=== PATIENT | male | born 1955 | race Caucasian/White ===

== ENCOUNTER 2021-07-17 12:10 | Inpatient (IN) | payer OTHER, SELFPAY ==
[2021-07-17] VITALS (18 sets, daily range): BP systolic 129–163; BP diastolic 73–93; PULSE 69–96; RESP 14–31; TEMP 36.7–38.6; O2SAT 88–98; BMI 31.1
--- NOTE | ~2021-07-17 | XR_ITS ---
XR chest 1V portable DATE: 07/24/2021 08:58 INDICATION: Oxygen desaturation. Covid pneumonia. TECHNIQUE: Portable AP chest on 07/24/2021 at 0847 hours COMPARISON: 07/22/2021 portable AP chest at 0947 hours FINDINGS: There are extensive patchy bilateral pulmonary infiltrates involving particularly the mid a nd to a greater extent lower lung zones, with air bronchograms noted in particular in the left retroc ardiac area, left lower lobe. No pleural effusion or pneumothorax is evident. Heart size is not optimally evaluated but likely enlarged. Diffuse osteopenia. Degenerative change of the thoracic spine. IMPRESSION: Patchy bilateral pulmonary infiltrates, consistent with pneumonia, increased in severity since 07/22/2021 Reviewed, dictated and finalized at location A.
--- NOTE | ~2021-07-17 | XR_ITS ---
EXAMINATION: XR chest 1V portable INDICATION: COVID pneumonia TECHNIQUE: Portable AP chest at 0506 hours COMPARISON: 08/02/2021 FINDINGS: A right upper extremity PICC ends with its tip at the superior cavoatrial junction. Patchy bilateral opacities persist in all lung zones without significant change. A small right pleural effus ion has decreased in size. There is no pneumothorax. The cardiomediastinal silhouette is stable. IMPRESSION: 1. Stable diffuse lung disease, consistent with pneumonia and/or pulmonary edema and/or acute respira tory distress syndrome (ARDS). Reviewed, dictated and finalized at location A. IMPRESSION: 1. Stable diffuse lung disease, consistent with pneumonia and/or pulmonary lolly a and/or acute respiratory distress syndrome (ARDS).
--- NOTE | ~2021-07-17 | CT_ITS ---
EXAMINATION: CTA chest PE protocol DATE: 08/12/2021 13:33 INDICATION: Shortness of breath. TECHNIQUE: Computed tomography angiography (CTA) of the chest was performed with 100 mL Omnipaque-350 intravenous contrast timed to evaluate the pulmonary arteries. Coronal maximum intensity projection 3D-reconstructions were created by the technologist. Automated exposure control and iterative reconst ruction technique were employed. The dose-length product was 591.60 mGy-cm. COMPARISON: Chest CT 08/10/2021 FINDINGS: There are groundglass opacities, airspace opacities, and septal thickening in all lobes wit h a peripheral and lower lobe predominance. There are small pleural effusions. Cardiomegaly is noted. There are coronary artery calcifications. There is a small pericardial effusion. A right upper extre mity peripherally inserted central venous catheter (PICC) is seen with tip in the superior vena cava. There is no pulmonary embolus. There is mild mediastinal lymphadenopathy. There are bridging endplat e osteophytes at multiple levels in the spine, consistent with diffuse idiopathic skeletal hyperostos is (DISH). IMPRESSION: 1. No pulmonary embolus. 2. Stable diffuse lung disease, consistent with pneumonia versus acute respiratory distress syndrome (ARDS). 3. Small pleural effusions. 4. Cardiomegaly. 5. Stable small pericardial effusion. 6. Mild mediastinal lymphadenopathy, likely reactive. Reviewed, dictated and finalized at location A. IMPRESSION: 1. No pulmonary embolus. 2. Stable diffuse lung disease, consistent with pneumonia versus acute respirat ory distress syndrome (ARDS). 3. Small pleural effusions. 4. Cardiomegaly. 5. Stable small pericardial effusion. 6. Mild mediastinal lymphadenopathy, likely reactive.
--- NOTE | ~2021-07-17 | XR_ITS ---
XR chest 1V portable 07/17/2021 12:43 Indication: Shortness of breath with cough. Covid positive. Procedure: AP portable chest Comparison: No prior studies for comparison. Findings: Patchy bilateral airspace disease, compatible with pneumonia. No pleural effusion. No pneum othorax. No acute osseous abnormality. Impression: 1: Patchy bilateral pneumonia. Reviewed, dictated and finalized at location A. Impression: 1: Patchy bilateral pneumonia.
--- NOTE | ~2021-07-17 | XR_ITS ---
EXAMINATION: XR chest 1V portable EXAM DATE: 07/28/2021 05:34 INDICATION: COVID pneumonia. TECHNIQUE: Portable AP frontal chest x-ray was obtained. Comparison is made to prior examination from 07/27/2021. FINDINGS: Right upper extremity peripherally inserted central venous catheter (PICC) tip at the superior cavoa trial junction. No significant change in patchy airspace opacities throughout both lungs. No pleural effusion or pneumothorax. The cardiomediastinal silhouette is prominent but magnified on this AP tech nique. There are mild bony degenerative changes. IMPRESSION: 1. Right PICC line tip at the superior cavoatrial junction. 2. Unchanged diffuse airspace disease consistent with COVID pneumonia. Reviewed, dictated and finalized at location A.
--- NOTE | ~2021-07-17 | XR_ITS ---
EXAMINATION: XR chest 1V portable DATE: 07/26/2021 08:44 INDICATION: COVID pneumonia TECHNIQUE: frontal view of the chest was obtained. COMPARISON: Chest radiograph dated 07/24/2021 FINDINGS: No significant interval change accounting for mildly decreased lung volumes in the lower lung predomi nant diffuse bilateral patchy airspace opacities consistent with COVID pneumonia. No pleural effusion or pneumothorax. The cardiomediastinal silhouette is normal. IMPRESSION: 1. Mildly decreased lung volumes with otherwise unchanged patchy bilateral opacities consistent with COVID pneumonia Reviewed, dictated and finalized at location A. IMPRESSION: 1. Mildly decreased lung volumes with otherwise unchanged patchy bilateral opac ities consistent with COVID pneumonia
--- NOTE | ~2021-07-17 | XR_ITS ---
EXAMINATION: XR chest 1V portable DATE: 07/22/2021 10:22 INDICATION: Pneumonia TECHNIQUE: frontal view of the chest was obtained. COMPARISON: Chest radiograph dated 07/17/2021 FINDINGS: No significant interval change in patchy airspace opacities in the bilateral mid and lower lung zones . Opacity at the right upper lung zone appears to correspond to hypertrophic change at the anterior r ight first rib. No pleural effusion or pneumothorax. The cardiomediastinal silhouette is normal. IMPRESSION: 1. No significant change in patchy airspace opacities in the bilateral mid and lower lung zones consi stent with pneumonia. Reviewed, dictated and finalized at location A. IMPRESSION: 1. No significant change in patchy airspace opacities in the bilateral mid and lower lung zones consistent with pneumonia.
--- NOTE | ~2021-07-17 | XR_ITS ---
EXAMINATION: XR chest 1V portable DATE: 08/02/2021 05:55 INDICATION: COVID-19 pneumonia. TECHNIQUE: A single frontal view of the chest was obtained. COMPARISON: Chest single view 07/30/2021 FINDINGS: There are airspace and interstitial opacities throughout the lungs bilaterally. There is a small right pleural effusion. No pneumothorax. The heart size is normal. A right upper extremity clarisa pherally inserted central venous catheter (PICC) is seen with tip at superior cavoatrial junction. IMPRESSION: 1. Stable diffuse lung disease, consistent with pneumonia. 2. Stable small right pleural effusion. Reviewed, dictated and finalized at location A.
--- NOTE | ~2021-07-17 | XR_ITS ---
EXAMINATION: XR chest PICC line DATE: 07/27/2021 12:27 INDICATION: PICC line placement TECHNIQUE: frontal view of the chest was obtained. COMPARISON: Chest radiograph dated 07/26/2021 FINDINGS: Right upper extremity peripherally inserted central venous catheter (PICC) tip at the superior cavoa trial junction. No significant change in patchy airspace opacities throughout both lungs. No pleural effusion or pneumothorax. The cardiomediastinal silhouette is normal. IMPRESSION: 1. Right PICC line tip at the superior cavoatrial junction. 2. Unchanged patchy bilateral lung disease consistent with COVID pneumonia. Reviewed, dictated and finalized at location A.
--- NOTE | ~2021-07-17 | XR_ITS ---
EXAMINATION: XR chest 1V portable EXAM DATE: 08/14/2021 05:48 INDICATION: COVID PNA. TECHNIQUE: Portable AP frontal chest x-ray was obtained. Comparison is made to prior examination from 08/12/2021. FINDINGS: Diffuse bilateral airspace disease consistent with COVID pneumonia. Cardiomegaly and pulmon ramu vascular congestion. Right-sided PICC line in position. No pneumothorax or sizable pleural effusi on. There are bony degenerative changes. IMPRESSION: 1. Diffuse COVID pneumonia unchanged. Reviewed, dictated and finalized at location A.
--- NOTE | ~2021-07-17 | XR_ITS ---
EXAMINATION: XR chest 2V EXAM DATE: 08/17/2021 09:30 INDICATION: COVID pneumonia, weakness. Shortness of breath. TECHNIQUE: Frontal and lateral projections of the chest obtained and reviewed. Comparison is made to prior examination from 08/14/2021. FINDINGS: Diffuse bilateral airspace disease consistent with subacute COVID pneumonia. Overall amount of airspace disease may have improved slightly. Cardiomegaly and pulmonary vascular congestion. Righ t-sided PICC line in position. No pneumothorax or sizable pleural effusion. There are bony degenerati ve changes. IMPRESSION: 1. Diffuse subacute COVID pneumonia stable or with slight improvement. Reviewed, dictated and finalized at location A.
--- NOTE | ~2021-07-17 | XR_ITS ---
EXAMINATION: XR chest 1V portable INDICATION: Hypoxia TECHNIQUE: Portable AP chest at 1235 hours COMPARISON: 08/08/2021 FINDINGS: Cardiomegaly is noted. Diffuse airspace opacities persist throughout all lung zones with sl ight interval increase. A right upper extremity PICC ends with its tip at the superior cavoatrial philip ction. There is no pleural effusion or pneumothorax. IMPRESSION: 1. Diffuse lung disease with interval worsening, consistent with pneumonia and/or pulmonary edema and /or acute respiratory distress syndrome (ARDS). Reviewed, dictated and finalized at location A. IMPRESSION: 1. Diffuse lung disease with interval worsening, consistent with pneumonia and/ or pulmonary edema and/or acute respiratory distress syndrome (ARDS).
--- NOTE | ~2021-07-17 | CT_ITS ---
EXAMINATION: CT chest high resolution wo vt EXAM DATE: 08/10/2021 14:43 INDICATION: Post- covid, ? Organizing pneumonia vs fibrosis. TECHNIQUE: Spiral CT of the chest without contrast. HRCT. Axial, coronal and sagittal images of the chest were reviewed. Coronal maximum intensity pixel images of chest reviewed. The dose-length prod uct (DLP) for this examination was 326.77 mGy-cm. The exposure was tailored according to patient siz e (auto mA exposure control), and iterative reconstruction (ASIR) was used as additional dose reducti on technique. Correlation is made to chest x-ray 08/08/2021. FINDINGS: There is diffuse bilateral peripheral predominant airspace disease which is nearly conflue nt, appearance is consistent with subacute COVID pneumonia. This would be obscuring interlobular sept al thickening, evaluation for underlying interstitial lung disease. There is a right-sided PICC line. Cardiomegaly and small pericardial effusion. Tracheobronchial tree is patent. There is no medias tinal, hilar or axillary lymphadenopathy. There is no pneumothorax. Heart normal in size. There is moderate coronary arterial calcification, arterial sclerosis. Upper abdomen is unremarkable. P geovanni has diffuse idiopathic skeletal hyperostosis (DISH). IMPRESSION: 1. Diffuse bilateral peripheral nearly confluent airspace disease consistent with subacute COVID pne umonia. 2. Cardiomegaly, small pericardial effusion. Reviewed, dictated and finalized at location B. IMPRESSION: 1. Diffuse bilateral peripheral nearly confluent airspace disease consistent w ith subacute COVID pneumonia. 2. Cardiomegaly, small pericardial effusion.
--- NOTE | ~2021-07-17 | XR_ITS ---
XR chest 1V portable 07/30/2021 05:43 Indication: CovidPneumonia Procedure: AP portable chest Comparison: Comparison to multiple prior studies sequentially, with oldest reviewed study dated 07/15. Findings: Persistent patchy diffuse bilateral airspace disease, compatible with pneumonia. No signifi cant effusion. No pneumothorax. No acute osseous abnormality. PICC line tip in the SVC. Impression: 1: Stable diffuse bilateral airspace disease, compatible with pneumonia. Reviewed, dictated and finalized at location A. Impression: 1: Stable diffuse bilateral airspace disease, compatible with pneumonia.
--- NOTE | 2021-07-17 12:25 | ECG_ITS ---
Measurements Intervals [place] Rate: 86 P: 20 IN: 182 QRS: -33 QRSD: 97 T: 59 QT: 335 QTc: 403 Interpretive Statements SINUS RHYTHM LEFT AXIS DEVIATION BORDERLINE R WAVE PROGRESSION, ANTERIOR LEADS MINIMAL Q WAVES- HIGH LATERAL LEADS BASELINE ARTIFACT- II, III, AVR, AVF, V2-V6 BORDERLINE ECG Electronically Signed On 07-17-2021 16:36:00 CDT by Sachin Kramer D.O.
--- NOTE | 2021-07-17 12:39 | ED.SOB ---
HPI - SOB/Dyspnea General Chief Complaint: Shortness of Breath/Dyspnea Stated Complaint: covid positive/low 02 sats Time Seen by Provider: 07/17/21 12:23 Source: patient Limitations: no limitations History of Present Illness HPI Narrative: 66-year-old male with no past medical history although he has not seen a doctor in years complaining of increasing shortness of breath fever dyspnea on exertion and decreased appetite over the past 5 days since he has been diagnosed with Covid via PCR. Shortness of breath with worse with exertion and talking, patient is 84 to 86% on room air at rest. Shortness of breath slightly improved with rest. With mildly increased respirations. Speaking full sentences with some difficulty. No chest pain, no leg swelling, no unilateral calf swelling no hemoptysis. Patient arrived with fever of 101. Patient has no tobacco history, patient is finished a course of azithromycin without relief. No syncope, no paresthesias, does complain of some pleuritic chest pain with cough. MD elicited complaint: shortness of breath and cough Onset (ago): day(s) (5) Timing: constant and progressively worsening Severity: severe Exacerbating factors: exertion, coughing and stress Relieving factors: rest Known history of: other (COVID) Related Data Home Medications Medication Instructions Recorded Confirmed amoxicillin 875 mg PO Q12H 07/17/21 07/17/21 Allergies Allergy/AdvReac Type Severity Reaction Status Date / Time No Known Allergies Allergy Verified 07/17/21 12:30 Review of Systems Review of Systems: CONSTITUTIONAL: positive for fever, chills; EYES: Denies visual changes, redness, or discharge. ENT: Denies rhinorrhea, congestion, sore throat, or otalgia. CARDIOVASCULAR: Denies chest pain, palpitations, or edema. RESPIRATORY: dry cough with dyspnea. GASTROINTESTINAL: Denies abdominal pain, positive for nausea, vomiting, or diarrhea. GENITOURINARY: Denies dysuria or hematuria. SKIN: Denies rash or itching. MUSCULOSKELETAL: Denies back pain, joint pain, or myalgia. NEUROLOGIC: Denies headache, numbness, or weakness. PSYCHIATRIC: Denies anxiety or depression. [facility] Past Medical History Medical History No significant past medical history Surgical History Surgical History No significant past surgical history Family History Family History Father Diabetes mellitus Social History Social History Social History: Surrogate decision maker: Rae Vicente, spouse. Code status: Full code. 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 Head: normocephalic, atraumatic ENT: moist mucous membranes, oropharynx patent, no rhinorrhea Neck: supple, trachea midline, no JVD Chest: equal chest rise bilaterally, no chest wall trauma Lungs: clear to auscultation bilaterally, respirations labored CV: regular rate, no SHAISTA B, calf size equal bilaterally Abd: soft, non-distended, non-tender, no rebound, no gaurding, negative Alvarez's : no CVA tenderness B, bladder non-distended neurologic tachycardia EXT: no deformity noted, moving all extremities equally Neuro: alert, oriented x 3; CN 2-12 grossly intact, no gross focal deficits Skin: no pallor, no rashes, no jaundice 80 yeah yeah it is is a little bit setting of an old 1 for evaluation okay Psych: affect appropriate, though content normal Course Vital Signs Vital signs: Vital Signs Blood Pressure 163/82 H 07/17/21 12:21 Temperature 36.2 C L
[2021-07-17 12:45] LABS: Basophils Percent Auto 0.1 % (0.2-1.2); Hematocrit 42.8 % (42.0-52.0); Hemoglobin 13.6 g/dL (14.0-18.0); Immature Granulocyte Absolute 0.08 K/mm3 (0.00-0.031); Immature Granulocyte Percent A 0.6 % (0-0.5); Lymphocytes Absolute Auto 7.17 K/mm3 (0.9-3.2); Lymphocytes Percent Auto 52.2 % (18.3-44.2); Mean Corpuscular HGB Conc 31.8 g/dl (32-36); Mean Corpuscular Hemoglobin 22.5 pg (26-34); Mean Corpuscular Volume 70.7 fl (80-100); Mean Platelet Volume 9.6 fl (7.4-10.4); Monocytes Absolute Auto 0.4 K/mm3 (0.1-0.6); Monocytes Percent Auto 2.7 % (2.6-8.5); Neutrophils Absolute Auto 6.1 K/mm3 (1.3-6.7); Neutrophils Percent Auto 44.4 % (45.5-73.1); Platelet Count Result 221 k/mm3 (150-375); Red Blood Count 6.05 M/mm3 (4.6-6.20); Red Cell Distribution Width 15.9 % (11.5-14.5); White Blood Count 13.7 K/mm3 (4.5-10.0)
[2021-07-17 12:56] LABS: Anion Gap 8 mmol/L (8-16); Blood Urea Nitrogen 19 mg/dL (9-20); Calcium 8.8 mg/dL (8.4-10.2); Carbon Dioxide 33 mmol/L (22-30); Chloride 95 mmol/L (98-107); Estimated CRCL calculation 94 ml/min; Estimated Glomerular Filt Rate > 60; Glucose 126 mg/dL (65-110); Sodium 136 mmol/L (137-145)
[2021-07-17] MEDS: SODIUM CHLORIDE 0.9% IV 1,000 ML 999 ML IV CONT (13:07)
[2021-07-17] MEDS: ACETAMINOPHEN 500 MG TABLET 1000 MG PO (13:07)
[2021-07-17] MEDS: DEXAMETHASONE SOD PHOS INJ 4 MG/ML VIAL 6 MG IV PUSH (13:07)
--- NOTE | 2021-07-17 15:21 | ADMGEN ---
This patient, Khang Vicente, was admitted to [facility] Surg Room 313-01 at 1500. Patient/family oriented to hospital policies and general routines including ID bracelet, bed and alarms, visiting hours, pain management, procedures, bathroom and other care routines, personal items, smoking policy, room service/diet, and visiting hours. orientated to use of call light. pt voices no discomfort at this time. Information on how to activate the Rapid Response Team has been discussed. Patient/Family are encouraged to report perceived risks to care and to ask questions if they do not understand what they are told or what they should do.
--- NOTE | 2021-07-17 17:00 | PM.IMHP ---
H&P: HPI History of Present Illness Date/Time: 07/17/21 17:00 <Dang Manzanares PA-C - Last Filed: 07/17/21 21:55> Chief Complaint: Shortness of breath. <Dang Manzanares PA-C - Last Filed: 07/17/21 21:55> Narrative: This is a 66-year-old male without significant medical history presented to the emergency department earlier today via private vehicle from home for evaluation of shortness of breath. About 8 days ago he noticed a change in his smell and he developed a cough shortly thereafter. He was seen at urgent care on 07/11/2021 at which time he tested positive for COVID-19 and he was prescribed a Medrol Dosepak as well as amoxicillin for ear possible ear infection. Since that time he has had intermittent fevers up to 102? F, and decreased appetite with mild nausea, as well as increasing dyspnea on exertion. He did have a short bout of diarrhea early last week but that has since resolved. On arrival to the emergency department his SpO2 was 88% on room air and he reportedly desaturated to 84% with ambulation. Chest x-ray shows patchy bilateral infiltrates consistent with COVID pneumonia, and he is being admitted in this setting. He denies vomiting, chest pain, significant pleuritic pain, and current diarrhea. He has no known sick contacts and does not know where he was exposed to COVID. He has not yet received the vaccination but most family members have and they have not been ill. He did not receive monoclonal antibodies or any other early treatment. <Dang Manzanares PA-C - Last Filed: 07/17/21 21:55> Review of Systems Review of Systems: Twelve systems were reviewed with pertinent positives and negatives as per HPI. Except as documented, all other systems were reviewed and are negative. <Dang Manzanares PA-C - Last Filed: 07/17/21 21:55> [facility] Past Medical History Medical History: Medical History (Updated 07/17/21 @ 21:49 by Dang Manzanares PA-C) No significant past medical history <Dang Manzanares PA-C - Last Filed: 07/17/21 21:55> Surgical History Surgical History: Surgical History (Updated 10/03/21 @ 21:49 by Dang Manzanares PA-C) No significant past surgical history <Dang Manzanares PA-C - Last Filed: 07/17/21 21:55> Family History Family History: Family History Father Diabetes mellitus <Dang Manzanares PA-C - Last Filed: 07/17/21 21:55> Social History Social History: Social History Social History: Surrogate decision maker: Rae Vicente, spouse. Code status: Full code. 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 <Dang Manzanares PA-C - Last Filed: 07/17/21 21:55> Meds Home Medications and Allergies Home medications: Home Medications Medication Instructions Recorded Confirmed Type amoxicillin 875 mg PO Q12H 07/17/21 07/17/21 History <Dang Manzanares PA-C - Last Filed: 07/17/21 21:55> Allergies/Adverse reactions: Allergies Allergy/AdvReac Type Severity Reaction Status Date / Time No Known Allergies Allergy Verified 07/17/21 12:30 <Dang Manzanares PA-C - Last Filed: 07/17/21 21:55> Vital Signs Vital Signs - 24 hr 07/17/21 12:21 07/17/21 12:22 07/17/21 12:26 Temperature 101.5 F H Pulse Rate 87 Respiratory Rate 28 H Blood Pressure 163/82 H 163/82 H Pulse Oximetry 88 L 88 L 07/17/21 12:30 07/17/21 12:32 07/17/21 12:45 Temperature Pulse Rate 91 90 90 Respiratory Rate 19 31 H 27 H Blood Pressure 158/93 H Pulse Oximetry 93 94 98 07/17/21 13:00 07/17/21 13:02 07/17/21 13:09 Temperature Pulse Rate 96 95 92 Respiratory Rate 21 H 22 H Blood
[2021-07-17 17:36] LABS: INR 0.9; Prothrombin Time 12.4 Seconds (11.1-14.7)
[2021-07-17 17:37] LABS: Alanine Aminotransferase 25 U/L (4-50); Albumin Level 4.3 g/dL (3.5-5.1); Alkaline Phosphatase 46 U/L (38-126); Aspartate Amino Transferase 61 U/L (17-59); Bilirubin,Total 0.5 mg/dL (0.2-1.3); CRP 4.2 mg/dL (<1.0); Estimated CRCL calculation 96 ml/min; Estimated Glomerular Filt Rate > 60; Lactate Dehydrogenase 928 U/L (313-618)
[2021-07-17 18:12] LABS: Procalcitonin 0.1 ng/mL
[2021-07-17] MEDS: REMDESIVIR 200 MG/NS 250 ML 200 MG/250 ML BAG 250 MG IVPB (18:38)
[2021-07-17] MEDS: guaiFENesin 600 MG/DEXTROMETHORPHAN 30 MG SR TAB 12 HR 1 TAB PO (22:45)
[2021-07-17] MEDS: AMOXICILLIN 500 MG CAPSULE 1000 MG PO (22:46)
[2021-07-18] VITALS (11 sets, daily range): BP systolic 117–131; BP diastolic 63–75; PULSE 54–84; RESP 16–20; TEMP 36.7–37.1; O2SAT 90–98
[2021-07-18] MEDS: AMOXICILLIN 500 MG CAPSULE PO ×3 (06:27→20:41)
[2021-07-18 06:42] LABS: Hemoglobin 12.6 g/dL (14.0-18.0); Mean Corpuscular HGB Conc 31.5 g/dl (32-36); Mean Corpuscular Hemoglobin 21.8 pg (26-34); Mean Corpuscular Volume 69.3 fl (80-100); Mean Platelet Volume 9.4 fl (7.4-10.4); Platelet Count Result 220 k/mm3 (150-375); Red Blood Count 5.77 M/mm3 (4.6-6.20); Red Cell Distribution Width 15.2 % (11.5-14.5); White Blood Count 11.3 K/mm3 (4.5-10.0)
[2021-07-18 06:57] LABS: Prothrombin Time 13.2 Seconds (11.1-14.7)
[2021-07-18 07:17] LABS: Alanine Aminotransferase 23 U/L (4-50); Albumin Level 3.8 g/dL (3.5-5.1); Alkaline Phosphatase 44 U/L (38-126); Anion Gap 9 mmol/L (8-16); Aspartate Amino Transferase 55 U/L (17-59); Bilirubin,Total 0.5 mg/dL (0.2-1.3); Blood Urea Nitrogen 22 mg/dL (9-20); Calcium 8.6 mg/dL (8.4-10.2); Carbon Dioxide 30 mmol/L (22-30); Chloride 97 mmol/L (98-107); Estimated CRCL calculation 96 ml/min; Estimated Glomerular Filt Rate > 60; Glucose 120 mg/dL (65-110); Lactate Dehydrogenase 849 U/L (313-618); Magnesium 1.9 mg/dL (1.6-2.3); Potassium 4.5 mmol/L (3.4-5.0); Sodium 136 mmol/L (137-145)
[2021-07-18] MEDS: DEXAMETHASONE 2 MG TABLET 6 MG PO (08:14)
[2021-07-18] MEDS: ENOXAPARIN 40 MG/0.4 ML SYRINGE SUB-Q (08:14)
[2021-07-18] MEDS: guaiFENesin 600 MG/DEXTROMETHORPHAN 30 MG SR TAB 12 HR 1 TAB PO ×2 (08:14→20:41)
[2021-07-18] MEDS: CARBAMIDE PEROXIDE 6.5% OT SOLN 15 ML BTL 5 DROP RIGHT EAR ×2 (08:17→16:47)
[2021-07-18] MEDS: ALBUTEROL SULFATE (*SP) AEROSOL 1 PUFF 2 PUFF INHALATION ×4 (09:38→21:00)
--- NOTE | 2021-07-18 12:56 | PM.IMPN ---
Progress Note: A&P Assessment and Plan (1) Pneumonia due to COVID-19 virus: Code(s): U07.1 - COVID-19; J12.82 - Pneumonia due to coronavirus disease 2019 Status: Acute (2) Hypoxia: Code(s): R09.02 - Hypoxemia Status: Acute Additional Plan The patient has had symptoms of COVID for about 8 days and tested positive on 07/11/2021. Chest x-ray today is consistent with COVID pneumonia; concomitant bacterial pneumonia is felt to be less likely as I assume his white blood cell count is elevated due to Medrol Dosepak that he took earlier on in the week. Continue amoxicillin prescribed for possible otitis media though patient was told he had cerumen impaction thus the diagnosis is uncertain. He has been placed in isolation per protocol. Given his oxygen requirement (currently on 3 L), he will be started on dexamethasone as well as remdesivir. Schedule albuterol q.6 hours for now given wheezing. Wean oxygen as tolerated. Trend inflammatory markers, pending at time of this dictation. 07/18 Interval history: patient with COVID-19 pneumonia will start the patient on high-dose dexamethasone 20 mg q.day for 5 days, 10/19, and patient started remdesivir on 07/17 11/19, currently patient is on 3 L of oxygen is feeling much better compared to when he arrived, will continue present management will continue to monitor, goal is if the patient remains fever free for 2 days requiring less than 4 L of oxygen will do the home oxygen evaluation, and may discharge the patient. will have a PT OT evaluate the patient and further recommendation to follow. Subjective Date/time seen: 07/18/21 12:56 This is a 66-year-old male without significant medical history presented to the emergency department earlier today via private vehicle from home for evaluation of shortness of breath. About 8 days ago he noticed a change in his smell and he developed a cough shortly thereafter. He was seen at urgent care on 07/11/2021 at which time he tested positive for COVID-19 and he was prescribed a Medrol Dosepak as well as amoxicillin for ear possible ear infection. Since that time he has had intermittent fevers up to 102? F, and decreased appetite with mild nausea, as well as increasing dyspnea on exertion. He did have a short bout of diarrhea early last week but that has since resolved. On arrival to the emergency department his SpO2 was 88% on room air and he reportedly desaturated to 84% with ambulation. Chest x-ray shows patchy bilateral infiltrates consistent with COVID pneumonia, and he is being admitted in this setting. He denies vomiting, chest pain, significant pleuritic pain, and current diarrhea. He has no known sick contacts and does not know where he was exposed to COVID. He has not yet received the vaccination but most family members have and they have not been ill. He did not receive monoclonal antibodies or any other early treatment. 07/18 Interval history: patient with COVID-19 pneumonia will start the patient on high-dose dexamethasone 20 mg q.day for 5 days, 10/19, and patient started remdesivir on 07/17 11/19, currently patient is on 3 L of oxygen is feeling much better compared to when he arrived, will continue present management will continue to monitor, goal is if the patient remains fever free for 2 days requiring less than 4 L of oxygen will do the home oxygen evaluation, and may discharge the patient. will have a PT OT evaluate the patient and further recommendation to follow. Review of Systems Review of Systems: All systems reviewed & are unremarkable except as noted in HPI and below Exam Narrative: Patient is comfortable, NAD HEENT: eyes are clear and none icteric LUNGS: normal respiratory effort ABD: moderately distended Lower extremities: no edema SKIN: nonjaundiced Neuro: grossly intact normal speech. Objective Data Vital Signs Vital Signs: Vital Signs - 24 hr 07/17/21 13:00 07/17/21 13:02 07/17/21 13:09 Temperature Pulse Rate
[2021-07-18] MEDS: REMDESIVIR 100 MG/NS 250 ML 100 MG/250 ML BAG 250 MG IVPB (20:41)
[2021-07-19] VITALS (16 sets, daily range): BP systolic 109–130; BP diastolic 66–82; PULSE 50–90; RESP 18–22; TEMP 36.3–36.9; O2SAT 87–100
[2021-07-19] MEDS: AMOXICILLIN 500 MG CAPSULE PO ×3 (06:31→21:00)
[2021-07-19 06:59] LABS: Hematocrit 40.6 % (42.0-52.0); Hemoglobin 12.5 g/dL (14.0-18.0); Mean Corpuscular HGB Conc 30.8 g/dl (32-36); Mean Corpuscular Volume 71.5 fl (80-100); Mean Platelet Volume 9.7 fl (7.4-10.4); Platelet Count Result 259 k/mm3 (150-375); Red Blood Count 5.68 M/mm3 (4.6-6.20); Red Cell Distribution Width 15.6 % (11.5-14.5); White Blood Count 17.2 K/mm3 (4.5-10.0)
[2021-07-19 07:10] LABS: Prothrombin Time 12.8 Seconds (11.1-14.7)
[2021-07-19 07:27] LABS: Alanine Aminotransferase 26 U/L (4-50); Albumin Level 3.7 g/dL (3.5-5.1); Alkaline Phosphatase 41 U/L (38-126); Anion Gap 8 mmol/L (8-16); Aspartate Amino Transferase 60 U/L (17-59); Bilirubin,Total 0.4 mg/dL (0.2-1.3); Blood Urea Nitrogen 26 mg/dL (9-20); Carbon Dioxide 31 mmol/L (22-30); Chloride 99 mmol/L (98-107); Estimated CRCL calculation 96 ml/min; Estimated Glomerular Filt Rate > 60; Glucose 133 mg/dL (65-110); Potassium 5.3 mmol/L (3.4-5.0); Sodium 138 mmol/L (137-145)
[2021-07-19] MEDS: CARBAMIDE PEROXIDE 6.5% OT SOLN 15 ML BTL 5 DROP RIGHT EAR (08:59)
[2021-07-19] MEDS: ENOXAPARIN 40 MG/0.4 ML SYRINGE SUB-Q (08:59)
[2021-07-19] MEDS: guaiFENesin 600 MG/DEXTROMETHORPHAN 30 MG SR TAB 12 HR 1 TAB PO ×2 (09:00→20:40)
[2021-07-19] MEDS: ALBUTEROL SULFATE (*SP) AEROSOL 1 PUFF 2 PUFF INHALATION (09:41)
[2021-07-19] MEDS: DEXAMETHASONE SOD PHOS INJ 4 MG/ML VIAL 6 MG IV PUSH (11:17)
--- NOTE | 2021-07-19 11:48 | PM.IMPN ---
Progress Note: A&P Assessment and Plan (1) Acute hypoxemic respiratory failure: Code(s): J96.01 - Acute respiratory failure with hypoxia Status: Acute (2) Pneumonia due to COVID-19 virus: Code(s): U07.1 - COVID-19; J12.82 - Pneumonia due to coronavirus disease 2019 Status: Acute (3) Hyperkalemia: Code(s): E87.5 - Hyperkalemia Status: Acute (4) Otitis media: Code(s): H66.90 - Otitis media, unspecified, unspecified ear Status: Acute (5) DVT prophylaxis: Code(s): Z29.9 - Encounter for prophylactic measures, unspecified Status: Acute Additional Plan The patient developed symptoms of COVID around 07/09 and tested positive on 07/11/2021. He is unvaccinated. Chest x-pablo admisison showing patchy bilateral PNA. His elevated WBC is elevated due to steroids. Continue amoxicillin for possible otitis media. He has been placed in isolation per protocol. Given his oxygen requirement, he will be started on dexamethasone and remdesivir. Will hold albuterolsince this seems to exacerbate his symptoms probably from miss-match. Repeat inflammatory markers. Check COVID swab to verify dose and request results.Move to IMU. Consider Tocilizumab or baricitinib. Reepat potassium to verify.Add sliding scale insulin due to the steroids. COVID diagnosis verified. Hypoxia improved per RN when he is prone. Start Baricitinib (despite improvement in CRP); LDH and Ferritin still pending but elevated yesterday. Pulmonary consult. Repeat potassium better. Subjective Date/time seen: 07/19/21 11:48 Interval history: 66yo healthy male presents with complaints of SOB and is known to have COVID. Patient began to have symptoms on July 09. He tested positive on July 11 although this is not verified. He did have diarrhea early course but this has resolved. No nausea vomiting. He does have anosmia. He has been having increasing shortness of breath which prompted presentation to the ED. since admission is states he has not had much improvement. Albuterol seems to make it shortness of breath worse. He denies any chest pain or abdominal pain. He is having persistent dry cough. Patient has been stable on 2-3 L of oxygen but this morning he was increased to 8 L. Exam Narrative: AF 97.8 110/82 64 18 87% 6L (now on 8L) Gen - NARD sitting up in chair Chest - distant BS, nml RR CV - RRR S1/S2 Abd - Soft, NT/ND, Positive BS Ext - No pedal edema; Negative Juan A's Psych - Nml mood and affect Skin - Warm and dry Objective Data Vital Signs Vital Signs: Vital Signs - 24 hr 07/18/21 12:00 07/18/21 16:00 07/18/21 20:00 Temperature 98.1 F 98.4 F Pulse Rate 80 84 Respiratory Rate 18 18 Blood Pressure 130/63 130/75 Pulse Oximetry 92 94 94 07/18/21 20:05 07/18/21 21:00 07/18/21 23:52 Temperature 98.1 F 98.1 F Pulse Rate 77 77 55 L Respiratory Rate 20 20 18 Blood Pressure 129/69 131/68 Pulse Oximetry 91 90 07/19/21 00:42 07/19/21 03:35 07/19/21 04:00 Temperature 98.4 F Pulse Rate 77 73 Respiratory Rate 20 20 Blood Pressure 126/72 Pulse Oximetry 93 91 91 07/19/21 08:00 07/19/21 09:00 07/19/21 11:20 Temperature 97.8 F Pulse Rate 64 Respiratory Rate 18 Blood Pressure 110/82 Pulse Oximetry 91 93 87 L Intake/Output Intake/Output: Intake & Output 07/16/21 07/17/21 07/18/21 07/19/21 23:59 23:59 23:59 23:59 Intake Total 2040 2920 850 Output Total 550 1400 Balance 1490 1520 850 Meds/Results Medications: Active Medications Generic Name Dose Route Start Last Admin Trade Name Freq PRN Reason Stop Dose Admin Acetaminophen 650 mg 07/17/21 21:53 Acetaminophen 325 Mg Tablet PO Q6H PRN Mild Pain (1-3) or Fever Albuterol 2 puff 07/18/21 08:00 07/19/21 09:41 Albuterol Sulfate (*Sp) Aerosol 1 Puff INHALATION 2 puff QIDRT APOORVA Administration Amoxicillin 500 mg 07/18/21 06:00 07/19/21 06:31 Amoxicillin 500
[2021-07-19 12:58] LABS: Potassium 4.1 mmol/L (3.4-5.0)
--- NOTE | 2021-07-19 16:33 | PC.NURSE ---
This patient, Khang Vicente, was received from [facility] on 07/19/21 at 1634. Patient/family oriented to unit policies and routines.
--- NOTE | 2021-07-19 16:51 | PC.NURSE ---
This patient, Khang Vicente, was transferred to [facility] on 07/19/21 at 1615. Personal belongings sent with patient. Report given to Jarod HINDS. Appropriate documentation sent with patient.
[2021-07-19 18:06] LABS: Glucose Point of Care 136 mg/dl (65-105)
[2021-07-19 19:20] LABS: Lactate Dehydrogenase 947 U/L (313-618)
[2021-07-19 20:25] LABS: Glucose Point of Care 144 mg/dl (65-105)
[2021-07-19] MEDS: BARICITINIB 2 MG TABLET 4 MG PO (20:41)
[2021-07-19] MEDS: ACETAMINOPHEN 325 MG TABLET 650 MG PO (20:41)
[2021-07-19] MEDS: REMDESIVIR 100 MG/NS 250 ML 100 MG/250 ML BAG 250 MG IVPB (21:00)
[2021-07-20] VITALS (24 sets, daily range): BP systolic 100–127; BP diastolic 56–72; PULSE 47–77; RESP 20–30; TEMP 36.6–38.2; O2SAT 88–99; BMI 31.1
[2021-07-20] MEDS: AMOXICILLIN 500 MG CAPSULE PO ×3 (05:03→21:04)
[2021-07-20 05:06] LABS: Basophils Percent Auto 0.1 % (0.2-1.2); Hemoglobin 12.2 g/dL (14.0-18.0); Immature Granulocyte Absolute 0.15 K/mm3 (0.00-0.031); Immature Granulocyte Percent A 0.9 % (0-0.5); Lymphocytes Absolute Auto 6.09 K/mm3 (0.9-3.2); Lymphocytes Percent Auto 37.3 % (18.3-44.2); Mean Corpuscular HGB Conc 31.3 g/dl (32-36); Mean Corpuscular Volume 70.4 fl (80-100); Mean Platelet Volume 9.8 fl (7.4-10.4); Monocytes Absolute Auto 0.4 K/mm3 (0.1-0.6); Monocytes Percent Auto 2.1 % (2.6-8.5); Neutrophils Absolute Auto 9.7 K/mm3 (1.3-6.7); Neutrophils Percent Auto 59.6 % (45.5-73.1); Platelet Count Result 261 k/mm3 (150-375); Red Blood Count 5.54 M/mm3 (4.6-6.20); Red Cell Distribution Width 15.5 % (11.5-14.5); White Blood Count 16.3 K/mm3 (4.5-10.0)
[2021-07-20 05:14] LABS: Prothrombin Time 13.5 Seconds (11.1-14.7)
[2021-07-20 05:21] LABS: Alanine Aminotransferase 29 U/L (4-50); Albumin Level 3.4 g/dL (3.5-5.1); Alkaline Phosphatase 41 U/L (38-126); Anion Gap 5 mmol/L (8-16); Aspartate Amino Transferase 56 U/L (17-59); Bilirubin,Total 0.7 mg/dL (0.2-1.3); Blood Urea Nitrogen 24 mg/dL (9-20); Calcium 8.6 mg/dL (8.4-10.2); Carbon Dioxide 31 mmol/L (22-30); Chloride 100 mmol/L (98-107); Estimated CRCL calculation 96 ml/min; Estimated Glomerular Filt Rate > 60; Glucose 122 mg/dL (65-110); Potassium 4.8 mmol/L (3.4-5.0); Sodium 136 mmol/L (137-145)
[2021-07-20 05:56] LABS: Hemoglobin A1C 5.8 % (<5.7)
[2021-07-20] MEDS: DEXAMETHASONE SOD PHOS INJ 4 MG/ML VIAL 6 MG IV PUSH (08:12)
[2021-07-20] MEDS: CARBAMIDE PEROXIDE 6.5% OT SOLN 15 ML BTL 5 DROP RIGHT EAR ×2 (08:12→17:33)
[2021-07-20] MEDS: ENOXAPARIN 40 MG/0.4 ML SYRINGE SUB-Q (08:12)
[2021-07-20] MEDS: guaiFENesin 600 MG/DEXTROMETHORPHAN 30 MG SR TAB 12 HR 1 TAB PO ×2 (08:13→21:04)
[2021-07-20 08:43] LABS: Glucose Point of Care 99 mg/dl (65-105)
--- NOTE | 2021-07-20 09:47 | PM.IMPN ---
Progress Note: A&P Assessment and Plan (1) Acute hypoxemic respiratory failure: Code(s): J96.01 - Acute respiratory failure with hypoxia Status: Acute Assessment and Plan: The patient developed symptoms of COVID around 07/09 and tested positive on 07/12. He is unvaccinated. Chest x-ray on admission showing patchy bilateral PNA. He has been placed in isolation per protocol. He was started on dexamethasone and remdesivir. Baricitinib added yesterday due to the worseing hypoxia. Repeat inflammatory markers yesterday showing higher LDH and Ferritin but CRP better. Pulmonary following. 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 BiPAP started. This was also so to allow us to prone patient. Jorge does use Ibuprofen regularly at home so will add pepcid BiPAP 28/05 started and patient proned. SpO2 now up to 95%. Continue current care plan otherwise. Add supplements to help with nutrition. notified with patient permission. 35 minutes with critical care. (2) Pneumonia due to COVID-19 virus: Code(s): U07.1 - COVID-19; J12.82 - Pneumonia due to coronavirus disease 2018 Status: Acute Assessment and Plan: Please see above (3) Hyperkalemia: Code(s): E87.5 - Hyperkalemia Status: Acute Assessment and Plan: Repeat potassium normal now. Will continue to monitor (4) Otitis media: Code(s): H66.90 - Otitis media, unspecified, unspecified ear Status: Acute Assessment and Plan: Stable. Continue Amoxicillin. Continue debrox for possible cerumen impaction (5) DVT prophylaxis: Code(s): Z29.9 - Encounter for prophylactic measures, unspecified Status: Acute Assessment and Plan: Lovenox Subjective Date/time seen: 07/20/21 09:47 Interval history: 66yo healthy male presents with complaints of SOB and is known to have COVID. Patient began to have symptoms on July 09. He tested positive on July 12 (result in the paper chart). Patient was moved to IMU. He had increasing O2 requirments and now on Airvo 60L, 95% and NRB mask. He was at 88% but able to climb to 92% when lying still. Aben states he is feeling better now. Not eating much. Not able to lie prone due to the hypoxia/SOB Exam Narrative: AF 99.9 120/71 65 28 92% AirVo and NRB mask Gen - mildly tachypneic sitting up in bed Chest - inspiratory crackles bibasilar CV - RRR S1/S2; Tele showing bradycardia overnight otherwise no significant dysrhythmias. Abd - Soft, NT/ND, Positive BS Ext - No pedal edema. 2+ DP pulses bilaterally Psych - Nml mood and affect Skin - Warm and dry Objective Data Vital Signs Vital Signs: Vital Signs - 24 hr 07/19/21 11:20 07/19/21 11:35 07/19/21 12:00 Temperature 98.1 F Pulse Rate 81 Respiratory Rate 18 Blood Pressure 130/71 Pulse Oximetry 87 L 91 100 07/19/21 12:02 07/19/21 12:50 07/19/21 13:00 Temperature Pulse Rate Respiratory Rate Blood Pressure Pulse Oximetry 92 88 L 91 07/19/21 16:10 07/19/21 18:00 07/19/21 20:00 Temperature 97.9 F 97.4 F L Pulse Rate 78 90 58 L Respiratory Rate 18 22 H Blood Pressure 120/73 109/66 Pulse Oximetry 90 98 07/19/21 22:00 07/19/21 23:13 07/20/21 00:00 Temperature 98.3 F Pulse Rate 54 L 50 L 77 Respiratory Rate 20 Blood Pressure 121/69 Pulse Oximetry 99 99 07/20/21 02:00 07/20/21 04:00 07/20/21 05:30 Temperature 97.8 F Pulse Rate 59 L 72 Respiratory Rate 20 Blood Pressure 121/72 Pulse Oximetry 97 88 L 07/20/21 06:00 07/20/21 08:00 07/20/21 09:04 Temperature 99.9 F H Pulse Rate 54 L 62 66 Respiratory Rate 22 H 22 H Blood Pressure 120/71 Pulse Oximetry 92 89 L 07/20/21 09:45 Temperature Pulse Rate 65 Respiratory Rate 28 H Blood Pressure Pulse Oximetry 99 Intake/Output Intake/Output: Intake & Output 07/17/21 07/18/21 07/19/21 07/20/21 23:59 23:59 23:59 23:59 Intake
--- NOTE | 2021-07-20 09:56 | PM.CNPUL ---
Assessment and Plan Assessment and plan (1) Acute hypoxemic respiratory failure: Code(s): J96.01 - Acute respiratory failure with hypoxia Status: Acute (2) Pneumonia due to COVID-19 virus: Code(s): U07.1 - COVID-19; J12.82 - Pneumonia due to coronavirus disease 2019 Status: Acute Assessment and Plan: 66-year-old man with bilateral patchy infiltrates due to COVID-19 infection, acute hypoxemic respiratory failure currently on BiPAP support in the prone position. The O2 saturation has increased to 94 % with BiPAP support. There is probably an additional O2 sat benefit related to prone position. Patient has been on appropriate treatment for COVID-19 pneumonia. Plan is as follows: Continue with BiPAP support at current settings for several hours if tolerated. While in prone position, the patient should be kept NPO to protect him from aspiration of gastric contents. Monitor O2 saturation, D dimers, continue with thromboprophylaxis, current regimen. If prone position not tolerated, keep patient on BIPAP and in upright in bed position. Need to titrate FIO2 down if O2 sat remains greater than 92%. Case was discussed with hospitalist. History of Present Illness History of Present Illness Consult date: 07/20/21 Chief complaint: pneumonia SARs2 COVID Narrative: this 66-year-old man was admitted into the hospital 3 days ago with progressively increasing shortness of breath. Approximately 8 days prior to the admission, the patient noticed some change in smell and subsequently developed cough. He was evaluated at an urgent care center where he tested positive for COVID 19. The patient was prescribed a Medrol Dosepak as well as amoxicillin for possible otitis. Subsequently the patient developed intermittent fevers up to 102 along with mild nausea and dyspnea especially on exertion. His dyspnea got progressively worse and the patient sought again medical advise. In the emergency room, his O2 saturation was 84% with ambulation. Initial chest x-ray showed patchy bilateral infiltrates consistent with COVID 19 viral pneumonia. Since admission, the patient has been on medications for COVID-19 infection including baricitinib, dexamethasone IV and remdesivir. Over the last couple of days his O2 saturation decreased and the patient was placed on high-flow nasal cannula. Earlier today, thr patient was placed in prone position while on BiPAP support 14/8, and FiO2 90%. His last O2 sat on current BiPAP settings and in prone position was 94%. Current complaints in addition to shortness of breath include dry cough. Patient has not been vaccinated for COVID-19 infection. Review of Systems Review of Systems: All systems reviewed & are unremarkable except as noted in HPI and below PMFSH Past Medical History Medical History (Updated 07/19/21 @ 11:57 by Sedrick Castrejon MD) No significant past medical history Surgical History Surgical History (Updated 07/17/21 @ 21:49 by Dang Manzanares PA-C) No significant past surgical history Family History Family History Father Diabetes mellitus Social History Social History Social History: Surrogate decision maker: Rae Vicente, spouse. Code status: Full code. 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
[2021-07-20] MEDS: FAMOTIDINE 20 MG/2 ML VIAL IV PUSH ×2 (11:24→21:03)
[2021-07-20 12:24] LABS: Glucose Point of Care 110 mg/dl (65-105)
[2021-07-20 17:29] LABS: Glucose Point of Care 101 mg/dl (65-105)
[2021-07-20 20:51] LABS: Glucose Point of Care 110 mg/dl (65-105)
[2021-07-20] MEDS: REMDESIVIR 100 MG/NS 250 ML 100 MG/250 ML BAG 250 MG IVPB (21:03)
[2021-07-20] MEDS: ACETAMINOPHEN 325 MG TABLET 650 MG PO (21:03)
[2021-07-20] MEDS: BARICITINIB 2 MG TABLET 4 MG PO (21:04)
[2021-07-21] VITALS (18 sets, daily range): BP systolic 113–132; BP diastolic 60–85; PULSE 50–80; RESP 21–26; TEMP 35.8–37.1; O2SAT 92–99
[2021-07-21] MEDS: AMOXICILLIN 500 MG CAPSULE PO ×3 (05:42→21:23)
[2021-07-21 05:56] LABS: Basophils Percent Auto 0.1 % (0.2-1.2); Eosinophils Percent Auto 0.1 % (0-4.4); Hematocrit 38.8 % (42.0-52.0); Hemoglobin 12.2 g/dL (14.0-18.0); Immature Granulocyte Percent A 0.7 % (0-0.5); Lymphocytes Absolute Auto 4.68 K/mm3 (0.9-3.2); Lymphocytes Percent Auto 34.2 % (18.3-44.2); Mean Corpuscular HGB Conc 31.4 g/dl (32-36); Mean Platelet Volume 9.5 fl (7.4-10.4); Monocytes Absolute Auto 0.2 K/mm3 (0.1-0.6); Monocytes Percent Auto 1.5 % (2.6-8.5); Neutrophils Absolute Auto 8.7 K/mm3 (1.3-6.7); Neutrophils Percent Auto 63.4 % (45.5-73.1); Platelet Count Result 256 k/mm3 (150-375); Red Blood Count 5.54 M/mm3 (4.6-6.20); Red Cell Distribution Width 15.1 % (11.5-14.5); White Blood Count 13.7 K/mm3 (4.5-10.0)
[2021-07-21 06:05] LABS: INR 1.1; Prothrombin Time 14.3 Seconds (11.1-14.7)
[2021-07-21 06:06] LABS: Alanine Aminotransferase 28 U/L (4-50); Albumin Level 3.6 g/dL (3.5-5.1); Alkaline Phosphatase 44 U/L (38-126); Anion Gap 4 mmol/L (8-16); Aspartate Amino Transferase 55 U/L (17-59); Bilirubin,Total 0.9 mg/dL (0.2-1.3); Blood Urea Nitrogen 29 mg/dL (9-20); Calcium 8.6 mg/dL (8.4-10.2); Carbon Dioxide 34 mmol/L (22-30); Chloride 98 mmol/L (98-107); Estimated CRCL calculation 96 ml/min; Estimated Glomerular Filt Rate > 60; Glucose 103 mg/dL (65-110); Potassium 4.7 mmol/L (3.4-5.0); Sodium 136 mmol/L (137-145)
[2021-07-21 06:07] LABS: D Dimer 1.15 ug/mL (<0.48)
[2021-07-21 07:14] LABS: Atypical Lymphocytes Present; Platelet Estimate Adequate (Adequate)
[2021-07-21] MEDS: guaiFENesin 600 MG/DEXTROMETHORPHAN 30 MG SR TAB 12 HR 1 TAB PO ×2 (08:16→21:23)
[2021-07-21 08:17] LABS: Glucose Point of Care 88 mg/dl (65-105)
[2021-07-21] MEDS: FAMOTIDINE 20 MG/2 ML VIAL IV PUSH ×2 (08:17→21:24)
[2021-07-21] MEDS: DEXAMETHASONE SOD PHOS INJ 4 MG/ML VIAL 6 MG IV PUSH (08:17)
[2021-07-21] MEDS: ENOXAPARIN 40 MG/0.4 ML SYRINGE SUB-Q (08:17)
--- NOTE | 2021-07-21 10:25 | PC.NURSE ---
Updated spouse, Rae, on plan of care and patient condition.
--- NOTE | 2021-07-21 10:31 | PM.PNPUL ---
Progress Note: A&P Assessment and Plan (1) Acute hypoxemic respiratory failure: Code(s): J96.01 - Acute respiratory failure with hypoxia Status: Acute (2) Pneumonia due to COVID-19 virus: Code(s): U07.1 - COVID-19; J12.82 - Pneumonia due to coronavirus disease 2019 Status: Acute Assessment and Plan: Respiratory status unchanged while on BiPAP support over the last 24 hours. Also no change on physical exam, showing decreased breath sounds at bases with rare crackles. D-dimers are elevated but less than the critical value of 2 which portends a more severe disease. at this point, we will continue with current medication regimen, BiPAP support, DVT prophylaxis. Would suggest to get a repeat portable chest x-ray in a.m, also monitor CRP, D-dimers daily, attempt to lower FiO2 if tolerated, add SCDs for additional venous thromboprophylaxis. (3) Hypoxia: Code(s): R09.02 - Hypoxemia Status: Acute (4) DVT prophylaxis: Code(s): Z29.9 - Encounter for prophylactic measures, unspecified Status: Acute Subjective Date/time seen: 07/21/21 10:31 Patient has had no new respiratory symptoms over the last 24 hours. He remains on BiPAP support, 14/, and FiO2 of 0.7. Did not tolerate prone position yesterday. Has dry cough with minimal sputum production. Review of Systems Review of Systems: All systems reviewed & are unremarkable except as noted in HPI and below Exam Narrative: GENERAL APPEARANCE: Well developed, well nourished, alert in mild to moderate respiratory distress while seated up in bed and on BIPAP support. SKIN: Inspection of the skin reveals no rashes, ulcerations or petechiae. HEENT: Sclerae anicteric and conjunctivae pink and moist. NECK: Supple. There was no thyroid enlargement, and no tenderness, or masses were felt. LUNGS: Auscultation of the lungs revealed decreased breath sounds at bases posteriorly and rare crackles. No wheezing. CARDIAC: There was a regular rate and rhythm without any murmurs, gallops, rubs. ABDOMEN: Soft and nontender with normal bowel sounds. . LYMPH NODES: No lymphadenopathy was appreciated in the neck. EXTREMITIES: No cyanosis, clubbing or edema. NEUROLOGIC: Alert and oriented x 3. Normal affect. Objective Data Vital Signs Vital Signs: Vital Signs - 24 hr 07/20/21 12:00 07/20/21 14:10 07/20/21 14:30 Temperature 38.2 C H Pulse Rate 73 74 65 Respiratory Rate 28 H 29 H Blood Pressure 114/63 Pulse Oximetry 97 93 97 07/20/21 16:00 07/20/21 18:00 07/20/21 19:40 Temperature 37.6 C 37.8 C H Pulse Rate 60 68 72 Respiratory Rate 30 H 30 H Blood Pressure 127/61 120/64 Pulse Oximetry 93 98 07/20/21 20:00 07/20/21 20:50 07/20/21 21:03 Temperature 37.8 C H Pulse Rate 68 66 Respiratory Rate 28 H 25 H Blood Pressure Pulse Oximetry 97 96 07/20/21 22:00 07/20/21 22:40 07/20/21 23:49 Temperature 37.3 C 37.3 C Pulse Rate 55 L 69 55 L Respiratory Rate 28 H 30 H Blood Pressure 100/56 L Pulse Oximetry 97 96 07/20/21 23:57 07/21/21 00:36 07/21/21 01:54 Temperature Pulse Rate 55 L 52 L 62 Respiratory Rate 30 H 26 H Blood Pressure Pulse Oximetry 97 96 07/21/21 03:00 07/21/21 04:00 07/21/21 05:53 Temperature 37.1 C Pulse Rate 55 L 50 L 67 Respiratory Rate 25 H 21 H Blood Pressure 117/79 Pulse Oximetry 95 96 07/21/21 08:00 07/21/21 08:28 07/21/21 10:00 Temperature 35.8 C L Pulse Rate 79 79 70 Respiratory Rate 26 H Blood Pressure 132/68 Pulse Oximetry 92 92 Intake/Output Intake/Output: Intake & Output 07/18/21 07/19/21 07/20/21 07/21/21 23:59 23:59 23:59 23:59 Intake Total 2920 1530 1540 360 Output Total 1533 496 6943 900 Balance 1520 880 -10 -540 Meds/Results Medications: Active Medications Generic Name Dose Route Start Last Admin Trade Name Freq PRN Reason Stop Dose Admin Acetaminophen 650 mg 07/17/21 21:53 07/20/21 21:03 Acetaminoph
--- NOTE | 2021-07-21 12:02 | PM.IMPN ---
Progress Note: A&P Assessment and Plan (1) Acute hypoxemic respiratory failure: Code(s): J96.01 - Acute respiratory failure with hypoxia Status: Acute Assessment and Plan: The patient developed symptoms of COVID around 07/09 and tested positive on 07/12. He is unvaccinated. Chest x-ray on admission showing patchy bilateral PNA. He has been placed in isolation per protocol. He was started on dexamethasone and remdesivir. Baricitinib added 07/19 due to the worsening hypoxia. Repeat inflammatory markers 07/19 showing higher LDH and Ferritin but CRP better. Pulmonary following. Was on BiPAP yesteray but able to be weaned back to AirVo and NRB mask. Encouraged him to lay prone as he tolerates. Wean oxygen as tolerated. If he remains stable, try to have him up to a chair. Sputum pending. Repeat inflammatory markers tomorrow. (2) Pneumonia due to COVID-19 virus: Code(s): U07.1 - COVID-19; J12.82 - Pneumonia due to coronavirus disease 2018 Status: Acute Assessment and Plan: Please see above (3) Hyperkalemia: Code(s): E87.5 - Hyperkalemia Status: Acute Assessment and Plan: Repeat potassium normal now. Will continue to monitor (4) Otitis media: Code(s): H66.90 - Otitis media, unspecified, unspecified ear Status: Acute Assessment and Plan: Stable. Continue Amoxicillin. Continue debrox for possible cerumen impaction (5) DVT prophylaxis: Code(s): Z29.9 - Encounter for prophylactic measures, unspecified Status: Acute Assessment and Plan: Lovenox Subjective Date/time seen: 07/21/21 12:02 Interval history: 66yo healthy male presents with complaints of SOB and is known to have COVID. Patient began to have symptoms on July 09. He tested positive on July 12 (result in the paper chart). SOB is better. Was on BiPAP but able to be changed to NRB mask and AirVo now. Cough peristent but decreased overall. Still productive of yellow sputum. No CP. No n/v - tolerating Ensure. Some loose stools but no bhavesh diarrhea. Exam Narrative: Tm 100.8 96.4 132/68 70 26 92% AirVo and NRB mask Gen - mildly tachypneic sitting up in bed Chest - bibasilar inspiratory crackles CV - RRR S1/S2; Tele showing no significant dysrhythmias. Abd - Soft, NT/ND, Positive BS - Ward secured draining clear yellow urine Ext - No pedal edema Psych - Nml mood and affect Skin - Warm and dry Objective Data Vital Signs Vital Signs: Vital Signs - 24 hr 07/20/21 14:10 07/20/21 14:30 07/20/21 16:00 Temperature 99.6 F Pulse Rate 74 65 60 Respiratory Rate 29 H 30 H Blood Pressure 127/61 Pulse Oximetry 93 97 93 07/20/21 18:00 07/20/21 19:40 07/20/21 20:00 Temperature 100.1 F H Pulse Rate 68 72 68 Respiratory Rate 30 H 28 H Blood Pressure 120/64 Pulse Oximetry 98 97 07/20/21 20:50 07/20/21 21:03 07/20/21 22:00 Temperature 100.1 F H 99.2 F Pulse Rate 66 55 L Respiratory Rate 25 H Blood Pressure Pulse Oximetry 96 07/20/21 22:40 07/20/21 23:49 07/20/21 23:57 Temperature 99.2 F Pulse Rate 69 55 L 55 L Respiratory Rate 28 H 30 H 30 H Blood Pressure 100/56 L Pulse Oximetry 97 96 97 07/21/21 00:36 07/21/21 01:54 07/21/21 03:00 Temperature Pulse Rate 52 L 62 55 L Respiratory Rate 26 H 25 H Blood Pressure Pulse Oximetry 96 95 07/21/21 04:00 07/21/21 05:53 07/21/21 08:00 Temperature 98.7 F Pulse Rate 50 L 67 79 Respiratory Rate 21 H Blood Pressure 117/79 Pulse Oximetry 96 92 07/21/21 08:28 07/21/21 10:00 Temperature 96.4 F L Pulse Rate 79 70 Respiratory Rate 26 H Blood Pressure 132/68 Pulse Oximetry 92 Intake/Output Intake/Output: Intake & Output 07/18/21 07/19/21 07/20/21 07/21/21 23:59 23:59 23:59 23:59 Intake Total 2920 1530 1540 360 Output Total 2293 121 0446 900 Balance 1520 930 -10 -540 Meds/Results Medications: Active Medications G
[2021-07-21 12:34] LABS: Glucose Point of Care 161 mg/dl (65-105)
[2021-07-21 20:30] LABS: Glucose Point of Care 136 mg/dl (65-105)
[2021-07-21 20:48] LABS: Glucose Point of Care 159 mg/dl (65-105)
[2021-07-21] MEDS: BARICITINIB 2 MG TABLET 4 MG PO (21:23)
[2021-07-21] MEDS: REMDESIVIR 100 MG/NS 250 ML 100 MG/250 ML BAG 250 MG IVPB (21:24)
[2021-07-21] MEDS: ACETAMINOPHEN 325 MG TABLET 650 MG PO (21:24)
[2021-07-22] VITALS (32 sets, daily range): BP systolic 103–120; BP diastolic 70–77; PULSE 50–84; RESP 20–32; TEMP 35.6–36.6; O2SAT 72–97
[2021-07-22] MEDS: AMOXICILLIN 500 MG CAPSULE PO ×3 (06:16→21:23)
[2021-07-22 06:41] LABS: Hematocrit 38.4 % (42.0-52.0); Hemoglobin 12.2 g/dL (14.0-18.0); Mean Corpuscular HGB Conc 31.8 g/dl (32-36); Mean Corpuscular Hemoglobin 22.1 pg (26-34); Mean Corpuscular Volume 69.4 fl (80-100); Mean Platelet Volume 9.7 fl (7.4-10.4); Platelet Count Result 329 k/mm3 (150-375); Red Blood Count 5.53 M/mm3 (4.6-6.20); Red Cell Distribution Width 14.8 % (11.5-14.5); White Blood Count 15.5 K/mm3 (4.5-10.0)
[2021-07-22 07:00] LABS: Alanine Aminotransferase 26 U/L (4-50); Albumin Level 3.6 g/dL (3.5-5.1); Alkaline Phosphatase 47 U/L (38-126); Anion Gap 2 mmol/L (8-16); Aspartate Amino Transferase 49 U/L (17-59); Bilirubin,Total 0.8 mg/dL (0.2-1.3); Blood Urea Nitrogen 27 mg/dL (9-20); Calcium 8.8 mg/dL (8.4-10.2); Carbon Dioxide 35 mmol/L (22-30); Chloride 98 mmol/L (98-107); Estimated CRCL calculation 86 ml/min; Estimated Glomerular Filt Rate > 60; Glucose 108 mg/dL (65-110); Lactate Dehydrogenase 1085 U/L (313-618); Sodium 135 mmol/L (137-145)
[2021-07-22 07:22] LABS: Iron 56 ug/dL (49-181)
[2021-07-22 07:31] LABS: Percent Iron Saturation 30 % (20-50)
[2021-07-22 08:37] LABS: Glucose Point of Care 87 mg/dl (65-105)
[2021-07-22 09:00] LABS: D Dimer 2.55 ug/mL (<0.48)
[2021-07-22 09:17] LABS: Atypical Lymphocytes Present; Lymphocytes Absolute Manual 3.87 K/mm3 (1.1-4.5); Monocytes Absolute Manual 0.15 K/mm3 (0.1-0.90); Monocytes Percent Manual 1 % (3-9); Neutrophils Percent Manual 74 % (46-73); Platelet Estimate Adequate (Adequate); Total Cells Counted 100
[2021-07-22] MEDS: guaiFENesin 600 MG/DEXTROMETHORPHAN 30 MG SR TAB 12 HR 1 TAB PO ×2 (09:38→21:22)
[2021-07-22] MEDS: DEXAMETHASONE SOD PHOS INJ 4 MG/ML VIAL 6 MG IV PUSH (09:38)
[2021-07-22] MEDS: guaiFENesin/CODEINE (*CRX) 200/20 MG 10 ML SYRUP PO ×3 (09:38→21:21)
[2021-07-22] MEDS: FAMOTIDINE 20 MG/2 ML VIAL IV PUSH ×2 (09:39→21:22)
[2021-07-22] MEDS: ENOXAPARIN 40 MG/0.4 ML SYRINGE SUB-Q (09:39)
--- NOTE | 2021-07-22 09:42 | PM.PNPUL ---
Progress Note: A&P Assessment and Plan (1) Acute hypoxemic respiratory failure: Code(s): J96.01 - Acute respiratory failure with hypoxia Status: Acute Assessment and Plan: 66-year-old man with a acute hypoxemic respiratory failure related to COVID 19 pneumonia. Respiratory status essentially unchanged over the last 24 hours. Physical exam showed more crackles at bases posteriorly. O2 saturation 92% off BiPAP, while on high-flow nasal cannula and a non rebreathing mask. CRP and D-dimers have increased over the last 2 days. Will proceed with stat chest x-ray. Will continue with current treatment which includes barocitinib, remdesivir, dexamethasone and subcu low-molecular heparin for thromboprophylaxis. (2) Pneumonia due to COVID-19 virus: Code(s): U07.1 - COVID-19; J12.82 - Pneumonia due to coronavirus disease 2019 Status: Acute Assessment and Plan: Respiratory status unchanged while on BiPAP support over the last 24 hours. Also no change on physical exam, showing decreased breath sounds at bases with rare crackles. D-dimers are elevated but less than the critical value of 2 which portends a more severe disease. at this point, we will continue with current medication regimen, BiPAP support, DVT prophylaxis. Would suggest to get a repeat portable chest x-ray in a.m, also monitor CRP, D-dimers daily, attempt to lower FiO2 if tolerated, add SCDs for additional venous thromboprophylaxis. (3) Hypoxia: Code(s): R09.02 - Hypoxemia Status: Acute (4) DVT prophylaxis: Code(s): Z29.9 - Encounter for prophylactic measures, unspecified Status: Acute Subjective Date/time seen: 07/22/21 09:42 Patient not doing any better. Has been on BiPAP support 28/05, FiO2 75% most of the time except when eating. Has had a dry cough with no sputum production. Review of Systems Review of Systems: All systems reviewed & are unremarkable except as noted in HPI and below Exam Narrative: GENERAL APPEARANCE: Well developed, well nourished, alert in mild to moderate respiratory distress while seated up in bed; On supplemental oxygen via high-flow nasal cannula and non rebreathing mask SKIN: Inspection of the skin reveals no rashes, ulcerations or petechiae. HEENT: Sclerae anicteric and conjunctivae pink and moist. NECK: Supple. There was no thyroid enlargement, and no tenderness, or masses were felt. LUNGS: Auscultation of the lungs revealed diffuse crackles at bases posteriorly; no wheezing CARDIAC: There was a regular rate and rhythm without any murmurs, gallops, rubs. ABDOMEN: Soft and nontender with normal bowel sounds. . LYMPH NODES: No lymphadenopathy was appreciated in the neck. EXTREMITIES: No cyanosis, clubbing or edema. NEUROLOGIC: Alert and oriented x 3. Normal affect. Objective Data Vital Signs Vital Signs: Vital Signs - 24 hr 07/21/21 10:00 07/21/21 12:00 07/21/21 12:45 Temperature 36.4 C Pulse Rate 70 62 71 Respiratory Rate 24 H Blood Pressure 117/67 Pulse Oximetry 97 96 07/21/21 14:00 07/21/21 16:00 07/21/21 16:23 Temperature 36.8 C Pulse Rate 67 75 69 Respiratory Rate 24 H Blood Pressure 123/85 Pulse Oximetry 95 97 07/21/21 20:00 07/21/21 21:31 07/21/21 22:00 Temperature 36.0 C L Pulse Rate 80 80 52 L Respiratory Rate 25 H 25 H Blood Pressure 113/60 Pulse Oximetry 97 97 07/22/21 00:00 07/22/21 01:39 07/22/21 03:34 Temperature 36.6 C Pulse Rate 58 L 50 L 60 Respiratory Rate 22 H 32 H Blood Pressure 103/72 Pulse Oximetry 96 97 07/22/21 04:00 07/22/21 05:58 07/22/21 08:40 Temperature 36.6 C 35.6 C L Pulse Rate 54 L 53 L 76 Respiratory Rate 20 26 H Blood Pressure 107/73 114/74 Pulse Oximetry 96 92 Intake/Output Intake/Output: Intake & Output 07/19/21 07/20/21 07/21/21 07/22/21 23:59 23:59 23:59 23:59 Intake Total 1530 1540 1260 400 Output Total 650 1550 2824 850 Balance -450
--- NOTE | 2021-07-22 09:54 | PM.IMPN ---
Progress Note: A&P Assessment and Plan (1) Acute hypoxemic respiratory failure: Code(s): J96.01 - Acute respiratory failure with hypoxia Status: Acute Assessment and Plan: The patient developed symptoms of COVID around 07/09 and tested positive on 07/12. He is unvaccinated. Chest x-ray on admission showing patchy bilateral PNA. He has been placed in isolation per protocol. He was started on dexamethasone and remdesivir. Baricitinib added 07/19 due to the worsening hypoxia. Inflammatory markers today showing DDimer 2.55, LDH 1085, Ferritin 1730 and CRP 5 (all higher). Pulmonary following. Able to wean off BiPAP during the day yesterday. Will wean to AirVo and NRB mask. Encouraged him to lay prone as he tolerates. Wean oxygen as tolerated. Sputum pending. Completed 5 days of Remdesivir but will add another 5 days since his markers are trending in the worng direction. Continue supportive care (2) Pneumonia due to COVID-19 virus: Code(s): U07.1 - COVID-19; J12.82 - Pneumonia due to coronavirus disease 2018 Status: Acute Assessment and Plan: Please see above (3) Hyperkalemia: Code(s): E87.5 - Hyperkalemia Status: Acute Assessment and Plan: Repeat potassium normal now but high end of normal. Will continue to monitor (4) Otitis media: Code(s): H66.90 - Otitis media, unspecified, unspecified ear Status: Acute Assessment and Plan: Stable. Continue Amoxicillin Day 5. Continue debrox for possible cerumen impaction (5) DVT prophylaxis: Code(s): Z29.9 - Encounter for prophylactic measures, unspecified Status: Acute Assessment and Plan: Lovenox Subjective Date/time seen: 07/22/21 09:54 Interval history: 66yo healthy male presents with complaints of SOB and is known to have COVID. Patient began to have symptoms on July 09. He tested positive on July 12 (result in the paper chart). SOB about the same. He was off the BiPAP all day yesterday. He did wear the BiPAP last night. He was able to lie prone for about 50 minutes yesterday. Cough is more productive today of yellow-greenish sputum. No chest pain. Exam Narrative: AF 96.1 114/74 76 26 92% BiPAP Gen - mildly tachypneic sitting up in bed Chest - bibasilar inspiratory crackles mid and lower lung sellers with improved air exchange CV - RRR S1/S2; Tele showing no significant dysrhythmias. Abd - Soft, NT/ND, Positive BS - Ward secured draining clear yellow urine Ext - No pedal edema Psych - Nml mood and affect Skin - Warm and dry Objective Data Vital Signs Vital Signs: Vital Signs - 24 hr 07/21/21 10:00 07/21/21 12:00 07/21/21 12:45 Temperature 97.6 F Pulse Rate 70 62 71 Respiratory Rate 24 H Blood Pressure 117/67 Pulse Oximetry 97 96 07/21/21 14:00 07/21/21 16:00 07/21/21 16:23 Temperature 98.2 F Pulse Rate 67 75 69 Respiratory Rate 24 H Blood Pressure 123/85 Pulse Oximetry 95 97 07/21/21 20:00 07/21/21 21:31 07/21/21 22:00 Temperature 96.8 F L Pulse Rate 80 80 52 L Respiratory Rate 25 H 25 H Blood Pressure 113/60 Pulse Oximetry 97 97 07/22/21 00:00 07/22/21 01:39 07/22/21 03:34 Temperature 97.9 F Pulse Rate 58 L 50 L 60 Respiratory Rate 22 H 32 H Blood Pressure 103/72 Pulse Oximetry 96 97 07/22/21 04:00 07/22/21 05:58 07/22/21 08:40 Temperature 97.8 F 96.1 F L Pulse Rate 54 L 53 L 76 Respiratory Rate 20 26 H Blood Pressure 107/73 114/74 Pulse Oximetry 96 92 Intake/Output Intake/Output: Intake & Output 07/19/21 07/20/21 07/21/21 07/22/21 23:59 23:59 23:59 23:59 Intake Total 1530 1540 1260 400 Output Total 650 1550 2825 850 Balance 666 -10 -1565 -450 Meds/Results Medications: Active Medications Generic Name Dose Route Start Last Admin Trade Name Freq PRN Reason Stop Dose Admin Acetaminophen 650 mg 07/17/21 21:53 07/21/21 21:24 Acetaminophen 325 Mg Tabl
[2021-07-22 12:35] LABS: Glucose Point of Care 116 mg/dl (65-105)
--- NOTE | 2021-07-22 13:28 | PCDIET ---
Nutrition Follow-Up Complete: Nutrition Diagnosis: Predicted suboptimal oral intake related to COVID pneumonia as evidenced by patient on bipap. Nutrition Goal: Patient to meet estimated nutritional needs. Goal in progress. Average intake from last review is 28% of meals, though intakes improved over past few meals. Currently on bipap but does take Ensure Enlive supplements. Recommend continuing regular diet with Enlive TID. Last recorded weight is 98.5 kg. Recommend obtaining new weight. Bowel Motility: Last documented BM on 07/18/21 x 1. Labs Reviewed: WBC (15.5), RBC (12.2), Hct (38.4), Glu (116), BUN (27), Na (135) Meds Noted: Amoxil, Olumiant, Remdesivir, Decadron, Pepcid, Novolog Additional Notes: No documented skin breakdown. Will continue to monitor with same goal. Nutrition Monitoring and Evaluation: Follow up every 3 days.
[2021-07-22 16:48] LABS: Glucose Point of Care 198 mg/dl (65-105)
[2021-07-22] MEDS: BARICITINIB 2 MG TABLET 4 MG PO (21:21)
[2021-07-22] MEDS: REMDESIVIR 100 MG/NS 250 ML 100 MG/250 ML BAG 250 MG IVPB (21:23)
[2021-07-22] MEDS: ACETAMINOPHEN 325 MG TABLET 650 MG PO (21:38)
[2021-07-22 21:55] LABS: Glucose Point of Care 201 mg/dl (65-105)
[2021-07-22] MEDS: WATER FOR IRRIGATION, STERILE 1,000 ML BOTTLE 1000 ML (22:20)
[2021-07-23] VITALS (40 sets, daily range): BP systolic 104–143; BP diastolic 56–97; PULSE 48–89; RESP 14–28; TEMP 36.2–36.7; O2SAT 84–100
[2021-07-23] MEDS: guaiFENesin/CODEINE (*CRX) 200/20 MG 10 ML SYRUP PO ×4 (01:25→21:18)
[2021-07-23] MEDS: AMOXICILLIN 500 MG CAPSULE PO ×2 (05:31→21:26)
[2021-07-23 06:36] LABS: Basophils Percent Auto 0.2 % (0.2-1.2); Eosinophils Absolute Auto 0.1 K/mm3 (0-0.3); Eosinophils Percent Auto 0.5 % (0-4.4); Hematocrit 38.6 % (42.0-52.0); Hemoglobin 12.3 g/dL (14.0-18.0); Immature Granulocyte Absolute 0.15 K/mm3 (0.00-0.031); Immature Granulocyte Percent A 0.8 % (0-0.5); Lymphocytes Absolute Auto 6.52 K/mm3 (0.9-3.2); Lymphocytes Percent Auto 33.5 % (18.3-44.2); Mean Corpuscular HGB Conc 31.9 g/dl (32-36); Mean Corpuscular Volume 69.1 fl (80-100); Mean Platelet Volume 9.8 fl (7.4-10.4); Monocytes Absolute Auto 0.3 K/mm3 (0.1-0.6); Monocytes Percent Auto 1.7 % (2.6-8.5); Neutrophils Absolute Auto 12.3 K/mm3 (1.3-6.7); Neutrophils Percent Auto 63.3 % (45.5-73.1); Platelet Count Result 383 k/mm3 (150-375); Red Blood Count 5.59 M/mm3 (4.6-6.20); Red Cell Distribution Width 14.7 % (11.5-14.5); White Blood Count 19.5 K/mm3 (4.5-10.0)
[2021-07-23 06:47] LABS: Alanine Aminotransferase 24 U/L (4-50); Albumin Level 3.4 g/dL (3.5-5.1); Alkaline Phosphatase 42 U/L (38-126); Anion Gap 4 mmol/L (8-16); Aspartate Amino Transferase 45 U/L (17-59); Bilirubin,Total 0.9 mg/dL (0.2-1.3); Blood Urea Nitrogen 29 mg/dL (9-20); Calcium 8.6 mg/dL (8.4-10.2); Carbon Dioxide 34 mmol/L (22-30); Chloride 96 mmol/L (98-107); Estimated CRCL calculation 96 ml/min; Estimated Glomerular Filt Rate > 60; Glucose 109 mg/dL (65-110); Potassium 4.8 mmol/L (3.4-5.0); Sodium 134 mmol/L (137-145)
[2021-07-23 06:50] LABS: INR 1.1; Prothrombin Time 13.8 Seconds (11.1-14.7)
--- NOTE | 2021-07-23 08:42 | PM.IMPN ---
Progress Note: A&P Additional Plan START OF DOCTOR MITZY?S PROGRESS NOTE Subjective: The patient indicates that he is fearful of his respiratory status. He currently rates his respiratory status is a 4/10 attends is baseline. He admits to cough productive yellow sputum. He denies fever, rigors, nausea, vomiting, wheeze, abdominal pain, chest pain. I have explained to the patient his current medical condition plan of care I have answered all his questions Objective: General: -Alert -No acute distress -No dyspnea -No tachypnea Heart: -Regular rate -Regular rhythm -No murmurs -No gallops -No rubs Lungs: -No wheeze -No rhonchi -No rales -distant breath sounds bilaterally Abdomen: -Normal bowel sounds in all four quadrants -No rebound -No guarding -No tenderness Extremities: -2/4 pulse in all four extremities -No clubbing -No cyanosis -No edema Additional Details / Additional Findings / Exceptions / Miscellaneous: Pertinent Laboratory Results / Pertinent Radiology Results / Pertinent Diagnostic Results / Pertinent Vital Signs: Heart rate 55, 97% on BiPAP, FiO2 80%, white blood count 19.5, hemoglobin 12.3, MCV 69.1, platelet count 233172, sodium 134 Assessment / Plan: COVID-19 pneumonia. Proventil HFA: 90 mg per spray: 2 puffs q.i.d. plus ferrous a neb 4 mg p.o. q.h.s. plus dexamethasone 6 mg IV daily plus remdesivir 100 mg IV daily. 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 He indicates that he did not always wear mask. Consideration may be given to increasing his steroids in the near future Microcytic anemia/anemia of chronic disease. Ferritin likely elevated due to acute illness. Monitor hemoglobin level intermittently. Check fecal occult blood Thrombocytosis. Will monitor platelet count intermittently Hyponatremia. Monitor sodium level intermittently Otitis media. Amoxicillin 500 mg p.o. q.8 hours GI prophylaxis. Pepcid 20 mg IV q.12 hours DVT prophylaxis. Lovenox 40 mg subcutaneously q.12 hours Disposition: END OF DOCTOR MITZY?S PROGRESS NOTE Subjective Date/time seen: 07/23/21 08:42 Objective Data Vital Signs Vital Signs: Vital Signs - 24 hr 07/22/21 10:00 07/22/21 10:26 07/22/21 12:00 Temperature Pulse Rate 84 77 68 Respiratory Rate 28 H Blood Pressure Pulse Oximetry 94 92 07/22/21 12:56 07/22/21 14:00 07/22/21 16:00 Temperature 97.0 F L Pulse Rate 68 68 76 Respiratory Rate 23 H Blood Pressure 114/70 Pulse Oximetry 97 97 07/22/21 16:10 07/22/21 17:15 07/22/21 18:00 Temperature 96.2 F L Pulse Rate 79 73 57 L Respiratory Rate 24 H Blood Pressure 120/71 Pulse Oximetry 92 97 07/22/21 18:54 07/22/21 20:00 07/22/21 21:15 Temperature 96.0 F L Pulse Rate 71 68 Respiratory Rate 24 H Blood Pressure 118/77 Pulse Oximetry 90 93 07/22/21 21:45 07/22/21 22:00 07/23/21 00:00 Temperature 97.5 F L Pulse Rate 57 L 52 L Respiratory Rate 26 H 22 H Blood Pressure 132/70 Pulse Oximetry 72 L 94 98 07/23/21 01:25 07/23/21 02:00 07/23/21 02:02 Temperature Pulse Rate 49 L 51 L Respiratory Rate 25 H Blood Pressure Pulse Oximetry 93 94 07/23/21 03:00 07/23/21 04:00 07/23/21 05:56 Temperature 97.2 F L Pulse Rate 48 L 55 L Respiratory Rate 27 H Blood Pressure 118/77 Pulse Oximetry 96 95 07/23/21 06:58 Temperature Pulse Rate Respiratory Rate Blood Pressure Pulse Oximetry 97 Intake/Output Intake/Output: Intake & Output 07/20/21 07/21/21 07/22/21 07/23/21 23:59 23:59 23:59 23:59 Intake Total 1540 1260 1670 400 Output Total 1550 3875 1775 0413 [facility]10 -1565 -105 -700 Meds/Results Medications: Active Medications Generic Name Dose Route Start Last Admin Trade Name Freq PRN Reason Stop Dose Admin Acetaminophen 650 mg 07/17/21 21:53
[2021-07-23 08:53] LABS: Glucose Point of Care 93 mg/dl (65-105)
[2021-07-23] MEDS: ENOXAPARIN 40 MG/0.4 ML SYRINGE SUB-Q ×2 (09:24→21:26)
[2021-07-23] MEDS: FAMOTIDINE 20 MG/2 ML VIAL IV PUSH ×2 (09:24→21:25)
[2021-07-23] MEDS: guaiFENesin 600 MG/DEXTROMETHORPHAN 30 MG SR TAB 12 HR 1 TAB PO ×2 (09:24→21:25)
--- NOTE | 2021-07-23 09:46 | ECG_ITS ---
Measurements Intervals [place] Rate: 88 P: 38 CT: 182 QRS: -26 QRSD: 110 T: 107 QT: 365 QTc: 443 Interpretive Statements SINUS RHYTHM ATRIAL PREMATURE COMPLEXES DELAYED PRECORDIAL R/S TRANSITION INFERIOR ST ELEVATION MYOCARDIAL INFARCT- ACUTE SUBTLE ST ELEVATIONIN ANTEROLATERAL LEADS ABNORMAL ECG Electronically Signed On 07-23-2021 14:04:57 CDT by Sachin Kramer D.O.
[2021-07-23] MEDS: HEPARIN SODIUM 5,000 UNITS/ML VIAL 5000 UNITS IV PUSH (10:27)
[2021-07-23] MEDS: ATORVASTATIN 40 MG TABLET 80 MG PO (10:28)
[2021-07-23] MEDS: DEXAMETHASONE SOD PHOS INJ 4 MG/ML VIAL 6 MG IV PUSH (10:28)
[2021-07-23] MEDS: ASPIRIN 325 MG TABLET PO (10:28)
[2021-07-23 10:57] LABS: Troponin I 0.059 ng/mL (0.000-0.034)
--- NOTE | 2021-07-23 11:05 | WPDMODSED ---
Moderate Sedation Note-Pt Data Patient Data Allergies Allergy/AdvReac Type Severity Reaction Status Date / Time No Known Allergies Allergy Verified 07/17/21 12:30 Home Medications Medication Instructions Recorded Confirmed Type amoxicillin 875 mg PO Q12H 07/17/21 07/17/21 History Current Medications: Active Medications Acetaminophen (Acetaminophen 325 Mg Tablet) 650 mg PO Q6H PRN PRN Reason: Mild Pain (1-3) or Fever Last Admin: 07/22/21 21:38 Dose: 650 mg Documented by: Albuterol (Albuterol Sulfate (*Sp) Aerosol 1 Puff) 2 puff INHALATION QIDRT [facility] Last Admin: 07/19/21 09:41 Dose: 2 puff Documented by: Amoxicillin (Amoxicillin 500 Mg Capsule) 500 mg PO Q8HR [facility] Last Admin: 07/23/21 05:31 Dose: 500 mg Documented by: Baricitinib (Baricitinib 2 Mg Tablet) 4 mg PO HS [facility] Stop: 08/01/21 21:01 Last Admin: 07/22/21 21:21 Dose: 4 mg Documented by: Dexamethasone Sodium Phosphate (Dexamethasone Sod Phos Inj 4 Mg/Ml Vial) 6 mg IV PUSH DAILY [facility] Stop: 07/26/21 09:01 Last Admin: 07/23/21 10:28 Dose: 6 mg Documented by: Dextrose (Dextrose 50% 25 Gm/50 Ml Syringe) 12.5 gm IV PUSH PRN PRN; Protocol PRN Reason: Hypoglycemia Enoxaparin Sodium (Enoxaparin 40 Mg/0.4 Ml Syringe) 40 mg SUB-Q Q12H [facility] Last Admin: 07/23/21 09:24 Dose: 40 mg Documented by: Famotidine (Famotidine 20 Mg/2 Ml Vial) 20 mg IV PUSH Q12HR [facility] Last Admin: 07/23/21 09:24 Dose: 20 mg Documented by: Glucagon (Glucagon For Inj 1 Mg Vial) 1 mg IM PRN PRN; Protocol PRN Reason: Hypoglycemia Glucose (Glucose Oral Gel 15 Gm Of Glucse In 37.5 Gm Tube) 15 gm PO PRN PRN; Protocol PRN Reason: Hypoglycemia Guaifenesin/Codeine Phosphate (Guaifenesin/Codeine (*Crx) 200/20 Mg 10 Ml Syrup) 10 ml PO Q4H PRN PRN Reason: Cough Last Admin: 07/23/21 05:31 Dose: 10 ml Documented by: Guaifenesin/Dextromethorphan (Guaifenesin 600 Mg/Dextromethorphan 30 Mg Sr Tab 12 Hr) 1 tab PO Q12HR [facility] Last Admin: 07/23/21 09:24 Dose: 1 tab Documented by: Dextrose (Dextrose 5% 1,000 Ml) 1,000 mls @ 100 mls/hr IVPB PRN PRN; Protocol PRN Reason: Hypoglycemia Remdesivir () 100 mg in 250 mls @ 250 mls/hr IVPB Q24H [facility] Stop: 07/26/21 22:59 Last Infusion: 07/22/21 22:34 Dose: Infused Documented by: Insulin Aspart (Insulin Aspart (*Bkc) 100 Units/Ml) 3 - 6 units SUB-Q TIDWM [facility]; Protocol Last Admin: 07/23/21 09:13 Dose: Not Given Documented by: Sedation/Anesthesia: No previous sedation/anesthesia problems (including family history). [facility] Past Medical History Medical History No significant past medical history Surgical History Surgical History No significant past surgical history Family History Family History Father Diabetes mellitus Social History Social History Social History: Surrogate decision maker: Rae Vicente, spouse. Code status: Full code. 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 Spiritual care concerns: No Mod Sed Physical Exam Physical Exam Pre Procedural Exam: Normal: Appearance, Eyes, Ears, Nose, Neck, Throat, Airway, Lungs, Heart Size, Heart Rate, Heart Rhythm, Neuro Exam, Abdomen, Liver, Kidneys, Spleen, Breasts, Genitalia, Extremities and Skin Hours since solid foods: 8 Hours since liquid intake: 8 Mallampati Classification: class 1 Internal Medicine - PN: Obj Da Vital Signs Vital Signs: Vital Signs - 24 hr 07/22/21 12:00 07/22/21 12:56 07/22/21 14:00 Temperature 36.1 C L Pulse Rate 68 68 68 Respiratory Rate 23 H Blood Pressure 114/70 Pulse Oximetry 92 97 07/22/21
--- NOTE | 2021-07-23 11:06 | WPDHPUPDATE1 ---
History and Physical Update Update Date/Time: 07/23/21 11:06 History and Physical has been reviewed, including an updated exam of the patient. There are NO changes in the patient's condition. Risks, benefits, and alternatives have been discussed and questions answered. Patient agrees to proceed with procedure.
--- NOTE | 2021-07-23 11:06 | WPDCARDPROC ---
Cardiac Cath Procedure Note Date of procedure:: 07/23/21 Performing physician:: Sasha Lamar MD Date of service 07/23/2021 Indication:: inferior STEMI Brief clinical history:: 66-year-old patient no significant past medical history who was admitted here to the hospital with COVID pneumonia. This morning he developed chest pain and the EKG shows inferior ST elevation myocardial infarction. Procedure Procedure performed:: 1-Moderate sedation Was not administered. 2-Selective left and right coronary angiogram. 3-Left heart catheterization with measurement of LVEDP and measurement of gradient across aortic valve. 4- LV angiogram. 5- Manual aspiration thrombectomy of the right coronary artery. 6- intravascular ultrasound of the right coronary artery 7- deployment of drug-eluting stent Medtronic lulu 5 x 22 covering proximal RCA. post dilatation of the stent using 6 x 15 noncompliant balloon. 8-Right common femoral arterial angiogram. 9-Deployment of 6 Slovak Angio-Seal. Sedation/Medication given:: Moderate sedation. Access site:: Right common femoral artery. Estimated blood loss:: 10cc Procedure note:: After informed consent patient was brought in to wharf laborer with the was draped and prepped in usual manner. Moderate sedation was given and the right groin was infiltrated using 1% lidocaine. Six Slovak sheath was obtained using micropuncture needle and the modified Seldinger technique. . Selective right coronary angiogram was done using Six Slovak JR4 guide catheter. After that we administered Angiomax, Integrilin IV boluses and drip. We went with coronary luge wire 0.014 and advanced it to distal RCA. Five runs of manual aspiration thrombectomy done using export catheter with retrieval of significant burden of clots. The intracoronary ultrasound was done using IV is catheter. Because we sewed that there was a plaque in the proximal portion of the RCA we decided to stent using lulu 5 x 22 that was deployed under 18 atmospheres for 30 seconds. post dilatation done using 6 x 15 noncompliant balloon under nominal pressure with 2 inflations total. Selective left coronary angiogram was done using JL3.5 catheter with the tip of the catheter placed in the left main coronary arteryAfter that 5 Slovak pigtail catheter was advanced across the aortic valve into the left ventricle with measurement of LVEDP and measurement of gradient across aortic valve. LV angiogram was done as well. Right common femoral arterial angiogram was done. Findings:: 1- left coronary artery is a large artery that divides into large LAD, large circumflex artery. Left main is Free of disease. 2- left anterior descending artery is a large artery that runs and wraps around the apex. Minimal irregularities. 3- leftcircumflex artery is a large artery And codominant and minimal irregularities. 4- right coronary artery is Very large artery with large clot sitting proximally and totally occluded distal RCA with clot. WENDI flow 0 5- intravascular ultrasound shows that the diameter of the artery was 6 mm. There was a plaque seen at the proximal portion of the RCA. There was some minimal calcification there as well. 5- LVEDP was 15 mmhg and no gradient across aortic valve. 6- opening arterial pressure was 130/80and closing pressure was 110/70 7- right femoral artery angiogram shows no significant disease in the right common femoral artery. Conclusion:: - large clot burden and the right coronary artery status post manual aspiration thrombectomy and stenting. Underlying ruptured plaque. Assessment and Plan Additional Plan 1- Continue Integrilin for total 18 hours. 2- continue aspirin and Brilinta. 3- hydration for next 8 hours. 4- admit to ICU for close observation. 5- high-intensity statins. 6- avoid beta-jamarcus for today. might need to start low-dose beta-jamarcus tomorrow if hemodynamically stable.
--- NOTE | 2021-07-23 11:07 | PM.CNCAR ---
Assessment and Plan Additional Plan 1- Acute inferior ST-elevation [place] status post stenting. 2- COVID pneumonia. - Continue Integrilin for total 18 hours. - continue aspirin and Brilinta. - hydration for next 8 hours. - admit to ICU for close observation. - high-intensity statins. - avoid beta-jamarcus for today. might need to start low-dose beta-jamarcus tomorrow if hemodynamically stable. History of Present Illness History of Present Illness Consult date/time: Date of service 07/23/21 11:07 Requesting physician: Amalia Jauregui DO Consult reason: chest pain Reason For Visit: pneumonia SARs2 COVID Narrative: 66-year-old patient with no significant past medical history, none vaccinated admitted with COVID pneumonia. This morning started to have central chest pain and the EKG showed ST elevation inferiorly. Significant ST elevations. his pain was central in location, pressure, 5/10, patient requiring oxygen. Admits to shortness of breath. Denies syncope or palpitations. Patient was rushed to the laborer [facility]. Large clots in the right coronary artery status post aspiration thrombectomy and then stenting of the proximal RCA for underlying upturned plaque. Stent was 5 x 22 and post dilated to 6 mm. no other significant coronary disease. ST segment elevation started to improve. Hemodynamically stable at this time. His chest pain remains at 3/10. Review of Systems Constitutional: Constitutional: Reports body ache(s), Reports fatigue, Denies fever(s), Denies poor appetite and Reports weakness Eyes: Eyes: Denies eye discharge, Denies loss of vision, Denies eye pain and Denies photophobia ENT: Denies dizziness, Denies epistaxis, Denies nasal congestion and Denies sore throat Cardiovascular: Cardiovascular: Reports chest pain, Reports diaphoresis, Denies syncope, Denies pedal edema, Denies leg edema, Denies palpitations, Denies dyspnea, Denies dyspnea on exertion and Denies orthopnea Respiratory: Respiratory: Reports cough, Reports dyspnea, Reports dyspnea on exertion and Denies wheezing Gastrointestinal: Gastrointestinal: Denies abdominal pain, Denies diarrhea, Denies nausea and Denies vomiting Genitourinary: Genitourinary: Denies hematuria, Denies genital lesions and Denies dysuria Musculoskeletal: Musculoskeletal: Denies arthralgias, Denies joint swelling and Denies numbness Integumentary/Breasts: Skin/Breast: Denies pruritus and Denies rash Neurologic: Denies dizziness, Denies syncope, Denies loss of vision and Denies numbness Psychiatric: Psychiatric: Denies anxiety and Denies depression Endocrine: Endocrine: Denies cold intolerance, Denies heat intolerance and Denies palpitations Hematologic/Lymphatic: Hematologic/Lymphatic: Denies easy bleeding and Denies easy bruising Allergic/Immunologic: Allergic/Immunologic: Denies urticaria and Denies wheezing PMFSH Past Medical History Medical History No significant past medical history Surgical History Surgical History No significant past surgical history Family History Family History Father Diabetes mellitus Social History Social History Social History: Surrogate decision maker: Rae Vicente, spouse. Code status: Full code. 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
--- NOTE | 2021-07-23 11:59 | PC.NURSE ---
Rae notified @[id number] that this patient is going to the [employer] laborer due to an GA. Update given and all questions answered verbalized by Rae.
--- NOTE | 2021-07-23 12:02 | PC.NURSE ---
Patient to slab inspector @[id number].
--- NOTE | 2021-07-23 13:13 | WPDCNINT ---
Assessment and Plan Assessment and plan (1) STEMI (ST elevation myocardial infarction): Code(s): I21.3 - ST elevation (STEMI) myocardial infarction of unspecified site Status: Acute Assessment and Plan: Status post PCI, aspiration thrombectomy and stenting of RCA Per cardiology, continue Integrilin for total 18 hours. 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 He is unvaccinated. Admitted 07/17 Chest x-ray 1. No significant change in patchy airspace opacities in the bilateral mid and lower lung zones consistent with pneumonia. Appropriate isolation Completed a 5 day course of remdesivir and is currently on extended 10 day course as per internal medicine physician Continue dexamethasone Baricitinib added 07/19 due to the worsening hypoxia. Monitor Inflammatory markers Pulmonary following. Currently on 15 L nasal cannula and non-rebreather mask. He has orders for p.r.n. BiPAP. Currently not in respiratory distress, maintaining adequate saturation and able to speak full sentences (3) Pneumonia due to COVID-19 virus: Code(s): U07.1 - COVID-19; J12.82 - Pneumonia due to coronavirus disease 2018 Status: Acute Assessment and Plan: See above Additional Plan DVT prophylaxis -Lovenox 40 mg subQ q.12 hours Stress ulcer prophylaxis -Pepcid Nutrition -diet Code Status - Full Code Family updated at bedside Total Critical Care Time -35 minutes Due to a high probability of clinically significant, life threatening deterioration, the patient required my highest level of preparedness to intervene emergently and I personally spent this critical care time directly and personally managing the patient. This critical care time included obtaining a history; examining the patient; pulse oximetry; ordering and review of studies; arranging urgent treatment with development of a management plan; evaluation of patient's response to treatment; frequent reassessment; and discussions with other providers. It was exclusive of separately billable procedures and treating other patients and teaching time. Please see Assessment and Plan section and the rest of the note for further information on patient assessment and treatment Maintenance Associate Consult Note Consult date: 07/23/21 Time Seen: 14:30 HPI: Khang Vicente is a 66 year old male without significant past medical history presented to the emergency department on 07/17 with CC of of shortness of breath. About 8 days prior he noticed a change in his smell and he developed a cough shortly thereafter. He was seen at urgent care on 07/11/2021 at which time he tested positive for COVID-19 and he was prescribed a Medrol Dosepak as well as amoxicillin for possible ear infection. Chest x-ray shows patchy bilateral infiltrates consistent with COVID pneumonia. Pt was seen by Pulm and was being managed with high-flow nasal cannula and intermittent BiPAP on the floor. Patient was being treated with barcitinib, remdesivir and dexamethasone. This morning patient started having chest pain. EEG was done and showed ST segment elevation in inferior. Cardiology was consulted and patient was taken to cardiac catheterization lab. Catheterization showed large clots in the right coronary artery and aspiration thrombectomy was performed and then stenting of the proximal RCA for underlying upturned plaque. Stent was 5 x 22 and post dilated to 6 mm. no other significant coronary disease. ST segment elevation started to improve. Hemodynamically stable at this time. Patient was transferred to ICU for further evaluation management. Patient at this time denies any ches
[2021-07-23] MEDS: EPTIFIBATIDE 0.75 MG/ML 75 MG/100 ML VIAL 15.76 MG IV CONT ×2 (13:30→18:06)
[2021-07-23] MEDS: SODIUM CHLORIDE 0.9% IV 1,000 ML 100 ML IV CONT (13:50)
--- NOTE | 2021-07-23 13:54 | PC.NURSE ---
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 Patient/family oriented to unit policies and routines
[2021-07-23 18:18] LABS: Glucose Point of Care 137 mg/dl (65-105)
[2021-07-23] MEDS: ACETAMINOPHEN 325 MG TABLET 650 MG PO (21:19)
[2021-07-23] MEDS: REMDESIVIR 100 MG/NS 250 ML 100 MG/250 ML BAG 250 MG IVPB (21:23)
[2021-07-23] MEDS: BARICITINIB 2 MG TABLET 4 MG PO (21:24)
[2021-07-23] MEDS: TICAGRELOR 90 MG TABLET PO (21:25)
[2021-07-24] VITALS (22 sets, daily range): BP systolic 95–133; BP diastolic 63–92; PULSE 44–78; RESP 13–26; TEMP 36.4–37.5; O2SAT 84–100
[2021-07-24] MEDS: AMOXICILLIN 500 MG CAPSULE PO ×3 (06:15→21:28)
[2021-07-24 06:53] LABS: Basophils Percent Auto 0.2 % (0.2-1.2); Eosinophils Absolute Auto 0.1 K/mm3 (0-0.3); Eosinophils Percent Auto 0.4 % (0-4.4); Hematocrit 38.7 % (42.0-52.0); Hemoglobin 12.3 g/dL (14.0-18.0); Immature Granulocyte Absolute 0.19 K/mm3 (0.00-0.031); Lymphocytes Absolute Auto 6.32 K/mm3 (0.9-3.2); Lymphocytes Percent Auto 32.4 % (18.3-44.2); Mean Corpuscular HGB Conc 31.8 g/dl (32-36); Mean Corpuscular Hemoglobin 22.4 pg (26-34); Mean Corpuscular Volume 70.6 fl (80-100); Mean Platelet Volume 9.5 fl (7.4-10.4); Monocytes Absolute Auto 0.4 K/mm3 (0.1-0.6); Monocytes Percent Auto 2.2 % (2.6-8.5); Neutrophils Absolute Auto 12.5 K/mm3 (1.3-6.7); Neutrophils Percent Auto 63.8 % (45.5-73.1); Platelet Count Result 421 k/mm3 (150-375); Red Blood Count 5.48 M/mm3 (4.6-6.20); Red Cell Distribution Width 15.3 % (11.5-14.5); White Blood Count 19.5 K/mm3 (4.5-10.0)
--- NOTE | 2021-07-24 07:00 | ECG_ITS ---
Measurements Intervals [place] Rate: 66 P: 28 AR: 161 QRS: -43 QRSD: 93 T: -50 QT: 435 QTc: 458 Interpretive Statements SINUS RHYTHM LEFT VENTRICULAR HYPERTROPHY AND ST-T CHANGE POOR R WAVE PROGRESSION, ANTERIOR LEADS INFERIOR INFARCT, PROBABLY RECENT T WAVE ABNORMALITY IN ANTEROLATERAL LEADS- CONSIDER ISHCEMIA BASELINE ARTIFACT- I, II, III, AVR, AVL, V4-V6 ABNORMAL ECG Electronically Signed On 07-24-2021 18:15:50 CDT by Sachin Kramer D.O.
[2021-07-24 07:07] LABS: INR 1.1; Prothrombin Time 14.3 Seconds (11.1-14.7)
[2021-07-24 07:40] LABS: Alanine Aminotransferase 49 U/L (4-50); Albumin Level 3.3 g/dL (3.5-5.1); Alkaline Phosphatase 47 U/L (38-126); Anion Gap 3 mmol/L (8-16); Aspartate Amino Transferase 319 U/L (17-59); Blood Urea Nitrogen 22 mg/dL (9-20); Calcium 8.6 mg/dL (8.4-10.2); Carbon Dioxide 35 mmol/L (22-30); Chloride 97 mmol/L (98-107); Estimated CRCL calculation 96 ml/min; Estimated Glomerular Filt Rate > 60; Glucose 104 mg/dL (65-110); Potassium 5.2 mmol/L (3.4-5.0); Sodium 135 mmol/L (137-145)
[2021-07-24 07:41] LABS: Lactate Dehydrogenase 2153 U/L (313-618)
[2021-07-24] MEDS: ASPIRIN 81 MG ENTERIC TABLET PO (07:49)
[2021-07-24] MEDS: guaiFENesin 600 MG/DEXTROMETHORPHAN 30 MG SR TAB 12 HR 1 TAB PO ×2 (07:49→21:27)
[2021-07-24] MEDS: TICAGRELOR 90 MG TABLET PO ×2 (07:49→21:27)
[2021-07-24] MEDS: DEXAMETHASONE SOD PHOS INJ 4 MG/ML VIAL 6 MG IV PUSH (07:53)
[2021-07-24] MEDS: FAMOTIDINE 20 MG/2 ML VIAL IV PUSH ×2 (07:53→21:26)
[2021-07-24] MEDS: ENOXAPARIN 40 MG/0.4 ML SYRINGE SUB-Q ×2 (07:54→21:26)
--- NOTE | 2021-07-24 08:41 | WPDINTPN ---
Progress Note: A&P Assessment and Plan (1) Acute hypoxemic respiratory failure: Code(s): J96.01 - Acute respiratory failure with hypoxia Status: Acute Assessment and Plan: Symptoms of COVID around 07/09 and tested positive on 07/12. He is unvaccinated. Admitted 07/17 Patient desaturated this morning after a prolonged coughing bout and is now on BiPAP. 28/05 100% Will check stat portable chest x-ray to rule out any pneumothorax Appropriate isolation Completed a 5 day course of remdesivir and is currently on extended 10 day course as per internal medicine physician Continue dexamethasone Baricitinib added 07/19 due to the worsening hypoxia. Monitor Inflammatory markers May need intubation if does not improve or deteriorate further Monitor closely (2) Pneumonia due to COVID-19 virus: Code(s): U07.1 - COVID-19; J12.82 - Pneumonia due to coronavirus disease 2018 Status: Acute Assessment and Plan: See above (3) STEMI (ST elevation myocardial infarction): Code(s): I21.3 - ST elevation (STEMI) myocardial infarction of unspecified site Status: Acute Assessment and Plan: Status post PCI, aspiration thrombectomy and stenting of RCA Patient was continued on Integrilin infusion yesterday which is now off Dual antiplatelet therapy aspirin and Brilinta He was given Conservative amount of IV fluids for renal protection in light of COVID pneumonia after scan Continue ICU teletypesetter monitor Continue Statin Check echo which is pending Additional Plan DVT prophylaxis -Lovenox 40 mg subQ q.12 hours Stress ulcer prophylaxis -Pepcid Nutrition -diet Code Status - Full Code Total Critical Care Time -32 minutes Due to a high probability of clinically significant, life threatening deterioration, the patient required my highest level of preparedness to intervene emergently and I personally spent this critical care time directly and personally managing the patient. This critical care time included obtaining a history; examining the patient; pulse oximetry; ordering and review of studies; arranging urgent treatment with development of a management plan; evaluation of patient's response to treatment; frequent reassessment; and discussions with other providers. It was exclusive of separately billable procedures and treating other patients and teaching time. Please see Assessment and Plan section and the rest of the note for further information on patient assessment and treatment Subjective Date/time seen: 07/24/21 08:41 Patient did well overnight and was on nasal cannula with non-rebreather mask but this morning when he woke up he had a coughing bout where he desaturated and was placed on BiPAP. Jairon on BiPAP laying on his side. He states that he feels little better now and denies feeling short of breath. He does admit to having cough with small amount of phlegm. Denies any chest pain or any other complaint. Limited review of system was obtained and was negative for headache fever abdominal pain nausea vomiting and diarrhea Interval history: 66yo healthy male presents with complaints of SOB and is known to have COVID. Patient began to have symptoms on July 09. He tested positive on July 12 (result in the paper chart). 07/23 - STEMI Catheterization showed large clots in the right coronary artery and aspiration thrombectomy was performed and then stenting of the proximal RCA for underlying upturned plaque. Transferred to ICU. Review of Systems Review of Systems: ROS unobtainable: Yes unobtainable due to medical condition Exam Narrative: General: Pt is alert awake and in NAD Lungs/Chest: Trachea central coarse BS B/L, no crackles wheezing. On BiPAP, mild tachypnea but no respiratory distress Cardiac: RRR. Normal S1 S2. No murmurs Circulation: Pedal pulses are intact and symmetrical. Abdomen: Normal bowel sounds.. Soft. NT. ND. Extremities: No clubbing, cyanosis or edema. Warm, r
--- NOTE | 2021-07-24 10:02 | PM.IMPN ---
Progress Note: A&P Additional Plan START OF DOCTOR MITZY?S PROGRESS NOTE Subjective: The patient currently rates his respiratory status is 8/10 attends is baseline. He denies fever, rigors, nausea, vomiting, wheeze, abdominal pain, chest pain, lightheadedness, dizziness, palpitations, such as rapid heartbeat, sensation irregular heartbeat. He states he has had a productive cough for which she swallows the sputum. I have explained to the patient his current medical condition plan of care and I have answered all his questions Objective: General: -Alert -No acute distress -No dyspnea -No tachypnea Heart: -Regular rate -Regular rhythm -No murmurs -No gallops -No rubs Lungs: -No wheeze -No rhonchi -No rales -distant breath sounds bilaterally Abdomen: -Normal bowel sounds in all four quadrants -No rebound -No guarding -No tenderness Extremities: -2/4 pulse in all four extremities -No clubbing -No cyanosis -No edema Additional Details / Additional Findings / Exceptions / Miscellaneous: Pertinent Laboratory Results / Pertinent Radiology Results / Pertinent Diagnostic Results / Pertinent Vital Signs: Respirations 22, blood pressure 22/64, white blood count 19.5, hemoglobin 12.3, platelet count 421 1000, potassium 5.2, AST 319 Assessment / Plan: COVID-19 pneumonia. Proventil HFA: 90 mg per spray: 2 puffs q.i.d. plus ferrous a neb 4 mg p.o. q.h.s. plus dexamethasone 6 mg IV daily plus remdesivir 100 mg IV daily. 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 He indicates that he did not always wear mask. Consideration may be given to increasing his steroids in the near future Microcytic anemia/anemia of chronic disease. Ferritin likely elevated due to acute illness. Monitor hemoglobin level intermittently. Check fecal occult blood Coronary artery disease, status post STEMI in hospital on July 23, 2021. Patient status post cardiac catheterization with RCA thrombectomy and proximal RCA stenting. Brilinta 90 mg p.o. q.12 hours plus Lipitor 80 mg p.o. q.h.s. plus aspirin 81 mg p.o. daily Thrombocytosis. Will monitor platelet count intermittently Hyponatremia. Monitor sodium level intermittently Hyperkalemia. Will monitor potassium levels intermittently and correct as necessary Otitis media. Amoxicillin 500 mg p.o. q.8 hours GI prophylaxis. Pepcid 20 mg IV q.12 hours DVT prophylaxis. Lovenox 40 mg subcutaneously q.12 hours Disposition: END OF DOCTOR MITZY?S PROGRESS NOTE Subjective Date/time seen: 07/24/21 10:02 Objective Data Vital Signs Vital Signs: Vital Signs - 24 hr 07/23/21 10:03 07/23/21 13:16 07/23/21 13:18 Temperature 97.4 F L Pulse Rate 89 83 79 Respiratory Rate 24 H 14 22 H Blood Pressure 141/83 H 143/97 H Pulse Oximetry 95 100 100 07/23/21 13:31 07/23/21 13:47 07/23/21 14:00 Temperature Pulse Rate 86 70 68 Respiratory Rate 23 H 17 21 H Blood Pressure 143/96 H 132/92 H Pulse Oximetry 100 97 100 07/23/21 14:01 07/23/21 14:34 07/23/21 14:38 Temperature Pulse Rate 70 70 Respiratory Rate 24 H Blood Pressure 128/88 128/88 Pulse Oximetry 99 96 96 07/23/21 15:01 07/23/21 15:04 07/23/21 16:00 Temperature Pulse Rate 77 65 65 Respiratory Rate 27 H 20 Blood Pressure 126/95 H 126/95 H 112/77 Pulse Oximetry 99 98 07/23/21 16:32 07/23/21 17:01 07/23/21 17:59 Temperature Pulse Rate 78 68 87 Respiratory Rate 27 H 25 H 28 H Blood Pressure 112/77 107/72 106/72 Pulse Oximetry 90 93 07/23/21 18:00 07/23/21 20:00 07/23/21 20:50 Temperature 98.1 F Pulse Rate 67 64 64 Respiratory Rate 26 H 28 H 27 H Blood Pressure 106/71 121/85 Pulse Oximetry 84 L 92 95 07/23/21 21:02 07/23/21 21:19 07/23/21 22:00 Temperature Pulse Rate 61 62 61 Respiratory Rate 22 H 22 H 17 Blood Pressure 104/56 L Pulse Oximetry
--- NOTE | 2021-07-24 12:06 | PM.PNCARD ---
Progress Note: A&P Assessment and Plan (1) STEMI (ST elevation myocardial infarction): Code(s): I21.3 - ST elevation (STEMI) myocardial infarction of unspecified site Status: Acute Assessment and Plan: Inferior ST-elevation [place] likely complication of COVID-19 infection with acute plaque rupture and large thrombus burden status post aspiration thrombectomy and successful stent implantation of proximal RCA. Continue dual antiplatelet therapy without interruption, high-dose statin. Beta-jamarcus on hold at this time. Cautious reintroduction in the next 24 hours. Hemodynamically stable. No complications at access site post procedure thus far. 2D echocardiogram ordered, pending at this time. DVT prophylaxis. Monitor for bleeding. Continue telemetry. If nonsustained VT and or tachyarrhythmia will initiate low-dose beta-jamarcus cautiously. Patient bradycardic this morning although currently in the 70s. If remains stable initiate beta-jamarcus as tolerated, anticipate 12.5mg Metoprolol at least by morning if not sooner. Twelve lead EKG in a.m.. Contacted patient's as requested updated her on patient's status and plan of care. All questions answered to her satisfaction. She verbalized understanding and preceding care being provided. She asked about whether he was seen in the ICU for now be transferred out to floor. She also asked about monitoring cardiac enzymes on a daily basis and explained the process in this regard. Informed her we will be obtaining a 2D echocardiogram in the morning and cautiously starting low-dose beta-jamarcus as tolerated. (2) Pneumonia due to COVID-19 virus: Code(s): U07.1 - COVID-19; J12.82 - Pneumonia due to coronavirus disease 2019 Status: Acute Assessment and Plan: Per hospitalist service. Continue supportive care for COVID-19 infection. (3) Acute hypoxemic respiratory failure: Code(s): J96.01 - Acute respiratory failure with hypoxia Status: Acute Assessment and Plan: As above, noninvasive positive pressure ventilation as required, O2 supplementation, bronchodilator therapy, antibiotics. Management per Critical Care. Subjective Date/time seen: Date of service: 07/24/21 12:06 Follow-up for inferior STEMI, COVID Patient feels better. Denies chest discomfort. Shortness of breath improving after coughing fit this morning placed on BiPAP but improving now. Did well post cardiac catheterization with angiography thrombectomy of RCA and stent implantation. Review of Systems Review of Systems: All systems reviewed & are unremarkable except as noted in HPI and below Constitutional: Constitutional: Reports as per HPI, Denies body ache(s), Reports fatigue, Denies fever(s), Denies poor appetite and Reports weakness Eyes: Eyes: Reports as per HPI, Denies eye discharge, Denies loss of vision, Denies eye pain and Denies photophobia ENT: Reports as per HPI, Denies dizziness, Denies epistaxis, Denies nasal congestion and Denies sore throat Cardiovascular: Cardiovascular: Reports as per HPI, Denies chest pain, Denies diaphoresis, Denies syncope, Denies pedal edema, Denies leg edema, Denies palpitations, Reports dyspnea, Reports dyspnea on exertion and Denies orthopnea Respiratory: Respiratory: Reports as per HPI, Reports cough, Reports dyspnea, Reports dyspnea on exertion and Denies wheezing Gastrointestinal: Gastrointestinal: Reports as per HPI, Denies abdominal pain, Denies diarrhea, Denies nausea and Denies vomiting Genitourinary: Genitourinary: Reports as per HPI, Denies hematuria, Denies genital lesions and Denies dysuria Musculoskeletal: Musculoskeletal: Reports as per HPI, Denies arthralgias, Denies joint swelling and Denies numbness Integumentary/Breasts: Skin/Breast: Reports as per HPI, Denies pruritus and Denies rash Neurologic: Reports as per HPI, Denies dizziness, Denies syncope, Denies loss of vision, Denies numbness and Reports weakness Psychiatric:
[2021-07-24] MEDS: ATORVASTATIN 40 MG TABLET 80 MG PO (12:10)
[2021-07-24] MEDS: guaiFENesin/CODEINE (*CRX) 200/20 MG 10 ML SYRUP PO ×3 (12:11→21:44)
[2021-07-24] MEDS: BENZONATATE 100 MG CAPSULE PO ×3 (12:11→21:47)
[2021-07-24] MEDS: ACETAMINOPHEN 325 MG TABLET 650 MG PO ×2 (12:12→21:42)
[2021-07-24 12:38] LABS: Glucose Point of Care 109 mg/dl (65-105)
[2021-07-24 17:48] LABS: Glucose Point of Care 124 mg/dl (65-105)
[2021-07-24] MEDS: REMDESIVIR 100 MG/NS 250 ML 100 MG/250 ML BAG 250 MG IVPB (21:24)
[2021-07-24] MEDS: BARICITINIB 2 MG TABLET 4 MG PO (21:25)
[2021-07-24 21:54] LABS: Glucose Point of Care 151 mg/dl (65-105)
[2021-07-25] VITALS (19 sets, daily range): BP systolic 83–121; BP diastolic 56–85; PULSE 54–86; RESP 18–29; TEMP 36.3–36.9; O2SAT 65–100
--- NOTE | 2021-07-25 | ECHO_ITS ---
Patient Info Name: Khang Vicente Age: 66 years : 1955 Gender: Male Ht: 70 in Wt: 217 lbs BSA: 2.23 m2 HR: 78 bpm BP: 121 / 81 mmHg Heart Rhythm: Sinus Rhythm Technical Quality: Good Exam Date: 07/25/2021 8:48 AM Exam Location: [facility] Pulmonary Patient Status: Inpatient Admit Date: 07/17/2021 Staff Ordering Physician: Claus Farias MD Refrigeration Unit Repairer: Chase Alvarez, JENNIFER, RT Attending Provider: Sobeida Shrestha MD Exam Type: CA echo doppler color flow Study Info Indications R07.9 - Chest pain, unspecified Complete two-dimensional, color flow and Doppler transthoracic echocardiogram is performed. Summary 1. Complete two-dimensional, color flow and Doppler transthoracic echocardiogram is performed. 2. Left ventricular chamber dimension is normal. 3. Left ventricular systolic function is normal, estimated at 65-70%. 4. There is moderately increased left ventricular wall thickness. 5. Left atrial chamber dimension is moderately enlarged. 6. Right atrial chamber dimension is moderate to severely enlarged. 7. There is mild to moderate aortic valve stenosis with a peak velocity of 232 cm/s, mean gradient of 10 mmHg, and aortic valve area of 1.4 cm2. 8. There is trace tricuspid valve regurgitation. 9. Mild pulmonary hypertension, estimated pulmonary arterial systolic pressure is 36 mmHg. Left Ventricle Left ventricular chamber dimension is normal. Left ventricular systolic function is normal, estimated at 65-70%. There is moderately increased left ventricular wall thickness. The left ventricular diastolic function is grade II diastolic dysfunction. Right Ventricle Right ventricular chamber dimension is normal. Right ventricular systolic function is reduced. Left Atria Left atrial chamber dimension is moderately enlarged. Right Atria Right atrial chamber dimension is moderate to severely enlarged. Aortic Valve The aortic valve is probable trileaflet. There is mild to moderate aortic valve stenosis with a peak velocity of 232 cm/s, mean gradient of 10 mmHg, and aortic valve area of 1.4 cm2. There is mild aortic valve regurgitation. There is mild aortic valve calcification. Pulmonic Valve The pulmonic valve is not well visualized. There is trace pulmonic regurgitation. Mitral Valve The mitral valve has normal leaflets. There is mild mitral valve regurgitation. The mitral valve annulus is mildly calcified. Tricuspid Valve The tricuspid valve leaflets are normal. There is trace tricuspid valve regurgitation. Mild pulmonary hypertension, estimated pulmonary arterial systolic pressure is 36 mmHg. Pericardium/Pleural The pericardium appears normal. There is small pericardial effusion. Aorta The aortic root size at the sinus of Valsalva is mildly dilated. There is mild aortic atherosclerosis. Left Ventricular Outflow Tract Name Value Normal LVOT 2D LVOT Diameter 2.3 cm LVOT Doppler LVOT Peak Gradient 2 mmHg LVOT Mean Gradient 1 mmHg LVOT VTI 16 cm LVOT VTI/AV VTI Ratio 0
[2021-07-25] MEDS: AMOXICILLIN 500 MG CAPSULE PO (05:41)
[2021-07-25 06:25] LABS: Basophils Percent Auto 0.2 % (0.2-1.2); Eosinophils Absolute Auto 0.1 K/mm3 (0-0.3); Eosinophils Percent Auto 0.4 % (0-4.4); Hematocrit 38.6 % (42.0-52.0); Hemoglobin 12.1 g/dL (14.0-18.0); Immature Granulocyte Absolute 0.21 K/mm3 (0.00-0.031); Immature Granulocyte Percent A 1.1 % (0-0.5); Lymphocytes Absolute Auto 6.48 K/mm3 (0.9-3.2); Lymphocytes Percent Auto 34.8 % (18.3-44.2); Mean Corpuscular HGB Conc 31.3 g/dl (32-36); Mean Corpuscular Hemoglobin 21.7 pg (26-34); Mean Corpuscular Volume 69.2 fl (80-100); Mean Platelet Volume 9.6 fl (7.4-10.4); Monocytes Absolute Auto 0.5 K/mm3 (0.1-0.6); Monocytes Percent Auto 2.5 % (2.6-8.5); Neutrophils Absolute Auto 11.4 K/mm3 (1.3-6.7); Platelet Count Result 472 k/mm3 (150-375); Red Blood Count 5.58 M/mm3 (4.6-6.20); Red Cell Distribution Width 14.9 % (11.5-14.5); White Blood Count 18.6 K/mm3 (4.5-10.0)
[2021-07-25 06:36] LABS: Prothrombin Time 13.3 Seconds (11.1-14.7)
--- NOTE | 2021-07-25 07:00 | ECG_ITS ---
Measurements Intervals [place] Rate: 79 P: 8 [place]: 162 QRS: -41 QRSD: 97 T: -62 QT: 424 QTc: 486 Interpretive Statements SINUS RHYTHM ATRIAL PREMATURE COMPLEXES LEFT VENTRICULAR HYPERTROPHY AND ST-T CHANGE INFERIOR MYOCARDIAL INFARCTION, PROBABLY RECENT ANTEROLATERAL MYOCARDIAL INFARCTION, PROBABLY RECENT BASELINE ARTIFACT- I, II, III, AVR, AVL, AVF, V4-V6 ABNORMAL ECG Electronically Signed On 07-25-2021 20:22:35 CDT by Sachin Kramer D.O.
[2021-07-25 08:12] LABS: Alanine Aminotransferase 45 U/L (4-50); Albumin Level 3.5 g/dL (3.5-5.1); Alkaline Phosphatase 52 U/L (38-126); Anion Gap 5 mmol/L (8-16); Aspartate Amino Transferase 164 U/L (17-59); Bilirubin,Total 1.1 mg/dL (0.2-1.3); Blood Urea Nitrogen 26 mg/dL (9-20); Carbon Dioxide 35 mmol/L (22-30); Chloride 95 mmol/L (98-107); Estimated CRCL calculation 96 ml/min; Estimated Glomerular Filt Rate > 60; Glucose 97 mg/dL (65-110); Potassium 4.6 mmol/L (3.4-5.0); Sodium 135 mmol/L (137-145)
[2021-07-25] MEDS: FAMOTIDINE 20 MG/2 ML VIAL IV PUSH ×2 (09:20→20:56)
[2021-07-25] MEDS: ENOXAPARIN 40 MG/0.4 ML SYRINGE SUB-Q ×2 (09:20→20:55)
[2021-07-25] MEDS: DEXAMETHASONE SOD PHOS INJ 4 MG/ML VIAL 6 MG IV PUSH (09:22)
--- NOTE | 2021-07-25 09:45 | PC.NURSE ---
Updated spouse, Rae, on plan of care and patient condition.
--- NOTE | 2021-07-25 11:21 | PCDIET ---
Nutrition Follow-Up Complete: Nutrition Diagnosis: Predicted suboptimal oral intake related to COVID pneumonia as evidenced by patient on bipap. Nutrition Goal: Patient to meet estimated nutritional needs. Goal in progress. Patient has consumed an average of 80% of meals since 07/22/21. Continues on regular diet with Ensure Enlive TID which is appropriate, as tolerated. Last recorded weight is 98.5 kg. Recommend obtaining new weight. Bowel Motility: Last documented BM on 07/22/21. Labs Reviewed: WBC (18.6), Hgb (12.1), Hct (38.6), BUN (26), Na (135), Alb (3.5) Meds Noted: Ultram, Remdesivir, Lopressor, Pepcid, Decadron, Olumiant, Lipitor, Amoxil Additional Notes: No documented pressure sores. Will continue to monitor with same goal. Nutrition Monitoring and Evaluation: Follow up every 5 days.
[2021-07-25] MEDS: ASPIRIN 81 MG ENTERIC TABLET PO (11:26)
[2021-07-25] MEDS: guaiFENesin 600 MG/DEXTROMETHORPHAN 30 MG SR TAB 12 HR 1 TAB PO ×2 (11:26→20:56)
[2021-07-25] MEDS: ATORVASTATIN 40 MG TABLET 80 MG PO (11:26)
[2021-07-25] MEDS: TICAGRELOR 90 MG TABLET PO ×2 (11:27→22:07)
[2021-07-25] MEDS: METOPROLOL TARTRATE 12.5 MG TABLET PO ×2 (11:28→20:56)
[2021-07-25 11:39] LABS: Glucose Point of Care 84 mg/dl (65-105)
--- NOTE | 2021-07-25 11:41 | WPDINTPN ---
Progress Note: A&P Assessment and Plan (1) Acute hypoxemic respiratory failure: Code(s): J96.01 - Acute respiratory failure with hypoxia Status: Acute Assessment and Plan: Symptoms of COVID around 07/09 and tested positive on 07/12. He is unvaccinated. Admitted 07/17 Patient desaturated this morning after a prolonged coughing bout but now lying in prone position and continues to maintain his oxygenation on 15 L nasal cannula and non-rebreather mask Once supine I will try to switch him to Airvo and also try to get him out of bed in a chair as this may help Chest x-ray done yesterday showed persistent bilateral infiltrates with no pneumothorax Continue Appropriate isolation Completed a 5 day course of remdesivir and is currently on extended 10 day course as per internal medicine physician Continue dexamethasone Baricitinib added 07/19 due to the worsening hypoxia. Monitor Inflammatory markers which continues to be high May need intubation if deteriorates further Monitor closely (2) Pneumonia due to COVID-19 virus: Code(s): U07.1 - COVID-19; J12.82 - Pneumonia due to coronavirus disease 2018 Status: Acute Assessment and Plan: See above (3) STEMI (ST elevation myocardial infarction): Code(s): I21.3 - ST elevation (STEMI) myocardial infarction of unspecified site Status: Acute Assessment and Plan: Status post PCI, aspiration thrombectomy and stenting of RCA Patient was continued on Integrilin infusion yesterday which is now off Dual antiplatelet therapy aspirin and Brilinta He was given Conservative amount of IV fluids for renal protection in light of COVID pneumonia after scan Continue ICU monitoring tech Continue Statin Check echo which is pending (4) Constipation: Code(s): K59.00 - Constipation, unspecified Status: Acute Assessment and Plan: Add p.r.n. MiraLax and Dulcolax Additional Plan DVT prophylaxis -Lovenox 40 mg subQ q.12 hours Stress ulcer prophylaxis -Pepcid Nutrition -diet Code Status - Full Code Total Critical Care Time -30 minutes Due to a high probability of clinically significant, life threatening deterioration, the patient required my highest level of preparedness to intervene emergently and I personally spent this critical care time directly and personally managing the patient. This critical care time included obtaining a history; examining the patient; pulse oximetry; ordering and review of studies; arranging urgent treatment with development of a management plan; evaluation of patient's response to treatment; frequent reassessment; and discussions with other providers. It was exclusive of separately billable procedures and treating other patients and teaching time. Please see Assessment and Plan section and the rest of the note for further information on patient assessment and treatment Subjective Date/time seen: 07/25/21 11:41 Patient maintain adequate oxygenation on 15 L nasal cannula and non-rebreather mask overnight but this morning again he had a coughing bout where he desatted. Patient now laying in prone position with the same amount of oxygen and saturation is adequate at 100%. Patient states that he continues to have shortness of breath and dry cough denies any other new complaints. He denies having any chest pain or abdominal pain. Review of system was positive for constipation as his last bowel movement was couple of days ago and all the systems were reviewed and were negative Interval history: 66yo healthy male presents with complaints of SOB and is known to have COVID. Patient began to have symptoms on July 09. He tested positive on July 12 (result in the paper chart). 07/23 - STEMI Catheterization showed large clots in the right coronary artery and aspiration thrombectomy was performed and then stenting of the proximal RCA for underlying upturned plaque. Transferred to ICU. Review of Systems Review of Sy
--- NOTE | 2021-07-25 12:11 | PM.IMPN ---
Progress Note: A&P Assessment and Plan (1) Acute hypoxemic respiratory failure: Code(s): J96.01 - Acute respiratory failure with hypoxia Status: Acute Assessment and Plan: The patient developed symptoms of COVID around 07/09 and tested positive on 07/12. He is unvaccinated. Chest x-ray on admission showing patchy bilateral PNA. He has been placed in isolation per protocol. He was started on dexamethasone and remdesivir. Baricitinib added 07/19 due to the worsening hypoxia. Inflammatory markers not drawn today. Pulmonary following and appreciate their input. Able to wean off BiPAP last night. Will continue with supplementaly O2 but change to AirVo and try wean off the NRB mask. Encouraged him to lay prone as he tolerates. Wean oxygen as tolerated. Continue supportive care (2) Pneumonia due to COVID-19 virus: Code(s): U07.1 - COVID-19; J12.82 - Pneumonia due to coronavirus disease 2018 Status: Acute Assessment and Plan: Please see above (3) STEMI (ST elevation myocardial infarction): Code(s): I21.3 - ST elevation (STEMI) myocardial infarction of unspecified site Status: Acute Assessment and Plan: Patient developed CP on 07/23 with EKG showing acute STEMI. He was taken to the liaison inspection laboratory assistant and he is now status post PCI, aspiration thrombectomy and stenting of RCA. Patient was continued on Integrilin infusion but is now off. Continue dual antiplatelet therapy aspirin and Brilinta. He was given conservative amount of IV fluids for renal protection in light of COVID pneumonia after scan. Continue ICU telemetry monitoring. Continue Statin. Echo result is pending. AST elevated. Check TCK since on Lipitor (4) Hyperkalemia: Code(s): E87.5 - Hyperkalemia Status: Acute Assessment and Plan: Repeat potassium normal now but high end of normal. Will continue to monitor (5) Otitis media: Code(s): H66.90 - Otitis media, unspecified, unspecified ear Status: Acute Assessment and Plan: Stable. Curently on Amoxicillin Day 8. Will stop abx now (6) Constipation: Code(s): K59.00 - Constipation, unspecified Status: Acute Assessment and Plan: Add colace. Monitor (7) DVT prophylaxis: Code(s): Z29.9 - Encounter for prophylactic measures, unspecified Status: Acute Assessment and Plan: Jeanagennyx Subjective Date/time seen: 07/25/21 12:11 Interval history: 66yo healthy male presents with complaints of SOB and is known to have COVID. Patient began to have symptoms on July 09. He tested positive on July 12 (result in the paper chart). Resuming care. Chart reviewed. Moved to ICU since he had STEMI on 07/23/21. His cough is better when he is prone. He is currntly prone and has been x 2 hours. He denies CP. SOB better when prone. He would like to be up to a chair. Did not wear the BiPAP last ngiht. Discussed with steam setter. Exam Narrative: AF 97.8 94/61 75 26 100% HFNC and NRB Gen - NARD lying prone Chest - faint inspiraotry crackles, nml RR CV - RRR S1/S2; Tele showing no significant dysrhythmias. Abd - Soft, NT/ND, Positive BS - Ward secured draining clear yellow urine Ext - No pedal edema Psych - Nml mood and affect Skin - Warm and dry Objective Data Vital Signs Vital Signs: Vital Signs - 24 hr 07/24/21 14:00 07/24/21 16:00 07/24/21 18:00 Temperature Pulse Rate 72 67 61 Respiratory Rate 22 H 24 H 18 Blood Pressure 113/78 Pulse Oximetry 97 97 96 07/24/21 20:00 07/24/21 21:00 07/24/21 22:00 Temperature 97.9 F Pulse Rate 78 72 68 Respiratory Rate 22 H 24 H 24 H Blood Pressure 105/79 115/63 Pulse Oximetry 95 94 95 07/25/21 00:00 07/25/21 02:00 07/25/21 02:59 Temperature 97.8 F Pulse Rate 66 79 Respiratory Rate 18 23 H Blood Pressure 113/85 121/81 Pulse Oximetry 99 96 100 07/25/21 04:00 07/25/21 06:00 07/25/21 08:00 Temperature Pul
[2021-07-25] MEDS: LORazepam INJ (*CRX) 2 MG/ML VIAL 1 MG IV PUSH (14:00)
[2021-07-25 14:01] LABS: Creatine Kinase 198 U/L (55-170)
--- NOTE | 2021-07-25 15:31 | PM.PNCARD ---
Progress Note: A&P Assessment and Plan (1) STEMI (ST elevation myocardial infarction): Code(s): I21.3 - ST elevation (STEMI) myocardial infarction of unspecified site Status: Acute Assessment and Plan: Status post Inferior ST-elevation [place] likely complication of COVID-19 infection with acute plaque rupture and large thrombus burden status post aspiration thrombectomy and successful 5.0x22mm Victor Manuel stent implantation proximal RCA. Continue dual antiplatelet therapy without interruption, high-dose statin. Low-dose beta-jamarcus initiated, tolerating reasonably well at this time. EF 65-70% [id number] aortic stenosis on echocardiogram. Patient stable from cardiac perspective. Echocardiogram reviewed. Patient clinically overall tenuous from a respiratory perspective. Prognosis guarded. Check chest x-ray in a.m.. (2) Pneumonia due to COVID-19 virus: Code(s): U07.1 - COVID-19; J12.82 - Pneumonia due to coronavirus disease 2018 Status: Acute Assessment and Plan: Per hospitalist service. Continue supportive care for COVID-19 infection. (3) Acute hypoxemic respiratory failure: Code(s): J96.01 - Acute respiratory failure with hypoxia Status: Acute Assessment and Plan: Primary issue at present. As above, noninvasive positive pressure ventilation as required, O2 supplementation, bronchodilator therapy, antibiotics. Management per Critical Care. Patient without significant clinical improvement overall in this regard. Subjective Date/time seen: Date of service: 07/25/21 15:31 Follow-up for inferior STEMI, COVID pneumonia, respiratory failure Patient denies chest pain. Anxious at times, still short of breath was prone for 2-1/2 hours did well this morning but still hypoxic requiring high flow oxygen support noninvasive positive pressure ventilation. Hemodynamically stable. Echocardiogram obtained EF preserved. Review of Systems Review of Systems: All systems reviewed & are unremarkable except as noted in HPI and below Constitutional: Constitutional: Reports as per HPI, Denies body ache(s), Reports fatigue, Denies fever(s), Denies poor appetite and Reports weakness Eyes: Eyes: Reports as per HPI, Denies eye discharge, Denies loss of vision, Denies eye pain and Denies photophobia ENT: Reports as per HPI, Denies dizziness, Denies epistaxis, Denies nasal congestion and Denies sore throat Cardiovascular: Cardiovascular: Reports as per HPI, Denies chest pain, Denies diaphoresis, Denies syncope, Denies pedal edema, Denies leg edema, Denies palpitations, Reports dyspnea, Reports dyspnea on exertion and Denies orthopnea Respiratory: Respiratory: Reports as per HPI, Reports cough, Reports dyspnea, Reports dyspnea on exertion and Denies wheezing Gastrointestinal: Gastrointestinal: Reports as per HPI, Denies abdominal pain, Denies diarrhea, Denies nausea and Denies vomiting Genitourinary: Genitourinary: Reports as per HPI, Denies hematuria, Denies genital lesions and Denies dysuria Musculoskeletal: Musculoskeletal: Reports as per HPI, Denies arthralgias, Denies joint swelling and Denies numbness Integumentary/Breasts: Skin/Breast: Reports as per HPI, Denies pruritus and Denies rash Neurologic: Reports as per HPI, Denies dizziness, Denies syncope, Denies loss of vision, Denies numbness and Reports weakness Psychiatric: Psychiatric: Reports as per HPI, Denies anxiety and Denies depression Endocrine: Endocrine: Reports as per HPI, Denies cold intolerance, Reports fatigue, Denies heat intolerance and Denies palpitations Hematologic/Lymphatic: Hematologic/Lymphatic: Reports as per HPI, Denies easy bleeding and Denies easy bruising Allergic/Immunologic: Allergic/Immunologic: Reports as per HPI, Denies urticaria and Denies wheezing Exam Const: General: cooperative, comfortable, alert and awake Nutritional Appearance: well nourished Orientation/consciousness: patient oriented x3 Other: High-flow n
[2021-07-25 18:27] LABS: Glucose Point of Care 184 mg/dl (65-105)
[2021-07-25] MEDS: BARICITINIB 2 MG TABLET 4 MG PO (20:55)
[2021-07-25] MEDS: DOCUSATE SODIUM 100 MG CAPSULE PO (20:55)
[2021-07-25] MEDS: ACETAMINOPHEN 325 MG TABLET 650 MG PO (20:58)
[2021-07-25] MEDS: REMDESIVIR 100 MG/NS 250 ML 100 MG/250 ML BAG 250 MG IVPB (21:00)
[2021-07-25] MEDS: guaiFENesin/CODEINE (*CRX) 200/20 MG 10 ML SYRUP PO (22:08)
[2021-07-26] VITALS (19 sets, daily range): BP systolic 92–116; BP diastolic 56–79; PULSE 52–89; RESP 16–95; TEMP 35.7–36.8; O2SAT 89–100
[2021-07-26 06:11] LABS: Basophils Percent Auto 0.1 % (0.2-1.2); Eosinophils Absolute Auto 0.1 K/mm3 (0-0.3); Eosinophils Percent Auto 0.3 % (0-4.4); Hematocrit 36.9 % (42.0-52.0); Hemoglobin 11.8 g/dL (14.0-18.0); Immature Granulocyte Absolute 0.22 K/mm3 (0.00-0.031); Immature Granulocyte Percent A 1.2 % (0-0.5); Lymphocytes Absolute Auto 6.58 K/mm3 (0.9-3.2); Lymphocytes Percent Auto 36.6 % (18.3-44.2); Mean Corpuscular Hemoglobin 22.2 pg (26-34); Mean Corpuscular Volume 69.5 fl (80-100); Mean Platelet Volume 9.7 fl (7.4-10.4); Monocytes Absolute Auto 0.5 K/mm3 (0.1-0.6); Neutrophils Absolute Auto 10.6 K/mm3 (1.3-6.7); Neutrophils Percent Auto 58.8 % (45.5-73.1); Platelet Count Result 418 k/mm3 (150-375); Red Blood Count 5.31 M/mm3 (4.6-6.20); Red Cell Distribution Width 14.8 % (11.5-14.5)
[2021-07-26 06:28] LABS: Alanine Aminotransferase 33 U/L (4-50); Albumin Level 3.3 g/dL (3.5-5.1); Alkaline Phosphatase 45 U/L (38-126); Anion Gap 6 mmol/L (8-16); Aspartate Amino Transferase 85 U/L (17-59); Bilirubin,Total 0.8 mg/dL (0.2-1.3); Blood Urea Nitrogen 31 mg/dL (9-20); CRP 3.8 mg/dL (<1.0); Calcium 8.6 mg/dL (8.4-10.2); Carbon Dioxide 30 mmol/L (22-30); Chloride 96 mmol/L (98-107); Estimated CRCL calculation 96 ml/min; Estimated Glomerular Filt Rate > 60; Glucose 104 mg/dL (65-110); Lactate Dehydrogenase 1657 U/L (313-618); Potassium 4.7 mmol/L (3.4-5.0); Sodium 132 mmol/L (137-145)
[2021-07-26 06:30] LABS: INR 1.1; Prothrombin Time 13.6 Seconds (11.1-14.7)
[2021-07-26] MEDS: guaiFENesin/CODEINE (*CRX) 200/20 MG 10 ML SYRUP PO ×2 (06:34→21:33)
[2021-07-26 06:40] LABS: D Dimer 3.82 ug/mL (<0.48)
[2021-07-26] MEDS: BENZONATATE 100 MG CAPSULE PO ×2 (09:03→21:33)
[2021-07-26] MEDS: FAMOTIDINE 20 MG/2 ML VIAL IV PUSH ×2 (09:03→21:31)
[2021-07-26] MEDS: ENOXAPARIN 40 MG/0.4 ML SYRINGE SUB-Q ×2 (09:03→21:31)
[2021-07-26] MEDS: DEXAMETHASONE SOD PHOS INJ 4 MG/ML VIAL 6 MG IV PUSH (09:03)
[2021-07-26] MEDS: DOCUSATE SODIUM 100 MG CAPSULE PO ×2 (09:04→21:30)
[2021-07-26] MEDS: ATORVASTATIN 40 MG TABLET 80 MG PO (09:04)
[2021-07-26] MEDS: guaiFENesin 600 MG/DEXTROMETHORPHAN 30 MG SR TAB 12 HR 1 TAB PO ×2 (09:04→21:31)
[2021-07-26] MEDS: ASPIRIN 81 MG ENTERIC TABLET PO (09:04)
[2021-07-26] MEDS: TICAGRELOR 90 MG TABLET PO ×2 (09:05→21:32)
[2021-07-26 09:15] LABS: Glucose Point of Care 94 mg/dl (65-105)
--- NOTE | 2021-07-26 10:56 | PCDIET ---
ICU Rounding Note: Patient eating fairly well; consumed 50-100% of two meals yesterday and takes Enlive supplement. Recommend continuing regular diet, as tolerated, with Ensure Enlive TID. Last recorded weight is 98.5kg. Recommend obtaining new weight. Bowel Motility: Last documented BM on 07/18/21. If medically appropriate, would consider medication to promote BM. Labs Reviewed: WBC (18.0), Hgb (11.8), Hct (36.9), BUN (31), Na (132), Alb (3.3) Meds Noted: Lipitor, Olumiant, Colace, Pepcid, Lopressor, Remdesivir Additional Notes: No documented pressure sores. Following daily in ICU rounds. Assessing/reassessing every 5 days.
[2021-07-26] MEDS: METOPROLOL TARTRATE 12.5 MG TABLET PO ×2 (11:37→21:32)
--- NOTE | 2021-07-26 12:24 | WPDINTPN ---
Progress Note: A&P Assessment and Plan (1) Acute hypoxemic respiratory failure: Code(s): J96.01 - Acute respiratory failure with hypoxia Status: Acute Assessment and Plan: Symptoms of COVID around 07/09 and tested positive on 07/12. He is unvaccinated. Admitted 07/17 On 07/25/2021 Patient desaturated in the morning after a prolonged coughing bout but now lying in prone position and continues to maintain his oxygenation on 15 L nasal cannula and non-rebreather mask -Currently on Airvo, 90% FiO2, 60 L flow rate along with 100% non-rebreather mask -07/26/2021: CXR - Mildly decreased lung volumes with otherwise unchanged patchy bilateral opacities consistent with COVID pneumonia - Completed a 5 day course of remdesivir and is currently on extended 10 day course as per internal medicine physician - Continue dexamethasone - Baricitinib added 07/19 due to the worsening hypoxia. May need intubation if deteriorates further Monitor closely (2) Pneumonia due to COVID-19 virus: Code(s): U07.1 - COVID-19; J12.82 - Pneumonia due to coronavirus disease 2018 Status: Acute Assessment and Plan: COVID positive on 07/12/21, Unvaccinated -continue airborne, droplet and contact isolation/precautions -inflammatory markers trending down, continue to monitor (3) STEMI (ST elevation myocardial infarction): Code(s): I21.3 - ST elevation (STEMI) myocardial infarction of unspecified site Status: Acute Assessment and Plan: Status post PCI, aspiration thrombectomy and stenting of RCA on 07/23 Dual antiplatelet therapy aspirin and Brilinta He was given Conservative amount of IV fluids for renal protection in light of COVID pneumonia Continue ICU compliance monitor Continue Statin Echocardiogram 07/25/2021: LV dimensions are normal, EF 65-70%, moderately increased LV wall thickness, are a chamber dimension is moderate to severely enlarged, mild to moderate aortic valve stenosis, mild pulmonary hypertension Cardiology following the patient (4) Constipation: Code(s): K59.00 - Constipation, unspecified Status: Acute Assessment and Plan: Add p.r.n. stool soft Additional Plan DVT prophylaxis -Lovenox 40 mg subQ q.12 hours Stress ulcer prophylaxis -Pepcid Nutrition -diet Discussed with patient updated with his condition and plan of care. Patient wants to sit up in the chair. Would also encourage incentive spirometry Discussed with cardiology Code Status - Full Code Total Critical Care Time - 32 minutes Due to a high probability of clinically significant, life threatening deterioration, the patient required my highest level of preparedness to intervene emergently and I personally spent this critical care time directly and personally managing the patient. This critical care time included obtaining a history; examining the patient; pulse oximetry; ordering and review of studies; arranging urgent treatment with development of a management plan; evaluation of patient's response to treatment; frequent reassessment; and discussions with other providers. It was exclusive of separately billable procedures and treating other patients and teaching time. Please see Assessment and Plan section and the rest of the note for further information on patient assessment and treatment Subjective Date/time seen: 07/26/21 12:24 Interval history: 66yo healthy male presents with complaints of SOB and is known to have COVID. Patient began to have symptoms on July 09. He tested positive on July 12 (result in the paper chart). 07/23 - STEMI Catheterization showed large clots in the right coronary artery and aspiration thrombectomy was performed and then stenting of the proximal RCA for underlying upturned plaque. 07/26/2021: Patient has had increased oxygen requirements since admission to the ICU, currently on Airvo, 90% FiO2, 60 L with 100% non-rebreather. Patient continues to have bouts of cough and drops
--- NOTE | 2021-07-26 12:55 | PM.PNCARD ---
Progress Note: A&P Assessment and Plan (1) STEMI (ST elevation myocardial infarction): Code(s): I21.3 - ST elevation (STEMI) myocardial infarction of unspecified site Status: Acute Assessment and Plan: Status post Inferior ST-elevation [place] likely complication of COVID-19 infection with acute plaque rupture and large thrombus burden status post aspiration thrombectomy and successful 5.0x22mm Victor Manuel GABRIEL implantation proximal RCA. Continue dual antiplatelet therapy without interruption with aspirin and Brilinta, high-dose statin. Low-dose beta-jamarcus initiated, tolerating reasonably well at this time. EF 65-70% [id number] aortic stenosis on echocardiogram. Patient reasonably stable from cardiac perspective despite degree of hypoxia. Bradycardic early this morning tolerating metoprolol 12.5 mg twice daily. Will not increase at this time. Monitor BP. Overall, given severity of COVID and respiratory failure prognosis is quite guarded. (2) Pneumonia due to COVID-19 virus: Code(s): U07.1 - COVID-19; J12.82 - Pneumonia due to coronavirus disease 2018 Status: Acute Assessment and Plan: Per hospitalist and critical care service. Continue supportive care for COVID-19 infection. s/p Dexamethasone, Remdesivir, currently on Baricitinib, Enoxaparin 40mg SQ q12hr. Isolatoin precautions. (3) Acute hypoxemic respiratory failure: Code(s): J96.01 - Acute respiratory failure with hypoxia Status: Acute Assessment and Plan: Status remains tenuous, high risk for further decompensation as he will then require intubation. As above, noninvasive positive pressure ventilation as required, O2 supplementation, bronchodilator therapy, etc. Management per Critical Care. Patient without significant clinical improvement thus far in this regard. Subjective Date/time seen: Date of service: 07/26/21 12:55 Follow-up for status post inferior STEMI, COVID pneumonia acute respiratory failure Patient remains short of breath remains on high-flow Airvo high FiO2 non-rebreather mask. Off BiPAP currently. Denies chest pain. Remains weak. No evidence of bleeding. No palpitations. Review of Systems Review of Systems: All systems reviewed & are unremarkable except as noted in HPI and below Constitutional: Constitutional: Reports as per HPI, Denies body ache(s), Reports fatigue, Denies fever(s), Denies poor appetite and Reports weakness Eyes: Eyes: Reports as per HPI, Denies eye discharge, Denies loss of vision, Denies eye pain and Denies photophobia ENT: Reports as per HPI, Denies dizziness, Denies epistaxis, Denies nasal congestion and Denies sore throat Cardiovascular: Cardiovascular: Reports as per HPI, Denies chest pain, Denies diaphoresis, Denies syncope, Denies pedal edema, Denies leg edema, Denies palpitations, Reports dyspnea, Reports dyspnea on exertion and Denies orthopnea Respiratory: Respiratory: Reports as per HPI, Reports cough, Reports dyspnea, Reports dyspnea on exertion and Denies wheezing Gastrointestinal: Gastrointestinal: Reports as per HPI, Denies abdominal pain, Denies diarrhea, Denies nausea and Denies vomiting Genitourinary: Genitourinary: Reports as per HPI, Denies hematuria, Denies genital lesions and Denies dysuria Musculoskeletal: Musculoskeletal: Reports as per HPI, Denies arthralgias, Denies joint swelling and Denies numbness Integumentary/Breasts: Skin/Breast: Reports as per HPI, Denies pruritus and Denies rash Neurologic: Reports as per HPI, Denies dizziness, Denies syncope, Denies loss of vision, Denies numbness and Reports weakness Psychiatric: Psychiatric: Reports as per HPI, Denies anxiety and Denies depression Endocrine: Endocrine: Reports as per HPI, Denies cold intolerance, Reports fatigue, Denies heat intolerance and Denies palpitations Hematologic/Lymphatic: Hematologic/Lymphatic: Reports as per HPI, Denies easy bleeding and Denies easy bruising Allergic/Immunologic: Allergi
--- NOTE | 2021-07-26 15:20 | PM.IMPN ---
Progress Note: A&P Assessment and Plan (1) Acute hypoxemic respiratory failure: Code(s): J96.01 - Acute respiratory failure with hypoxia Status: Acute Assessment and Plan: The patient developed symptoms of COVID around 07/09 and tested positive on 07/12. He is unvaccinated. Chest x-ray on admission showing patchy bilateral PNA. He has been placed in isolation per protocol. He was started on dexamethasone and remdesivir both of which will complete today after 10 days. Baricitinib added 07/19 due to the worsening hypoxia. Inflammatory markers: DD 3.8, LDH 1657, CRP 3.8 and ferritin 1170 all of which are better. Pulmonary following and appreciate their input. No longer requiring BiPAP at night. Procalcitonin 0.1. Will continue with supportive care and wean O2 as tolerated. Encouraged him to lay prone as he tolerates. (2) Pneumonia due to COVID-19 virus: Code(s): U07.1 - COVID-19; J12.82 - Pneumonia due to coronavirus disease 2019 Status: Acute Assessment and Plan: Please see above (3) STEMI (ST elevation myocardial infarction): Code(s): I21.3 - ST elevation (STEMI) myocardial infarction of unspecified site Status: Acute Assessment and Plan: Patient developed CP on 07/23 with EKG showing acute STEMI. He was taken to the laboratory analyst and he is now status post PCI, aspiration thrombectomy and stenting of RCA. Patient was on Integrilin infusion but is now off. Continue dual antiplatelet therapy with aspirin and Brilinta. He was given conservative amount of IV fluids for renal protection in light of COVID pneumonia after scan. Echo showing EF 65-70% and mild-mod without wall motion abnormalities. Continue ICU telemetry monitoring. Continue Statin and metoprolol. (4) Hyperkalemia: Code(s): E87.5 - Hyperkalemia Status: Acute Assessment and Plan: Repeat potassium normal now. Will continue to monitor (5) Otitis media: Code(s): H66.90 - Otitis media, unspecified, unspecified ear Status: Acute Assessment and Plan: Stable. Completed a course of Amoxicillin (6) Constipation: Code(s): K59.00 - Constipation, unspecified Status: Acute Assessment and Plan: Stable. Continue Colace. Monitor (7) DVT prophylaxis: Code(s): Z29.9 - Encounter for prophylactic measures, unspecified Status: Acute Assessment and Plan: Jeananox Subjective Date/time seen: 07/26/21 15:20 Interval history: 66yo healthy male presents with complaints of SOB and is known to have COVID. Patient began to have symptoms on July 09. He tested positive on July 12 (result in the paper chart). Patient feeling better. Cough improved. Was able to sit up in a chair today. On Airvo 60L at 90% but able to come off the NRB mask today. He did not wear the BiPAP last night. Able to self-prone. Exam Narrative: AF 97.8 104/58 56 25 98% Airvo Gen - NARD lying almost flat in bed Chest - faint inspiratory crackles bibasilar; nml RR CV - RRR S1/S2; Tele showing no significant dysrhythmias. Abd - Soft, NT/ND, Positive BS - Ward secured draining clear yellow urine Ext - No pedal edema Psych - Nml mood and affect Skin - Warm and dry Objective Data Vital Signs Vital Signs: Vital Signs - 24 hr 07/25/21 16:00 07/25/21 18:00 07/25/21 20:00 Temperature 98.5 F 97.3 F L Pulse Rate 86 76 73 Respiratory Rate 18 29 H 22 H Blood Pressure 109/76 103/66 98/72 L Pulse Oximetry 96 96 94 07/25/21 21:00 07/25/21 21:01 07/25/21 22:00 Temperature Pulse Rate 68 78 62 Respiratory Rate 21 H 25 H Blood Pressure 83/56 L Pulse Oximetry 97 96 97 07/25/21 23:17 07/26/21 00:00 07/26/21 02:00 Temperature 96.2 F L Pulse Rate 72 53 L 53 L Respiratory Rate 22 H 22 H Blood Pressure 115/79 98/64 L Pulse Oximetry 97 96 100 07/26/21 03:04 07/26/21 04:00 07/26/21 06:00 Temperature 97.9 F Pulse Rate 52 L 5
[2021-07-26 15:53] LABS: Glucose Point of Care 111 mg/dl (65-105)
[2021-07-26] MEDS: BARICITINIB 2 MG TABLET 4 MG PO (21:30)
[2021-07-26] MEDS: REMDESIVIR 100 MG/NS 250 ML 100 MG/250 ML BAG 250 MG IVPB (21:32)
[2021-07-27] VITALS (19 sets, daily range): BP systolic 92–113; BP diastolic 48–74; PULSE 50–88; RESP 16–27; TEMP 36.1–38; O2SAT 85–100
[2021-07-27 00:19] LABS: Glucose Point of Care 106 mg/dl (65-105)
[2021-07-27 04:51] LABS: Basophils Percent Auto 0.1 % (0.2-1.2); Eosinophils Absolute Auto 0.1 K/mm3 (0-0.3); Eosinophils Percent Auto 0.3 % (0-4.4); Hematocrit 35.6 % (42.0-52.0); Hemoglobin 11.5 g/dL (14.0-18.0); Immature Granulocyte Absolute 0.17 K/mm3 (0.00-0.031); Lymphocytes Absolute Auto 6.61 K/mm3 (0.9-3.2); Lymphocytes Percent Auto 37.7 % (18.3-44.2); Mean Corpuscular HGB Conc 32.3 g/dl (32-36); Mean Corpuscular Hemoglobin 22.3 pg (26-34); Mean Corpuscular Volume 69.1 fl (80-100); Mean Platelet Volume 9.5 fl (7.4-10.4); Monocytes Absolute Auto 0.6 K/mm3 (0.1-0.6); Monocytes Percent Auto 3.5 % (2.6-8.5); Neutrophils Absolute Auto 10.1 K/mm3 (1.3-6.7); Neutrophils Percent Auto 57.4 % (45.5-73.1); Platelet Count Result 421 k/mm3 (150-375); Red Blood Count 5.15 M/mm3 (4.6-6.20); Red Cell Distribution Width 14.3 % (11.5-14.5); White Blood Count 17.6 K/mm3 (4.5-10.0)
[2021-07-27 05:03] LABS: Alanine Aminotransferase 31 U/L (4-50); Albumin Level 3.1 g/dL (3.5-5.1); Alkaline Phosphatase 44 U/L (38-126); Anion Gap 1 mmol/L (8-16); Aspartate Amino Transferase 60 U/L (17-59); Bilirubin,Total 0.6 mg/dL (0.2-1.3); Blood Urea Nitrogen 31 mg/dL (9-20); Calcium 8.6 mg/dL (8.4-10.2); Carbon Dioxide 35 mmol/L (22-30); Chloride 97 mmol/L (98-107); Estimated CRCL calculation 86 ml/min; Estimated Glomerular Filt Rate > 60; Glucose 104 mg/dL (65-110); Magnesium 2.2 mg/dL (1.6-2.3); Phosphorus 4.7 mg/dL (2.5-4.5); Potassium 5.3 mmol/L (3.4-5.0); Sodium 133 mmol/L (137-145)
[2021-07-27] MEDS: guaiFENesin/CODEINE (*CRX) 200/20 MG 10 ML SYRUP PO ×4 (05:26→21:52)
[2021-07-27 05:47] LABS: Atypical Lymphocytes Present; Large Platelets Present
[2021-07-27] MEDS: ATORVASTATIN 40 MG TABLET 80 MG PO (08:22)
[2021-07-27] MEDS: BENZONATATE 100 MG CAPSULE PO (08:23)
[2021-07-27] MEDS: TICAGRELOR 90 MG TABLET PO ×2 (08:23→20:03)
[2021-07-27] MEDS: FAMOTIDINE 20 MG/2 ML VIAL IV PUSH ×2 (08:24→20:03)
[2021-07-27] MEDS: ENOXAPARIN 40 MG/0.4 ML SYRINGE SUB-Q ×2 (08:24→20:02)
[2021-07-27] MEDS: DOCUSATE SODIUM 100 MG CAPSULE PO ×2 (08:24→20:03)
[2021-07-27] MEDS: ASPIRIN 81 MG ENTERIC TABLET PO (08:24)
[2021-07-27] MEDS: guaiFENesin 600 MG/DEXTROMETHORPHAN 30 MG SR TAB 12 HR 1 TAB PO ×2 (08:24→20:03)
[2021-07-27] MEDS: METOPROLOL TARTRATE 12.5 MG TABLET PO ×2 (08:25→20:03)
--- NOTE | 2021-07-27 08:25 | WPDINTPN ---
Progress Note: A&P Assessment and Plan (1) Acute hypoxemic respiratory failure: Code(s): J96.01 - Acute respiratory failure with hypoxia Status: Acute Assessment and Plan: Symptoms of COVID around 07/09 and tested positive on 07/12. He is unvaccinated. Admitted 07/17 On 07/25/2021 Patient desaturated in the morning after a prolonged coughing bout but now lying in prone position and continues to maintain his oxygenation on 15 L nasal cannula and non-rebreather mask -Currently on Airvo, 90% FiO2, 60 L flow rate along with 100% non-rebreather mask, wean FiO2 as tolerated -07/26/2021: CXR - Mildly decreased lung volumes with otherwise unchanged patchy bilateral opacities consistent with COVID pneumonia - Completed a 5 day course of remdesivir and is currently on extended 10 day course as per internal medicine physician - Continue dexamethasone - Baricitinib added 07/19 due to the worsening hypoxia. -encouraged laying in prone position May need intubation if deteriorates further Monitor closely (2) Pneumonia due to COVID-19 virus: Code(s): U07.1 - COVID-19; J12.82 - Pneumonia due to coronavirus disease 2019 Status: Acute Assessment and Plan: COVID positive on 07/12/21, Unvaccinated -continue airborne, droplet and contact isolation/precautions -inflammatory markers trending down, continue to monitor (3) STEMI (ST elevation myocardial infarction): Code(s): I21.3 - ST elevation (STEMI) myocardial infarction of unspecified site Status: Acute Assessment and Plan: Status post PCI, aspiration thrombectomy and stenting of RCA on 07/23 Dual antiplatelet therapy aspirin and Brilinta He was given Conservative amount of IV fluids for renal protection in light of COVID pneumonia Continue ICU river guide Continue Statin Echocardiogram 07/25/2021: LV dimensions are normal, EF 65-70%, moderately increased LV wall thickness, are a chamber dimension is moderate to severely enlarged, mild to moderate aortic valve stenosis, mild pulmonary hypertension Cardiology following the patient (4) Constipation: Code(s): K59.00 - Constipation, unspecified Status: Acute Assessment and Plan: Continue stool softeners Additional Plan DVT prophylaxis -Lovenox 40 mg subQ q.12 hours Stress ulcer prophylaxis -Pepcid Nutrition -diet Discussed with patient updated with his condition and plan of care. Patient wants to sit up in the chair. Encourage incentive spirometry and laying in prone position Discussed with cardiology Code Status - Full Code Total Critical Care Time - 32 minutes Due to a high probability of clinically significant, life threatening deterioration, the patient required my highest level of preparedness to intervene emergently and I personally spent this critical care time directly and personally managing the patient. This critical care time included obtaining a history; examining the patient; pulse oximetry; ordering and review of studies; arranging urgent treatment with development of a management plan; evaluation of patient's response to treatment; frequent reassessment; and discussions with other providers. It was exclusive of separately billable procedures and treating other patients and teaching time. Please see Assessment and Plan section and the rest of the note for further information on patient assessment and treatment Subjective Date/time seen: 07/27/21 08:25 Interval history: 66yo healthy male presents with complaints of SOB and is known to have COVID. Patient began to have symptoms on July 09. He tested positive on July 12 (result in the paper chart). 07/23 - STEMI Catheterization showed large clots in the right coronary artery and aspiration thrombectomy was performed and then stenting of the proximal RCA for underlying upturned plaque. 07/27/2021: Patient remains on Airvo, 90% FiO2, 60 L with 100% non-rebreather mask. O2 sats have been 94-99%. Emearld
--- NOTE | 2021-07-27 11:28 | PM.IMPN ---
Progress Note: A&P Assessment and Plan (1) Acute hypoxemic respiratory failure: Code(s): J96.01 - Acute respiratory failure with hypoxia Status: Acute Assessment and Plan: The patient developed symptoms of COVID around 07/09 and tested positive on 07/12. He is unvaccinated. Chest x-ray on admission showing patchy bilateral PNA. He has been placed in isolation per protocol. He was started on dexamethasone and remdesivir both of which completed on 07/26 after 10 days. Baricitinib added 07/19 due to the worsening hypoxia. Inflammatory markers from yesterday: DD 3.8, LDH 1657, CRP 3.8 and ferritin 1170 all of which are better. Procalcitonin 0.1. Pulmonary and geothermal hvac technician following and appreciate their input. No longer requiring BiPAP or NRB mask at night. Had a worsening event associated with getting up to the chair and the coughing jag. He has recovered. Wean off NRB mask as toelrated. Will continue with supportive care and wean O2 as tolerated. Encouraged him to lay prone as he tolerates. (2) Pneumonia due to COVID-19 virus: Code(s): U07.1 - COVID-19; J12.82 - Pneumonia due to coronavirus disease 2018 Status: Acute Assessment and Plan: Please see above (3) STEMI (ST elevation myocardial infarction): Code(s): I21.3 - ST elevation (STEMI) myocardial infarction of unspecified site Status: Acute Assessment and Plan: Patient developed CP on 07/23 with EKG showing acute STEMI. He was taken to the bottle label inspector and he is now status post PCI, aspiration thrombectomy and stenting of RCA. Patient was on Integrilin infusion but is now off. He was given conservative amount of IV fluids for renal protection in light of COVID pneumonia after scan. Echo showing EF 65-70% and mild-mod without wall motion abnormalities. Continue ICU telemetry monitoring. Continue Lipitor and metoprolol. Continue dual antiplatelet therapy with aspirin and Brilinta. (4) Hyperkalemia: Code(s): E87.5 - Hyperkalemia Status: Acute Assessment and Plan: Potassium elevated at times here. Not on CHULA/ARB or potassium replacement. Off steroids now. Lovenox has been shown to cause mild hyperkalemia. Current potassium at 5.3. Will continue to monitor (5) Otitis media: Code(s): H66.90 - Otitis media, unspecified, unspecified ear Status: Acute Assessment and Plan: Stable. Completed a course of Amoxicillin (6) Constipation: Code(s): K59.00 - Constipation, unspecified Status: Acute Assessment and Plan: Stable. Continue Colace. Monitor (7) DVT prophylaxis: Code(s): Z29.9 - Encounter for prophylactic measures, unspecified Status: Acute Assessment and Plan: Lovenox Subjective Date/time seen: 07/27/21 11:28 Interval history: 66yo healthy male presents with complaints of SOB and is known to have COVID. Patient began to have symptoms on July 09. He tested positive on July 12 (result in the paper chart). Patient did well yesterday off the NRB mask and only using the Airvo. He remained on Airvo last night and not requiring the NRB mask much. Patient did get up to the chair today but then had a coughing jag with SpO2 in the 50's%. They added the NRB mask but no benefit. They tried BiPAP without benefit so he was put back to bed and back to Airvo with NRB mask. He improved and now at 94%. He can lie prone at times but does not tolerate it well. Exam Narrative: AF 97.0 96/68 65 22 94% Airvo Gen - NARD lying left side down Chest - faint inspiratory crackles bibasilar; nml RR CV - RRR S1/S2; Tele showing no significant dysrhythmias. Abd - Soft, NT/ND, Positive BS - Ward secured draining clear yellow urine Ext - No pedal edema Psych - Nml mood and affect Skin - Warm and dry Objective Data Vital Signs Vital Signs: Vital Signs - 24 hr 07/26/21 11:37 07/26/21 12:00 07/26/21 14:00 Temperature 97.8 F Pul
[2021-07-27] MEDS: LIDOCAINE HCL 1% PF INJ 5 ML VIAL INFILTRATE (11:50)
--- NOTE | 2021-07-27 12:08 | PM.PNCARD ---
Progress Note: A&P Additional Plan 66-year-old man with: Acute inferior wall ST-elevation LA in the setting of COVID pneumonia with large thrombotic burden in the RCA. Successful PCI was conducted quickly with good WENDI 3 flow restored in the vessel and echocardiogram subsequently apparently shows very good residual left ventricular systolic function. He is being maintained on beta-jamarcus and dual anti-platelet therapy. Principal health problem now is obviously COVID pneumonia which hopefully will resolve without the patient required ventilator support. Prognosis is very guarded at this time Earl Hay MD [facility] Subjective Date/time seen: Date of service: 07/27/21 12:08 Interval history: Follow-up visit in this 66-year-old man with: Coronavirus with COVID-19 pneumonia patient hospitalized in the ICU on BiPAP with high oxygen requirement. He is critically ill but stable. In this setting last weekend the patient developed acute inferior wall myocardial infarction with large thrombotic occlusion of the right coronary artery. Patient states that he feels great today he is in good spirits despite his situation and denies any cardiac symptomatology Exam Const: General: comfortable and no acute distress Other: Pleasant well-developed well-nourished white male no distress wearing BiPAP mask HENMT: Mouth: Yes moist mucous membranes Eyes: Sclera: sclerae normal Pupils: Equal, round and reactive pupils present Neck: Neck: supple and no JVD Resp: Other: Central rhonchi noted Cardio: Rate: regular rate Rhythm: regular rhythm Other: No murmur no gallop GI: GI Palp: Yes Soft to palpation Auscultation: normal bowel sounds Skin: General skin exam: normal color Neuro: Cognition (Neuro): normal cognition Extrem: Other: No edema, good distal pulses Objective Data Vital Signs Vital Signs: Vital Signs - 24 hr 07/26/21 14:00 07/26/21 15:57 07/26/21 16:00 Temperature 36.4 C Pulse Rate 56 L 64 Respiratory Rate 25 H 19 Blood Pressure Pulse Oximetry 98 91 93 07/26/21 16:54 07/26/21 18:00 07/26/21 20:00 Temperature 36.1 C L Pulse Rate 89 75 Respiratory Rate 21 H 17 Blood Pressure 109/61 116/70 Pulse Oximetry 90 94 92 07/26/21 20:50 07/26/21 21:32 07/26/21 22:00 Temperature Pulse Rate 63 70 60 Respiratory Rate 21 H Blood Pressure 93/56 L Pulse Oximetry 98 96 07/27/21 00:00 07/27/21 01:38 07/27/21 02:00 Temperature 36.5 C Pulse Rate 55 L 52 L Respiratory Rate 16 16 Blood Pressure 106/63 Pulse Oximetry 94 97 99 07/27/21 04:00 07/27/21 06:00 07/27/21 08:00 Temperature 36.7 C 36.1 C L Pulse Rate 55 L 59 L 50 L Respiratory Rate 20 16 18 Blood Pressure 97/68 L 111/48 L Pulse Oximetry 92 100 96 07/27/21 10:00 Temperature Pulse Rate 65 Respiratory Rate 22 H Blood Pressure 96/68 L Pulse Oximetry 85 L Intake/Output Intake/Output: Intake & Output 07/24/21 07/25/21 07/26/21 07/27/21 23:59 23:59 23:59 23:59 Intake Total 2580 1430 1700 350 Output Total 3450 2025 2950 875 [facility] [phone] Meds/Results Medications: Active Medications Generic Name Dose Route Start Last Admin Trade Name Freq PRN Reason Stop Dose Admin Acetaminophen 650 mg 07/17/21 21:53 07/25/21 20:58 Acetaminophen 325 Mg Tablet PO 650 mg Q6H PRN Administration Mild Pain (1-3) or Fever Al Hydrox/Mg Hydrox/Simethicone 30 ml 07/23/21 14:19 Mag Hydrox/Al Hydrox/Simeth 30 Ml Udc PO Q4H PRN Indigestion Albuterol 2 puff 07/25/21 08:52 Albuterol Sulfate (*Sp) Aerosol 1 Puff INHALATION QIDRT PRN Wheezing Aspirin 81 mg 07/24/21 09:00 07/27/21 08:24 Aspirin 81 Mg Enteric Tablet PO 81 mg QAM APOORVA Administration Atorvastatin Calcium 80 mg 07/24/21 09:00 07/27/21 08:22 Atorvastatin 40 Mg Tablet PO 80 mg DAILY APOORVA Administration Baricitinib 4 mg 07/19/21 21:00 07/26/21 21:30 Baricitinib 2 Mg Tablet
--- NOTE | 2021-07-27 12:16 | PCDIET ---
ICU Rounding Note: Patient consumed 0-100% of meals yesterday with average of 50%. Continues on regular diet with Ensure Enlive TID. Last recorded weight is 98.5kg. Recommend obtaining new weight. Bowel Motility: Last documented BM on 07/22/21. Patient on Colace. Labs Reviewed: WBC (17.6), Hgb (11.5), Hct (35.6), BUN (31), K (5.3), Na (133), PO4 (4.7) Meds Noted: Lipitor, Olumiant, Colace, Pepcid, Lopressor Additional Notes: No skin breakdown documented. Following daily in ICU rounds. Assessing/reassessing every 5 days.
[2021-07-27] MEDS: CENTRAL LINE FLUSH 10 ML IV PUSH (13:58)
[2021-07-27] MEDS: ACETAMINOPHEN 325 MG TABLET 650 MG PO (20:02)
[2021-07-27] MEDS: BARICITINIB 2 MG TABLET 4 MG PO (20:03)
[2021-07-28] VITALS (23 sets, daily range): BP systolic 91–114; BP diastolic 58–73; PULSE 57–87; RESP 16–27; TEMP 35.9–36.9; O2SAT 93–100
[2021-07-28] MEDS: CENTRAL LINE FLUSH 10 ML IV PUSH ×4 (04:17→20:52)
[2021-07-28 05:03] LABS: Basophils Percent Auto 0.2 % (0.2-1.2); Eosinophils Absolute Auto 0.1 K/mm3 (0-0.3); Eosinophils Percent Auto 0.6 % (0-4.4); Hematocrit 36.2 % (42.0-52.0); Hemoglobin 11.3 g/dL (14.0-18.0); Immature Granulocyte Absolute 0.16 K/mm3 (0.00-0.031); Immature Granulocyte Percent A 0.9 % (0-0.5); Lymphocytes Percent Auto 34.2 % (18.3-44.2); Mean Corpuscular HGB Conc 31.2 g/dl (32-36); Mean Corpuscular Volume 70.6 fl (80-100); Mean Platelet Volume 9.5 fl (7.4-10.4); Monocytes Absolute Auto 0.6 K/mm3 (0.1-0.6); Monocytes Percent Auto 3.4 % (2.6-8.5); Neutrophils Absolute Auto 10.6 K/mm3 (1.3-6.7); Neutrophils Percent Auto 60.7 % (45.5-73.1); Platelet Count Result 406 k/mm3 (150-375); Red Blood Count 5.13 M/mm3 (4.6-6.20); Red Cell Distribution Width 14.7 % (11.5-14.5); White Blood Count 17.5 K/mm3 (4.5-10.0)
[2021-07-28 05:18] LABS: Alanine Aminotransferase 28 U/L (4-50); Albumin Level 3.2 g/dL (3.5-5.1); Alkaline Phosphatase 48 U/L (38-126); Anion Gap 3 mmol/L (8-16); Aspartate Amino Transferase 52 U/L (17-59); Blood Urea Nitrogen 28 mg/dL (9-20); Calcium 8.3 mg/dL (8.4-10.2); Carbon Dioxide 33 mmol/L (22-30); Chloride 95 mmol/L (98-107); Estimated CRCL calculation 96 ml/min; Estimated Glomerular Filt Rate > 60; Glucose 94 mg/dL (65-110); Potassium 4.5 mmol/L (3.4-5.0); Sodium 131 mmol/L (137-145)
[2021-07-28 05:25] LABS: Atypical Lymphocytes Present; Platelet Estimate Adequate (Adequate)
[2021-07-28] MEDS: METOPROLOL TARTRATE 12.5 MG TABLET PO ×2 (08:27→20:55)
[2021-07-28] MEDS: guaiFENesin/CODEINE (*CRX) 200/20 MG 10 ML SYRUP PO ×4 (08:27→21:18)
[2021-07-28] MEDS: ENOXAPARIN 40 MG/0.4 ML SYRINGE SUB-Q ×2 (08:28→20:50)
[2021-07-28] MEDS: TICAGRELOR 90 MG TABLET PO ×2 (08:28→20:51)
[2021-07-28] MEDS: DOCUSATE SODIUM 100 MG CAPSULE PO ×2 (08:28→20:51)
[2021-07-28] MEDS: ASPIRIN 81 MG ENTERIC TABLET PO (08:28)
[2021-07-28] MEDS: guaiFENesin 600 MG/DEXTROMETHORPHAN 30 MG SR TAB 12 HR 1 TAB PO ×2 (08:29→20:52)
[2021-07-28] MEDS: FAMOTIDINE 20 MG/2 ML VIAL IV PUSH ×2 (08:29→20:51)
[2021-07-28] MEDS: ATORVASTATIN 40 MG TABLET 80 MG PO (08:29)
[2021-07-28] MEDS: BENZONATATE 100 MG CAPSULE PO (08:29)
--- NOTE | 2021-07-28 10:48 | WPDINTPN ---
Progress Note: A&P Assessment and Plan (1) Acute hypoxemic respiratory failure: Code(s): J96.01 - Acute respiratory failure with hypoxia Status: Acute Assessment and Plan: Symptoms of COVID around 07/09 and tested positive on 07/12. He is unvaccinated. Admitted 07/17 for SOB, fevers On 07/25/2021 Patient desaturated in the morning after a prolonged coughing bout. -Currently on Airvo, 70% FiO2, 60 L flow rate along with 10L non-rebreather mask, wean FiO2 as tolerated -07/26/2021: CXR - Mildly decreased lung volumes with otherwise unchanged patchy bilateral opacities consistent with COVID pneumonia - Completed a 10 day course of remdesivir -completed dexamethasone x 10 days - Baricitinib (initiated 07/19 due to the worsening hypoxia) -encouraged laying in prone position May need intubation if deteriorates further Monitor closely (2) Pneumonia due to COVID-19 virus: Code(s): U07.1 - COVID-19; J12.82 - Pneumonia due to coronavirus disease 2018 Status: Acute Assessment and Plan: COVID positive on 07/12/21, Unvaccinated -continue airborne, droplet and contact isolation/precautions -inflammatory markers trending down, continue to monitor (3) STEMI (ST elevation myocardial infarction): Code(s): I21.3 - ST elevation (STEMI) myocardial infarction of unspecified site Status: Acute Assessment and Plan: Status post PCI, aspiration thrombectomy and stenting of RCA on 07/23 Dual antiplatelet therapy aspirin and Brilinta He was given Conservative amount of IV fluids for renal protection in light of COVID pneumonia Continue ICU surveillance monitor Continue Statin Echocardiogram 07/25/2021: LV dimensions are normal, EF 65-70%, moderately increased LV wall thickness, are a chamber dimension is moderate to severely enlarged, mild to moderate aortic valve stenosis, mild pulmonary hypertension Cardiology following the patient (4) Constipation: Code(s): K59.00 - Constipation, unspecified Status: Acute Assessment and Plan: Continue stool softeners Additional Plan DVT prophylaxis -Lovenox 40 mg subQ q.12 hours Stress ulcer prophylaxis -Pepcid Nutrition -diet Discussed with patient updated with his condition and plan of care. Patient wants to sit up in the chair. Encourage incentive spirometry and laying in prone position Discussed with cardiology Code Status - Full Code Total Critical Care Time - 32 minutes Due to a high probability of clinically significant, life threatening deterioration, the patient required my highest level of preparedness to intervene emergently and I personally spent this critical care time directly and personally managing the patient. This critical care time included obtaining a history; examining the patient; pulse oximetry; ordering and review of studies; arranging urgent treatment with development of a management plan; evaluation of patient's response to treatment; frequent reassessment; and discussions with other providers. It was exclusive of separately billable procedures and treating other patients and teaching time. Please see Assessment and Plan section and the rest of the note for further information on patient assessment and treatment Subjective Date/time seen: 07/28/21 10:48 Interval history: 66yo healthy male presents with complaints of SOB and is known to have COVID. Patient began to have symptoms on July 09. He tested positive on July 12 (result in the paper chart). 07/23 - STEMI Catheterization showed large clots in the right coronary artery and aspiration thrombectomy was performed and then stenting of the proximal RCA for underlying upturned plaque. 07/28/2021: Patient remains on Airvo, 70% FiO2, 60 L with 10 L non-rebreather mask. O2 sats have been 93-98%. Patient states he has been trying to sleep on his side most of the time. Patient is very motivated, optimistic and cooperative. Tolerating p.o. diet. Trying to sleep
--- NOTE | 2021-07-28 12:00 | PCDIET ---
ICU Rounding Note: Patient remains on regular diet with Ensure Enlive TID. Average intake was 50% of meals on 07/27/21. Last recorded weight is 98.7kg which is stable. Bowel Motility: Last documented BM on 07/22/21. Patient receiving Colace BID. Labs Reviewed: Hgb (11.3), Hct (36.2), BUN (28), Na (131), Alb (3.2) Meds Noted: Lipitor, Olumiant, Colace, Pepcid, Lopressor Additional Notes: Corrected calcium WNL. No documented skin breakdown. Following daily in ICU rounds. Assessing/reassessing every 5 days.
--- NOTE | 2021-07-28 12:22 | PM.IMPN ---
Progress Note: A&P Assessment and Plan (1) Acute hypoxemic respiratory failure: Code(s): J96.01 - Acute respiratory failure with hypoxia Status: Acute Assessment and Plan: The patient developed symptoms of COVID around 07/09 and tested positive on 07/12. He is unvaccinated. Chest x-ray on admission showing patchy bilateral PNA. He has been placed in isolation per protocol. He was started on dexamethasone and remdesivir both of which completed on 07/26 after 10 days. Baricitinib added 07/19 due to the worsening hypoxia. Inflammatory markers from 07/26: DD 3.8, LDH 1657, CRP 3.8 and ferritin 1170 all of which are better. Procalcitonin 0.1. Pulmonary and funeral arranger following and appreciate their input. Back using NRB mask at night. Wean off NRB mask as tolerated. Will continue with supportive care and wean O2 as tolerated. Encouraged him to lay prone as he tolerates. Try up to the side of bed for now. (2) Pneumonia due to COVID-19 virus: Code(s): U07.1 - COVID-19; J12.82 - Pneumonia due to coronavirus disease 2019 Status: Acute Assessment and Plan: Please see above (3) STEMI (ST elevation myocardial infarction): Code(s): I21.3 - ST elevation (STEMI) myocardial infarction of unspecified site Status: Acute Assessment and Plan: Patient developed CP on 07/23 with EKG showing acute STEMI. He was taken to the laborer cook house and he is now status post PCI, aspiration thrombectomy and stenting of RCA. Patient was treated with Integrilin infusion. He was given conservative amount of IV fluids for renal protection in light of COVID pneumonia after scan. Echo showing EF 65-70% and mild-mod without wall motion abnormalities. Continue ICU telemetry monitoring. Continue Lipitor and metoprolol. Continue dual antiplatelet therapy with aspirin and Brilinta. (4) Hyperkalemia: Code(s): E87.5 - Hyperkalemia Status: Acute Assessment and Plan: Potassium elevated at times here. Not on CHULA/ARB or potassium replacement. Off steroids now. Lovenox has been shown to cause mild hyperkalemia. Potassium normal now. Will continue to monitor (5) Otitis media: Code(s): H66.90 - Otitis media, unspecified, unspecified ear Status: Acute Assessment and Plan: Stable. Completed a course of Amoxicillin (6) Constipation: Code(s): K59.00 - Constipation, unspecified Status: Acute Assessment and Plan: No BMs listed since 07/18. Continue Colace. Add Miralax. (7) DVT prophylaxis: Code(s): Z29.9 - Encounter for prophylactic measures, unspecified Status: Acute Assessment and Plan: Lovenox Subjective Date/time seen: 07/28/21 12:22 Interval history: 66yo healthy male presents with complaints of SOB and is known to have COVID. Patient began to have symptoms on July 09. He tested positive on July 12 (result in the paper chart). Was on Airvo 60L at 100% with NRB mask at 15L but able to decrease to 70% FiO2 overnight. Today, RN able to decrease to 10L NRB mask and patient toelrating. He has not been out of bed. No CP or abd pain. No changes in syptoms otherwise. Exam Narrative: Tm 100.4 96.7 114/68 66 20 96% Airvo + NRB mask Gen - NARD lying right side down Chest - bibasilar inspiratory crackles; nml RR; mild conversational dyspnea CV - RRR S1/S2; Tele showing no significant dysrhythmias. Abd - Soft, NT/ND, Positive BS - Ward secured draining clear yellow urine Ext - No pedal edema Psych - Nml mood and affect Skin - Warm and dry Objective Data Vital Signs Vital Signs: Vital Signs - 24 hr 07/27/21 13:40 07/27/21 14:00 07/27/21 16:00 Temperature 98.9 F Pulse Rate 85 77 66 Respiratory Rate 27 H 20 Blood Pressure 101/63 108/69 Pulse Oximetry 95 93 07/27/21 18:00 07/27/21 19:55 07/27/21 20:00 Temperature 100.4 F H Pulse Rate 88 83 Respiratory Rate 20 25 H Blood Pressure 113/63 1
[2021-07-28] MEDS: polyethylene glycoL 3350 17 GM POWD.PACK PO (13:04)
[2021-07-28] MEDS: BARICITINIB 2 MG TABLET 4 MG PO (20:52)
[2021-07-28] MEDS: ACETAMINOPHEN 325 MG TABLET 650 MG PO (21:01)
[2021-07-29] VITALS (24 sets, daily range): BP systolic 82–113; BP diastolic 48–73; PULSE 55–99; RESP 14–28; TEMP 35.7–36.7; O2SAT 84–100
[2021-07-29] MEDS: guaiFENesin/CODEINE (*CRX) 200/20 MG 10 ML SYRUP PO ×3 (03:18→20:20)
[2021-07-29] MEDS: CENTRAL LINE FLUSH 10 ML IV PUSH ×2 (05:32→12:49)
[2021-07-29 06:40] LABS: Basophils Percent Auto 0.2 % (0.2-1.2); Eosinophils Absolute Auto 0.2 K/mm3 (0-0.3); Eosinophils Percent Auto 1.1 % (0-4.4); Hematocrit 34.9 % (42.0-52.0); Immature Granulocyte Absolute 0.18 K/mm3 (0.00-0.031); Immature Granulocyte Percent A 1.3 % (0-0.5); Lymphocytes Absolute Auto 5.29 K/mm3 (0.9-3.2); Lymphocytes Percent Auto 38.2 % (18.3-44.2); Mean Corpuscular HGB Conc 31.5 g/dl (32-36); Mean Corpuscular Hemoglobin 22.5 pg (26-34); Mean Corpuscular Volume 71.4 fl (80-100); Mean Platelet Volume 10.1 fl (7.4-10.4); Monocytes Absolute Auto 0.6 K/mm3 (0.1-0.6); Neutrophils Absolute Auto 7.7 K/mm3 (1.3-6.7); Neutrophils Percent Auto 55.2 % (45.5-73.1); Platelet Count Result 368 k/mm3 (150-375); Red Blood Count 4.89 M/mm3 (4.6-6.20); Red Cell Distribution Width 14.6 % (11.5-14.5); White Blood Count 13.9 K/mm3 (4.5-10.0)
[2021-07-29 06:47] LABS: Alanine Aminotransferase 26 U/L (4-50); Albumin Level 3.1 g/dL (3.5-5.1); Alkaline Phosphatase 49 U/L (38-126); Anion Gap 2 mmol/L (8-16); Aspartate Amino Transferase 44 U/L (17-59); Bilirubin,Total 0.8 mg/dL (0.2-1.3); Blood Urea Nitrogen 25 mg/dL (9-20); CRP 5.6 mg/dL (<1.0); Calcium 8.3 mg/dL (8.4-10.2); Carbon Dioxide 34 mmol/L (22-30); Chloride 95 mmol/L (98-107); Estimated CRCL calculation 95 ml/min; Estimated Glomerular Filt Rate > 60; Glucose 94 mg/dL (65-110); Lactate Dehydrogenase 1145 U/L (313-618); Potassium 4.5 mmol/L (3.4-5.0); Sodium 131 mmol/L (137-145)
[2021-07-29 07:40] LABS: D Dimer 3.63 ug/mL (<0.48)
[2021-07-29] MEDS: BENZONATATE 100 MG CAPSULE PO ×3 (08:02→20:32)
[2021-07-29] MEDS: METOPROLOL TARTRATE 12.5 MG TABLET PO ×2 (08:02→20:17)
[2021-07-29] MEDS: polyethylene glycoL 3350 17 GM POWD.PACK PO (08:02)
[2021-07-29] MEDS: ASPIRIN 81 MG ENTERIC TABLET PO (08:02)
[2021-07-29] MEDS: FAMOTIDINE 20 MG/2 ML VIAL IV PUSH ×2 (08:03→20:16)
[2021-07-29] MEDS: guaiFENesin 600 MG/DEXTROMETHORPHAN 30 MG SR TAB 12 HR 1 TAB PO ×2 (08:03→20:17)
[2021-07-29] MEDS: ATORVASTATIN 40 MG TABLET 80 MG PO (08:03)
[2021-07-29] MEDS: ENOXAPARIN 40 MG/0.4 ML SYRINGE SUB-Q ×2 (08:04→20:15)
[2021-07-29] MEDS: TICAGRELOR 90 MG TABLET PO ×2 (08:04→20:19)
[2021-07-29] MEDS: DOCUSATE SODIUM 100 MG CAPSULE PO ×2 (08:04→20:15)
--- NOTE | 2021-07-29 11:04 | WPDINTPN ---
Progress Note: A&P Assessment and Plan (1) Acute hypoxemic respiratory failure: Code(s): J96.01 - Acute respiratory failure with hypoxia Status: Acute Assessment and Plan: Symptoms of COVID around 07/09 and tested positive on 07/12. He is unvaccinated. Admitted 07/17 for SOB, fevers On 07/25/2021 Patient desaturated in the morning after a prolonged coughing bout. -Currently on Airvo, 70% FiO2, 60 L flow rate along with 10L non-rebreather mask, wean FiO2 as tolerated -07/28/2021: CXR - No significant change in patchy airspace opacities throughout both lungs. No pleural effusion or pneumothorax. - Completed a 10 day course of remdesivir -completed dexamethasone x 10 days - Baricitinib (initiated 07/19 due to the worsening hypoxia) -encouraged laying in prone position May need intubation if deteriorates further Monitor closely (2) Pneumonia due to COVID-19 virus: Code(s): U07.1 - COVID-19; J12.82 - Pneumonia due to coronavirus disease 2019 Status: Acute Assessment and Plan: COVID positive on 07/12/21, Unvaccinated -continue airborne, droplet and contact isolation/precautions -inflammatory markers trending down, continue to monitor (3) STEMI (ST elevation myocardial infarction): Code(s): I21.3 - ST elevation (STEMI) myocardial infarction of unspecified site Status: Acute Assessment and Plan: Status post PCI, aspiration thrombectomy and stenting of RCA on 07/23 Dual antiplatelet therapy aspirin and Brilinta He was given Conservative amount of IV fluids for renal protection in light of COVID pneumonia Continue ICU threat monitoring analyst Continue Statin Echocardiogram 07/25/2021: LV dimensions are normal, EF 65-70%, moderately increased LV wall thickness, are a chamber dimension is moderate to severely enlarged, mild to moderate aortic valve stenosis, mild pulmonary hypertension Cardiology following the patient (4) Constipation: Code(s): K59.00 - Constipation, unspecified Status: Acute Assessment and Plan: Continue stool softeners Additional Plan DVT prophylaxis -Lovenox 40 mg subQ q.12 hours Stress ulcer prophylaxis -Pepcid Nutrition -diet Discussed with patient updated with his condition and plan of care. Patient wants to sit up in the chair. Encourage incentive spirometry and laying in prone position Discussed with cardiology Code Status - Full Code Total Critical Care Time - 32 minutes Due to a high probability of clinically significant, life threatening deterioration, the patient required my highest level of preparedness to intervene emergently and I personally spent this critical care time directly and personally managing the patient. This critical care time included obtaining a history; examining the patient; pulse oximetry; ordering and review of studies; arranging urgent treatment with development of a management plan; evaluation of patient's response to treatment; frequent reassessment; and discussions with other providers. It was exclusive of separately billable procedures and treating other patients and teaching time. Please see Assessment and Plan section and the rest of the note for further information on patient assessment and treatment Subjective Date/time seen: 07/29/21 11:04 Interval history: 66yo healthy male presents with complaints of SOB and is known to have COVID. Patient began to have symptoms on July 09. He tested positive on July 12 (result in the paper chart). 07/23 - STEMI Catheterization showed large clots in the right coronary artery and aspiration thrombectomy was performed and then stenting of the proximal RCA for underlying upturned plaque. 07/29/2021: Patient remains on Airvo, 70% FiO2, 60 L with 10 L non-rebreather mask. O2 sats have been 94-97%. Patient states he has been trying to sleep on his side most of the time. He also tries to stay in prone position. Patient is very motivated, optimistic and cooperative.
--- NOTE | 2021-07-29 11:04 | PCDIET ---
Nutrition Follow-Up Complete: Nutrition Diagnosis: Predicted suboptimal oral intake related to COVID pneumonia as evidenced by patient on bipap. Nutrition Goal: Patient to meet estimated nutritional needs. Goal in progress. Patient consumed 80-100% of two meals on 07/28/21. Continues on regular diet with Ensure Enlive TID. Last recorded weight is 89.9 kg which is significantly down from previous weights. Recommend re-weighing to ensure accuracy. Bowel Motility: Last documented BM on 07/22/21. Miralax added, and Colace continued. Labs Reviewed: WBC (13.9), Hgb (11.0), Hct (34.9), BUN (25), Na (131), Alb (3.1), Jaycob Ca (9.02) Meds Noted: Lipitor, Olumiant, Colace, Pepcid, Lopressor, Miralax Additional Notes: No skin breakdown reported. Will continue to monitor with same goal. No additional recommendations at this time. Nutrition Monitoring and Evaluation: Follow up every 5 days.
--- NOTE | 2021-07-29 11:36 | PM.IMPN ---
Progress Note: A&P Assessment and Plan (1) Acute hypoxemic respiratory failure: Code(s): J96.01 - Acute respiratory failure with hypoxia Status: Acute Assessment and Plan: The patient developed symptoms of COVID around 07/09 and tested positive on 07/12. He is unvaccinated. Chest x-ray on admission showing patchy bilateral PNA. He has been placed in isolation per protocol. He was started on dexamethasone and remdesivir both of which completed on 07/26 after 10 days. Baricitinib added 07/19 due to the worsening hypoxia. Inflammatory markers from today: DD 3.6, LDH 1145, CRP 5.6 and ferritin pending all of which are better except the CRP. Procalcitonin 0.1. Pulmonary and pipe stem aligner following and appreciate their input. Continue NRB mask and Airvo. Continue supportive care and wean O2 as tolerated. Encouraged him to lay prone as he tolerates. Try up to the side of bed again. (2) Pneumonia due to COVID-19 virus: Code(s): U07.1 - COVID-19; J12.82 - Pneumonia due to coronavirus disease 2018 Status: Acute Assessment and Plan: Please see above (3) STEMI (ST elevation myocardial infarction): Code(s): I21.3 - ST elevation (STEMI) myocardial infarction of unspecified site Status: Acute Assessment and Plan: Patient developed CP on 07/23 with EKG showing acute STEMI. He was taken to the clinical laboratory medical director and he is now status post PCI, aspiration thrombectomy and stenting of RCA. Patient was treated with Integrilin infusion. He was given conservative amount of IV fluids for renal protection in light of COVID pneumonia after scan. Echo showing EF 65-70% and mild-mod without wall motion abnormalities. Continue ICU telemetry monitoring. Continue Lipitor and metoprolol. Continue dual antiplatelet therapy with aspirin and Brilinta. (4) Hyperkalemia: Code(s): E87.5 - Hyperkalemia Status: Acute Assessment and Plan: Potassium elevated at times here. Not on CHULA/ARB or potassium replacement. Off steroids now. Lovenox has been shown to cause mild hyperkalemia. Potassium normal now. Will continue to monitor. (5) Otitis media: Code(s): H66.90 - Otitis media, unspecified, unspecified ear Status: Acute Assessment and Plan: Stable. Completed a course of Amoxicillin (6) Constipation: Code(s): K59.00 - Constipation, unspecified Status: Acute Assessment and Plan: No BMs listed since 07/18. Continue Colace and Miralax. (7) DVT prophylaxis: Code(s): Z29.9 - Encounter for prophylactic measures, unspecified Status: Acute Assessment and Plan: Lovenox Subjective Date/time seen: 07/29/21 11:36 Interval history: 66yo healthy male presents with complaints of SOB and is known to have COVID. Patient began to have symptoms on July 09. He tested positive on July 12 (result in the paper chart). On NRB 10L with Airvo 60L 70% currently. Feels well. Did well sitting at the side of the bed yesterday. Denies CP or n/v. No BMs Exam Narrative: AF 97.3 99/55 76 19 97% Airvo + NRB mask Gen - NARD Chest - bibasilar inspiratory crackles; nml RR CV - RRR S1/S2; Tele showing no significant dysrhythmias. Abd - Soft, NT/ND, Positive BS - Ward secured draining pink-yellow urine with small clots noted Ext - No pedal edema Psych - Nml mood and affect Skin - Warm and dry Objective Data Vital Signs Vital Signs: Vital Signs - 24 hr 07/28/21 12:00 07/28/21 14:00 07/28/21 15:25 Temperature Pulse Rate 74 76 Respiratory Rate 24 H 18 Blood Pressure 97/58 L Pulse Oximetry 97 94 96 07/28/21 15:50 07/28/21 16:00 07/28/21 18:00 Temperature 98 F Pulse Rate 71 87 Respiratory Rate 16 18 Blood Pressure 98/66 L 109/73 Pulse Oximetry 96 96 93 07/28/21 20:00 07/28/21 20:55 07/28/21 21:20 Temperature 97.8 F Pulse Rate 74 80 82 Respiratory Rate 27 H 24 H Blood Pressure 106/69 Pulse
--- NOTE | 2021-07-29 14:44 | PM.PNCARD ---
Progress Note: A&P Additional Plan 66-year-old man with: Acute thrombotic myocardial infarction with involvement of the large dominant RCA as detailed above. He is clinically doing well. It is interesting in of some concern that his electrocardiogram looks much more abnormal than I would expect simply based on the RCA event. He acutely also had a anterior ST elevation and hyperacute T-waves and has developed Q-waves across the anterolateral leads as well. In the face of this left ventricular function by echo looked remarkably good. I would most likely suspect an element of myocarditis related to COVID in this situation. Sometime prior to discharge when he is oxygenating better a follow-up echocardiogram would be appropriate. For now dual anti-platelet therapy and beta-jamarcus seems to be doing very well. Earl Hay MD [facility] Subjective Date/time seen: Date of service: 07/29/21 14:44 Interval history: Follow-up visit in this 66-year-old man with: Acute thrombotic occlusion of the RCA in the setting of acute COVID pneumonia. Patient was brought to the lab director and underwent emergency revascularization with thrombectomy and stenting of the RCA. Remains hospitalized in the ICU bed 6. Due to high O2 demands. FiO2 requirements are reduced somewhat in the last 48 hours. Patient has no cardiovascular symptoms or complaints today. Exam Const: General: cooperative, comfortable, no acute distress, alert and awake Nutritional Appearance: well nourished Orientation/consciousness: patient oriented x3 Other: Pleasant well-developed well-nourished white male no distress wearing BiPAP mask HENMT: Head: normal to inspection, normocephalic and atraumatic Ears: hearing grossly normal bilaterally General nose exam: Normal external nose present, Normal nares present and no nasal discharge noted Face and sinus: normal facial exam and no erythema Mouth: Yes moist mucous membranes, No drooling and No restricted motion Throat: uvula midline Eyes: General: appearance normal, both eyes and all related structures Alignment and Position: position normal Conjunctivae: conjunctivae normal Sclera: sclerae normal Pupils: Equal, round and reactive pupils present Direct Ophthalmoscopy: No photophobia Neck: Neck: normal visual inspection, supple and no JVD Thyroid: thyroid normal Carotids: no bruits Lymphatic: lymphedema not noted Chest: Chest palpation & inspection: normal inspection of the chest and no tenderness Resp: Effort & Inspection: normal respiratory effort and no nasal flaring Auscultation: no rales, no wheezes and diminished lung sounds Other: Central rhonchi noted Cardio: Jugular venous distension: no JVD Rate: regular rate Rhythm: regular rhythm Heart sounds: S1 normal heart sound present, S2 normal heart sound present, no gallops, no murmurs and no rubs Other: No murmur no gallop GI: Inspection: non-distended Auscultation: normal bowel sounds Rectal Exam: deferred : General: No no CVA tenderness Back/Spine/Pelvis: Back: No no CVA tenderness Cervical Spine: cervical ROM normal Skin: General skin exam: normal color and rashes and/or lesions noted Other: Right groin access site soft, no hematoma, bruit, bleeding or tenderness. 2+ femoral pulses 2+ right dorsalis pedis pulse Neuro: General: patient oriented x3 Cranial nerves: No CN's II-XII intact bilaterally and Yes Equal, round and reactive pupils present Cognition (Neuro): normal cognition Speech: normal speech Motor exam (neuro): no tremors Extrem: General: normal to inspection and pedal edema present Other: No edema, good distal pulses Psych: Appearance: grossly normal and well kempt Speech and movement: Normal speech and movement present Affect: normal affect Objective Data Vital Signs Vital Signs: Vital Signs - 24 hr 07/28/21 15:25 07/28/21 15:50 07/28/21 16:00 Temperature 36.6 C Pulse Rate 71 Respiratory Rate 16 Blood Pressure 98/66 L Pu
[2021-07-29] MEDS: BARICITINIB 2 MG TABLET 4 MG PO (20:14)
[2021-07-29] MEDS: ACETAMINOPHEN 325 MG TABLET 650 MG PO (20:21)
[2021-07-29] MEDS: MELATONIN 5 MG TABLET PO (21:08)
[2021-07-30] VITALS (18 sets, daily range): BP systolic 87–123; BP diastolic 55–90; PULSE 59–99; RESP 18–30; TEMP 36.7–37.4; O2SAT 93–100
[2021-07-30] MEDS: CENTRAL LINE FLUSH 10 ML IV PUSH ×4 (05:56→20:52)
[2021-07-30 07:01] LABS: Basophils Percent Auto 0.1 % (0.2-1.2); Eosinophils Absolute Auto 0.2 K/mm3 (0-0.3); Eosinophils Percent Auto 1.1 % (0-4.4); Hematocrit 34.8 % (42.0-52.0); Hemoglobin 10.9 g/dL (14.0-18.0); Immature Granulocyte Absolute 0.16 K/mm3 (0.00-0.031); Lymphocytes Absolute Auto 6.02 K/mm3 (0.9-3.2); Lymphocytes Percent Auto 37.6 % (18.3-44.2); Mean Corpuscular HGB Conc 31.3 g/dl (32-36); Mean Corpuscular Hemoglobin 22.2 pg (26-34); Mean Corpuscular Volume 70.9 fl (80-100); Mean Platelet Volume 9.9 fl (7.4-10.4); Monocytes Absolute Auto 0.7 K/mm3 (0.1-0.6); Monocytes Percent Auto 4.4 % (2.6-8.5); Neutrophils Absolute Auto 8.9 K/mm3 (1.3-6.7); Neutrophils Percent Auto 55.8 % (45.5-73.1); Platelet Count Result 333 k/mm3 (150-375); Red Blood Count 4.91 M/mm3 (4.6-6.20); Red Cell Distribution Width 14.8 % (11.5-14.5)
[2021-07-30 07:27] LABS: Alanine Aminotransferase 24 U/L (4-50); Albumin Level 3.1 g/dL (3.5-5.1); Alkaline Phosphatase 43 U/L (38-126); Anion Gap 3 mmol/L (8-16); Aspartate Amino Transferase 43 U/L (17-59); Bilirubin,Total 0.8 mg/dL (0.2-1.3); Blood Urea Nitrogen 25 mg/dL (9-20); Calcium 8.3 mg/dL (8.4-10.2); Carbon Dioxide 32 mmol/L (22-30); Chloride 95 mmol/L (98-107); Estimated CRCL calculation 95 ml/min; Estimated Glomerular Filt Rate > 60; Glucose 93 mg/dL (65-110); Magnesium 2.1 mg/dL (1.6-2.3); Phosphorus 3.7 mg/dL (2.5-4.5); Potassium 5.3 mmol/L (3.4-5.0); Sodium 130 mmol/L (137-145)
[2021-07-30 08:08] LABS: Anisocytosis 1+ (NORMAL); Hypochromasia 1+ (NORMAL); Ovalocytes 1+ (NORMAL); Platelet Estimate Adequate (Adequate); Poikilocytosis 1+ (NORMAL)
[2021-07-30] MEDS: polyethylene glycoL 3350 17 GM POWD.PACK PO (08:35)
[2021-07-30] MEDS: guaiFENesin/CODEINE (*CRX) 200/20 MG 10 ML SYRUP PO ×3 (08:35→18:54)
[2021-07-30] MEDS: ATORVASTATIN 40 MG TABLET 80 MG PO (08:36)
[2021-07-30] MEDS: BENZONATATE 100 MG CAPSULE PO ×3 (08:36→20:40)
[2021-07-30] MEDS: ASPIRIN 81 MG ENTERIC TABLET PO (08:36)
[2021-07-30] MEDS: ENOXAPARIN 40 MG/0.4 ML SYRINGE SUB-Q ×2 (08:36→20:38)
[2021-07-30] MEDS: FAMOTIDINE 20 MG/2 ML VIAL IV PUSH ×2 (08:37→20:38)
[2021-07-30] MEDS: DOCUSATE SODIUM 100 MG CAPSULE PO (08:37)
[2021-07-30] MEDS: guaiFENesin 600 MG/DEXTROMETHORPHAN 30 MG SR TAB 12 HR 1 TAB PO ×2 (08:37→20:38)
[2021-07-30] MEDS: TICAGRELOR 90 MG TABLET PO ×2 (08:38→20:39)
[2021-07-30] MEDS: METOPROLOL TARTRATE 12.5 MG TABLET PO ×2 (08:38→20:39)
--- NOTE | 2021-07-30 11:48 | WPDINTPN ---
Progress Note: A&P Assessment and Plan (1) Acute hypoxemic respiratory failure: Code(s): J96.01 - Acute respiratory failure with hypoxia Status: Acute Assessment and Plan: Symptoms of COVID around 07/09 and tested positive on 07/12. He is unvaccinated. Admitted 07/17 for SOB, fevers On 07/25/2021 Patient desaturated in the morning after a prolonged coughing bout. -Currently on Airvo, 70% FiO2, 60 L flow rate along with 10L non-rebreather mask, wean FiO2 as tolerated -07/28/2021: CXR - No significant change in patchy airspace opacities throughout both lungs. No pleural effusion or pneumothorax. - Completed a 10 day course of remdesivir -completed dexamethasone x 10 days - Baricitinib (initiated 07/19 due to the worsening hypoxia) -encouraged laying in prone position May need intubation if deteriorates further Monitor closely (2) Pneumonia due to COVID-19 virus: Code(s): U07.1 - COVID-19; J12.82 - Pneumonia due to coronavirus disease 2019 Status: Acute Assessment and Plan: COVID positive on 07/12/21, Unvaccinated -continue airborne, droplet and contact isolation/precautions -inflammatory markers trending down, continue to monitor (3) STEMI (ST elevation myocardial infarction): Code(s): I21.3 - ST elevation (STEMI) myocardial infarction of unspecified site Status: Acute Assessment and Plan: Status post PCI, aspiration thrombectomy and stenting of RCA on 07/23 Dual antiplatelet therapy aspirin and Brilinta He was given Conservative amount of IV fluids for renal protection in light of COVID pneumonia Continue ICU court recording monitor Continue Statin Echocardiogram 07/25/2021: LV dimensions are normal, EF 65-70%, moderately increased LV wall thickness, are a chamber dimension is moderate to severely enlarged, mild to moderate aortic valve stenosis, mild pulmonary hypertension Cardiology following the patient (4) Constipation: Code(s): K59.00 - Constipation, unspecified Status: Acute Assessment and Plan: Resolved, patient had a large bowel movement on 07/29 Additional Plan DVT prophylaxis -Lovenox 40 mg subQ q.12 hours Stress ulcer prophylaxis -Pepcid Nutrition -diet Discussed with patient updated with his condition and plan of care. Patient wants to sit up in the chair. Encourage incentive spirometry and laying in prone position Discussed with cardiology Code Status - Full Code Total Critical Care Time - 32 minutes Due to a high probability of clinically significant, life threatening deterioration, the patient required my highest level of preparedness to intervene emergently and I personally spent this critical care time directly and personally managing the patient. This critical care time included obtaining a history; examining the patient; pulse oximetry; ordering and review of studies; arranging urgent treatment with development of a management plan; evaluation of patient's response to treatment; frequent reassessment; and discussions with other providers. It was exclusive of separately billable procedures and treating other patients and teaching time. Please see Assessment and Plan section and the rest of the note for further information on patient assessment and treatment Subjective Date/time seen: 07/30/21 11:48 Interval history: 66yo healthy male presents with complaints of SOB and is known to have COVID. Patient began to have symptoms on July 09. He tested positive on July 12 (result in the paper chart). 07/23 - STEMI Catheterization showed large clots in the right coronary artery and aspiration thrombectomy was performed and then stenting of the proximal RCA for underlying upturned plaque. 07/30/2021: Patient remains on Airvo, 90% FiO2, 60 L . Patient is not requiring any non-rebreather mask at this time. Patient did prone himself approximately 2.5 hours overnight and 4 hours yesterday. O2 sats have been 94-97%. Patient states he has b
[2021-07-30] MEDS: BARICITINIB 2 MG TABLET 4 MG PO (20:37)
[2021-07-30] MEDS: ACETAMINOPHEN 325 MG TABLET 650 MG PO (20:40)
[2021-07-30] MEDS: MELATONIN 5 MG TABLET PO (20:41)
[2021-07-31] VITALS (20 sets, daily range): BP systolic 80–115; BP diastolic 53–74; PULSE 56–91; RESP 19–32; TEMP 36.5–36.9; O2SAT 95–100
[2021-07-31] MEDS: guaiFENesin/CODEINE (*CRX) 200/20 MG 10 ML SYRUP PO ×4 (03:30→20:41)
[2021-07-31 05:37] LABS: Basophils Percent Auto 0.2 % (0.2-1.2); Eosinophils Absolute Auto 0.2 K/mm3 (0-0.3); Eosinophils Percent Auto 1.2 % (0-4.4); Hematocrit 34.9 % (42.0-52.0); Hemoglobin 10.9 g/dL (14.0-18.0); Immature Granulocyte Absolute 0.11 K/mm3 (0.00-0.031); Immature Granulocyte Percent A 0.7 % (0-0.5); Lymphocytes Absolute Auto 5.69 K/mm3 (0.9-3.2); Lymphocytes Percent Auto 37.3 % (18.3-44.2); Mean Corpuscular HGB Conc 31.2 g/dl (32-36); Mean Corpuscular Hemoglobin 22.3 pg (26-34); Mean Corpuscular Volume 71.4 fl (80-100); Mean Platelet Volume 10.5 fl (7.4-10.4); Monocytes Absolute Auto 0.8 K/mm3 (0.1-0.6); Monocytes Percent Auto 5.5 % (2.6-8.5); Neutrophils Absolute Auto 8.4 K/mm3 (1.3-6.7); Neutrophils Percent Auto 55.1 % (45.5-73.1); Platelet Count Result 315 k/mm3 (150-375); Red Blood Count 4.89 M/mm3 (4.6-6.20); Red Cell Distribution Width 14.6 % (11.5-14.5); White Blood Count 15.2 K/mm3 (4.5-10.0)
[2021-07-31 05:47] LABS: Sodium 131 mmol/L (137-145)
[2021-07-31 05:48] LABS: Anion Gap 4 mmol/L (8-16); Blood Urea Nitrogen 23 mg/dL (9-20); Calcium 8.4 mg/dL (8.4-10.2); Carbon Dioxide 31 mmol/L (22-30); Chloride 96 mmol/L (98-107); Estimated CRCL calculation 95 ml/min; Estimated Glomerular Filt Rate > 60; Glucose 103 mg/dL (65-110); Potassium 4.9 mmol/L (3.4-5.0)
[2021-07-31 06:20] LABS: Platelet Estimate Adequate (Adequate)
[2021-07-31 06:21] LABS: Anisocytosis 1+ (NORMAL); Hypochromasia 1+ (NORMAL); Poikilocytosis 1+ (NORMAL)
[2021-07-31] MEDS: CENTRAL LINE FLUSH 10 ML IV PUSH ×3 (07:11→20:47)
[2021-07-31] MEDS: ENOXAPARIN 40 MG/0.4 ML SYRINGE SUB-Q ×2 (08:50→20:45)
[2021-07-31] MEDS: FAMOTIDINE 20 MG/2 ML VIAL IV PUSH ×2 (08:51→20:46)
[2021-07-31] MEDS: BENZONATATE 100 MG CAPSULE PO ×2 (08:51→16:12)
[2021-07-31] MEDS: TICAGRELOR 90 MG TABLET PO ×2 (08:51→20:47)
[2021-07-31] MEDS: DOCUSATE SODIUM 100 MG CAPSULE PO (08:51)
[2021-07-31] MEDS: METOPROLOL TARTRATE 12.5 MG TABLET PO ×2 (08:51→20:46)
[2021-07-31] MEDS: guaiFENesin 600 MG/DEXTROMETHORPHAN 30 MG SR TAB 12 HR 1 TAB PO ×2 (08:52→20:46)
[2021-07-31] MEDS: ATORVASTATIN 40 MG TABLET 80 MG PO (08:52)
[2021-07-31] MEDS: ASPIRIN 81 MG ENTERIC TABLET PO (08:52)
--- NOTE | 2021-07-31 09:02 | PM.PNCARD ---
Progress Note: A&P Additional Plan 66-year-old man with: Acute thrombotic inferior wall NM with right coronary occlusion addressed successfully with emergency PCI. Patient also with COVID pneumonia which appears to be improving the last 48 hours with declining oxygen requirements. As I mentioned in previous notes patient's electrocardiogram does look more abnormal than I would expect based on his RCA occlusion with development of Q-waves throughout the precordial leads as well. I will obtain a limited echo tomorrow to look at global LV function for this reason. For now continue dual anti-platelet therapy and beta-jamarcus Earl Hay MD [facility] Subjective Date/time seen: Date of service: 07/31/21 09:02 Interval history: Follow-up visit in this 66-year-old man with: Acute thrombotic occlusion of the RCA in the setting of acute COVID pneumonia. Patient was brought to the agriculture laboratory technician and underwent emergency revascularization with thrombectomy and stenting of the RCA. Remains hospitalized in the ICU bed 6. Due to high O2 demands. FiO2 requirements are reduced somewhat in the last 48 hours. Patient has no cardiovascular symptoms or complaints today. Date of service 07/31/2021: No cardiovascular complaints of any kind. Happy to see FiO2 requirements continuing to improve Exam Const: General: comfortable and no acute distress HENMT: Mouth: Yes moist mucous membranes Eyes: Sclera: sclerae normal Pupils: Equal, round and reactive pupils present Neck: Neck: supple and no JVD Resp: Effort & Inspection: normal respiratory effort Other: Basilar pulmonary rales are evident today Cardio: Rate: regular rate Rhythm: regular rhythm Other: No murmur no rub GI: GI Palp: Yes Soft to palpation Auscultation: normal bowel sounds Neuro: Cognition (Neuro): normal cognition Extrem: General: normal to inspection Objective Data Vital Signs Vital Signs: Vital Signs - 24 hr 07/30/21 10:00 07/30/21 11:48 07/30/21 12:00 Temperature 37.1 C Pulse Rate 81 78 77 Respiratory Rate 26 H 22 H 18 Blood Pressure 114/90 96/63 L Pulse Oximetry 95 93 93 07/30/21 14:00 07/30/21 16:00 07/30/21 18:00 Temperature 36.7 C Pulse Rate 84 72 73 Respiratory Rate 29 H 20 20 Blood Pressure 103/78 95/55 L Pulse Oximetry 93 99 100 07/30/21 18:48 07/30/21 20:00 07/30/21 20:39 Temperature Pulse Rate 94 91 Respiratory Rate 26 H Blood Pressure 107/71 123/73 Pulse Oximetry 94 07/30/21 21:15 07/30/21 22:00 07/31/21 00:00 Temperature 37.4 C Pulse Rate 91 74 68 Respiratory Rate 25 H 23 H Blood Pressure 97/66 L 90/53 L Pulse Oximetry 96 100 100 07/31/21 02:00 07/31/21 04:00 07/31/21 04:06 Temperature 36.5 C Pulse Rate 56 L 63 63 Respiratory Rate 21 H 21 H 19 Blood Pressure 83/61 L 80/56 L Pulse Oximetry 100 97 96 07/31/21 06:00 07/31/21 08:00 07/31/21 08:51 Temperature 36.7 C Pulse Rate 70 68 69 Respiratory Rate 25 H 21 H Blood Pressure 85/59 L 98/69 L Pulse Oximetry 96 96 Intake/Output Intake/Output: Intake & Output 07/28/21 07/29/21 07/30/21 07/31/21 23:59 23:59 23:59 23:59 Intake Total 1760 2630 960 240 Output Total 3200 1950 3050 1200 Balance -1440 196 -1835 -960 Meds/Results Medications: Active Medications Generic Name Dose Route Start Last Admin Trade Name Freq PRN Reason Stop Dose Admin Acetaminophen 650 mg 07/17/21 21:53 07/30/21 20:40 Acetaminophen 325 Mg Tablet PO 650 mg Q6H PRN Administration Mild Pain (1-3) or Fever Al Hydrox/Mg Hydrox/Simethicone 30 ml 07/23/21 14:19 Mag Hydrox/Al Hydrox/Simeth 30 Ml Udc PO Q4H PRN Indigestion Albuterol 2 puff 07/25/21 08:52 Albuterol Sulfate (*Sp) Aerosol 1 Puff INHALATION QIDRT PRN Wheezing Aspirin 81 mg 07/24/21 09:00 07/31/21 08:52 Aspirin 81 Mg Enteric Tablet PO 81 mg QAM APOORVA Administration Atorvastatin Calcium 80 mg 07/24/21 09:00 07/31/21 08:52 Atorv
--- NOTE | 2021-07-31 10:13 | PM.IMPN ---
Progress Note: A&P Assessment and Plan (1) Acute hypoxemic respiratory failure: Code(s): J96.01 - Acute respiratory failure with hypoxia Status: Acute Assessment and Plan: Symptoms of COVID around 07/09 and tested positive on 07/12. He is unvaccinated. Admitted 07/17 for SOB, fevers On 07/25/2021 Patient desaturated in the morning after a prolonged coughing bout. -Currently on Airvo, 70% FiO2, 40 L flow rate. NOT requiring non-rebreather mask -07/30/2021: CXR - Stable diffuse bilateral airspace disease, compatible with pneumonia. - Completed a 10 day course of remdesivir -completed dexamethasone x 10 days - Baricitinib (initiated 07/19 due to the worsening hypoxia) -encouraged laying in prone position May need intubation if deteriorates further Monitor closely (2) Pneumonia due to COVID-19 virus: Code(s): U07.1 - COVID-19; J12.82 - Pneumonia due to coronavirus disease 2018 Status: Acute Assessment and Plan: COVID positive on 07/12/21, Unvaccinated -continue airborne, droplet and contact isolation/precautions -inflammatory markers trending down, continue to monitor (3) STEMI (ST elevation myocardial infarction): Code(s): I21.3 - ST elevation (STEMI) myocardial infarction of unspecified site Status: Acute Assessment and Plan: Status post PCI, aspiration thrombectomy and stenting of RCA on 07/23 Dual antiplatelet therapy aspirin and Brilinta He was given Conservative amount of IV fluids for renal protection in light of COVID pneumonia Continue ICU residential monitor Continue Statin Echocardiogram 07/25/2021: LV dimensions are normal, EF 65-70%, moderately increased LV wall thickness, are a chamber dimension is moderate to severely enlarged, mild to moderate aortic valve stenosis, mild pulmonary hypertension Cardiology following the patient (4) Constipation: Code(s): K59.00 - Constipation, unspecified Status: Acute Assessment and Plan: Resolved, patient had a large bowel movement on 07/29 Subjective Date/time seen: 07/31/21 10:13 Interval history: 07/31 visit: Patient remains on Airvo, 70% FiO2, 40 L . Patient is NOT requiring any non-rebreather mask at this time. Patient did prone himself and yesterday. O2 sats have been 94-99%. Motivated and cooperative. Denies any chest pain, abdominal pain, vomiting, diarrhea. +Mild nausea. Review of Systems Review of Systems: All systems reviewed & are unremarkable except as noted in HPI and below Exam Narrative: General: Pt is alert awake and in NAD, currently in supine position Lungs/Chest: SLIGHT COARSENESS WITH DECREASED BS, no crackles wheezing. mild tachypnea but no respiratory distress, able to speak in full sentences Cardiac: RRR. Normal S1 S2. No murmurs Circulation: Pedal pulses are intact and symmetrical. Abdomen: Normal bowel sounds.. Soft. NT. ND. Extremities: No clubbing, cyanosis or edema. Neurologic: Follows commands. Moves all 4 extremities PERRL alert oriented x3 Skin: No Rash Objective Data Vital Signs Vital Signs: Vital Signs - 24 hr 07/30/21 11:48 07/30/21 12:00 07/30/21 14:00 Temperature 98.8 F Pulse Rate 78 77 84 Respiratory Rate 22 H 18 29 H Blood Pressure 96/63 L 103/78 Pulse Oximetry 93 93 93 07/30/21 16:00 07/30/21 18:00 07/30/21 18:48 Temperature 98.0 F Pulse Rate 72 73 Respiratory Rate 20 20 Blood Pressure 95/55 L 107/71 Pulse Oximetry 99 100 07/30/21 20:00 07/30/21 20:39 07/30/21 21:15 Temperature Pulse Rate 94 91 91 Respiratory Rate 26 H Blood Pressure 123/73 Pulse Oximetry 94 96 07/30/21 22:00 07/31/21 00:00 07/31/21 02:00 Temperature 99.3 F Pulse Rate 74 68 56 L Respiratory Rate 25 H 23 H 21 H Blood Pressure 97/66 L 90/53 L 83/61 L Pulse Oximetry 100 100 100 07/31/21 04:00 07/31/21 04:06 07/31/21 06:00 Temperature 97.7 F Pulse Rate 63 63 70 Respiratory Rate 21 H 19 25 H Blood Pressure 80/56 L 85/59 L Pulse O
--- NOTE | 2021-07-31 11:11 | WPDINTPN ---
Progress Note: A&P Assessment and Plan (1) Acute hypoxemic respiratory failure: Code(s): J96.01 - Acute respiratory failure with hypoxia Status: Acute Assessment and Plan: Symptoms of COVID around 07/09 and tested positive on 07/12. He is unvaccinated. Admitted 07/17 for SOB, fevers On 07/25/2021 Patient desaturated in the morning after a prolonged coughing bout. -Currently on Airvo, 70% FiO2, 40 L flow rate. NOT requiring non-rebreather mask -07/30/2021: CXR - Stable diffuse bilateral airspace disease, compatible with pneumonia. - Completed a 10 day course of remdesivir -completed dexamethasone x 10 days - Baricitinib (initiated 07/19 due to the worsening hypoxia) -encouraged laying in prone position May need intubation if deteriorates further Monitor closely (2) Pneumonia due to COVID-19 virus: Code(s): U07.1 - COVID-19; J12.82 - Pneumonia due to coronavirus disease 2018 Status: Acute Assessment and Plan: COVID positive on 07/12/21, Unvaccinated -continue airborne, droplet and contact isolation/precautions -inflammatory markers trending down, continue to monitor (3) STEMI (ST elevation myocardial infarction): Code(s): I21.3 - ST elevation (STEMI) myocardial infarction of unspecified site Status: Acute Assessment and Plan: Status post PCI, aspiration thrombectomy and stenting of RCA on 07/23 Dual antiplatelet therapy aspirin and Brilinta He was given Conservative amount of IV fluids for renal protection in light of COVID pneumonia Continue ICU alarm security or surveillance monitor Continue Statin Echocardiogram 07/25/2021: LV dimensions are normal, EF 65-70%, moderately increased LV wall thickness, are a chamber dimension is moderate to severely enlarged, mild to moderate aortic valve stenosis, mild pulmonary hypertension Cardiology following the patient (4) Constipation: Code(s): K59.00 - Constipation, unspecified Status: Acute Assessment and Plan: Resolved, patient had a large bowel movement on 07/29 Additional Plan DVT prophylaxis -Lovenox 40 mg subQ q.12 hours Stress ulcer prophylaxis -Pepcid Nutrition -diet Discussed with patient updated with his condition and plan of care. Patient wants to sit up in the chair. Encourage incentive spirometry and laying in prone position Discussed with cardiology Code Status - Full Code Total Critical Care Time - 32 minutes Due to a high probability of clinically significant, life threatening deterioration, the patient required my highest level of preparedness to intervene emergently and I personally spent this critical care time directly and personally managing the patient. This critical care time included obtaining a history; examining the patient; pulse oximetry; ordering and review of studies; arranging urgent treatment with development of a management plan; evaluation of patient's response to treatment; frequent reassessment; and discussions with other providers. It was exclusive of separately billable procedures and treating other patients and teaching time. Please see Assessment and Plan section and the rest of the note for further information on patient assessment and treatment Subjective Date/time seen: 07/31/21 11:11 Interval history: 66yo healthy male presents with complaints of SOB and is known to have COVID. Patient began to have symptoms on July 09. He tested positive on July 12 (result in the paper chart). 07/23 - STEMI Catheterization showed large clots in the right coronary artery and aspiration thrombectomy was performed and then stenting of the proximal RCA for underlying upturned plaque. 07/31/2021: Patient remains on Airvo, 70% FiO2, 40 L . Patient is NOT requiring any non-rebreather mask at this time. Patient did prone himself and yesterday. O2 sats have been 94-99%. Patient states he has been trying to sleep on his side most of the time. Patient is very motivated, optimistic and cooperative. To
[2021-07-31] MEDS: ACETAMINOPHEN 325 MG TABLET 650 MG PO (20:41)
[2021-07-31] MEDS: MELATONIN 5 MG TABLET PO (20:41)
[2021-07-31] MEDS: BARICITINIB 2 MG TABLET 4 MG PO (20:46)
[2021-08-01] VITALS (22 sets, daily range): BP systolic 92–108; BP diastolic 60–75; PULSE 55–97; RESP 18–28; TEMP 35.8–36.9; O2SAT 90–100
--- NOTE | 2021-08-01 | ECHOL_ITS ---
Patient Info Name: Khang Vicente Age: 66 years : 1955 Gender: Male Ht: 70 in Wt: 196 lbs BSA: 2.11 m2 HR: 86 bpm BP: 93 / 61 mmHg Heart Rhythm: Sinus Rhythm Exam Date: 08/01/2021 7:43 AM Exam Location: [facility] Patient Status: Inpatient Admit Date: 07/17/2021 Staff Ordering Physician: Earl Hay MD Msw: Chase Alvarez, JENNIFER, RT Attending Provider: Sobeida Shrestha MD Referring Physician: Satnam ALVAREZ; Exam Type: CA echo limited Study Info Indications I50.9 - Heart failure, unspecified Complete two-dimensional, color flow and Doppler transthoracic echocardiogram is performed. Strain analysis performed. Summary 1. Complete two-dimensional, color flow and Doppler transthoracic echocardiogram is performed. 2. There is mild concentric increased left ventricular wall thickness. 3. Left ventricular systolic function is normal, estimated at 55-60%. 4. Right ventricular chamber dimension is moderately enlarged. 5. Right ventricular systolic function is reduced. 6. There is small pericardial effusion. Left Ventricle Left ventricular chamber dimension is normal. Left ventricular systolic function is normal, estimated at 55-60%. There is mild concentric increased left ventricular wall thickness. Right Ventricle Right ventricular chamber dimension is moderately enlarged. Right ventricular systolic function is reduced. Left Atria Left atrial chamber dimension is normal. Right Atria Right atrial chamber dimension is normal. Aortic Valve The aortic valve is trileaflet. There is moderate aortic valve sclerosis. There is mild aortic valve stenosis. Pulmonic Valve The pulmonic valve is not well visualized. Mitral Valve The mitral valve has normal leaflets. Tricuspid Valve The tricuspid valve leaflets are normal. Pericardium/Pleural There is small pericardial effusion. Aorta The aortic root size at the sinus of Valsalva is normal. Report Signatures
[2021-08-01] MEDS: CENTRAL LINE FLUSH 10 ML IV PUSH ×3 (04:22→20:55)
[2021-08-01 04:41] LABS: Basophils Percent Auto 0.2 % (0.2-1.2); Eosinophils Absolute Auto 0.2 K/mm3 (0-0.3); Eosinophils Percent Auto 1.4 % (0-4.4); Hematocrit 33.7 % (42.0-52.0); Hemoglobin 10.5 g/dL (14.0-18.0); Immature Granulocyte Percent A 0.7 % (0-0.5); Lymphocytes Absolute Auto 5.97 K/mm3 (0.9-3.2); Mean Corpuscular HGB Conc 31.2 g/dl (32-36); Mean Corpuscular Hemoglobin 21.6 pg (26-34); Mean Corpuscular Volume 69.5 fl (80-100); Mean Platelet Volume 9.7 fl (7.4-10.4); Monocytes Absolute Auto 0.9 K/mm3 (0.1-0.6); Monocytes Percent Auto 6.1 % (2.6-8.5); Neutrophils Absolute Auto 7.4 K/mm3 (1.3-6.7); Neutrophils Percent Auto 50.6 % (45.5-73.1); Platelet Count Result 308 k/mm3 (150-375); Red Blood Count 4.85 M/mm3 (4.6-6.20); Red Cell Distribution Width 14.7 % (11.5-14.5); White Blood Count 14.6 K/mm3 (4.5-10.0)
[2021-08-01 04:53] LABS: Anion Gap 3 mmol/L (8-16); Blood Urea Nitrogen 22 mg/dL (9-20); Calcium 8.4 mg/dL (8.4-10.2); Carbon Dioxide 34 mmol/L (22-30); Chloride 96 mmol/L (98-107); Estimated CRCL calculation 95 ml/min; Estimated Glomerular Filt Rate > 60; Glucose 102 mg/dL (65-110); Potassium 4.6 mmol/L (3.4-5.0); Sodium 133 mmol/L (137-145)
[2021-08-01 05:52] LABS: Anisocytosis 1+ (NORMAL); Ovalocytes 1+ (NORMAL); Platelet Estimate Adequate (Adequate)
[2021-08-01] MEDS: ATORVASTATIN 40 MG TABLET 80 MG PO (09:20)
[2021-08-01] MEDS: ASPIRIN 81 MG ENTERIC TABLET PO (09:20)
[2021-08-01] MEDS: METOPROLOL TARTRATE 12.5 MG TABLET PO ×2 (09:20→20:53)
[2021-08-01] MEDS: guaiFENesin 600 MG/DEXTROMETHORPHAN 30 MG SR TAB 12 HR 1 TAB PO ×2 (09:20→20:55)
[2021-08-01] MEDS: DOCUSATE SODIUM 100 MG CAPSULE PO ×2 (09:20→20:54)
[2021-08-01] MEDS: ENOXAPARIN 40 MG/0.4 ML SYRINGE SUB-Q ×2 (09:20→20:55)
[2021-08-01] MEDS: FAMOTIDINE 20 MG/2 ML VIAL IV PUSH ×2 (09:20→20:54)
[2021-08-01] MEDS: BENZONATATE 100 MG CAPSULE PO (09:21)
[2021-08-01] MEDS: TICAGRELOR 90 MG TABLET PO ×2 (09:21→20:55)
[2021-08-01] MEDS: guaiFENesin/CODEINE (*CRX) 200/20 MG 10 ML SYRUP PO ×2 (09:21→20:51)
--- NOTE | 2021-08-01 09:53 | WPDINTPN ---
Progress Note: A&P Assessment and Plan (1) Acute hypoxemic respiratory failure: Code(s): J96.01 - Acute respiratory failure with hypoxia Status: Acute Assessment and Plan: Symptoms of COVID around 07/09 and tested positive on 07/12. He is unvaccinated. Admitted 07/17 for SOB, fevers On 07/25/2021 Patient desaturated in the morning after a prolonged coughing bout. -Currently on Airvo, 70% FiO2, 40 L flow rate. NOT requiring non-rebreather mask -07/30/2021: CXR - Stable diffuse bilateral airspace disease, compatible with pneumonia. - Completed a 10 day course of remdesivir -completed dexamethasone x 10 days - Baricitinib (initiated 07/19 due to the worsening hypoxia) for a total of 14 days -encouraged laying in prone position May need intubation if deteriorates further Monitor closely -will encourage use of incentive spirometry (2) Pneumonia due to COVID-19 virus: Code(s): U07.1 - COVID-19; J12.82 - Pneumonia due to coronavirus disease 2018 Status: Acute Assessment and Plan: COVID positive on 07/12/21, Unvaccinated -continue airborne, droplet and contact isolation/precautions -inflammatory markers trending down, continue to monitor (3) STEMI (ST elevation myocardial infarction): Code(s): I21.3 - ST elevation (STEMI) myocardial infarction of unspecified site Status: Acute Assessment and Plan: Status post PCI, aspiration thrombectomy and stenting of RCA on 07/23 Dual antiplatelet therapy aspirin and Brilinta He was given Conservative amount of IV fluids for renal protection in light of COVID pneumonia Continue ICU school bus monitor Continue Statin Echocardiogram 07/25/2021: LV dimensions are normal, EF 65-70%, moderately increased LV wall thickness, are a chamber dimension is moderate to severely enlarged, mild to moderate aortic valve stenosis, mild pulmonary hypertension Cardiology following the patient (4) Constipation: Code(s): K59.00 - Constipation, unspecified Status: Acute Assessment and Plan: Resolved, patient had a large bowel movement on 07/29 Additional Plan DVT prophylaxis -Lovenox 40 mg subQ q.12 hours Stress ulcer prophylaxis -Pepcid Nutrition -diet Discussed with patient updated with his condition and plan of care. Patient wants to sit up in the chair. Encourage incentive spirometry and laying in prone position Discussed with cardiology Code Status - Full Code Total Critical Care Time - 32 minutes Due to a high probability of clinically significant, life threatening deterioration, the patient required my highest level of preparedness to intervene emergently and I personally spent this critical care time directly and personally managing the patient. This critical care time included obtaining a history; examining the patient; pulse oximetry; ordering and review of studies; arranging urgent treatment with development of a management plan; evaluation of patient's response to treatment; frequent reassessment; and discussions with other providers. It was exclusive of separately billable procedures and treating other patients and teaching time. Please see Assessment and Plan section and the rest of the note for further information on patient assessment and treatment Subjective Date/time seen: 08/01/21 09:53 Interval history: 66yo healthy male presents with complaints of SOB and is known to have COVID. Patient began to have symptoms on July 09. He tested positive on July 12 (result in the paper chart). 07/23 - STEMI Catheterization showed large clots in the right coronary artery and aspiration thrombectomy was performed and then stenting of the proximal RCA for underlying upturned plaque. 08/01/2021: Patient remains on Airvo, 55% FiO2, 40 L . Patient is NOT requiring any non-rebreather mask at this time. Patient did prone himself and yesterday. O2 sats have been 94-99%. Patient states he has been trying to sleep on his side most of
--- NOTE | 2021-08-01 11:34 | PCDIET ---
ICU Rounding Note: Patient has consumed an average of 88% of recorded meals since 07/30/21 on regular diet with Ensure Enlive TID. Last recorded weight is 88.5kg which is down from last review. -I/O. Bowel Motility: Last documented BM on 07/29/21 x 1. Labs Reviewed: WBC (14.6), Hgb (10.5), Hct (33.7), BUN (22), Na (133) Meds Noted: Lipitor, Olumiant, Pepcid, Lopressor Additional Notes: No skin breakdown documented. Following daily in ICU rounds. Assessing/reassessing every 5 days.
--- NOTE | 2021-08-01 12:54 | PM.IMPN ---
Progress Note: A&P Assessment and Plan (1) Acute hypoxemic respiratory failure: Code(s): J96.01 - Acute respiratory failure with hypoxia Status: Acute Assessment and Plan: The patient developed symptoms of COVID around 07/09 and tested positive on 07/12. He is unvaccinated. Chest x-ray on admission showing patchy bilateral PNA. He has been placed in isolation per protocol. He was started on dexamethasone and remdesivir both of which completed on 07/26 after 10 days. Baricitinib added 07/19 due to the worsening hypoxia and will complete today. Inflammatory markers not checked recently. Procalcitonin 0.1. He is toelrating being up to the side of the bed. Pulmonary and telephone order clerk room service following and appreciate their input. Continue Airvo; NRB mask available as needed. Continue supportive care and wean O2 as tolerated. Encouraged him to use IS and to lay prone as he tolerates. (2) Pneumonia due to COVID-19 virus: Code(s): U07.1 - COVID-19; J12.82 - Pneumonia due to coronavirus disease 2018 Status: Acute Assessment and Plan: Please see above (3) STEMI (ST elevation myocardial infarction): Code(s): I21.3 - ST elevation (STEMI) myocardial infarction of unspecified site Status: Acute Assessment and Plan: Patient developed CP on 07/23 with EKG showing acute STEMI. He was taken to the label tacker and he is now status post PCI, aspiration thrombectomy and stenting of RCA. Patient was treated with Integrilin infusion. He was given conservative amount of IV fluids for renal protection in light of COVID pneumonia after scan. Echo showing EF 65-70% and mild-mod without wall motion abnormalities. Continue telemetry monitoring. Continue Lipitor and metoprolol. Continue dual antiplatelet therapy with aspirin and Brilinta. (4) Hyperkalemia: Code(s): E87.5 - Hyperkalemia Status: Acute Assessment and Plan: Potassium elevated at times here. Not on CHULA/ARB or potassium replacement. Lovenox has been shown to cause mild hyperkalemia. Potassium normal now. Will continue to monitor. (5) Otitis media: Code(s): H66.90 - Otitis media, unspecified, unspecified ear Status: Acute Assessment and Plan: Stable. Completed a course of Amoxicillin (6) Constipation: Code(s): K59.00 - Constipation, unspecified Status: Acute Assessment and Plan: No BMs listed since 07/29. Continue Colace and Miralax. (7) DVT prophylaxis: Code(s): Z29.9 - Encounter for prophylactic measures, unspecified Status: Acute Assessment and Plan: Lovenox Subjective Date/time seen: 08/01/21 12:55 Interval history: 66yo healthy male presents with complaints of SOB and is known to have COVID. Patient began to have symptoms on July 09. He tested positive on July 12 (result in the paper chart). Resuming care. Chart reviewed. Patient feels much better, Able to sit at the side of the bed for over an hour. No CP. Eating better. Cough improved as well. Not required the NRB very much at all. Currently on 40L 55% FiO2. Exam Narrative: AF 96.4 103/68 85 27 91% Airvo Gen - NARD lying right side down Chest - Rt basilar inspiratory crackles; nml RR CV - RRR S1/S2; Tele showing PVCs Abd - Soft, NT/ND, Positive BS - Ward secured draining clear yellow urine Ext - No pedal edema Psych - Nml mood and affect Skin - Warm and dry Echo pending Objective Data Vital Signs Vital Signs: Vital Signs - 24 hr 07/31/21 14:00 07/31/21 14:54 07/31/21 16:00 Temperature 98.1 F Pulse Rate 83 79 80 Respiratory Rate 27 H 32 H 25 H Blood Pressure 98/64 L 115/74 Pulse Oximetry 95 97 97 07/31/21 18:00 07/31/21 20:00 07/31/21 20:30 Temperature Pulse Rate 77 87 85 Respiratory Rate 19 25 H 20 Blood Pressure 97/62 L 107/72 Pulse Oximetry 96 99 97 07/31/21 20:46 07/31/21 21:00 07/31/21 22:00 Temperature 98.5 F Puls
--- NOTE | 2021-08-01 15:04 | PM.PNCARD ---
Progress Note: A&P Assessment and Plan (1) STEMI (ST elevation myocardial infarction): Code(s): I21.3 - ST elevation (STEMI) myocardial infarction of unspecified site Status: Acute Assessment and Plan: Status post Inferior ST-elevation [place] likely complication of COVID-19 infection with acute plaque rupture and large thrombus burden status post aspiration thrombectomy and successful 5.0x22mm Victor Manuel GABRIEL implantation proximal RCA. Continue dual antiplatelet therapy without interruption with aspirin and Brilinta, high-dose statin. Low-dose beta-jamarcus initiated, tolerating reasonably well at this time. EF 65-70% [id number] aortic stenosis on echocardiogram. Patient reasonably stable from cardiac perspective. (2) Pneumonia due to COVID-19 virus: Code(s): U07.1 - COVID-19; J12.82 - Pneumonia due to coronavirus disease 2018 Status: Acute Assessment and Plan: Per hospitalist and critical care service. Continue supportive care for COVID-19 infection. s/p Dexamethasone, Remdesivir, currently on Baricitinib, Enoxaparin 40mg SQ q12hr. Isolatoin precautions. (3) Acute hypoxemic respiratory failure: Code(s): J96.01 - Acute respiratory failure with hypoxia Status: Acute Assessment and Plan: Improving now on high flow O2. Management per Critical Care. 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 Patient also with COVID pneumonia which appears to be improving the last 48 hours with declining oxygen requirements. As I mentioned in previous notes patient's electrocardiogram does look more abnormal than I would expect based on his RCA occlusion with development of Q-waves throughout the precordial leads as well. I will obtain a limited echo tomorrow to look at global LV function for this reason. For now continue dual anti-platelet therapy and beta-jamarcus Earl Hay MD [facility] Subjective Date/time seen: 08/01/21 15:04 Cardiology follow up for STEMI Date of service 08/01/2021: Doing better from a respiratory standpoint. He does not have any complaints today. Review of Systems Review of Systems: All systems reviewed & are unremarkable except as noted in HPI and below Constitutional: Constitutional: Reports as per HPI, Denies body ache(s), Reports fatigue, Denies fever(s), Denies poor appetite and Reports weakness Eyes: Eyes: Reports as per HPI, Denies eye discharge, Denies loss of vision, Denies eye pain and Denies photophobia ENT: Reports as per HPI, Denies dizziness, Denies epistaxis, Denies nasal congestion and Denies sore throat Cardiovascular: Cardiovascular: Reports as per HPI, Denies chest pain, Denies diaphoresis, Denies syncope, Denies pedal edema, Denies leg edema, Denies palpitations, Reports dyspnea, Reports dyspnea on exertion and Denies orthopnea Respiratory: Respiratory: Reports as per HPI, Reports cough, Reports dyspnea, Reports dyspnea on exertion and Denies wheezing Gastrointestinal: Gastrointestinal: Reports as per HPI, Denies abdominal pain, Denies diarrhea, Denies nausea and Denies vomiting Genitourinary: Genitourinary: Reports as per HPI, Denies hematuria, Denies genital lesions and Denies dysuria Musculoskeletal: Musculoskeletal: Reports as per HPI, Denies arthralgias, Denies joint swelling and Denies numbness Integumentary/Breasts: Skin/Breast: Reports as per HPI, Denies pruritus and Denies rash Neurologic: Reports as per HPI, Denies dizziness, Denies syncope, Denies loss of vision, Denies numbness and Reports weakness Psychiatric: Psychiatric: Reports as per HPI, Denies anxiety and Denies depression Endocrine: Endocrine: Reports as per HPI, Denies cold intolerance, Reports fatigue, Denies heat intolerance and Denies palpitations Hematologic/Lymphatic: Hematologic/Lymphatic: Reports as per HPI, Denies easy bleeding and Denies easy bruising Allergic/Immu
[2021-08-01] MEDS: MELATONIN 5 MG TABLET PO (20:51)
[2021-08-01] MEDS: ACETAMINOPHEN 325 MG TABLET 650 MG PO (20:51)
[2021-08-01] MEDS: BARICITINIB 2 MG TABLET 4 MG PO (20:53)
[2021-08-02] VITALS (23 sets, daily range): BP systolic 93–138; BP diastolic 56–80; PULSE 58–98; RESP 20–29; TEMP 36.4–36.9; O2SAT 92–100
[2021-08-02] MEDS: CENTRAL LINE FLUSH 10 ML IV PUSH ×3 (04:52→20:43)
[2021-08-02 05:15] LABS: Basophils Percent Auto 0.1 % (0.2-1.2); Eosinophils Absolute Auto 0.3 K/mm3 (0-0.3); Eosinophils Percent Auto 1.7 % (0-4.4); Hematocrit 34.8 % (42.0-52.0); Hemoglobin 10.9 g/dL (14.0-18.0); Immature Granulocyte Percent A 0.7 % (0-0.5); Lymphocytes Absolute Auto 5.83 K/mm3 (0.9-3.2); Lymphocytes Percent Auto 39.8 % (18.3-44.2); Mean Corpuscular HGB Conc 31.3 g/dl (32-36); Mean Corpuscular Hemoglobin 22.5 pg (26-34); Mean Corpuscular Volume 71.8 fl (80-100); Mean Platelet Volume 10.3 fl (7.4-10.4); Monocytes Absolute Auto 0.9 K/mm3 (0.1-0.6); Monocytes Percent Auto 6.3 % (2.6-8.5); Neutrophils Absolute Auto 7.5 K/mm3 (1.3-6.7); Neutrophils Percent Auto 51.4 % (45.5-73.1); Platelet Count Result 262 k/mm3 (150-375); Red Blood Count 4.85 M/mm3 (4.6-6.20); Red Cell Distribution Width 14.9 % (11.5-14.5); White Blood Count 14.6 K/mm3 (4.5-10.0)
[2021-08-02 06:44] LABS: Alanine Aminotransferase 22 U/L (4-50); Albumin Level 3.1 g/dL (3.5-5.1); Alkaline Phosphatase 50 U/L (38-126); Anion Gap 3 mmol/L (8-16); Aspartate Amino Transferase 35 U/L (17-59); Bilirubin,Total 0.3 mg/dL (0.2-1.3); Blood Urea Nitrogen 21 mg/dL (9-20); Calcium 8.7 mg/dL (8.4-10.2); Carbon Dioxide 35 mmol/L (22-30); Chloride 96 mmol/L (98-107); Estimated CRCL calculation 95 ml/min; Estimated Glomerular Filt Rate > 60; Glucose 99 mg/dL (65-110); Magnesium 2.1 mg/dL (1.6-2.3); Potassium 4.4 mmol/L (3.4-5.0); Sodium 134 mmol/L (137-145)
[2021-08-02] MEDS: ENOXAPARIN 40 MG/0.4 ML SYRINGE SUB-Q (09:03)
[2021-08-02] MEDS: DOCUSATE SODIUM 100 MG CAPSULE PO (09:03)
[2021-08-02] MEDS: guaiFENesin 600 MG/DEXTROMETHORPHAN 30 MG SR TAB 12 HR 1 TAB PO ×2 (09:03→20:44)
[2021-08-02] MEDS: ATORVASTATIN 40 MG TABLET 80 MG PO (09:04)
[2021-08-02] MEDS: FAMOTIDINE 20 MG/2 ML VIAL IV PUSH (09:04)
[2021-08-02] MEDS: TICAGRELOR 90 MG TABLET PO ×2 (09:04→20:43)
[2021-08-02] MEDS: BENZONATATE 100 MG CAPSULE PO (09:04)
[2021-08-02] MEDS: ASPIRIN 81 MG ENTERIC TABLET PO (09:04)
[2021-08-02] MEDS: METOPROLOL TARTRATE 12.5 MG TABLET PO ×2 (09:04→20:42)
[2021-08-02] MEDS: guaiFENesin/CODEINE (*CRX) 200/20 MG 10 ML SYRUP PO ×2 (09:28→20:37)
--- NOTE | 2021-08-02 11:51 | PCDIET ---
Nutrition Follow-Up Complete: Nutrition Diagnosis: Predicted suboptimal oral intake related to COVID pneumonia as evidenced by patient on bipap. Nutrition Goal: Patient to meet estimated nutritional needs. Goal met. Patient continues to eat well on regular diet. Consumed 90-100% of meals on 08/01/21 with Ensure Enlive TID. No additional recommendations at this time. Last recorded weight is 89.2 kg which is increased from last review. Bowel Motility: Last documented BM on 08/01/21 x 1. Labs Reviewed: RBC (14.6), Hgb (10.5), Hct (33.7), BUN (22), Na (133) Meds Noted: Lipitor, Colace, Pepcid, Lopressor Additional Notes: No documented skin breakdown. Will continue to monitor with same goal. Nutrition Monitoring and Evaluation: Follow up every 5 days.
--- NOTE | 2021-08-02 16:17 | PM.PNCARD ---
Progress Note: A&P Assessment and Plan (1) STEMI (ST elevation myocardial infarction): Code(s): I21.3 - ST elevation (STEMI) myocardial infarction of unspecified site Status: Acute Assessment and Plan: Status post Inferior ST-elevation [place] likely complication of COVID-19 infection with acute plaque rupture and large thrombus burden status post aspiration thrombectomy and successful 5.0x22mm Victor Manuel GABRIEL implantation proximal RCA. Continue dual antiplatelet therapy without interruption with aspirin and Brilinta, high-dose statin. Low-dose beta-jamarcus initiated, tolerating reasonably well at this time. EF 65-70% [id number] aortic stenosis on echocardiogram. Patient reasonably stable from cardiac perspective. (2) Pneumonia due to COVID-19 virus: Code(s): U07.1 - COVID-19; J12.82 - Pneumonia due to coronavirus disease 2018 Status: Acute Assessment and Plan: Per hospitalist and critical care service. Continue supportive care for COVID-19 infection. s/p Dexamethasone, Remdesivir, currently on Baricitinib, Enoxaparin 40mg SQ q12hr. Isolatoin precautions. (3) Acute hypoxemic respiratory failure: Code(s): J96.01 - Acute respiratory failure with hypoxia Status: Acute Assessment and Plan: Improving now on high flow O2. Management per Critical Care. Subjective Date/time seen: 08/02/21 16:17 Interval history: Follow-up visit in this 66-year-old man with: Acute thrombotic occlusion of the RCA in the setting of acute COVID pneumonia. Patient was brought to the labor conciliator and underwent emergency revascularization with thrombectomy and stenting of the RCA. Remains hospitalized in the ICU bed 6. Due to high O2 demands. FiO2 requirements are reduced somewhat in the last 48 hours. Patient has no cardiovascular symptoms or complaints today. Date of service 07/31/2021: No cardiovascular complaints of any kind. Happy to see FiO2 requirements continuing to improve Date of service 08/02/2021: Feeling well today. Says he had an episode earlier with his breathing but is feeling better now. Does not have any chest pain, no dyspnea at rest. Review of Systems Review of Systems: All systems reviewed & are unremarkable except as noted in HPI and below Constitutional: Constitutional: Reports as per HPI, Denies body ache(s), Reports fatigue, Denies fever(s), Denies poor appetite and Reports weakness Eyes: Eyes: Reports as per HPI, Denies eye discharge, Denies loss of vision, Denies eye pain and Denies photophobia ENT: Reports as per HPI, Denies dizziness, Denies epistaxis, Denies nasal congestion and Denies sore throat Cardiovascular: Cardiovascular: Reports as per HPI, Denies chest pain, Denies diaphoresis, Denies syncope, Denies pedal edema, Denies leg edema, Denies palpitations, Reports dyspnea, Reports dyspnea on exertion and Denies orthopnea Respiratory: Respiratory: Reports as per HPI, Reports cough, Reports dyspnea, Reports dyspnea on exertion and Denies wheezing Gastrointestinal: Gastrointestinal: Reports as per HPI, Denies abdominal pain, Denies diarrhea, Denies nausea and Denies vomiting Genitourinary: Genitourinary: Reports as per HPI, Denies hematuria, Denies genital lesions and Denies dysuria Musculoskeletal: Musculoskeletal: Reports as per HPI, Denies arthralgias, Denies joint swelling and Denies numbness Integumentary/Breasts: Skin/Breast: Reports as per HPI, Denies pruritus and Denies rash Neurologic: Reports as per HPI, Denies dizziness, Denies syncope, Denies loss of vision, Denies numbness and Reports weakness Psychiatric: Psychiatric: Reports as per HPI, Denies anxiety and Denies depression Endocrine: Endocrine: Reports as per HPI, Denies cold intolerance, Reports fatigue, Denies heat intolerance and Denies palpitations Hematologic/Lymphatic: Hematologic/Lymphatic: Reports as per HPI, Denies easy bleeding and Denies easy bruising Allergic/Immunologic: Allergic/Immunologic:
--- NOTE | 2021-08-02 16:29 | PM.IMPN ---
Progress Note: A&P Assessment and Plan (1) Acute hypoxemic respiratory failure: Code(s): J96.01 - Acute respiratory failure with hypoxia Status: Acute Assessment and Plan: The patient developed symptoms of COVID around 07/09 and tested positive on 07/12. He is unvaccinated. Chest x-ray on admission showing patchy bilateral PNA. He has been placed in isolation per protocol. He was started on dexamethasone and remdesivir both of which completed on 07/26 after 10 days. Baricitinib added 07/19 due to the worsening hypoxia and completed 08/01. Procalcitonin 0.1. He is tolerating being up to the side of the bed. Pulmonary following and appreciate their input. Continue Airvo; NRB mask available as needed. Continue supportive care and wean O2 as tolerated. Encouraged IS use and to lay prone as he tolerates. (2) Pneumonia due to COVID-19 virus: Code(s): U07.1 - COVID-19; J12.82 - Pneumonia due to coronavirus disease 2018 Status: Acute Assessment and Plan: Please see above (3) STEMI (ST elevation myocardial infarction): Code(s): I21.3 - ST elevation (STEMI) myocardial infarction of unspecified site Status: Acute Assessment and Plan: Patient developed CP on 07/23 with EKG showing acute STEMI. He was taken to the micro lab analyst and he is now status post PCI, aspiration thrombectomy and stenting of RCA. Patient was treated with Integrilin infusion. He was given conservative amount of IV fluids for renal protection in light of COVID pneumonia after scan. Echo showing EF 65-70% and mild-mod without wall motion abnormalities. Limited Echo performed showing EF 55-60%, mild concentric LVH, RV enlargement with decrease RV systolic function probably related to the inferior AR. Continue telemetry monitoring. Continue Lipitor and metoprolol. Continue dual antiplatelet therapy with aspirin and Brilinta. (4) Hyperkalemia: Code(s): E87.5 - Hyperkalemia Status: Acute Assessment and Plan: Potassium elevated at times here. Not on CHULA/ARB or potassium replacement. Lovenox has been shown to cause mild hyperkalemia. Potassium remaining normal. Will continue to monitor. (5) Otitis media: Code(s): H66.90 - Otitis media, unspecified, unspecified ear Status: Acute Assessment and Plan: Stable. Completed a course of Amoxicillin (6) Constipation: Code(s): K59.00 - Constipation, unspecified Status: Acute Assessment and Plan: Last BMs was 08/01. Continue Colace and Miralax. (7) DVT prophylaxis: Code(s): Z29.9 - Encounter for prophylactic measures, unspecified Status: Acute Assessment and Plan: Lovenox Subjective Date/time seen: 08/02/21 16:29 Interval history: 66yo healthy male presents with complaints of SOB and is known to have COVID. Patient began to have symptoms on July 09. He tested positive on July 12 (result in the paper chart). No change overnight. He has been weaned to 35L 45% FiO2. No issues today except that patient became more hyopoxic with sitting up to eat lunch requiring FiO2 to increase to 80% and NRB briefly but recovered and able to wean down to 50% FiO2 currently. He denies CP. His cough is mild. He has not been lying prone much. Exam Narrative: AF 97.6 100/69 86 24 97% Airvo Gen - NARD lying semirecumbent in bed Chest - distant BS, nml RR CV - RRR S1/S2; Tele showing PVCs Abd - Soft, NT/ND, Positive BS - Ward secured draining clear yellow urine Ext - No pedal edema Psych - Nml mood and affect Skin - Warm and dry Objective Data Vital Signs Vital Signs: Vital Signs - 24 hr 08/01/21 18:00 08/01/21 18:27 08/01/21 20:00 Temperature 98.5 F Pulse Rate 76 79 Respiratory Rate 24 H 28 H Blood Pressure 108/64 93/68 L Pulse Oximetry 97 98 99 08/01/21 20:17 08/01/21 20:53 08/01/21 22:00 Temperature Pulse Rate 84 97 60 Respiratory Rate Blood
[2021-08-02] MEDS: MELATONIN 5 MG TABLET PO (20:37)
[2021-08-02] MEDS: ACETAMINOPHEN 325 MG TABLET 650 MG PO (20:38)
[2021-08-02] MEDS: FAMOTIDINE 20 MG TABLET PO (20:42)
[2021-08-03] VITALS (19 sets, daily range): BP systolic 96–108; BP diastolic 67–85; PULSE 59–97; RESP 17–23; TEMP 36.5–37.1; O2SAT 91–99
[2021-08-03] MEDS: CENTRAL LINE FLUSH 10 ML IV PUSH ×3 (03:40→21:22)
[2021-08-03] MEDS: polyethylene glycoL 3350 17 GM POWD.PACK PO (09:00)
[2021-08-03] MEDS: ENOXAPARIN 40 MG/0.4 ML SYRINGE SUB-Q (09:00)
[2021-08-03] MEDS: guaiFENesin/CODEINE (*CRX) 200/20 MG 10 ML SYRUP PO ×3 (09:00→21:17)
[2021-08-03] MEDS: FAMOTIDINE 20 MG TABLET PO ×2 (09:00→21:21)
[2021-08-03] MEDS: ASPIRIN 81 MG ENTERIC TABLET PO (09:01)
[2021-08-03] MEDS: METOPROLOL TARTRATE 12.5 MG TABLET PO ×2 (09:01→21:21)
[2021-08-03] MEDS: DOCUSATE SODIUM 100 MG CAPSULE PO (09:01)
[2021-08-03] MEDS: guaiFENesin 600 MG/DEXTROMETHORPHAN 30 MG SR TAB 12 HR 1 TAB PO ×2 (09:01→21:20)
[2021-08-03] MEDS: TICAGRELOR 90 MG TABLET PO ×2 (09:02→21:21)
[2021-08-03] MEDS: ATORVASTATIN 40 MG TABLET 80 MG PO (09:02)
--- NOTE | 2021-08-03 10:35 | PCDIET ---
ICU Rounding Note: Patient continues to eat well on regular diet with 75-100% consumed on 08/02/21. Ensure Enlive continued TID. Last recorded weight is 91kg which is increased from last review, despite -I/O. Bowel Motility: Last documented BM on 08/01/21. Labs Reviewed: WBC (14.6), Hgb (10.9), Hct (34.8), BUN (21), Na (134), Alb (3.1) Meds Noted: Lipitor, Colace, Pepcid, Lopressor, Miralax, Ultram Additional Notes: No skin breakdown documented. Following daily in ICU rounds. Assessing/reassessing every 5 days.
--- NOTE | 2021-08-03 11:57 | PM.PNCARD ---
Progress Note: A&P Additional Plan 66-year-old man with: Acute inferior wall CT status post emergency revascularization as detailed previously. Echocardiogram earlier this week appears to show evidence that he did sustain a right ventricular infarction. LV systolic function however looks quite good. Still very curious in the way of his EKG evolution. None the less he is doing well. Dual anti-platelet therapy and beta-jamarcus will be continued. We will continue to follow with you. Earl Hay MD [facility] Subjective Date/time seen: Date of service: 08/03/21 11:57 Interval history: 66-year-old man with: Acute thrombotic inferior wall myocardial infarction in the setting of COVID pneumonia. Patient underwent emergency revascularization involving extraction thrombectomy and stenting of the large dominant RCA. Patient remains in the hospital since then because of his COVID pneumonia. Oxygen requirements are declining. Slightly higher today. Patient remains totally asymptomatic and in very good spirits. He is highly motivated. Exam Const: General: cooperative, comfortable, no acute distress, alert and awake Nutritional Appearance: well nourished Orientation/consciousness: patient oriented x3 Other: Pleasant well-developed well-nourished white male no distress wearing optiflow HENMT: Head: normal to inspection, normocephalic and atraumatic Ears: hearing grossly normal bilaterally General nose exam: Normal external nose present, Normal nares present and no nasal discharge noted Face and sinus: normal facial exam and no erythema Mouth: Yes moist mucous membranes, No drooling and No restricted motion Throat: uvula midline Eyes: General: appearance normal, both eyes and all related structures Alignment and Position: position normal Conjunctivae: conjunctivae normal Sclera: sclerae normal Pupils: Equal, round and reactive pupils present Direct Ophthalmoscopy: No photophobia Neck: Neck: normal visual inspection, supple and no JVD Thyroid: thyroid normal Carotids: no bruits Lymphatic: lymphedema not noted Chest: Chest palpation & inspection: normal inspection of the chest and no tenderness Resp: Effort & Inspection: normal respiratory effort and no nasal flaring Auscultation: no rales, no wheezes and diminished lung sounds Other: Basilar pulmonary rales are evident today Cardio: Jugular venous distension: no JVD Rate: regular rate Rhythm: regular rhythm Heart sounds: S1 normal heart sound present, S2 normal heart sound present, no gallops, no murmurs and no rubs Other: No murmur no rub GI: Inspection: non-distended Auscultation: normal bowel sounds Rectal Exam: deferred : General: No no CVA tenderness Back/Spine/Pelvis: Back: No no CVA tenderness Cervical Spine: cervical ROM normal Skin: General skin exam: normal color and rashes and/or lesions noted Other: Right groin access site soft, no hematoma, bruit, bleeding or tenderness. 2+ femoral pulses 2+ right dorsalis pedis pulse Neuro: General: patient oriented x3 Cranial nerves: No CN's II-XII intact bilaterally and Yes Equal, round and reactive pupils present Cognition (Neuro): normal cognition Speech: normal speech Motor exam (neuro): no tremors Extrem: General: normal to inspection and pedal edema present Other: No edema, good distal pulses Psych: Appearance: grossly normal and well kempt Speech and movement: Normal speech and movement present Affect: normal affect Objective Data Vital Signs Vital Signs: Vital Signs - 24 hr 08/02/21 12:00 08/02/21 14:00 08/02/21 16:00 Temperature 36.4 C 36.8 C Pulse Rate 74 86 82 Respiratory Rate 24 H 29 H Blood Pressure 100/69 93/56 L Pulse Oximetry 97 98 08/02/21 18:00 08/02/21 19:39 08/02/21 20:00 Temperature 36.9 C Pulse Rate 81 87 90 Respiratory Rate 25 H Blood Pressure 138/80 Pulse Oximetry 94 95 08/02/21 20:42 08/02/21 22:00 08/02/21 23:30 Temperature Pulse Rate 90 73 6
[2021-08-03] MEDS: PHENYLEPH/SHARK OIL/MO/PETROL CREAM 26 GM 1 APPLIC RECTAL (16:00)
--- NOTE | 2021-08-03 16:47 | PM.IMPN ---
Progress Note: A&P Assessment and Plan (1) Acute hypoxemic respiratory failure: Code(s): J96.01 - Acute respiratory failure with hypoxia Status: Acute Assessment and Plan: The patient developed symptoms of COVID around 07/09 and tested positive on 07/12. He is unvaccinated. Chest x-ray on admission showing patchy bilateral PNA. He has been placed in isolation per protocol. He was started on dexamethasone and remdesivir both of which completed on 07/26 after 10 days. Baricitinib added 07/19 due to the worsening hypoxia and completed 08/01. Procalcitonin 0.1. He is tolerating being up to the side of the bed. Pulmonary following and appreciate their input. Continue Airvo; NRB mask available as needed. Continue supportive care and wean O2 as tolerated. Encouraged IS use and to lay prone as he tolerates. PT/OT (2) Pneumonia due to COVID-19 virus: Code(s): U07.1 - COVID-19; J12.82 - Pneumonia due to coronavirus disease 2018 Status: Acute Assessment and Plan: Please see above (3) STEMI (ST elevation myocardial infarction): Code(s): I21.3 - ST elevation (STEMI) myocardial infarction of unspecified site Status: Acute Assessment and Plan: Patient developed CP on 07/23 with EKG showing acute STEMI. He was taken to the pie bakery laborer and he is now status post PCI, aspiration thrombectomy and stenting of RCA. Patient was treated with Integrilin infusion. He was given conservative amounts of IV fluids for renal protection in light of COVID pneumonia after contrast. Echo showing EF 65-70% and mild-mod without wall motion abnormalities. Limited Echo performed showing EF 55-60%, mild concentric LVH, RV enlargement with decrease RV systolic function probably related to the inferior NV. Continue telemetry monitoring. Continue Lipitor and metoprolol. Continue dual antiplatelet therapy with aspirin and Brilinta. (4) Hyperkalemia: Code(s): E87.5 - Hyperkalemia Status: Acute Assessment and Plan: Potassium elevated at times here. Not on CHULA/ARB or potassium replacement. Lovenox has been shown to cause mild hyperkalemia. Potassium remaining normal. Will continue to monitor. (5) Otitis media: Code(s): H66.90 - Otitis media, unspecified, unspecified ear Status: Acute Assessment and Plan: Stable. Completed a course of Amoxicillin (6) Constipation: Code(s): K59.00 - Constipation, unspecified Status: Acute Assessment and Plan: Last BMs was 08/01. Continue Colace and Miralax. (7) DVT prophylaxis: Code(s): Z29.9 - Encounter for prophylactic measures, unspecified Status: Acute Assessment and Plan: Lovenox Subjective Date/time seen: 08/03/21 16:47 Interval history: 66yo healthy male presents with complaints of SOB and is known to have COVID. Patient began to have symptoms on July 09. He tested positive on July 12 (result in the paper chart). No issues overnight except needed NRB mask for a short time. He denies CP. This afternoon, noted to have blood tinged urine. No other changes or new issues. Not using IS much. Can not toerlate lying prone very much Exam Narrative: AF 98.3 99/71 82 22 96% Airvo Gen - NARD lying semirecumbent in bed Chest - bibasilar inspiratory crackles, nml RR. No conversational dyspnea. CV - RRR S1/S2; Tele showing no significant dysrhythmias Abd - Soft, NT/ND, Positive BS - Ward secured draining blood tinged urine with small clots Ext - No pedal edema Psych - Nml mood and affect Skin - Warm and dry Objective Data Vital Signs Vital Signs: Vital Signs - 24 hr 08/02/21 18:00 08/02/21 19:39 08/02/21 20:00 Temperature 98.5 F Pulse Rate 81 87 90 Respiratory Rate 25 H Blood Pressure 138/80 Pulse Oximetry 94 95 08/02/21 20:42 08/02/21 22:00 08/02/21 23:30 Temperature Pulse Rate 90 73 64 Respiratory Rate Blood Pressure Pulse Oximetry
[2021-08-03] MEDS: ACETAMINOPHEN 325 MG TABLET 650 MG PO (21:17)
[2021-08-03] MEDS: MELATONIN 5 MG TABLET PO (21:18)
[2021-08-04] VITALS (23 sets, daily range): BP systolic 95–121; BP diastolic 62–85; PULSE 61–124; RESP 18–28; TEMP 36.8–36.9; O2SAT 86–99
[2021-08-04] MEDS: CENTRAL LINE FLUSH 10 ML IV PUSH ×3 (04:23→20:36)
[2021-08-04 04:27] LABS: Hematocrit 33.1 % (42.0-52.0); Hemoglobin 10.4 g/dL (14.0-18.0); Mean Corpuscular HGB Conc 31.4 g/dl (32-36); Mean Corpuscular Hemoglobin 22.5 pg (26-34); Mean Corpuscular Volume 71.5 fl (80-100); Mean Platelet Volume 10.6 fl (7.4-10.4); Platelet Count Result 229 k/mm3 (150-375); Red Blood Count 4.63 M/mm3 (4.6-6.20); Red Cell Distribution Width 15.3 % (11.5-14.5); White Blood Count 14.2 K/mm3 (4.5-10.0)
[2021-08-04 04:37] LABS: Anion Gap 4 mmol/L (8-16); Blood Urea Nitrogen 21 mg/dL (9-20); Calcium 8.6 mg/dL (8.4-10.2); Carbon Dioxide 33 mmol/L (22-30); Chloride 97 mmol/L (98-107); Estimated CRCL calculation 109 ml/min; Estimated Glomerular Filt Rate > 60; Glucose 102 mg/dL (65-110); Potassium 5.8 mmol/L (3.4-5.0); Sodium 134 mmol/L (137-145)
[2021-08-04 06:07] LABS: Potassium 5.3 mmol/L (3.4-5.0)
[2021-08-04] MEDS: FAMOTIDINE 20 MG TABLET PO ×2 (09:43→20:37)
[2021-08-04] MEDS: ASPIRIN 81 MG ENTERIC TABLET PO (09:43)
[2021-08-04] MEDS: DOCUSATE SODIUM 100 MG CAPSULE PO ×2 (09:43→20:37)
[2021-08-04] MEDS: ENOXAPARIN 40 MG/0.4 ML SYRINGE SUB-Q (09:43)
[2021-08-04] MEDS: METOPROLOL TARTRATE 12.5 MG TABLET PO ×2 (09:44→20:36)
[2021-08-04] MEDS: TICAGRELOR 90 MG TABLET PO ×2 (09:44→20:35)
[2021-08-04] MEDS: ATORVASTATIN 40 MG TABLET 80 MG PO (09:44)
[2021-08-04] MEDS: guaiFENesin 600 MG/DEXTROMETHORPHAN 30 MG SR TAB 12 HR 1 TAB PO ×2 (09:44→20:36)
[2021-08-04] MEDS: polyethylene glycoL 3350 17 GM POWD.PACK PO (09:45)
--- NOTE | 2021-08-04 10:00 | PM.IMPN ---
Progress Note: A&P Assessment and Plan (1) Acute hypoxemic respiratory failure: Code(s): J96.01 - Acute respiratory failure with hypoxia Status: Acute Assessment and Plan: The patient developed symptoms of COVID around 07/09 and tested positive on 07/12. He is unvaccinated. Chest x-ray on admission showing patchy bilateral PNA. He has been placed in isolation per protocol. He was started on dexamethasone and remdesivir both of which completed on 07/26 after 10 days. Baricitinib added 07/19 due to the worsening hypoxia and completed 08/01. Procalcitonin 0.1. He is tolerating being up to the side of the bed. Pulmonary following and appreciate their input. Continue Airvo; NRB mask available as needed. Continue supportive care and wean O2 as tolerated. Encouraged IS use and to lay prone as he tolerates. PT/OT (2) Pneumonia due to COVID-19 virus: Code(s): U07.1 - COVID-19; J12.82 - Pneumonia due to coronavirus disease 2018 Status: Acute Assessment and Plan: Please see above (3) STEMI (ST elevation myocardial infarction): Code(s): I21.3 - ST elevation (STEMI) myocardial infarction of unspecified site Status: Acute Assessment and Plan: Patient developed CP on 07/23 with EKG showing acute STEMI. He was taken to the radiographer cardiac catheterization and he is now status post PCI, aspiration thrombectomy and stenting of RCA. Patient was treated with Integrilin infusion. He was given conservative amounts of IV fluids for renal protection in light of COVID pneumonia after contrast. Echo showing EF 65-70% and mild-mod without wall motion abnormalities. Limited Echo performed showing EF 55-60%, mild concentric LVH, RV enlargement with decrease RV systolic function probably related to the inferior LA. Continue telemetry monitoring. Continue Lipitor and metoprolol. Continue dual antiplatelet therapy with aspirin and Brilinta. (4) Hyperkalemia: Code(s): E87.5 - Hyperkalemia Status: Acute Assessment and Plan: Potassium elevated at times here. Not on CHULA/ARB or potassium replacement. Lovenox has been shown to cause mild hyperkalemia. Potassium elevated again. Check TSH, cortisol and ACTH. Low potassium diet. Will continue to monitor. (5) Otitis media: Code(s): H66.90 - Otitis media, unspecified, unspecified ear Status: Acute Assessment and Plan: Stable. Completed a course of Amoxicillin (6) Constipation: Code(s): K59.00 - Constipation, unspecified Status: Acute Assessment and Plan: Last BMs was 08/01. Continue Colace and Miralax. (7) DVT prophylaxis: Code(s): Z29.9 - Encounter for prophylactic measures, unspecified Status: Acute Assessment and Plan: Lovenox Subjective Date/time seen: 08/04/21 10:00 Interval history: 66yo healthy male presents with complaints of SOB and is known to have COVID. Patient began to have symptoms on July 09. He tested positive on July 12 (result in the paper chart). No issues overnight. He did not require NRB mask overnight. No CP or palpitations. SOB no change. COugh better. Eating better overall. Did lay prone for many hours overnight. Exam Narrative: AF 98.5 103/69 81 25 94% Airvo 35L on 45% Gen - NARD lying semirecumbent in bed Chest - bibasilar inspiratory crackles CV - RRR S1/S2; Tele showing no significant dysrhythmias Abd - Soft, NT/ND, Positive BS - Ward secured draining clear yellow urine Ext - No pedal edema Psych - Nml mood and affect Skin - Warm and dry Objective Data Vital Signs Vital Signs: Vital Signs - 24 hr 08/03/21 12:00 08/03/21 14:00 08/03/21 14:41 Temperature 98.3 F Pulse Rate 80 73 82 Respiratory Rate 22 H Blood Pressure 99/71 L Pulse Oximetry 93 96 08/03/21 16:00 08/03/21 18:00 08/03/21 19:43 Temperature 98.4 F Pulse Rate 86 78 82 Respiratory Rate 20 Blood Pressure 105/68 Pulse Oximetry 95 91 08/03
--- NOTE | 2021-08-04 11:18 | PCDIET ---
Nutrition Follow-Up Complete: Nutrition Diagnosis: Predicted suboptimal oral intake related to COVID pneumonia as evidenced by patient on bipap. Nutrition Goal: Patient to meet estimated nutritional needs. Goal met. Patient continues to eat 75-100% of most meals. Diet was changed to low potassium due to hyperkalemia; recommend also changing to lower potassium supplement with meals, Suplena (420kcal, 10g protein). Last recorded weight is 90 kg which is down from last review. Bowel Motility: Last documented BM on 08/03/21 x 1. Labs Reviewed: WBC (14.2), Hgb (10.4), Hct (33.1), BUN (21), Cr (0.6), K (5.3), Na (134), Alb (3.1) Meds Noted: Lipitor, Pepcid, Miralax, Ultram Additional Notes: No documented skin breakdown. Will continue to monitor with same goal. Nutrition Monitoring and Evaluation: Follow up every 5 days.
[2021-08-04] MEDS: MELATONIN 5 MG TABLET PO (20:34)
[2021-08-04] MEDS: guaiFENesin/CODEINE (*CRX) 200/20 MG 10 ML SYRUP PO (21:20)
[2021-08-05] VITALS (16 sets, daily range): BP systolic 92–108; BP diastolic 64–93; PULSE 66–100; RESP 15–30; TEMP 36.4–37.2; O2SAT 92–98
[2021-08-05] MEDS: CENTRAL LINE FLUSH 10 ML IV PUSH ×3 (04:46→20:32)
[2021-08-05] MEDS: guaiFENesin 600 MG/DEXTROMETHORPHAN 30 MG SR TAB 12 HR 1 TAB PO ×2 (09:22→20:31)
[2021-08-05] MEDS: DOCUSATE SODIUM 100 MG CAPSULE PO ×2 (09:22→20:31)
[2021-08-05] MEDS: ATORVASTATIN 40 MG TABLET 80 MG PO (09:22)
[2021-08-05] MEDS: METOPROLOL TARTRATE 12.5 MG TABLET PO ×2 (09:22→20:31)
[2021-08-05] MEDS: ENOXAPARIN 40 MG/0.4 ML SYRINGE SUB-Q (09:22)
[2021-08-05] MEDS: ASPIRIN 81 MG ENTERIC TABLET PO (09:22)
[2021-08-05] MEDS: TICAGRELOR 90 MG TABLET PO ×2 (09:23→20:31)
--- NOTE | 2021-08-05 11:35 | PM.PNCARD ---
Progress Note: A&P Additional Plan 66-year-old man with: Coronavirus pneumonia with ongoing oxygen requirements. Patient is otherwise remarkably stable clinically Acute inferior wall OR addressed with emergency thrombectomy and stenting of the RCA several weeks ago. As I mentioned in previous notes his ECG interestingly also evolved anterior Q-waves which I would not have expected. None the less this echocardiogram demonstrates good left ventricular systolic function but appears to show clear evidence of an RV infarction. Continue current regimen and will follow with you. Earl Hay MD [facility] Subjective Date/time seen: 08/05/21 11:35 Interval history: 66-year-old man with: Acute thrombotic inferior wall myocardial infarction in the setting of COVID pneumonia. Patient underwent emergency revascularization involving extraction thrombectomy and stenting of the large dominant RCA. Patient remains in the hospital since then because of his COVID pneumonia. Oxygen requirements are declining. Slightly higher today. Patient remains totally asymptomatic and in very good spirits. He is highly motivated. Date of service 08/05/2021: Patient asymptomatic somewhat frustrated that his oxygen requirements have somewhat plateaued in the last 2-3 days. No ischemic symptomatology or cardiac complications following the infarction from several weeks ago. Exam Const: General: cooperative, comfortable, no acute distress, alert and awake Nutritional Appearance: well nourished Orientation/consciousness: patient oriented x3 Other: Pleasant well-developed well-nourished white male no distress wearing optiflow HENMT: Head: normal to inspection, normocephalic and atraumatic Ears: hearing grossly normal bilaterally General nose exam: Normal external nose present, Normal nares present and no nasal discharge noted Face and sinus: normal facial exam and no erythema Mouth: Yes moist mucous membranes, No drooling and No restricted motion Throat: uvula midline Eyes: General: appearance normal, both eyes and all related structures Alignment and Position: position normal Conjunctivae: conjunctivae normal Sclera: sclerae normal Pupils: Equal, round and reactive pupils present Direct Ophthalmoscopy: No photophobia Neck: Neck: normal visual inspection, supple and no JVD Thyroid: thyroid normal Carotids: no bruits Lymphatic: lymphedema not noted Chest: Chest palpation & inspection: normal inspection of the chest and no tenderness Resp: Effort & Inspection: normal respiratory effort and no nasal flaring Auscultation: no rales, no wheezes and diminished lung sounds Other: Scant basilar rales today improved compared with Sunday Cardio: Jugular venous distension: no JVD Rate: regular rate Rhythm: regular rhythm Heart sounds: S1 normal heart sound present, S2 normal heart sound present, no gallops, no murmurs and no rubs Other: No murmur no rub GI: Inspection: non-distended Auscultation: normal bowel sounds Rectal Exam: deferred : General: No no CVA tenderness Back/Spine/Pelvis: Back: No no CVA tenderness Cervical Spine: cervical ROM normal Skin: General skin exam: normal color and rashes and/or lesions noted Other: Right groin access site soft, no hematoma, bruit, bleeding or tenderness. 2+ femoral pulses 2+ right dorsalis pedis pulse Neuro: General: patient oriented x3 Cranial nerves: No CN's II-XII intact bilaterally and Yes Equal, round and reactive pupils present Cognition (Neuro): normal cognition Speech: normal speech Motor exam (neuro): no tremors Extrem: General: normal to inspection and pedal edema present Other: No edema, good distal pulses Psych: Appearance: grossly normal and well kempt Speech and movement: Normal speech and movement present Affect: normal affect Objective Data Vital Signs Vital Signs: Vital Signs - 24 hr 08/04/21 12:00 08/04/21 14:00 08/04/21 15:20 Temperature 36.8 C Pulse Rate 84 76 80
[2021-08-05] MEDS: FAMOTIDINE 20 MG TABLET PO ×2 (15:39→20:31)
--- NOTE | 2021-08-05 17:10 | PM.IMPN ---
Progress Note: A&P Assessment and Plan (1) Acute hypoxemic respiratory failure: Code(s): J96.01 - Acute respiratory failure with hypoxia Status: Acute Assessment and Plan: The patient developed symptoms of COVID around 07/09 and tested positive on 07/12. He is unvaccinated. Chest x-ray on admission showing patchy bilateral PNA. He has been placed in isolation per protocol. He was started on dexamethasone and remdesivir both of which completed on 07/26 after 10 days. Baricitinib added 07/19 due to the worsening hypoxia and completed 08/01. Procalcitonin 0.1. He is tolerating being up to the side of the bed. Pulmonary following and appreciate their input. Continue Airvo; NRB mask available as needed. Continue supportive care and wean O2 as tolerated. Encouraged IS use and to lay prone as he tolerates. Continue PT/OT. Encouraged him to be OOB to the chair (2) Pneumonia due to COVID-19 virus: Code(s): U07.1 - COVID-19; J12.82 - Pneumonia due to coronavirus disease 2018 Status: Acute Assessment and Plan: Please see above (3) STEMI (ST elevation myocardial infarction): Code(s): I21.3 - ST elevation (STEMI) myocardial infarction of unspecified site Status: Acute Assessment and Plan: Patient developed CP on 07/23 with EKG showing acute STEMI. 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 Patient was treated with Integrilin infusion. He was given conservative amounts of IV fluids for renal protection in light of COVID pneumonia after contrast. Echo showing EF 65-70% and mild-mod without wall motion abnormalities. Limited Echo performed showing EF 55-60%, mild concentric LVH, RV enlargement with decrease RV systolic function probably related to the inferior NV. Continue telemetry monitoring. Continue Lipitor and metoprolol. Continue dual antiplatelet therapy with aspirin and Brilinta. (4) Hyperkalemia: Code(s): E87.5 - Hyperkalemia Status: Acute Assessment and Plan: Potassium elevated at times here. Not on CHULA/ARB or potassium replacement. TSH and cortisol okay. Lovenox has been shown to cause mild hyperkalemia. Continue low potassium diet. Will continue to monitor. (5) Otitis media: Code(s): H66.90 - Otitis media, unspecified, unspecified ear Status: Acute Assessment and Plan: Stable. Completed a course of Amoxicillin (6) Constipation: Code(s): K59.00 - Constipation, unspecified Status: Acute Assessment and Plan: Improved. Continue Colace and Miralax. (7) DVT prophylaxis: Code(s): Z29.9 - Encounter for prophylactic measures, unspecified Status: Acute Assessment and Plan: Lovenox Subjective Date/time seen: 08/05/21 17:10 Interval history: 66yo healthy male presents with complaints of SOB and is known to have COVID. Patient began to have symptoms on July 09. He tested positive on July 12 (result in the paper chart). No CP. SOB better. Eating okay. Did well with PT/OT. Voiding well. Some mild burning with voiding since Ward out but this is improving. Exam Narrative: AF 97.7 98/64 94 30 92% Airvo 40L on 50% Gen - NARD lying semirecumbent in bed Chest - distatn BS with a few scattered crackles, nml RR CV - RRR S1/S2; Tele showing brief run of ATach/Flutter Abd - Soft, NT/ND, Positive BS Ext - No pedal edema Psych - Nml mood and affect Skin - Warm and dry Objective Data Vital Signs Vital Signs: Vital Signs - 24 hr 08/04/21 17:51 08/04/21 20:00 08/04/21 20:36 Temperature 98.2 F Pulse Rate 81 124 H 91 Respiratory Rate 28 H Blood Pressure 98/69 L Pulse Oximetry 97 08/04/21 21:59 08/04/21 23:15 08/04/21 23:39 Temperature Pulse Rate 82 81 Respiratory Rate 21 H Blood Pressure Pulse Oximetry 98 98 08/04/21 23:59 08/05/21 00:00 08/05/21 03:43 Temperature 98.4 F
[2021-08-05] MEDS: guaiFENesin/CODEINE (*CRX) 200/20 MG 10 ML SYRUP PO (20:31)
[2021-08-05] MEDS: MELATONIN 5 MG TABLET PO (20:31)
[2021-08-05 22:23] LABS: Potassium 4.3 mmol/L (3.4-5.0)
[2021-08-06] VITALS (15 sets, daily range): BP systolic 100–113; BP diastolic 62–73; PULSE 73–109; RESP 21–30; TEMP 36.5–36.8; O2SAT 90–98
[2021-08-06] MEDS: CENTRAL LINE FLUSH 10 ML IV PUSH ×3 (04:50→20:26)
[2021-08-06 06:11] LABS: Basophils Percent Auto 0.2 % (0.2-1.2); Eosinophils Absolute Auto 0.3 K/mm3 (0-0.3); Eosinophils Percent Auto 1.4 % (0-4.4); Hematocrit 32.3 % (42.0-52.0); Hemoglobin 10.1 g/dL (14.0-18.0); Immature Granulocyte Absolute 0.08 K/mm3 (0.00-0.031); Immature Granulocyte Percent A 0.5 % (0-0.5); Lymphocytes Percent Auto 23.6 % (18.3-44.2); Mean Corpuscular HGB Conc 31.3 g/dl (32-36); Mean Corpuscular Hemoglobin 22.1 pg (26-34); Mean Corpuscular Volume 70.7 fl (80-100); Mean Platelet Volume 10.2 fl (7.4-10.4); Monocytes Absolute Auto 1.1 K/mm3 (0.1-0.6); Monocytes Percent Auto 6.4 % (2.6-8.5); Neutrophils Absolute Auto 12.1 K/mm3 (1.3-6.7); Neutrophils Percent Auto 67.9 % (45.5-73.1); Platelet Count Result 236 k/mm3 (150-375); Red Blood Count 4.57 M/mm3 (4.6-6.20); Red Cell Distribution Width 14.9 % (11.5-14.5); White Blood Count 17.8 K/mm3 (4.5-10.0)
[2021-08-06] MEDS: TICAGRELOR 90 MG TABLET PO ×2 (09:39→20:25)
[2021-08-06] MEDS: ATORVASTATIN 40 MG TABLET 80 MG PO (09:39)
[2021-08-06] MEDS: ASPIRIN 81 MG ENTERIC TABLET PO (09:39)
[2021-08-06] MEDS: FAMOTIDINE 20 MG TABLET PO ×2 (09:40→20:25)
[2021-08-06] MEDS: DOCUSATE SODIUM 100 MG CAPSULE PO ×2 (09:40→20:25)
[2021-08-06] MEDS: BENZONATATE 100 MG CAPSULE PO ×2 (09:40→15:39)
[2021-08-06] MEDS: ENOXAPARIN 40 MG/0.4 ML SYRINGE SUB-Q (09:40)
[2021-08-06] MEDS: ACETAMINOPHEN 325 MG TABLET 650 MG PO (09:40)
[2021-08-06] MEDS: guaiFENesin 600 MG/DEXTROMETHORPHAN 30 MG SR TAB 12 HR 1 TAB PO ×2 (09:40→20:25)
[2021-08-06] MEDS: METOPROLOL TARTRATE 12.5 MG TABLET PO ×2 (09:40→20:25)
[2021-08-06] MEDS: polyethylene glycoL 3350 17 GM POWD.PACK PO (09:41)
--- NOTE | 2021-08-06 10:11 | PM.PNCARD ---
Progress Note: A&P Assessment and Plan (1) STEMI (ST elevation myocardial infarction): Code(s): I21.3 - ST elevation (STEMI) myocardial infarction of unspecified site Status: Acute Assessment and Plan: Status post Inferior ST-elevation [place] likely complication of COVID-19 infection with acute plaque rupture and large thrombus burden status post aspiration thrombectomy and successful 5.0x22mm Victor Manuel GABRIEL implantation proximal RCA. Continue dual antiplatelet therapy without interruption with aspirin and Brilinta, high-dose statin. Low-dose beta-jamarcus initiated, tolerating reasonably well at this time. EF 65-70% [id number] aortic stenosis on echocardiogram. Patient reasonably stable from cardiac perspective. (2) Pneumonia due to COVID-19 virus: Code(s): U07.1 - COVID-19; J12.82 - Pneumonia due to coronavirus disease 2018 Status: Acute Assessment and Plan: Per hospitalist and critical care service. Continue supportive care for COVID-19 infection. s/p Dexamethasone, Remdesivir, currently on Baricitinib, Enoxaparin 40mg SQ q12hr. Isolatoin precautions. (3) Acute hypoxemic respiratory failure: Code(s): J96.01 - Acute respiratory failure with hypoxia Status: Acute Assessment and Plan: Improving now on high flow O2. Management per Critical Care. Additional Plan 66-year-old man with: Coronavirus pneumonia with ongoing oxygen requirements. Patient is otherwise remarkably stable clinically Acute inferior wall [place] addressed with emergency thrombectomy and stenting of the RCA several weeks ago. As I mentioned in previous notes his ECG interestingly also evolved anterior Q-waves which I would not have expected. None the less this echocardiogram demonstrates good left ventricular systolic function but appears to show clear evidence of an RV infarction. Continue current regimen and will follow with you. Subjective Date/time seen: 08/06/21 10:12 Interval history: 66-year-old man with: Acute thrombotic inferior wall myocardial infarction in the setting of COVID pneumonia. Patient underwent emergency revascularization involving extraction thrombectomy and stenting of the large dominant RCA. Patient remains in the hospital since then because of his COVID pneumonia. Oxygen requirements are declining. Slightly higher today. Patient remains totally asymptomatic and in very good spirits. He is highly motivated. Date of service 08/05/2021: Patient asymptomatic somewhat frustrated that his oxygen requirements have somewhat plateaued in the last 2-3 days. No ischemic symptomatology or cardiac complications following the infarction from several weeks ago. Date of service 08/06/2021: No chest pain. He has been up a little bit today and is tired but again feels like he is making slow but progressive improvement. He does have some shortness of breath. No swelling Review of Systems Review of Systems: All systems reviewed & are unremarkable except as noted in HPI and below Constitutional: Constitutional: Reports as per HPI, Denies body ache(s), Reports fatigue, Denies fever(s), Denies poor appetite and Reports weakness Eyes: Eyes: Reports as per HPI, Denies eye discharge, Denies loss of vision, Denies eye pain and Denies photophobia ENT: Reports as per HPI, Denies dizziness, Denies epistaxis, Denies nasal congestion and Denies sore throat Cardiovascular: Cardiovascular: Reports as per HPI, Denies chest pain, Denies diaphoresis, Denies syncope, Denies pedal edema, Denies leg edema, Denies palpitations, Reports dyspnea, Reports dyspnea on exertion and Denies orthopnea Respiratory: Respiratory: Reports as per HPI, Reports cough, Reports dyspnea, Reports dyspnea on exertion and Denies wheezing Gastrointestinal: Gastrointestinal: Reports as per HPI, Denies abdominal pain, Denies diarrhea, Denies nausea and Denies vomiting Genitourinary: Genitourinary: Reports as per HPI, Denies hematuria, Denie
[2021-08-06 10:35] LABS: Alanine Aminotransferase 27 U/L (4-50); Albumin Level 3.3 g/dL (3.5-5.1); Alkaline Phosphatase 57 U/L (38-126); Anion Gap 5 mmol/L (8-16); Aspartate Amino Transferase 35 U/L (17-59); Bilirubin,Total 0.5 mg/dL (0.2-1.3); Blood Urea Nitrogen 17 mg/dL (9-20); Calcium 8.7 mg/dL (8.4-10.2); Carbon Dioxide 30 mmol/L (22-30); Chloride 98 mmol/L (98-107); Estimated CRCL calculation 109 ml/min; Estimated Glomerular Filt Rate > 60; Glucose 106 mg/dL (65-110); Potassium 4.6 mmol/L (3.4-5.0); Sodium 133 mmol/L (137-145)
[2021-08-06] MEDS: guaiFENesin/CODEINE (*CRX) 200/20 MG 10 ML SYRUP PO ×2 (15:39→20:25)
[2021-08-06] MEDS: PHENYLEPH/SHARK OIL/MO/PETROL CREAM 26 GM 1 APPLIC RECTAL (16:00)
--- NOTE | 2021-08-06 17:06 | PM.IMPN ---
Progress Note: A&P Assessment and Plan (1) Acute hypoxemic respiratory failure: Code(s): J96.01 - Acute respiratory failure with hypoxia Status: Acute Assessment and Plan: The patient developed symptoms of COVID around 07/09 and tested positive on 07/12. He is unvaccinated. Chest x-ray on admission showing patchy bilateral PNA. He has been placed in isolation per protocol. He was started on dexamethasone and remdesivir both of which completed on 07/26 after 10 days. Baricitinib added 07/19 due to the worsening hypoxia and completed 08/01. Procalcitonin 0.1. He is tolerating being up to the side of the bed. Pulmonary following and appreciate their input. Continue Airvo; NRB mask available as needed. Continue supportive care and wean O2 as tolerated. Encouraged IS use and to lay prone as he tolerates. Continue PT/OT. Encouraged him to be OOB to the chair 08/06 on 35 L 40% FiO2 (2) Pneumonia due to COVID-19 virus: Code(s): U07.1 - COVID-19; J12.82 - Pneumonia due to coronavirus disease 2018 Status: Acute Assessment and Plan: Please see above (3) STEMI (ST elevation myocardial infarction): Code(s): I21.3 - ST elevation (STEMI) myocardial infarction of unspecified site Status: Acute Assessment and Plan: Patient developed CP on 07/23 with EKG showing acute STEMI. 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 Patient was treated with Integrilin infusion. He was given conservative amounts of IV fluids for renal protection in light of COVID pneumonia after contrast. Echo showing EF 65-70% and mild-mod without wall motion abnormalities. Limited Echo performed showing EF 55-60%, mild concentric LVH, RV enlargement with decrease RV systolic function probably related to the inferior VT. Continue telemetry monitoring. Continue Lipitor and metoprolol. Continue dual antiplatelet therapy with aspirin and Brilinta. (4) Hyperkalemia: Code(s): E87.5 - Hyperkalemia Status: Acute Assessment and Plan: Potassium elevated at times here. Not on CHULA/ARB or potassium replacement. TSH and cortisol okay. Lovenox has been shown to cause mild hyperkalemia. Continue low potassium diet. Will continue to monitor. (5) Otitis media: Code(s): H66.90 - Otitis media, unspecified, unspecified ear Status: Acute Assessment and Plan: Stable. Completed a course of Amoxicillin (6) Constipation: Code(s): K59.00 - Constipation, unspecified Status: Acute Assessment and Plan: Improved. Continue Colace and Miralax. (7) DVT prophylaxis: Code(s): Z29.9 - Encounter for prophylactic measures, unspecified Status: Acute Assessment and Plan: Lovenox Subjective Date/time seen: 08/06/21 17:06 Interval history: 66yo healthy male presents with complaints of SOB and is known to have COVID. Patient began to have symptoms on July 09. He tested positive on July 12 (result in the paper chart). He worked with physical therapy got up to go to the commode did more than what he normally does and has been feeling better today. No chest pain Review of Systems Review of Systems: All systems reviewed & are unremarkable except as noted in HPI and below Exam Narrative: Gen - NARD lying semirecumbent in bed Chest - distatn BS with a few scattered crackles, nml RR CV - RRR S1/S2 Abd - Soft, NT/ND, Positive BS Ext - No pedal edema no clubbing or cyanosis Psych - Nml mood and affect Skin - Warm and dry Objective Data Vital Signs Vital Signs: Vital Signs - 24 hr 08/05/21 17:34 08/05/21 18:00 08/05/21 20:00 Temperature 98.9 F Pulse Rate 100 86 Respiratory Rate 22 H Blood Pressure 108/93 H Pulse Oximetry 96 93 08/05/21 20:31 08/05/21 23:56 08/06/21 00:00 Temperature 98.3 F Pulse Rate 92 92 86 Respiratory Rate 22 H Blood Pressure 100/62
[2021-08-06] MEDS: MELATONIN 5 MG TABLET PO (20:25)
[2021-08-07] VITALS (17 sets, daily range): BP systolic 84–114; BP diastolic 60–74; PULSE 77–101; RESP 21–24; TEMP 36.6–37.1; O2SAT 91–99
[2021-08-07 06:14] LABS: Basophils Percent Auto 0.2 % (0.2-1.2); Eosinophils Absolute Auto 0.3 K/mm3 (0-0.3); Eosinophils Percent Auto 1.7 % (0-4.4); Hematocrit 31.1 % (42.0-52.0); Hemoglobin 9.5 g/dL (14.0-18.0); Immature Granulocyte Absolute 0.12 K/mm3 (0.00-0.031); Immature Granulocyte Percent A 0.7 % (0-0.5); Lymphocytes Absolute Auto 3.84 K/mm3 (0.9-3.2); Lymphocytes Percent Auto 23.9 % (18.3-44.2); Mean Corpuscular HGB Conc 30.5 g/dl (32-36); Mean Corpuscular Hemoglobin 21.8 pg (26-34); Mean Corpuscular Volume 71.3 fl (80-100); Mean Platelet Volume 10.4 fl (7.4-10.4); Monocytes Percent Auto 6.4 % (2.6-8.5); Neutrophils Absolute Auto 10.8 K/mm3 (1.3-6.7); Neutrophils Percent Auto 67.1 % (45.5-73.1); Platelet Count Result 193 k/mm3 (150-375); Red Blood Count 4.36 M/mm3 (4.6-6.20); Red Cell Distribution Width 15.4 % (11.5-14.5); White Blood Count 16.1 K/mm3 (4.5-10.0)
[2021-08-07 06:51] LABS: Alanine Aminotransferase 23 U/L (4-50); Albumin Level 3.4 g/dL (3.5-5.1); Alkaline Phosphatase 61 U/L (38-126); Anion Gap 3 mmol/L (8-16); Aspartate Amino Transferase 35 U/L (17-59); Bilirubin,Total 0.5 mg/dL (0.2-1.3); Blood Urea Nitrogen 17 mg/dL (9-20); Calcium 8.9 mg/dL (8.4-10.2); Carbon Dioxide 34 mmol/L (22-30); Chloride 97 mmol/L (98-107); Estimated CRCL calculation 95 ml/min; Estimated Glomerular Filt Rate > 60; Glucose 116 mg/dL (65-110); Potassium 4.4 mmol/L (3.4-5.0); Sodium 134 mmol/L (137-145)
[2021-08-07] MEDS: CENTRAL LINE FLUSH 10 ML IV PUSH ×3 (07:21→20:43)
[2021-08-07] MEDS: guaiFENesin 600 MG/DEXTROMETHORPHAN 30 MG SR TAB 12 HR 1 TAB PO ×2 (08:45→20:43)
[2021-08-07] MEDS: BENZONATATE 100 MG CAPSULE PO ×2 (08:45→12:46)
[2021-08-07] MEDS: ENOXAPARIN 40 MG/0.4 ML SYRINGE SUB-Q (08:57)
[2021-08-07] MEDS: TICAGRELOR 90 MG TABLET PO ×2 (08:59→20:43)
[2021-08-07] MEDS: METOPROLOL TARTRATE 12.5 MG TABLET PO ×2 (08:59→20:43)
[2021-08-07] MEDS: ASPIRIN 81 MG ENTERIC TABLET PO (08:59)
[2021-08-07] MEDS: DOCUSATE SODIUM 100 MG CAPSULE PO ×2 (09:00→20:42)
[2021-08-07] MEDS: FAMOTIDINE 20 MG TABLET PO ×2 (09:00→20:42)
[2021-08-07] MEDS: ATORVASTATIN 40 MG TABLET 80 MG PO (09:00)
[2021-08-07] MEDS: polyethylene glycoL 3350 17 GM POWD.PACK PO (09:00)
--- NOTE | 2021-08-07 09:03 | PM.PNCARD ---
Progress Note: A&P Assessment and Plan (1) STEMI (ST elevation myocardial infarction): Code(s): I21.3 - ST elevation (STEMI) myocardial infarction of unspecified site Status: Acute Assessment and Plan: Status post Inferior ST-elevation [place] likely complication of COVID-19 infection with acute plaque rupture and large thrombus burden status post aspiration thrombectomy and successful 5.0x22mm Victor Manuel GABRIEL implantation proximal RCA. Continue dual antiplatelet therapy without interruption with aspirin and Brilinta, high-dose statin. Low-dose beta-jamarcus initiated, tolerating reasonably well at this time. EF 65-70% [id number] aortic stenosis on echocardiogram. Patient reasonably stable from cardiac perspective. (2) Pneumonia due to COVID-19 virus: Code(s): U07.1 - COVID-19; J12.82 - Pneumonia due to coronavirus disease 2018 Status: Acute Assessment and Plan: Per hospitalist and critical care service. Continue supportive care for COVID-19 infection. s/p Dexamethasone, Remdesivir, currently on Baricitinib, Enoxaparin 40mg SQ q12hr. Isolatoin precautions. (3) Acute hypoxemic respiratory failure: Code(s): J96.01 - Acute respiratory failure with hypoxia Status: Acute Assessment and Plan: Improving now on high flow O2. Management per Critical Care. Additional Plan 66-year-old man with: Coronavirus pneumonia with ongoing oxygen requirements. Patient is otherwise remarkably stable clinically Acute inferior wall [place] addressed with emergency thrombectomy and stenting of the RCA several weeks ago. As I mentioned in previous notes his ECG interestingly also evolved anterior Q-waves which I would not have expected. None the less this echocardiogram demonstrates good left ventricular systolic function but appears to show clear evidence of an RV infarction. Continue current regimen and will follow with you. No changes to his cardiac regimen today Subjective Date/time seen: 08/07/21 09:03 Interval history: 66-year-old man with: Acute thrombotic inferior wall myocardial infarction in the setting of COVID pneumonia. Patient underwent emergency revascularization involving extraction thrombectomy and stenting of the large dominant RCA. Patient remains in the hospital since then because of his COVID pneumonia. Oxygen requirements are declining. Slightly higher today. Patient remains totally asymptomatic and in very good spirits. He is highly motivated. Date of service 08/05/2021: Patient asymptomatic somewhat frustrated that his oxygen requirements have somewhat plateaued in the last 2-3 days. No ischemic symptomatology or cardiac complications following the infarction from several weeks ago. Date of service 08/06/2021: No chest pain. He has been up a little bit today and is tired but again feels like he is making slow but progressive improvement. He does have some shortness of breath. No swelling Date of service 08/07/2021: Mildly hypotensive today. High-flow oxygen still in place. Review of Systems Review of Systems: All systems reviewed & are unremarkable except as noted in HPI and below Constitutional: Constitutional: Reports as per HPI, Denies body ache(s), Reports fatigue, Denies fever(s), Denies poor appetite and Reports weakness Eyes: Eyes: Reports as per HPI, Denies eye discharge, Denies loss of vision, Denies eye pain and Denies photophobia ENT: Reports as per HPI, Denies dizziness, Denies epistaxis, Denies nasal congestion and Denies sore throat Cardiovascular: Cardiovascular: Reports as per HPI, Denies chest pain, Denies diaphoresis, Denies syncope, Denies pedal edema, Denies leg edema, Denies palpitations, Reports dyspnea, Reports dyspnea on exertion and Denies orthopnea Respiratory: Respiratory: Reports as per HPI, Reports cough, Reports dyspnea, Reports dyspnea on exertion and Denies wheezing Gastrointestinal: Gastrointestinal: Reports as per HPI, Denies abdominal scott
--- NOTE | 2021-08-07 11:38 | PM.IMPN ---
Progress Note: A&P Assessment and Plan (1) Acute hypoxemic respiratory failure: Code(s): J96.01 - Acute respiratory failure with hypoxia Status: Acute Assessment and Plan: The patient developed symptoms of COVID around 07/09 and tested positive on 07/12. He is unvaccinated. Chest x-ray on admission showing patchy bilateral PNA. He has been placed in isolation per protocol. He was started on dexamethasone and remdesivir both of which completed on 07/26 after 10 days. Baricitinib added 07/19 due to the worsening hypoxia and completed 08/01. Procalcitonin 0.1. He is tolerating being up to the side of the bed. Pulmonary following and appreciate their input. Continue Airvo; NRB mask available as needed. Continue supportive care and wean O2 as tolerated. Encouraged IS use and to lay prone as he tolerates. Continue PT/OT. Encouraged him to be OOB to the chair 08/06 on 35 L 40% FiO2 (2) Pneumonia due to COVID-19 virus: Code(s): U07.1 - COVID-19; J12.82 - Pneumonia due to coronavirus disease 2018 Status: Acute Assessment and Plan: Please see above (3) STEMI (ST elevation myocardial infarction): Code(s): I21.3 - ST elevation (STEMI) myocardial infarction of unspecified site Status: Acute Assessment and Plan: Patient developed CP on 07/23 with EKG showing acute STEMI. 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 Patient was treated with Integrilin infusion. He was given conservative amounts of IV fluids for renal protection in light of COVID pneumonia after contrast. Echo showing EF 65-70% and mild-mod without wall motion abnormalities. Limited Echo performed showing EF 55-60%, mild concentric LVH, RV enlargement with decrease RV systolic function probably related to the inferior DC. Continue telemetry monitoring. Continue Lipitor and metoprolol. Continue dual antiplatelet therapy with aspirin and Brilinta. (4) Hyperkalemia: Code(s): E87.5 - Hyperkalemia Status: Acute Assessment and Plan: Potassium elevated at times here. Not on CHULA/ARB or potassium replacement. TSH and cortisol okay. Lovenox has been shown to cause mild hyperkalemia. Continue low potassium diet. Will continue to monitor. (5) Otitis media: Code(s): H66.90 - Otitis media, unspecified, unspecified ear Status: Acute Assessment and Plan: Stable. Completed a course of Amoxicillin (6) Constipation: Code(s): K59.00 - Constipation, unspecified Status: Acute Assessment and Plan: Improved. Continue Colace and Miralax. (7) DVT prophylaxis: Code(s): Z29.9 - Encounter for prophylactic measures, unspecified Status: Acute Assessment and Plan: Lovenox (8) Urinary retention: Code(s): R33.9 - Retention of urine, unspecified Status: Acute Assessment and Plan: 08/07 residual urine more than 400 cc straight cath once and p.r.n. for that. Will start Flomax 0.4 mg daily Subjective Date/time seen: 08/07/21 11:38 Interval history: 66yo healthy male presents with complaints of SOB and is known to have COVID. Patient began to have symptoms on July 09. He tested positive on July 12 (result in the paper chart). interval history: Patient had some dysuria noted. He had catheter removed about 4 days ago per nursing staff. He reports nocturia in the past. Never been diagnosed with BPH. His residual urine was 400+ this morning. He did report some discomfort in the lower abdomen. Breathing conn he is doing okay. His oxygen requirement is [place]. Denies any chest pain Review of Systems Review of Systems: All systems reviewed & are unremarkable except as noted in HPI and below Exam Narrative: Gen - NARD lying semirecumbent in bed Chest - distatn BS with a few scattered crackles, nml RR CV - RRR S1/S2 Abd - Soft, NT/ND, Positive BS Ext - N
[2021-08-07] MEDS: TAMSULOSIN HCL 0.4 MG CAPSULE PO (12:46)
[2021-08-07 13:26] LABS: Add Urine Microscopic? YES; Appearance Urine Cloudy (Clear); Bacteria Urine Trace /hpf; Bilirubin Urine Negative (Negative); Blood Urine 1+ (Negative); Color Urine Yellow (Yellow); Glucose Urine UA Negative (Negative); Ketones Urine Negative (Negative); Leukocyte Esterase Ur 3+ LEU/UL (NEGATIVE); Nitrate Urine Negative (Negative); Protein Urine 1+ mg/dL (Negative); RBC Urine 21-50 /hpf (0-2); Specific Grav Ur 1.014 (1.001-1.035); WBC Clumps Urine Present /HPF; WBC Urine >75 /hpf (0-3)
[2021-08-07] MEDS: ACETAMINOPHEN 325 MG TABLET 650 MG PO (20:42)
[2021-08-07] MEDS: MELATONIN 5 MG TABLET PO (20:43)
--- NOTE | 2021-08-07 22:36 | PC.NURSE ---
Updated Karen (daughter) regarding patient status. She understands that she is very critical. All questions were answered.
[2021-08-07] MEDS: guaiFENesin/CODEINE (*CRX) 200/20 MG 10 ML SYRUP PO (22:41)
[2021-08-08] VITALS (27 sets, daily range): BP systolic 92–129; BP diastolic 58–97; PULSE 77–138; RESP 22–29; TEMP 36.4–39.7; O2SAT 91–100
[2021-08-08] MEDS: ACETAMINOPHEN 325 MG TABLET 650 MG PO ×5 (01:50→23:51)
--- NOTE | 2021-08-08 02:22 | PC.NURSE ---
Spoke with Dr. Carpio regarding elevated temperature and shivering. Get CRP, ESR, CMP, MAG, Lactic acid, Blood Culture.
[2021-08-08 03:08] LABS: Basophils Percent Auto 0.3 % (0.2-1.2); Eosinophils Absolute Auto 0.2 K/mm3 (0-0.3); Eosinophils Percent Auto 1.9 % (0-4.4); Hematocrit 31.5 % (42.0-52.0); Hemoglobin 10.1 g/dL (14.0-18.0); Immature Granulocyte Absolute 0.05 K/mm3 (0.00-0.031); Immature Granulocyte Percent A 0.4 % (0-0.5); Lymphocytes Absolute Auto 3.48 K/mm3 (0.9-3.2); Lymphocytes Percent Auto 30.1 % (18.3-44.2); Mean Corpuscular HGB Conc 32.1 g/dl (32-36); Mean Corpuscular Hemoglobin 22.6 pg (26-34); Mean Corpuscular Volume 70.6 fl (80-100); Mean Platelet Volume 10.2 fl (7.4-10.4); Monocytes Absolute Auto 0.2 K/mm3 (0.1-0.6); Monocytes Percent Auto 1.3 % (2.6-8.5); Neutrophils Absolute Auto 7.6 K/mm3 (1.3-6.7); Platelet Count Result 207 k/mm3 (150-375); Red Blood Count 4.46 M/mm3 (4.6-6.20); Red Cell Distribution Width 15.2 % (11.5-14.5); White Blood Count 11.6 K/mm3 (4.5-10.0)
[2021-08-08 03:09] LABS: Alanine Aminotransferase 21 U/L (4-50); Albumin Level 3.1 g/dL (3.5-5.1); Alkaline Phosphatase 65 U/L (38-126); Anion Gap 8 mmol/L (8-16); Aspartate Amino Transferase 32 U/L (17-59); Bilirubin,Total 0.4 mg/dL (0.2-1.3); Blood Urea Nitrogen 17 mg/dL (9-20); Calcium 8.6 mg/dL (8.4-10.2); Carbon Dioxide 28 mmol/L (22-30); Chloride 96 mmol/L (98-107); Estimated CRCL calculation 84 ml/min; Estimated Glomerular Filt Rate > 60; Glucose 117 mg/dL (65-110); Potassium 4.5 mmol/L (3.4-5.0); Sodium 132 mmol/L (137-145)
[2021-08-08 03:11] LABS: CRP 4.6 mg/dL (<1.0); Magnesium 1.6 mg/dL (1.6-2.3)
[2021-08-08 03:33] LABS: Erythrocyte Sedimentation Rate 120 mm/hr (0-20)
[2021-08-08] MEDS: CENTRAL LINE FLUSH 10 ML IV PUSH ×3 (05:53→19:59)
[2021-08-08] MEDS: SODIUM CHLORIDE 0.9% IV 1,000 ML 500 ML IV CONT (05:53)
[2021-08-08 05:56] LABS: Reflex Lactic Acid Yes or No Add Lactic
[2021-08-08] MEDS: ASPIRIN 81 MG ENTERIC TABLET PO (09:11)
[2021-08-08] MEDS: TICAGRELOR 90 MG TABLET PO ×2 (09:11→19:57)
[2021-08-08] MEDS: guaiFENesin 600 MG/DEXTROMETHORPHAN 30 MG SR TAB 12 HR 1 TAB PO ×2 (09:11→19:57)
[2021-08-08] MEDS: polyethylene glycoL 3350 17 GM POWD.PACK PO (09:11)
[2021-08-08] MEDS: TAMSULOSIN HCL 0.4 MG CAPSULE PO (09:11)
[2021-08-08] MEDS: FAMOTIDINE 20 MG TABLET PO ×2 (09:11→19:57)
[2021-08-08] MEDS: ATORVASTATIN 40 MG TABLET 80 MG PO (09:11)
[2021-08-08] MEDS: ENOXAPARIN 40 MG/0.4 ML SYRINGE SUB-Q (09:11)
[2021-08-08] MEDS: DOCUSATE SODIUM 100 MG CAPSULE PO ×2 (09:11→19:57)
[2021-08-08] MEDS: METOPROLOL TARTRATE 12.5 MG TABLET PO ×2 (09:11→19:57)
[2021-08-08 09:41] LABS: Lactic Acid 2.3 mmol/L (0.7-2.1)
--- NOTE | 2021-08-08 10:05 | PM.PNCARD ---
Progress Note: A&P Additional Plan 66-year-old man with: Acute thrombotic inferior wall [place] status post emergency PCI of this several weeks ago. Patient now is stable cardiac-conn has good LV function despite extensive Q-waves on his electrocardiogram. Patient remains in the hospital because of significant oxygen requirements with coronavirus pneumonia. That seems to be trending in the positive direction however over the last week to 10 days. Last evening he developed a significant fever. Suspect urinary source of infection. Earl Hay MD [facility] Subjective Date/time seen: Date of service: 08/08/21 10:05 Interval history: 66-year-old man with: Acute thrombotic inferior wall myocardial infarction in the setting of COVID pneumonia. Patient underwent emergency revascularization involving extraction thrombectomy and stenting of the large dominant RCA. Patient remains in the hospital since then because of his COVID pneumonia. Oxygen requirements are declining. Slightly higher today. Patient remains totally asymptomatic and in very good spirits. He is highly motivated. Date of service 08/05/2021: Patient asymptomatic somewhat frustrated that his oxygen requirements have somewhat plateaued in the last 2-3 days. No ischemic symptomatology or cardiac complications following the infarction from several weeks ago. Date of service 08/06/2021: No chest pain. He has been up a little bit today and is tired but again feels like he is making slow but progressive improvement. He does have some shortness of breath. No swelling Date of service 08/07/2021: Mildly hypotensive today. High-flow oxygen still in place. Date of service 08/07/2021: Patient without any new cardiac issues concerningly did spike a temperature of a 103? last night. This is felt to likely be urinary tract infection as he did have Ward in place until about 4 5 days ago. Exam Const: General: cooperative, comfortable, no acute distress, alert and awake Nutritional Appearance: well nourished Orientation/consciousness: patient oriented x3 Other: Pleasant well-developed well-nourished white male no distress wearing optiflow HENMT: Head: normal to inspection, normocephalic and atraumatic Ears: hearing grossly normal bilaterally General nose exam: Normal external nose present and Normal nares present Face and sinus: normal facial exam and no erythema Mouth: Yes moist mucous membranes, No drooling and No restricted motion Throat: uvula midline Eyes: General: appearance normal, both eyes and all related structures Alignment and Position: position normal Conjunctivae: conjunctivae normal Sclera: sclerae normal Pupils: Equal, round and reactive pupils present Direct Ophthalmoscopy: No photophobia Neck: Neck: normal visual inspection, supple and no JVD Thyroid: thyroid normal Carotids: no bruits Lymphatic: lymphedema not noted Chest: Chest palpation & inspection: normal inspection of the chest Resp: Effort & Inspection: normal respiratory effort Auscultation: no rales, no wheezes and diminished lung sounds Other: Scant basilar rales today improved compared with Sunday Cardio: Jugular venous distension: no JVD Rate: regular rate Rhythm: regular rhythm Heart sounds: S1 normal heart sound present, S2 normal heart sound present, no gallops, no murmurs and no rubs Other: No murmur no rub GI: Inspection: non-distended Auscultation: normal bowel sounds Rectal Exam: deferred : General: No no CVA tenderness Back/Spine/Pelvis: Back: No no CVA tenderness Cervical Spine: cervical ROM normal Skin: General skin exam: normal color and rashes and/or lesions noted Other: Right groin access site soft, no hematoma, bruit, bleeding or tenderness. 2+ femoral pulses 2+ right dorsalis pedis pulse Neuro: General: patient oriented x3 Cranial nerves: No CN's II-XII intact bilaterally and Yes Equal, round and reactive pupils present Cognition (Neuro): normal cognition Spee
--- NOTE | 2021-08-08 12:59 | PCDIET ---
Nutrition Follow-Up Complete: Nutrition Diagnosis: Predicted suboptimal oral intake related to COVID pneumonia as evidenced by patient on bipap. Nutrition Goal: Patient to meet estimated nutritional needs. Goal met. Patient continues to consume 75-100% of meals on low potassium diet with Suplena TID. Last recorded weight is 92.6 kg which is increased from last review. Bowel Motility: Last documented BM on 08/07/21 x 1. Labs Reviewed: WBC (11.6), RBC (4.46), Hgb (10.1), Hct (31.), Glu (117), Na (132), Alb (3.1) Meds Noted: Lipitor, Rocephin, Colace, Pepcid, Lopressor, Miralax Additional Notes: No documented skin breakdown. Will continue to monitor with same goal. Nutrition Monitoring and Evaluation: Follow up every 7 days.
[2021-08-08] MEDS: guaiFENesin/CODEINE (*CRX) 200/20 MG 10 ML SYRUP PO ×2 (13:19→18:25)
--- NOTE | 2021-08-08 14:55 | PM.IMPN ---
Progress Note: A&P Assessment and Plan (1) Fever: Code(s): R50.9 - Fever, unspecified Status: Acute Assessment and Plan: Patient developed fever last night to 103.5. Concern for either urinary or lung bacterial infection. UA obtained from yesterday after complaint of retention and was concerning for UTI. UCx obtained later in the day and Rocephin started. 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 CXR showing no change but can not exclude PNA. Follow up on urine and blood cultures. Will change to Ertapenem until final results known. (2) Acute hypoxemic respiratory failure: Code(s): J96.01 - Acute respiratory failure with hypoxia Status: Acute Assessment and Plan: The patient developed symptoms of COVID around 07/09 and tested positive on 07/12. He is unvaccinated. Chest x-ray on admission showing patchy bilateral PNA. He has been placed in isolation per protocol. He was started on dexamethasone and remdesivir both of which completed on 07/26 after 10 days. Baricitinib added 07/19 due to the worsening hypoxia and completed 08/01. Procalcitonin 0.1. He is tolerating being up to the side of the bed. Pulmonary following and appreciate their input. Continue Airvo; NRB mask available as needed. Continue supportive care and wean O2 as tolerated. Encouraged IS use and to lay prone as he tolerates. Continue PT/OT. Encouraged him to be OOB to the chair. He remains on 35L 40% FiO2. (3) Pneumonia due to COVID-19 virus: Code(s): U07.1 - COVID-19; J12.82 - Pneumonia due to coronavirus disease 2019 Status: Acute Assessment and Plan: Please see above (4) Urinary retention: Code(s): R33.9 - Retention of urine, unspecified Status: Acute Assessment and Plan: Patient complaining of urine retnetion with straight cath 08/07 showing residual urine more than 400 cc. Flomax 0.4 mg daily started 08/07. (5) STEMI (ST elevation myocardial infarction): Code(s): I21.3 - ST elevation (STEMI) myocardial infarction of unspecified site Status: Acute Assessment and Plan: Patient developed CP on 07/23 with EKG showing acute STEMI. He was taken to the labor utilization superintendent and he is now status post PCI, aspiration thrombectomy and stenting of RCA. Patient was treated with Integrilin infusion. He was given conservative amounts of IV fluids for renal protection in light of COVID pneumonia after contrast. Echo showing EF 65-70% and mild-mod without wall motion abnormalities. Limited Echo performed showing EF 55-60%, mild concentric LVH, RV enlargement with decrease RV systolic function probably related to the inferior [place]. Continue telemetry monitoring. Continue Lipitor and metoprolol. Continue dual antiplatelet therapy with aspirin and Brilinta. (6) Hyperkalemia: Code(s): E87.5 - Hyperkalemia Status: Acute Assessment and Plan: Potassium elevated at times here. Not on CHULA/ARB or potassium replacement. TSH and cortisol okay. Lovenox has been shown to cause mild hyperkalemia. Continue low potassium diet. Will continue to monitor. (7) Otitis media: Code(s): H66.90 - Otitis media, unspecified, unspecified ear Status: Acute Assessment and Plan: Stable. Completed a course of Amoxicillin (8) Constipation: Code(s): K59.00 - Constipation, unspecified Status: Acute Assessment and Plan: Improved. Continue Colace and Miralax. (9) DVT prophylaxis: Code(s): Z29.9 - Encounter for prophylactic measures, unspecified Status: Acute Assessment and Plan: Lovenox Subjective Date/time seen: 08/08/21 14:55 Interval history: 66yo healthy male presents with complaints of SOB and is known to have COVID. Patient began to have symptoms on July 09. He tested positive on July 12 (result in the paper chart). Resuming care. Chart reviewed. He has been doing well. Up to the [facility]
[2021-08-08] MEDS: ERTAPENEM 1 GM/NS 50 ML 1 GM/50 ML BAG IVPB (16:30)
[2021-08-08] MEDS: MELATONIN 5 MG TABLET PO (19:57)
[2021-08-08] MEDS: BENZONATATE 100 MG CAPSULE PO (19:57)
[2021-08-09] VITALS (20 sets, daily range): BP systolic 89–114; BP diastolic 60–71; PULSE 70–120; RESP 19–25; TEMP 36.2–37.4; O2SAT 85–100
[2021-08-09] MEDS: guaiFENesin/CODEINE (*CRX) 200/20 MG 10 ML SYRUP PO ×2 (04:28→21:31)
[2021-08-09] MEDS: CENTRAL LINE FLUSH 10 ML IV PUSH ×3 (04:29→21:27)
[2021-08-09 04:44] LABS: Basophils Percent Auto 0.1 % (0.2-1.2); Eosinophils Absolute Auto 0.2 K/mm3 (0-0.3); Eosinophils Percent Auto 2.4 % (0-4.4); Hematocrit 26.8 % (42.0-52.0); Hemoglobin 8.5 g/dL (14.0-18.0); Immature Granulocyte Absolute 0.05 K/mm3 (0.00-0.031); Immature Granulocyte Percent A 0.7 % (0-0.5); Lymphocytes Absolute Auto 1.84 K/mm3 (0.9-3.2); Lymphocytes Percent Auto 24.8 % (18.3-44.2); Mean Corpuscular HGB Conc 31.7 g/dl (32-36); Mean Corpuscular Hemoglobin 22.5 pg (26-34); Mean Corpuscular Volume 70.9 fl (80-100); Mean Platelet Volume 10.5 fl (7.4-10.4); Monocytes Absolute Auto 0.7 K/mm3 (0.1-0.6); Monocytes Percent Auto 9.3 % (2.6-8.5); Neutrophils Absolute Auto 4.7 K/mm3 (1.3-6.7); Neutrophils Percent Auto 62.7 % (45.5-73.1); Platelet Count Result 148 k/mm3 (150-375); Red Blood Count 3.78 M/mm3 (4.6-6.20); Red Cell Distribution Width 15.2 % (11.5-14.5); White Blood Count 7.4 K/mm3 (4.5-10.0)
[2021-08-09 05:15] LABS: Alanine Aminotransferase 17 U/L (4-50); Albumin Level 2.3 g/dL (3.5-5.1); Alkaline Phosphatase 52 U/L (38-126); Anion Gap 5 mmol/L (8-16); Aspartate Amino Transferase 42 U/L (17-59); Bilirubin,Total 0.5 mg/dL (0.2-1.3); Blood Urea Nitrogen 14 mg/dL (9-20); Carbon Dioxide 27 mmol/L (22-30); Chloride 102 mmol/L (98-107); Estimated CRCL calculation 109 ml/min; Estimated Glomerular Filt Rate > 60; Glucose 101 mg/dL (65-110); Magnesium 1.9 mg/dL (1.6-2.3); Phosphorus 4.5 mg/dL (2.5-4.5); Potassium 4.5 mmol/L (3.4-5.0); Sodium 134 mmol/L (137-145)
--- NOTE | 2021-08-09 09:11 | PM.PNCARD ---
Progress Note: A&P Assessment and Plan (1) STEMI (ST elevation myocardial infarction): Code(s): I21.3 - ST elevation (STEMI) myocardial infarction of unspecified site Status: Acute Assessment and Plan: Status post Inferior ST-elevation [place] likely complication of COVID-19 infection with acute plaque rupture and large thrombus burden status post aspiration thrombectomy and successful 5.0x22mm Victor Manuel GABRIEL implantation proximal RCA. Continue dual antiplatelet therapy without interruption with aspirin and Brilinta, high-dose statin. Low-dose beta-jamarcus initiated, tolerating reasonably well at this time. EF 65-70% [id number] aortic stenosis on echocardiogram. Patient reasonably stable from cardiac perspective. No changes from a cardiac perspective (2) Pneumonia due to COVID-19 virus: Code(s): U07.1 - COVID-19; J12.82 - Pneumonia due to coronavirus disease 2018 Status: Acute Assessment and Plan: Per hospitalist and critical care service. Continue supportive care for COVID-19 infection. s/p Dexamethasone, Remdesivir, currently on Baricitinib, Enoxaparin 40mg SQ q12hr. Isolatoin precautions. (3) Acute hypoxemic respiratory failure: Code(s): J96.01 - Acute respiratory failure with hypoxia Status: Acute Assessment and Plan: Improving now on high flow O2. Management per Critical Care. Subjective Date/time seen: 08/09/21 09:11 Interval history: 66-year-old man with: Acute thrombotic inferior wall myocardial infarction in the setting of COVID pneumonia. Patient underwent emergency revascularization involving extraction thrombectomy and stenting of the large dominant RCA. Patient remains in the hospital since then because of his COVID pneumonia. Oxygen requirements are declining. Slightly higher today. Patient remains totally asymptomatic and in very good spirits. He is highly motivated. Date of service 08/05/2021: Patient asymptomatic somewhat frustrated that his oxygen requirements have somewhat plateaued in the last 2-3 days. No ischemic symptomatology or cardiac complications following the infarction from several weeks ago. Date of service 08/06/2021: No chest pain. He has been up a little bit today and is tired but again feels like he is making slow but progressive improvement. He does have some shortness of breath. No swelling Date of service 08/07/2021: Mildly hypotensive today. High-flow oxygen still in place. Date of service 08/09/2021: Doing okay. No chest pain or shortness of breath at rest Review of Systems Review of Systems: All systems reviewed & are unremarkable except as noted in HPI and below Constitutional: Constitutional: Reports as per HPI, Denies body ache(s), Reports fatigue, Denies fever(s), Denies poor appetite and Reports weakness Eyes: Eyes: Reports as per HPI, Denies eye discharge, Denies loss of vision, Denies eye pain and Denies photophobia ENT: Reports as per HPI, Denies dizziness, Denies epistaxis, Denies nasal congestion and Denies sore throat Cardiovascular: Cardiovascular: Reports as per HPI, Denies chest pain, Denies diaphoresis, Denies syncope, Denies pedal edema, Denies leg edema, Denies palpitations, Reports dyspnea, Reports dyspnea on exertion and Denies orthopnea Respiratory: Respiratory: Reports as per HPI, Reports cough, Reports dyspnea, Reports dyspnea on exertion and Denies wheezing Gastrointestinal: Gastrointestinal: Reports as per HPI, Denies abdominal pain, Denies diarrhea, Denies nausea and Denies vomiting Genitourinary: Genitourinary: Reports as per HPI, Denies hematuria, Denies genital lesions and Denies dysuria Musculoskeletal: Musculoskeletal: Reports as per HPI, Denies arthralgias, Denies joint swelling and Denies numbness Integumentary/Breasts: Skin/Breast: Reports as per HPI, Denies pruritus and Denies rash Neurologic: Reports as per HPI, Denies dizziness, Denies syncope, Denies loss of vision, Denies numbness and
--- NOTE | 2021-08-09 09:20 | PM.IMPN ---
Progress Note: A&P Assessment and Plan (1) Fever: Code(s): R50.9 - Fever, unspecified Status: Acute Assessment and Plan: Patient developed feveron 08/08. Concern for either urinary or lung bacterial infection. UA obtained after complaint of retention and was concerning for UTI. UCx obtained later in the day and Rocephin started. 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 CXR showing no change but can not exclude PNA. Follow up on urine and blood cultures. Fever curve is down and patient's white cell count is normal now Continue Ertapenem (2) Acute hypoxemic respiratory failure: Code(s): J96.01 - Acute respiratory failure with hypoxia Status: Acute Assessment and Plan: The patient developed symptoms of COVID around 07/09 and tested positive on 07/12. He is unvaccinated. Chest x-ray on admission showing patchy bilateral PNA. He has been placed in isolation per protocol. He was started on dexamethasone and remdesivir both of which completed on 07/26 after 10 days. Baricitinib added 07/19 due to the worsening hypoxia and completed 08/01. Procalcitonin 0.1. He is tolerating being up to the side of the bed. Pulmonary following and appreciate their input. Currently on Airvo at 35 liters/minute flow and 40% FiO2 I will try to switch patient to high-flow nasal cannula and see if patient tolerates. He may need intermittent NRB mask available as needed. Continue supportive care and wean O2 as tolerated. Encouraged IS use and to lay prone as he tolerates. Continue PT/OT. Encouraged him to be OOB to the chair. (3) Pneumonia due to COVID-19 virus: Code(s): U07.1 - COVID-19; J12.82 - Pneumonia due to coronavirus disease 2019 Status: Acute Assessment and Plan: Please see above (4) Urinary retention: Code(s): R33.9 - Retention of urine, unspecified Status: Acute Assessment and Plan: Patient complaining of urine retnetion with straight cath 08/07 showing residual urine more than 400 cc. Flomax 0.4 mg daily started 08/07. (5) STEMI (ST elevation myocardial infarction): Code(s): I21.3 - ST elevation (STEMI) myocardial infarction of unspecified site Status: Acute Assessment and Plan: Patient developed CP on 07/23 with EKG showing acute STEMI. He was taken to the yard laborer and he is now status post PCI, aspiration thrombectomy and stenting of RCA. Patient was treated with Integrilin infusion. He was given conservative amounts of IV fluids for renal protection in light of COVID pneumonia after contrast. Echo showing EF 65-70% and mild-mod without wall motion abnormalities. Limited Echo performed showing EF 55-60%, mild concentric LVH, RV enlargement with decrease RV systolic function probably related to the inferior [place]. Continue telemetry monitoring. Continue Lipitor and metoprolol. Continue dual antiplatelet therapy with aspirin and Brilinta. (6) Hyperkalemia: Code(s): E87.5 - Hyperkalemia Status: Acute Assessment and Plan: Potassium elevated at times here. Normal today Not on CHULA/ARB or potassium replacement. TSH and cortisol okay. Lovenox has been shown to cause mild hyperkalemia. Continue low potassium diet. Will continue to monitor. (7) Otitis media: Code(s): H66.90 - Otitis media, unspecified, unspecified ear Status: Acute Assessment and Plan: Stable. Completed a course of Amoxicillin (8) Constipation: Code(s): K59.00 - Constipation, unspecified Status: Acute Assessment and Plan: Improved. Continue Colace and Miralax. (9) DVT prophylaxis: Code(s): Z29.9 - Encounter for prophylactic measures, unspecified Status: Acute Assessment and Plan: Lovenox Additional Plan DVT prophylaxis -Lovenox 40 mg subQ q.12 hours Stress ulcer prophylaxis -Pepcid Nutrition -diet Discussed with patient updated with his condition and plan of care. Will
[2021-08-09] MEDS: guaiFENesin 600 MG/DEXTROMETHORPHAN 30 MG SR TAB 12 HR 1 TAB PO ×2 (09:38→21:27)
[2021-08-09] MEDS: ATORVASTATIN 40 MG TABLET 80 MG PO (09:38)
[2021-08-09] MEDS: TAMSULOSIN HCL 0.4 MG CAPSULE PO (09:38)
[2021-08-09] MEDS: TICAGRELOR 90 MG TABLET PO ×2 (09:38→21:26)
[2021-08-09] MEDS: ACETAMINOPHEN 325 MG TABLET 650 MG PO ×2 (09:38→21:31)
[2021-08-09] MEDS: DOCUSATE SODIUM 100 MG CAPSULE PO ×2 (09:38→21:26)
[2021-08-09] MEDS: ASPIRIN 81 MG ENTERIC TABLET PO (09:38)
[2021-08-09] MEDS: polyethylene glycoL 3350 17 GM POWD.PACK PO (09:38)
[2021-08-09] MEDS: FAMOTIDINE 20 MG TABLET PO ×2 (09:38→21:26)
[2021-08-09] MEDS: ENOXAPARIN 40 MG/0.4 ML SYRINGE SUB-Q (09:38)
[2021-08-09] MEDS: BENZONATATE 100 MG CAPSULE PO ×2 (09:38→21:26)
[2021-08-09 12:32] LABS: Adrenocorticotropic Hormone 21 pg/mL (6-50)
[2021-08-09] MEDS: METOPROLOL TARTRATE 12.5 MG TABLET PO ×2 (12:53→21:26)
--- NOTE | 2021-08-09 14:30 | PC.NURSE ---
This patient, Khang Vicente, was transferred to [[id number]] on 08/09/21 at 1430. Personal belongings sent with patient. Report given to [Anastasiya HINDS]. Appropriate documentation sent with patient.
--- NOTE | 2021-08-09 14:42 | PM.IMPN ---
Progress Note: A&P Assessment and Plan (1) Fever: Code(s): R50.9 - Fever, unspecified Status: Acute Assessment and Plan: Patient developed fever 08/08 to 103.5. Concern for either urinary or lung bacterial infection. UA obtained and was concerning for UTI. UCx collected later and Rocephin started. UCx growing Klebsiella. Fevers spiked pad tufter hours of 08/08 and BCx obtained and are NGTD. CXR showing no change but can not exclude PNA. Changed to Ertapenem on 08/08. Narrow abx once results known. (2) Acute hypoxemic respiratory failure: Code(s): J96.01 - Acute respiratory failure with hypoxia Status: Acute Assessment and Plan: The patient developed symptoms of COVID around 07/09 and tested positive on 07/12. He is unvaccinated. Chest x-ray on admission showing patchy bilateral PNA. He has been placed in isolation per protocol. He was started on dexamethasone and remdesivir both of which completed on 07/26 after 10 days. Baricitinib added 07/19 due to the worsening hypoxia and completed 08/01. Procalcitonin 0.1. He is tolerating being up to the side of the bed. Changed from Airvo to nasal cannula and toerlating this change. NRB mask available as needed. Continue supportive care and wean O2 as tolerated. Encouraged IS use and to lay prone as he tolerates. Continue PT/OT. Encouraged him to be OOB to the chair. (3) Pneumonia due to COVID-19 virus: Code(s): U07.1 - COVID-19; J12.82 - Pneumonia due to coronavirus disease 2019 Status: Acute Assessment and Plan: Please see above (4) Urinary retention: Code(s): R33.9 - Retention of urine, unspecified Status: Acute Assessment and Plan: Patient complaining of urine retnetion with straight cath 08/07 showing residual urine more than 400 cc. Flomax 0.4 mg daily started 08/07. No recurrence. (5) STEMI (ST elevation myocardial infarction): Code(s): I21.3 - ST elevation (STEMI) myocardial infarction of unspecified site Status: Acute Assessment and Plan: Patient developed CP on 07/23 with EKG showing acute STEMI. He was taken to the computer lab aide and he is now status post PCI, aspiration thrombectomy and stenting of RCA. Patient was treated with Integrilin infusion. He was given conservative amounts of IV fluids for renal protection in light of COVID pneumonia after contrast. Echo showing EF 65-70% and mild-mod without wall motion abnormalities. Limited Echo performed showing EF 55-60%, mild concentric LVH, RV enlargement with decrease RV systolic function probably related to the inferior [place]. Continue telemetry monitoring. Continue Lipitor and metoprolol. Continue dual antiplatelet therapy with aspirin and Brilinta. (6) Hyperkalemia: Code(s): E87.5 - Hyperkalemia Status: Acute Assessment and Plan: Potassium elevated at times here. Not on CHULA/ARB or potassium replacement. TSH and cortisol okay. Lovenox has been shown to cause mild hyperkalemia. Potassium remaining normalnow. Continue low potassium diet. Will continue to monitor. (7) Otitis media: Code(s): H66.90 - Otitis media, unspecified, unspecified ear Status: Acute Assessment and Plan: Stable. Completed a course of Amoxicillin (8) Constipation: Code(s): K59.00 - Constipation, unspecified Status: Acute Assessment and Plan: Improved. Continue Colace and Miralax. (9) DVT prophylaxis: Code(s): Z29.9 - Encounter for prophylactic measures, unspecified Status: Acute Assessment and Plan: Lovenox Subjective Date/time seen: 08/09/21 14:42 Interval history: 66yo healthy male presents with complaints of SOB and is known to have COVID. Patient began to have symptoms on July 09. He tested positive on July 12 (result in the paper chart). Feels better today. SOB about the same. Cough mild but unchanged. No CP. Eating okay. laying prone and
[2021-08-09] MEDS: ERTAPENEM 1 GM/NS 50 ML 1 GM/50 ML BAG IVPB (16:36)
[2021-08-10] VITALS (18 sets, daily range): BP systolic 108–130; BP diastolic 44–69; PULSE 76–108; RESP 12–24; TEMP 36.6–37.5; O2SAT 94–100
[2021-08-10 05:14] LABS: Hematocrit 28.1 % (42.0-52.0); Mean Corpuscular Hemoglobin 22.6 pg (26-34); Mean Corpuscular Volume 70.4 fl (80-100); Mean Platelet Volume 10.2 fl (7.4-10.4); Platelet Count Result 183 k/mm3 (150-375); Red Blood Count 3.99 M/mm3 (4.6-6.20); Red Cell Distribution Width 15.1 % (11.5-14.5); White Blood Count 10.5 K/mm3 (4.5-10.0)
[2021-08-10 05:26] LABS: Alanine Aminotransferase 17 U/L (4-50); Albumin Level 2.9 g/dL (3.5-5.1); Alkaline Phosphatase 54 U/L (38-126); Anion Gap 5 mmol/L (8-16); Aspartate Amino Transferase 33 U/L (17-59); Bilirubin,Total 0.3 mg/dL (0.2-1.3); Blood Urea Nitrogen 13 mg/dL (9-20); Calcium 8.5 mg/dL (8.4-10.2); Carbon Dioxide 32 mmol/L (22-30); Chloride 98 mmol/L (98-107); Estimated CRCL calculation 109 ml/min; Estimated Glomerular Filt Rate > 60; Glucose 114 mg/dL (65-110); Potassium 4.1 mmol/L (3.4-5.0); Sodium 135 mmol/L (137-145)
[2021-08-10] MEDS: CENTRAL LINE FLUSH 10 ML IV PUSH ×3 (06:06→21:44)
[2021-08-10] MEDS: METOPROLOL TARTRATE 12.5 MG TABLET PO ×2 (11:08→21:43)
[2021-08-10] MEDS: TAMSULOSIN HCL 0.4 MG CAPSULE PO (11:08)
[2021-08-10] MEDS: ATORVASTATIN 40 MG TABLET 80 MG PO (11:08)
[2021-08-10] MEDS: FAMOTIDINE 20 MG TABLET PO ×2 (11:09→21:43)
[2021-08-10] MEDS: guaiFENesin 600 MG/DEXTROMETHORPHAN 30 MG SR TAB 12 HR 1 TAB PO ×2 (11:09→21:43)
[2021-08-10] MEDS: TICAGRELOR 90 MG TABLET PO ×2 (11:09→21:43)
[2021-08-10] MEDS: ASPIRIN 81 MG ENTERIC TABLET PO (11:09)
[2021-08-10] MEDS: ENOXAPARIN 40 MG/0.4 ML SYRINGE SUB-Q (11:10)
--- NOTE | 2021-08-10 12:12 | PM.PNCARD ---
Progress Note: A&P Additional Plan 66-year-old man with: COVID pneumonia with stable but unfavorable oxygen requirements. His chest x-ray appears to be stable with the development of chronic interstitial findings and congestion. His evidence of right ventricular dysfunction does not play into this in my opinion. The left ventricular function and left-sided valve function is well preserved despite the appearance of his ECG. Continue dual anti-platelet therapy, statins and modest dose of metoprolol. For Earl Hay MD [facility] Subjective Date/time seen: Date of service: 08/10/21 12:12 Interval history: 66-year-old man with: Acute thrombotic inferior wall myocardial infarction in the setting of COVID pneumonia. Patient underwent emergency revascularization involving extraction thrombectomy and stenting of the large dominant RCA. Patient remains in the hospital since then because of his COVID pneumonia. Oxygen requirements are declining. Slightly higher today. Patient remains totally asymptomatic and in very good spirits. He is highly motivated. Date of service 08/05/2021: Patient asymptomatic somewhat frustrated that his oxygen requirements have somewhat plateaued in the last 2-3 days. No ischemic symptomatology or cardiac complications following the infarction from several weeks ago. Date of service 08/06/2021: No chest pain. He has been up a little bit today and is tired but again feels like he is making slow but progressive improvement. He does have some shortness of breath. No swelling Date of service 08/07/2021: Mildly hypotensive today. High-flow oxygen still in place. Date of service 08/09/2021: Doing okay. No chest pain or shortness of breath at rest Date of service 08/10/2021: No cardiovascular complaints or concerns. The patient's oxygenation seems to have plateaued he is requiring about 15 L of nasal cannula oxygen and does desaturate with modest activity. Exam Const: General: cooperative, comfortable, no acute distress, alert and awake Nutritional Appearance: well nourished Orientation/consciousness: patient oriented x3 Other: Pleasant well-developed well-nourished white male no distress wearing optiflow HENMT: Head: normal to inspection, normocephalic and atraumatic Ears: hearing grossly normal bilaterally General nose exam: Normal external nose present and Normal nares present Face and sinus: normal facial exam and no erythema Mouth: Yes moist mucous membranes, No drooling and No restricted motion Throat: uvula midline Eyes: General: appearance normal, both eyes and all related structures Alignment and Position: position normal Conjunctivae: conjunctivae normal Sclera: sclerae normal Pupils: Equal, round and reactive pupils present Direct Ophthalmoscopy: No photophobia Neck: Neck: normal visual inspection, supple and no JVD Thyroid: thyroid normal Carotids: no bruits Lymphatic: lymphedema not noted Chest: Chest palpation & inspection: normal inspection of the chest Resp: Effort & Inspection: normal respiratory effort Auscultation: diminished lung sounds Other: Scant basilar rales today improved compared with Sunday Cardio: Jugular venous distension: no JVD Rate: regular rate Rhythm: regular rhythm Heart sounds: S1 normal heart sound present, S2 normal heart sound present, no gallops, no murmurs and no rubs Other: No murmur no rub GI: Inspection: non-distended Auscultation: normal bowel sounds Rectal Exam: deferred : General: No no CVA tenderness Back/Spine/Pelvis: Back: No no CVA tenderness Cervical Spine: cervical ROM normal Skin: General skin exam: normal color and rashes and/or lesions noted Other: Right groin access site soft, no hematoma, bruit, bleeding or tenderness. 2+ femoral pulses 2+ right dorsalis pedis pulse Neuro: General: patient oriented x3 Cranial nerves: No CN's II-XII intact bilaterally and Yes Equal, round and reactive pupils present Cognition (Ne
--- NOTE | 2021-08-10 12:46 | PM.PNPUL ---
Progress Note: A&P Assessment and Plan (1) Acute hypoxemic respiratory failure: Code(s): J96.01 - Acute respiratory failure with hypoxia Status: Acute (2) Pneumonia due to severe acute respiratory syndrome coronavirus 2 (SARS-CoV-2): Code(s): U07.1 - COVID-19; J12.82 - Pneumonia due to coronavirus disease 2019 Status: Acute Assessment and Plan: 66-year-old man with severe pneumonia, acute hypoxemic respiratory failure related to COVID 19 infection. The patient had a stormy course following initial treatment for COVID 19 pneumonia which was complicated by STEMI with transfer to the intensive care unit and treatment with noninvasive ventilatory support but no intubation. Patient continues to require high oxygen flow while in his 4th week of hospitalization. Review of chest x-rays showed that in addition to patchy alveolar infiltrates there are interstitial infiltrates with no overall improvement over the last 2 weeks. He has small lung volumes on the last several chest x-rays and his gas exchange has not significantly improved over the last week. On physical exam, he has crackles at bases which in conjunction with the radiological studies also raises the question of pulmonary fibrosis. Plan is as follows: Continue with same treatment that includes DVT prophylaxis, supplemental oxygen, out of bed to chair. Will obtain chest CT, high-resolution without contrast, to assess for possible development of pulmonary fibrosis. Further recommendations following chest CT. (3) Hypoxia: Code(s): R09.02 - Hypoxemia Status: Acute (4) STEMI (ST elevation myocardial infarction): Code(s): I21.3 - ST elevation (STEMI) myocardial infarction of unspecified site Status: Acute Subjective Date/time seen: 08/10/21 12:46 Patient was transferred back to the medical to following ICU stay for a COVID pneumonia and NSTEMI. he remains in isolation. Has no shortness of breath but desaturates with any activity, including turning in bed from side to side. has very mild cough with no sputum production. He was recently treated for febrile illness, still on antibiotics. He has no wheezing orthopnea hemoptysis or night sweats. Still requiring oxygen at high-flow, currently on 50 liters/minute via nasal cannula. Review of Systems Review of Systems: All systems reviewed & are unremarkable except as noted in HPI and below (H and P) Exam Narrative: GENERAL APPEARANCE: Well developed, well nourished, alert and cooperative, and appears to be in mild respiratory distress while on supplemental oxygen at 15 liters/minute. SKIN: Inspection of the skin reveals no rashes, ulcerations or petechiae. HEENT: Sclerae anicteric and conjunctivae pink and moist. Extraocular movements were intact and pupils were equal, round, and reactive to light. NECK: Supple. There was no thyroid enlargement, and no tenderness, or masses were felt. CHEST: Normal AP diameter and normal contour without any kyphoscoliosis. LUNGS: Auscultation of the lungs revealed crackles at bases posteriorly, no wheezing CARDIAC: There was a regular rate and rhythm without any murmurs, gallops, rubs. ABDOMEN: Soft and nontender with normal bowel sounds. There was no organomegaly. LYMPH NODES: No lymphadenopathy was appreciated in the neck. EXTREMITIES: No cyanosis, clubbing or edema. NEUROLOGIC: Alert and oriented x 3. Normal affect. Objective Data Vital Signs Vital Signs: Vital Signs - 24 hr 08/09/21 12:53 08/09/21 14:00 08/09/21 15:45 Temperature Pulse Rate 93 105 H Pulse Rate [With Activity During Therapy Session] 120 H Respiratory Rate Blood Pressure Pulse Oximetry Pulse Oximetry [With Activity During Therapy Session] 85 L 08/09/21 16:00 08/09/21 16:30 08/09/21 18:00 Temperature 36.8 C Pulse Rate 98 105 H 115 H Pulse Rate [With Activity During Therapy Session] Respiratory Rate 24 H Blood Pressure 114/62 Pulse
--- NOTE | 2021-08-10 14:26 | PM.IMPN ---
Progress Note: A&P Assessment and Plan (1) UTI (urinary tract infection): Code(s): N39.0 - Urinary tract infection, site not specified Status: Acute Assessment and Plan: Patient developed fever 08/08 to 103.5. UA was concerning for UTI. UCx collected later and Rocephin started. UCx growing Klebsiella sensitive to Rocephin. Fevers spiked software specialist hours of 08/08 and BCx obtained and are NGTD. CXR showing no change but can not exclude PNA. Day 4 of antibiotics. Resolving (2) Acute hypoxemic respiratory failure: Code(s): J96.01 - Acute respiratory failure with hypoxia Status: Acute Assessment and Plan: The patient developed symptoms of COVID around 07/09 and tested positive on 07/12. He is unvaccinated. Chest x-ray on admission showing patchy bilateral PNA. He has been placed in isolation per protocol. He was started on dexamethasone and remdesivir both of which completed on 07/26 after 10 days. Baricitinib added 07/19 due to the worsening hypoxia and completed 08/01. Procalcitonin 0.1. He is tolerating being up to the side of the bed. Changed from Airvo to nasal cannula on 08/09 and tolerating this change. NRB mask available as needed. Continue supportive care and wean O2 as tolerated. Encouraged IS use and to lay prone as he tolerates. Continue PT/OT. Encouraged him to be OOB to the chair. Appreciate pulmonary input. CT chest ordered. (3) Pneumonia due to COVID-19 virus: Code(s): U07.1 - COVID-19; J12.82 - Pneumonia due to coronavirus disease 2019 Status: Acute Assessment and Plan: Please see above (4) Urinary retention: Code(s): R33.9 - Retention of urine, unspecified Status: Acute Assessment and Plan: Patient complaining of urine retention with straight cath 08/07 showing residual urine more than 400 cc. Flomax 0.4 mg daily started 08/07. No recurrence. (5) STEMI (ST elevation myocardial infarction): Code(s): I21.3 - ST elevation (STEMI) myocardial infarction of unspecified site Status: Acute Assessment and Plan: Patient developed CP on 07/23 with EKG showing acute STEMI. He was taken to the agriculture laboratory technician and he is now status post PCI, aspiration thrombectomy and stenting of RCA. Patient was treated with Integrilin infusion. He was given conservative amounts of IV fluids for renal protection in light of COVID pneumonia after contrast. Echo showing EF 65-70% and mild-mod without wall motion abnormalities. Limited Echo performed showing EF 55-60%, mild concentric LVH, RV enlargement with decrease RV systolic function probably related to the inferior HI. Continue telemetry monitoring. Continue Lipitor and metoprolol. Continue dual antiplatelet therapy with aspirin and Brilinta. (6) Hyperkalemia: Code(s): E87.5 - Hyperkalemia Status: Acute Assessment and Plan: Potassium elevated at times here. Not on CHULA/ARB or potassium replacement. TSH and cortisol okay. Lovenox has been shown to cause mild hyperkalemia. Potassium remaining normal now. Continue low potassium diet. Will continue to monitor. (7) Otitis media: Code(s): H66.90 - Otitis media, unspecified, unspecified ear Status: Acute Assessment and Plan: Stable. Completed a course of Amoxicillin (8) Constipation: Code(s): K59.00 - Constipation, unspecified Status: Acute Assessment and Plan: Improved. Continue Colace and Miralax. (9) DVT prophylaxis: Code(s): Z29.9 - Encounter for prophylactic measures, unspecified Status: Acute Assessment and Plan: Lovenox Subjective Date/time seen: 08/10/21 14:26 Interval history: 66yo healthy male presents with complaints of SOB and is known to have COVID. Patient began to have symptoms on July 09. He tested positive on July 12 (result in the paper chart). He was unvaccinated. He feels well today. He remained on 15L overnight and
[2021-08-10] MEDS: guaiFENesin/CODEINE (*CRX) 200/20 MG 10 ML SYRUP PO (21:42)
[2021-08-10] MEDS: MELATONIN 5 MG TABLET PO (21:42)
[2021-08-10] MEDS: ACETAMINOPHEN 325 MG TABLET 650 MG PO (21:43)
[2021-08-10] MEDS: BENZONATATE 100 MG CAPSULE PO (21:43)
[2021-08-11] VITALS (21 sets, daily range): BP systolic 103–118; BP diastolic 55–74; PULSE 73–110; RESP 20–26; TEMP 35.7–36.6; O2SAT 92–100
[2021-08-11] MEDS: CENTRAL LINE FLUSH 10 ML IV PUSH ×3 (06:31→20:45)
[2021-08-11 06:48] LABS: Alanine Aminotransferase 16 U/L (4-50); Albumin Level 2.5 g/dL (3.5-5.1); Alkaline Phosphatase 44 U/L (38-126); Anion Gap 4 mmol/L (8-16); Aspartate Amino Transferase 28 U/L (17-59); Bilirubin,Total 0.5 mg/dL (0.2-1.3); Blood Urea Nitrogen 10 mg/dL (9-20); Calcium 8.2 mg/dL (8.4-10.2); Carbon Dioxide 30 mmol/L (22-30); Chloride 99 mmol/L (98-107); Estimated CRCL calculation 129 ml/min; Estimated Glomerular Filt Rate > 60; Glucose 99 mg/dL (65-110); Magnesium 1.9 mg/dL (1.6-2.3); Sodium 133 mmol/L (137-145)
[2021-08-11 06:52] LABS: Hemoglobin 8.7 g/dL (14.0-18.0); Mean Corpuscular HGB Conc 31.1 g/dl (32-36); Mean Corpuscular Hemoglobin 21.9 pg (26-34); Mean Corpuscular Volume 70.4 fl (80-100); Mean Platelet Volume 10.3 fl (7.4-10.4); Platelet Count Result 175 k/mm3 (150-375); Red Blood Count 3.98 M/mm3 (4.6-6.20); Red Cell Distribution Width 15.2 % (11.5-14.5); White Blood Count 9.3 K/mm3 (4.5-10.0)
[2021-08-11] MEDS: ASPIRIN 81 MG ENTERIC TABLET PO (08:54)
[2021-08-11] MEDS: ATORVASTATIN 40 MG TABLET 80 MG PO (08:55)
[2021-08-11] MEDS: FAMOTIDINE 20 MG TABLET PO ×2 (08:55→20:45)
[2021-08-11] MEDS: guaiFENesin 600 MG/DEXTROMETHORPHAN 30 MG SR TAB 12 HR 1 TAB PO ×2 (08:55→20:45)
[2021-08-11] MEDS: METOPROLOL TARTRATE 12.5 MG TABLET PO ×2 (08:55→20:36)
[2021-08-11] MEDS: ENOXAPARIN 40 MG/0.4 ML SYRINGE SUB-Q (08:55)
[2021-08-11] MEDS: FLUTICASONE PROPIONATE 0.05% NA SPR 16 GM BTL (*BKC) 2 SPRAY NASAL (08:55)
[2021-08-11] MEDS: TICAGRELOR 90 MG TABLET PO ×2 (08:56→20:45)
[2021-08-11] MEDS: TAMSULOSIN HCL 0.4 MG CAPSULE PO (08:56)
[2021-08-11] MEDS: DOCUSATE SODIUM 100 MG CAPSULE PO (09:05)
--- NOTE | 2021-08-11 09:10 | PM.PNCARD ---
Progress Note: A&P Assessment and Plan (1) STEMI (ST elevation myocardial infarction): Code(s): I21.3 - ST elevation (STEMI) myocardial infarction of unspecified site Status: Acute Assessment and Plan: Status post Inferior ST-elevation [place] likely complication of COVID-19 infection with acute plaque rupture and large thrombus burden status post aspiration thrombectomy and successful 5.0x22mm Victor Manuel GABRIEL implantation proximal RCA. Continue dual antiplatelet therapy without interruption with aspirin and Brilinta, high-dose statin. Low-dose beta-jamarcus initiated, tolerating reasonably well at this time. EF 65-70% [id number]-om-[id number] aortic stenosis on echocardiogram. Patient reasonably stable from cardiac perspective. No changes from a cardiac perspective (2) Pneumonia due to COVID-19 virus: Code(s): U07.1 - COVID-19; J12.82 - Pneumonia due to coronavirus disease 2018 Status: Acute Assessment and Plan: Per hospitalist. Continue supportive care for COVID-19 infection. s/p Dexamethasone, Remdesivir, Baricitinib, Enoxaparin 40mg SQ q12hr. Isolatoin precautions. (3) Acute hypoxemic respiratory failure: Code(s): J96.01 - Acute respiratory failure with hypoxia Status: Acute Assessment and Plan: Improving now on 15L O2. Management per Hospitalist Subjective Date/time seen: 08/11/21 09:10 Interval history: 66-year-old man with: Acute thrombotic inferior wall myocardial infarction in the setting of COVID pneumonia. Patient underwent emergency revascularization involving extraction thrombectomy and stenting of the large dominant RCA. Patient remains in the hospital since then because of his COVID pneumonia. Oxygen requirements are declining. Slightly higher today. Patient remains totally asymptomatic and in very good spirits. He is highly motivated. Date of service 08/05/2021: Patient asymptomatic somewhat frustrated that his oxygen requirements have somewhat plateaued in the last 2-3 days. No ischemic symptomatology or cardiac complications following the infarction from several weeks ago. Date of service 08/06/2021: No chest pain. He has been up a little bit today and is tired but again feels like he is making slow but progressive improvement. He does have some shortness of breath. No swelling Date of service 08/07/2021: Mildly hypotensive today. High-flow oxygen still in place. Date of service 08/09/2021: Doing okay. No chest pain or shortness of breath at rest Date of service 08/10/2021: No cardiovascular complaints or concerns. The patient's oxygenation seems to have plateaued he is requiring about 15 L of nasal cannula oxygen and does desaturate with modest activity. Date of service 08/11/2021: Continues to make slow progress. Feeling okay today. Happy to be out of the ICU and have the ability to get out of bed. Complaining of nasal congestion. Review of Systems Review of Systems: All systems reviewed & are unremarkable except as noted in HPI and below Constitutional: Constitutional: Reports as per HPI, Denies body ache(s), Reports fatigue, Denies fever(s), Denies poor appetite and Reports weakness Eyes: Eyes: Reports as per HPI, Denies eye discharge, Denies loss of vision, Denies eye pain and Denies photophobia ENT: Reports as per HPI, Denies dizziness, Denies epistaxis, Denies nasal congestion and Denies sore throat Cardiovascular: Cardiovascular: Reports as per HPI, Denies chest pain, Denies diaphoresis, Denies syncope, Denies pedal edema, Denies leg edema, Denies palpitations, Reports dyspnea, Reports dyspnea on exertion and Denies orthopnea Respiratory: Respiratory: Reports as per HPI, Reports cough, Reports dyspnea, Reports dyspnea on exertion and Denies wheezing Gastrointestinal: Gastrointestinal: Reports as per HPI, Denies abdominal pain, Denies diarrhea, Denies nausea and Denies vomiting Genitourinary: Genitourinary: Reports as per HPI, Denies hematuria, Denies gen
--- NOTE | 2021-08-11 09:27 | PM.PNPUL ---
Progress Note: A&P Assessment and Plan (1) Acute hypoxemic respiratory failure: Code(s): J96.01 - Acute respiratory failure with hypoxia Status: Acute Assessment and Plan: Respiratory status is essentially unchanged over the last 24 hours. Patient does not have symptoms to suggest superimposed pneumonia. As stated in my previous note, the patient's chest x-rays remained unchanged for a period of 6 days; he also has Velcro type crackles on PE just at the bases. The chest CT done yesterday showed extensive ground-glass opacities with some consolidation especially subpleurally and also in the bases bilaterally. There is evidence of mild increase in reticulation especially in the bases but no other evidence of fibrotic changes. The chest CT findings are compatible with organizing pneumonia, which likely accounts for the lack of radiologic clearing and the plateau of gas exchange seen over the last 8-10 days. will start patient on empiric steroids, prednisone 40 mg p.o. daily for possible organizing pneumonia with close monitoring of gas exchange and chest radiographs over the next week. The plan was discussed with patient who was agreeable. CRP also ordered for today. (2) Pneumonia due to COVID-19 virus: Code(s): U07.1 - COVID-19; J12.82 - Pneumonia due to coronavirus disease 2019 Status: Acute (3) Abnormal chest CT: Code(s): R93.89 - Abnormal findings on diagnostic imaging of other specified body structures Status: Acute Subjective Date/time seen: 08/11/21 09:27 Patient has no new respiratory symptoms. Continues to have shortness of breath with any activity. remains on high FiO2. Underwent chest CT yesterday. Review of Systems Review of Systems: All systems reviewed & are unremarkable except as noted in HPI and below (H & P) Exam Narrative: GENERAL APPEARANCE: Well developed, well nourished, alert and cooperative, and appears to be in mild respiratory distress while on supplemental oxygen at 12 liters/minute. SKIN: Inspection of the skin reveals no rashes, ulcerations or petechiae. HEENT: Sclerae anicteric and conjunctivae pink and moist. Extraocular movements were intact and pupils were equal, round, and reactive to light. NECK: Supple. There was no thyroid enlargement, and no tenderness, or masses were felt. CHEST: Normal AP diameter and normal contour without any kyphoscoliosis. LUNGS: Auscultation of the lungs revealed crackles at bases posteriorly, no wheezing CARDIAC: There was a regular rate and rhythm without any murmurs, gallops, rubs. ABDOMEN: Soft and nontender with normal bowel sounds. There was no organomegaly. LYMPH NODES: No lymphadenopathy was appreciated in the neck. EXTREMITIES: No cyanosis, clubbing or edema. NEUROLOGIC: Alert and oriented x 3. Normal affect. Objective Data Vital Signs Vital Signs: Vital Signs - 24 hr 08/10/21 10:00 08/10/21 11:08 08/10/21 12:00 Temperature 36.8 C Pulse Rate 106 H 108 H 98 Respiratory Rate 20 Blood Pressure 108/66 Pulse Oximetry 94 08/10/21 14:00 08/10/21 14:37 08/10/21 16:00 Temperature 37.5 C Pulse Rate 100 92 103 H Respiratory Rate 20 24 H Blood Pressure 108/44 L Pulse Oximetry 94 94 08/10/21 18:00 08/10/21 19:32 08/10/21 20:00 Temperature 37.3 C Pulse Rate 93 105 H 95 Respiratory Rate 20 20 Blood Pressure 108/64 Pulse Oximetry 96 94 08/10/21 20:34 08/10/21 21:43 08/10/21 22:00 Temperature Pulse Rate 95 98 Respiratory Rate Blood Pressure Pulse Oximetry 94 08/11/21 00:00 08/11/21 02:00 08/11/21 04:00 Temperature 36.6 C 36.6 C Pulse Rate 82 90 73 Respiratory Rate 22 H 22 H Blood Pressure 103/66 109/63 Pulse Oximetry 100 99 08/11/21 04:25 08/11/21 05:00 08/11/21 06:00 Temperature Pulse Rate 73 Respiratory Rate Blood Pressure Pulse Oximetry 100 99 08/11/21 08:35 08/11/21 08:41 Temperature 35.7 C L Pulse Rate 82 Respiratory R
[2021-08-11] MEDS: predniSONE 20 MG TABLET 40 MG PO (09:40)
[2021-08-11 09:46] LABS: CRP 6.4 mg/dL (<1.0)
--- NOTE | 2021-08-11 13:59 | PM.IMPN ---
Progress Note: A&P Assessment and Plan (1) UTI (urinary tract infection): Code(s): N39.0 - Urinary tract infection, site not specified Status: Acute Assessment and Plan: Patient developed fever 08/08 to 103.5. UA was concerning for UTI. UCx collected later and Rocephin started. UCx growing Klebsiella sensitive to Rocephin. Fevers spiked medical surgery nurse hours of 08/08 and BCx obtained and are NGTD. Chest CT showing subacute COVID but no evidence of PNA. Day 5 of antibiotics. Resolving (2) Acute hypoxemic respiratory failure: Code(s): J96.01 - Acute respiratory failure with hypoxia Status: Acute Assessment and Plan: The patient developed symptoms of COVID around 07/09 and tested positive on 07/12. He is unvaccinated. Chest x-ray on admission showing patchy bilateral PNA. He has been placed in isolation per protocol. He was started on dexamethasone and remdesivir both of which completed on 07/26 after 10 days. Baricitinib added 07/19 due to the worsening hypoxia and completed 08/01. Procalcitonin 0.1. He is tolerating being up to the side of the bed. Changed from Airvo to nasal cannula on 08/09 and tolerating this change. NRB mask available as needed. HRCT chest showing diffuse bilateral peripheral nearly confluent airspace disease consistent with subacute COVID pneumonia (ILD not able to be definitively evaluated). Prednisone started this morning. Continue supportive care and wean O2 as tolerated. Encouraged IS use and to lay prone as he tolerates. Continue PT/OT. Encouraged him to be OOB to the chair. Appreciate pulmonary input. (3) Pneumonia due to COVID-19 virus: Code(s): U07.1 - COVID-19; J12.82 - Pneumonia due to coronavirus disease 2019 Status: Acute Assessment and Plan: Please see above (4) Anemia: Code(s): D64.9 - Anemia, unspecified Status: Acute Assessment and Plan: Hgb has been drifting down since admission to the 8-9 range. Could be iatrogenic. Iron studies showing elevated Ferritin (related to COVID), low TIBC but normal iron and sat. Albumin remains low. He remains on supplements. No evidence of acute blood loss. He is on DAPT. Check B12. Follow for now. (5) Urinary retention: Code(s): R33.9 - Retention of urine, unspecified Status: Acute Assessment and Plan: Patient complaining of urine retention with straight cath 08/07 showing residual urine more than 400 cc. Flomax 0.4 mg daily started 08/07. No recurrence. (6) STEMI (ST elevation myocardial infarction): Code(s): I21.3 - ST elevation (STEMI) myocardial infarction of unspecified site Status: Acute Assessment and Plan: Patient developed CP on 07/23 with EKG showing acute STEMI. He was taken to the director of laboratory operations and he is now status post PCI, aspiration thrombectomy and stenting of RCA. Patient was treated with Integrilin infusion. He was given conservative amounts of IV fluids for renal protection in light of COVID pneumonia after contrast. Echo showing EF 65-70% and mild-mod without wall motion abnormalities. Limited Echo performed showing EF 55-60%, mild concentric LVH, RV enlargement with decrease RV systolic function probably related to the inferior [place]. Continue telemetry monitoring. Continue Lipitor and metoprolol. Continue dual antiplatelet therapy with aspirin and Brilinta. (7) Hyperkalemia: Code(s): E87.5 - Hyperkalemia Status: Acute Assessment and Plan: Potassium elevated at times here. Not on CHULA/ARB or potassium replacement. TSH and cortisol okay. Lovenox has been shown to cause mild hyperkalemia. Potassium remaining normal now. Continue low potassium diet. Will continue to monitor. (8) Otitis media: Code(s): H66.90 - Otitis media, unspecified, unspecified ear Status: Acute Assessment and Plan: Stable. Completed a course of Amoxicillin (9) Constipation: Code(s): K59.00 - Constipation,
[2021-08-11 16:43] LABS: Folic Acid 10.7 ng/mL (2.76->20)
[2021-08-11] MEDS: MELATONIN 5 MG TABLET PO (20:36)
[2021-08-11] MEDS: ACETAMINOPHEN 325 MG TABLET 650 MG PO (21:15)
[2021-08-12] VITALS (21 sets, daily range): BP systolic 105–127; BP diastolic 59–80; PULSE 72–100; RESP 16–24; TEMP 36.3–37.2; O2SAT 83–100
[2021-08-12] MEDS: CENTRAL LINE FLUSH 10 ML IV PUSH ×3 (04:47→20:54)
--- NOTE | 2021-08-12 05:23 | ECG_ITS ---
Measurements Intervals [place] Rate: 84 P: 18 MD: 211 QRS: -44 QRSD: 101 T: -48 QT: 396 QTc: 471 Interpretive Statements SINUS RHYTHM BORDERLINE AV CONDUCTION DELAY VOLTAGE CRITERIA FOR LVH INFERIOR INFARCT, PROBABLY RECENT T WAVE ABNORMALITY IN ANTEROLATERAL LEADS- CONSIDER ISCHEMIA BASELINE ARTIFACT- I, II, AVR ABNORMAL ECG Electronically Signed On 08-12-2021 6:50:07 CDT by Sachin Kramer D.O.
--- NOTE | 2021-08-12 08:51 | PM.PNCARD ---
Progress Note: A&P Assessment and Plan (1) STEMI (ST elevation myocardial infarction): Code(s): I21.3 - ST elevation (STEMI) myocardial infarction of unspecified site Status: Acute Assessment and Plan: Status post Inferior ST-elevation [place] likely complication of COVID-19 infection with acute plaque rupture and large thrombus burden status post aspiration thrombectomy and successful 5.0x22mm Victor Manuel GABRIEL implantation proximal RCA. Continue dual antiplatelet therapy without interruption with aspirin and Brilinta, high-dose statin. Low-dose beta-jamarcus initiated, tolerating reasonably well at this time. EF 65-70% [id number] aortic stenosis on echocardiogram. Patient reasonably stable from cardiac perspective. No changes from a cardiac perspective (2) Pneumonia due to COVID-19 virus: Code(s): U07.1 - COVID-19; J12.82 - Pneumonia due to coronavirus disease 2018 Status: Acute Assessment and Plan: Per hospitalist. Continue supportive care for COVID-19 infection. s/p Dexamethasone, Remdesivir, Baricitinib, Enoxaparin 40mg SQ q12hr. Isolatoin precautions. (3) Acute hypoxemic respiratory failure: Code(s): J96.01 - Acute respiratory failure with hypoxia Status: Acute Assessment and Plan: Now requiring high flow oxygen once again. Currently on 45L. Management per Hospitalist Subjective Date/time seen: 08/12/21 08:51 Interval history: 66-year-old man with: Acute thrombotic inferior wall myocardial infarction in the setting of COVID pneumonia. Patient underwent emergency revascularization involving extraction thrombectomy and stenting of the large dominant RCA. Patient remains in the hospital since then because of his COVID pneumonia. Oxygen requirements are declining. Slightly higher today. Patient remains totally asymptomatic and in very good spirits. He is highly motivated. Date of service 08/05/2021: Patient asymptomatic somewhat frustrated that his oxygen requirements have somewhat plateaued in the last 2-3 days. No ischemic symptomatology or cardiac complications following the infarction from several weeks ago. Date of service 08/06/2021: No chest pain. He has been up a little bit today and is tired but again feels like he is making slow but progressive improvement. He does have some shortness of breath. No swelling Date of service 08/07/2021: Mildly hypotensive today. High-flow oxygen still in place. Date of service 08/09/2021: Doing okay. No chest pain or shortness of breath at rest Date of service 08/10/2021: No cardiovascular complaints or concerns. The patient's oxygenation seems to have plateaued he is requiring about 15 L of nasal cannula oxygen and does desaturate with modest activity. Date of service 08/11/2021: Continues to make slow progress. Feeling okay today. Happy to be out of the ICU and have the ability to get out of bed. Complaining of nasal congestion. Date of service 08/12/2021: Increasing oxygen requirements this morning - now on 45L high flow at 93%. Some insignificant pauses and mild bradycardia noted on telemetry overnight - apparently his oxygen saturation at the time was in the 80's. He feels o.k. but is discouraged that he is requiring more oxygen once again. Review of Systems Review of Systems: All systems reviewed & are unremarkable except as noted in HPI and below Constitutional: Constitutional: Reports as per HPI, Denies body ache(s), Reports fatigue, Denies fever(s), Denies poor appetite and Reports weakness Eyes: Eyes: Reports as per HPI, Denies eye discharge, Denies loss of vision, Denies eye pain and Denies photophobia ENT: Reports as per HPI, Denies dizziness, Denies epistaxis, Denies nasal congestion and Denies sore throat Cardiovascular: Cardiovascular: Reports as per HPI, Denies chest pain, Denies diaphoresis, Denies syncope, Denies pedal edema, Denies leg edema, Denies palpitations, Reports dyspnea, Reports dyspnea on exertio
--- NOTE | 2021-08-12 08:55 | PM.PNPUL ---
Progress Note: A&P Assessment and Plan (1) Acute hypoxemic respiratory failure: Code(s): J96.01 - Acute respiratory failure with hypoxia Status: Acute Assessment and Plan: Respiratory status slightly improved. Oxygen flow down to 8 liters/minute today. Patient able to ambulate in room with no significant oxyhemoglobin desaturation yesterday. On auscultation, basilar crackles persist with otherwise no new findings. Plan: Continue with current prednisone regimen, DVT prophylaxis, out of bed to chair, ambulate in room. Repeat two view chest x-ray in couple of days. Check CRP tomorrow am. (2) Pneumonia due to COVID-19 virus: Code(s): U07.1 - COVID-19; J12.82 - Pneumonia due to coronavirus disease 2019 Status: Acute (3) Abnormal chest CT: Code(s): R93.89 - Abnormal findings on diagnostic imaging of other specified body structures Status: Acute Subjective Date/time seen: 08/12/21 08:55 Patient has no new respiratory complaints. He was able to ambulate in room yesterday for more than 10 minutes with no significant oxyhemoglobin desaturation on the supplemental oxygen. Still coughing but not having any fever or chills or wheezing. Supplemental oxygen down to 8 liters/minute this a.m. Review of Systems Review of Systems: All systems reviewed & are unremarkable except as noted in HPI and below (H & P) Exam Narrative: GENERAL APPEARANCE: Well developed, well nourished, alert and cooperative, and appears to be in mild respiratory distress while on supplemental oxygen at 12 liters/minute. SKIN: Inspection of the skin reveals no rashes, ulcerations or petechiae. HEENT: Sclerae anicteric and conjunctivae pink and moist. Extraocular movements were intact and pupils were equal, round, and reactive to light. NECK: Supple. There was no thyroid enlargement, and no tenderness, or masses were felt. CHEST: Normal AP diameter and normal contour without any kyphoscoliosis. LUNGS: Auscultation of the lungs revealed crackles at bases posteriorly, no wheezing CARDIAC: There was a regular rate and rhythm without any murmurs, gallops, rubs. ABDOMEN: Soft and nontender with normal bowel sounds. There was no organomegaly. LYMPH NODES: No lymphadenopathy was appreciated in the neck. EXTREMITIES: No cyanosis, clubbing or edema. NEUROLOGIC: Alert and oriented x 3. Normal affect. Objective Data Vital Signs Vital Signs: Vital Signs - 24 hr 08/11/21 10:00 08/11/21 12:00 08/11/21 12:31 Temperature 36.1 C L Pulse Rate 104 H 110 H 96 Respiratory Rate 22 H Blood Pressure 111/55 L Pulse Oximetry 92 95 08/11/21 14:00 08/11/21 16:00 08/11/21 16:37 Temperature Pulse Rate 86 90 Respiratory Rate Blood Pressure Pulse Oximetry 95 96 95 08/11/21 17:07 08/11/21 18:00 08/11/21 19:02 Temperature 35.9 C L 35.9 C L Pulse Rate 109 H 84 101 H Respiratory Rate 26 H 24 H Blood Pressure 109/72 118/74 Pulse Oximetry 93 94 08/11/21 20:00 08/11/21 20:36 08/11/21 21:56 Temperature Pulse Rate 78 84 77 Respiratory Rate Blood Pressure Pulse Oximetry 100 08/12/21 00:00 08/12/21 01:45 08/12/21 03:31 Temperature 36.6 C Pulse Rate 82 89 Respiratory Rate 20 Blood Pressure 118/80 Pulse Oximetry 99 98 08/12/21 03:34 08/12/21 04:00 08/12/21 06:00 Temperature 36.3 C L Pulse Rate 87 72 85 Respiratory Rate 16 Blood Pressure 105/59 L Pulse Oximetry 99 Intake/Output Intake/Output: Intake & Output 08/09/21 08/10/21 08/11/21 08/12/21 23:59 23:59 23:59 23:59 Intake Total 1632 921 7260 200 Output Total 1100 2300 4270 480 Balance 800 -1530 -1020 -280 Meds/Results Medications: Active Medications Generic Name Dose Route Start Last Admin Trade Name Freq PRN Reason Stop Dose Admin Acetaminophen 650 mg 08/08/21 05:18 08/11/21 21:15 Acetaminophen 325 Mg Tablet PO 650 mg Q4H PRN Administration Mild Pain (1-5) Or Fever Al Hydrox/Mg H
[2021-08-12] MEDS: ATORVASTATIN 40 MG TABLET 80 MG PO (09:44)
[2021-08-12] MEDS: TAMSULOSIN HCL 0.4 MG CAPSULE PO (09:44)
[2021-08-12] MEDS: predniSONE 20 MG TABLET 40 MG PO (09:44)
[2021-08-12] MEDS: BENZONATATE 100 MG CAPSULE PO (09:45)
[2021-08-12] MEDS: TICAGRELOR 90 MG TABLET PO ×2 (09:45→20:32)
[2021-08-12] MEDS: METOPROLOL TARTRATE 12.5 MG TABLET PO ×2 (09:49→20:31)
[2021-08-12] MEDS: guaiFENesin 600 MG/DEXTROMETHORPHAN 30 MG SR TAB 12 HR 1 TAB PO ×2 (09:49→20:32)
[2021-08-12] MEDS: ASPIRIN 81 MG ENTERIC TABLET PO (09:49)
[2021-08-12] MEDS: FAMOTIDINE 20 MG TABLET PO ×2 (09:50→20:32)
[2021-08-12] MEDS: ENOXAPARIN 40 MG/0.4 ML SYRINGE SUB-Q (09:50)
[2021-08-12] MEDS: FLUTICASONE PROPIONATE 0.05% NA SPR 16 GM BTL (*BKC) 2 SPRAY NASAL (09:51)
--- NOTE | 2021-08-12 12:00 | PM.IMPN ---
Progress Note: A&P Assessment and Plan (1) Acute hypoxemic respiratory failure: Code(s): J96.01 - Acute respiratory failure with hypoxia Status: Acute Assessment and Plan: The patient developed symptoms of COVID around 07/09 and tested positive on 07/12. He is unvaccinated. Chest x-ray on admission showing patchy bilateral PNA. He has been placed in isolation per protocol. He was started on dexamethasone and remdesivir both of which completed on 07/26 after 10 days. Baricitinib added 07/19 due to the worsening hypoxia and completed 08/01. Procalcitonin 0.1. He is tolerating being up to the side of the bed. Changed from Airvo to nasal cannula on 08/09 and tolerated this change. NRB mask available as needed. HRCT chest 08/10 showing diffuse bilateral peripheral nearly confluent airspace disease consistent with subacute COVID pneumonia (ILD not able to be definitively evaluated). Prednisone started 08/11. He has clinically worsened this morning and now requiring Airvo. Etiology of his worsening respiratory failure is unclear. Consider PE/mucous plugging/CHF/aspiration/PTX/PNA/anemia but no symptoms to suggest one over the other. He remains on lovenox for VTE prophylaxis. Will check labs and CXR; consider ST eval; ABG. Continue supportive care and wean O2 as tolerated. Add Nebs. Encouraged IS use and to lay prone as he tolerates. Continue PT/OT for now. Encouraged him to be OOB to the chair. Appreciate pulmonary input. Will notify pulmonary of this change. 35 minutes spent on critical care CTA chest showing no PE and stable diffuse lung disease. Procalcitonin normal. CRP better at 4.4. WBC 12K related to the steroids. Hgb better. ABG showing pO2 at 119. Wean O2 as tolerated. (2) UTI (urinary tract infection): Code(s): N39.0 - Urinary tract infection, site not specified Status: Acute Assessment and Plan: Patient developed fever to 103.5 on 08/08. UA was concerning for UTI. UCx collected later and Rocephin started. UCx growing Klebsiella sensitive to Rocephin. Fevers spiked early childhood coordinator hours of 08/08 and BCx obtained and are NGTD. Chest CT 08/10 showing subacute COVID but no evidence of PNA. Day 6 of antibiotics. Resolving (3) Pneumonia due to COVID-19 virus: Code(s): U07.1 - COVID-19; J12.82 - Pneumonia due to coronavirus disease 2019 Status: Acute Assessment and Plan: Please see above (4) Anemia: Code(s): D64.9 - Anemia, unspecified Status: Acute Assessment and Plan: Hgb has been drifting down since admission to the 8-9 range. Could be iatrogenic. Iron studies showing elevated Ferritin (related to COVID), low TIBC but normal iron and sat. Albumin remains low. He remains on dietary supplements. No evidence of acute blood loss. He is on DAPT. B12 normal. Follow for now. Add iron (5) Urinary retention: Code(s): R33.9 - Retention of urine, unspecified Status: Acute Assessment and Plan: Patient complaining of urine retention with straight cath 08/07 showing residual urine more than 400 cc. Flomax 0.4 mg daily started 08/07. No recurrence. (6) STEMI (ST elevation myocardial infarction): Code(s): I21.3 - ST elevation (STEMI) myocardial infarction of unspecified site Status: Acute Assessment and Plan: Patient developed chest pain on 07/23 with EKG showing acute STEMI. He was taken to the farm laborer and he is now status post PCI, aspiration thrombectomy and stenting of RCA. Patient was treated with Integrilin infusion. He was given conservative amounts of IV fluids for renal protection in light of COVID pneumonia after contrast. Echo showing EF 65-70% and mild-mod without wall motion abnormalities. Limited Echo performed showing EF 55-60%, mild concentric LVH, RV enlargement with decrease RV systolic function probably related to the inferior DE. EKG today was reviewed personally and showing no change with IMI and flipped T waves in the ant
[2021-08-12 13:37] LABS: Basophils Percent Auto 0.3 % (0.2-1.2); Eosinophils Absolute Auto 0.1 K/mm3 (0-0.3); Hematocrit 29.3 % (42.0-52.0); Hemoglobin 9.1 g/dL (14.0-18.0); Immature Granulocyte Absolute 0.13 K/mm3 (0.00-0.031); Immature Platelet Fraction Pct 4.9 % (0.9-11.2); Lymphocytes Absolute Auto 2.35 K/mm3 (0.9-3.2); Lymphocytes Percent Auto 18.9 % (18.3-44.2); Mean Corpuscular HGB Conc 31.1 g/dl (32-36); Mean Corpuscular Hemoglobin 21.9 pg (26-34); Mean Corpuscular Volume 70.6 fl (80-100); Mean Platelet Volume 10.3 fl (7.4-10.4); Monocytes Absolute Auto 0.6 K/mm3 (0.1-0.6); Monocytes Percent Auto 5.1 % (2.6-8.5); Neutrophils Absolute Auto 9.2 K/mm3 (1.3-6.7); Neutrophils Percent Auto 73.7 % (45.5-73.1); Platelet Count Result 253 k/mm3 (150-375); Red Blood Count 4.15 M/mm3 (4.6-6.20); Red Cell Distribution Width 15.3 % (11.5-14.5); White Blood Count 12.4 K/mm3 (4.5-10.0)
--- NOTE | 2021-08-12 13:38 | PCOTNOTE ---
Attempted to see Patient at this time. Patient was just returning from having a stat CT with RN. RN verbalized not to be seen at this time due to a change in O2 status. Requiring more O2 and on AIRVO. Per RN, Patient not to be seen.
[2021-08-12 13:45] LABS: Alanine Aminotransferase 30 U/L (4-50); Albumin Level 2.8 g/dL (3.5-5.1); Alkaline Phosphatase 50 U/L (38-126); Anion Gap 6 mmol/L (8-16); Aspartate Amino Transferase 42 U/L (17-59); Bilirubin,Total 0.4 mg/dL (0.2-1.3); Blood Urea Nitrogen 16 mg/dL (9-20); CRP 4.4 mg/dL (<1.0); Calcium 8.5 mg/dL (8.4-10.2); Carbon Dioxide 29 mmol/L (22-30); Chloride 99 mmol/L (98-107); Estimated CRCL calculation 129 ml/min; Estimated Glomerular Filt Rate > 60; Glucose 139 mg/dL (65-110); Potassium 4.5 mmol/L (3.4-5.0); Sodium 134 mmol/L (137-145)
--- NOTE | 2021-08-12 14:10 | PM.EVENT ---
Event Note Event Note Event Note: Patient became short of breath and dropped his oxygen saturation to low 80s earlier today. He had no new respiratory symptoms such as worsening cough, new sputum production, chest pain, hemoptysis, orthopnea or diaphoresis. The patient was placed on high-flow nasal cannula at 45 liters/minute, with significant improvement of his oxygen saturation. I examined the patient around noon time today. On physical exam he had no new findings. In particular there was no wheezing, and overall lung auscultation was unchanged. The patient underwent a stat chest x-ray which was also unchanged from previous study. Subsequently he underwent chest CTPA to exclude pulmonary embolism. Chest CT showed no evidence of pulmonary embolism and no new infiltrates when compared to a previous study done 2 days ago. The patient remains on high-flow nasal cannula with oxygen saturation around 100%. A/P: shortness of breath with O2 desaturation probably related to mucus plugging, by exclusion. Chest CT showed no pulmonary emboli and no new infiltrates. Cardiac evaluation reportedly unchanged. Will continue with same treatment for now. Will use nebulized albuterol on a p.r.n. basis only. Will DC incentive spirometry.
--- NOTE | 2021-08-12 14:21 | PCSTNOTE ---
Please refer to the Bedside Swallow Evaluation in the EMR. Please note, silent aspiration cannot be ruled out at bedside.
[2021-08-12 14:34] LABS: Hypochromasia 1+ (NORMAL); Platelet Estimate Adequate (Adequate)
[2021-08-12 14:35] LABS: Atypical Lymphocytes Present
[2021-08-12 14:47] LABS: Alveolar/Arterial O2 Gradient 556.4 mmHg; Base Excess ABG 2.2 mEq/l (+/-2.0); Fractional Inspired Oxygen 100 %; Oxygen Content ABG 15.4 %vol (16.0-22.0); Oxygen Saturation ABG 98.5 % (95.0-100.0); Oxyhemoglobin 97.1 % THb (90.0-100.0); PCO2 ABG 37.3 mmHg (35.0-45.0); PO2 ABG 119.3 mmHg (80.0-100.0); PO2 FiO2 Ratio Arterial Blood 1.19 %; Total Hemoglobin 11.1 g/dL (12.0-18.0); pH ABG 7.461 (7.350-7.450)
[2021-08-12 14:48] LABS: Device HIGH FLOW NASAL CANN; Modified Allen's Test Pass; Site Drawn LEFT RADIAL
[2021-08-12 15:03] LABS: Procalcitonin 0.4 ng/mL
[2021-08-12 16:46] LABS: NT Pro B Type Natriuretic Pept 2640 pg/mL (5-100)
[2021-08-12] MEDS: FERROUS SULFATE 324 MG TABLET PO (17:02)
--- NOTE | 2021-08-12 20:07 | PC.NURSE ---
Around 0850, pt's O2 decreased to the 80's on 8 L highflow NC. RT placed pt on Airvo 45 L 94% which brought pt's O2 sats up to the high 90's. Dr Castrjeon and Dr Grady placed orders. Chest CTA, Chest Xray, and labs were ordered. Around 1400, Dr Grady requested pt be placed back on 15 L highflow and Albuterol Neb changed to TID PRN. He does not want pt to take deep breaths or use the incentive spirometer at this time. Pt is tolerating 15 L highflow and sat'ing in the 90's.
[2021-08-12] MEDS: DOCUSATE SODIUM 100 MG CAPSULE PO (20:31)
[2021-08-12] MEDS: MELATONIN 5 MG TABLET PO (20:32)
[2021-08-12] MEDS: guaiFENesin/CODEINE (*CRX) 200/20 MG 10 ML SYRUP PO (20:32)
[2021-08-12] MEDS: ACETAMINOPHEN 325 MG TABLET 650 MG PO (20:54)
[2021-08-13] VITALS (20 sets, daily range): BP systolic 101–139; BP diastolic 63–80; PULSE 59–103; RESP 20–24; TEMP 36.2–37.1; O2SAT 91–100
[2021-08-13 05:53] LABS: Basophils Percent Auto 0.3 % (0.2-1.2); Eosinophils Absolute Auto 0.1 K/mm3 (0-0.3); Eosinophils Percent Auto 0.8 % (0-4.4); Hematocrit 27.9 % (42.0-52.0); Hemoglobin 8.6 g/dL (14.0-18.0); Immature Granulocyte Absolute 0.23 K/mm3 (0.00-0.031); Immature Granulocyte Percent A 1.9 % (0-0.5); Immature Platelet Fraction Pct 3.6 % (0.9-11.2); Lymphocytes Absolute Auto 3.96 K/mm3 (0.9-3.2); Mean Corpuscular HGB Conc 30.8 g/dl (32-36); Mean Corpuscular Hemoglobin 21.9 pg (26-34); Mean Corpuscular Volume 71.2 fl (80-100); Mean Platelet Volume 9.8 fl (7.4-10.4); Monocytes Absolute Auto 0.8 K/mm3 (0.1-0.6); Monocytes Percent Auto 6.8 % (2.6-8.5); Neutrophils Absolute Auto 6.9 K/mm3 (1.3-6.7); Neutrophils Percent Auto 57.2 % (45.5-73.1); Nucleated Red Blood Cells Perc 0.2 % (0.0-0.2); Platelet Count Result 277 k/mm3 (150-375); Red Blood Count 3.92 M/mm3 (4.6-6.20); Red Cell Distribution Width 15.2 % (11.5-14.5)
[2021-08-13] MEDS: CENTRAL LINE FLUSH 10 ML IV PUSH ×3 (06:01→20:39)
[2021-08-13 06:15] LABS: Albumin Level 2.9 g/dL (3.5-5.1); Anion Gap 6 mmol/L (8-16); Blood Urea Nitrogen 21 mg/dL (9-20); CRP 2.2 mg/dL (<1.0); Calcium 8.4 mg/dL (8.4-10.2); Carbon Dioxide 30 mmol/L (22-30); Chloride 99 mmol/L (98-107); Estimated CRCL calculation 109 ml/min; Estimated Glomerular Filt Rate > 60; Glucose 100 mg/dL (65-110); Magnesium 1.9 mg/dL (1.6-2.3); Phosphorus 4.9 mg/dL (2.5-4.5); Potassium 5.5 mmol/L (3.4-5.0); Sodium 135 mmol/L (137-145)
--- NOTE | 2021-08-13 08:01 | PM.IMPN ---
Progress Note: A&P Assessment and Plan (1) Acute hypoxemic respiratory failure: Code(s): J96.01 - Acute respiratory failure with hypoxia Status: Acute Assessment and Plan: Previously healthy 66-year old patient who developed symptoms of COVID around 07/09 and tested positive on 07/12. He is unvaccinated. Chest x-ray on admission showing patchy bilateral PNA. He has been placed in isolation per protocol. He was started on dexamethasone and remdesivir both of which completed on 07/26 after 10 days. Baricitinib added 07/19 due to the worsening hypoxia and completed 08/01. Procalcitonin 0.1. He is tolerating being up to the side of the bed. Changed from Airvo to nasal cannula on 08/09 and tolerated this change. NRB mask available as needed. HRCT chest 08/10 showing diffuse bilateral peripheral nearly confluent airspace disease consistent with subacute COVID pneumonia (ILD not able to be definitively evaluated). Prednisone started 08/11. He has clinically worsened on 08/12, requiring Airvo. Etiology of his worsening respiratory failure is unclear. Consider PE/mucous plugging/CHF/aspiration/PTX/PNA/anemia but no symptoms to suggest one over the other. He remains on lovenox for VTE prophylaxis. Will check labs and CXR; consider ST eval; ABG. Continue supportive care and wean O2 as tolerated. Add Nebs. Encouraged IS use and to lay prone as he tolerates. Continue PT/OT for now. Encouraged him to be OOB to the chair. On today's exam mild rales can be heard. Per respiratory we will give a single dose of IV lasix. CTA chest showing no PE and stable diffuse lung disease. Procalcitonin normal. CRP better at 2.2. WBC plateaued at 12K related to the steroids. Hgb is fluctuating : 8.7->9.1->8.6.. ABG showing pO2 at 119 on 08/12. Repeat ABG in AM. Wean O2 as tolerated. (2) UTI (urinary tract infection): Code(s): N39.0 - Urinary tract infection, site not specified Status: Acute Assessment and Plan: Patient developed fever to 103.5 on 08/08. UA was concerning for UTI. UCx collected later and Rocephin started. UCx growing Klebsiella oxytoca sensitive to Rocephin. Fevers spiked professor of early childhood education hours of 08/08 and BCx obtained and are NGTD. Chest CT 08/10 showing subacute COVID but no evidence of PNA. Day 7 of antibiotics. Resolving (3) Pneumonia due to COVID-19 virus: Code(s): U07.1 - COVID-19; J12.82 - Pneumonia due to coronavirus disease 2019 Status: Acute Assessment and Plan: Please see above (4) Anemia: Code(s): D64.9 - Anemia, unspecified Status: Acute Assessment and Plan: Hgb has been drifting down since admission to the 8-9 range. Could be iatrogenic. Iron studies showing elevated Ferritin (related to COVID), low TIBC but normal iron and sat. Albumin remains low. He remains on dietary supplements. No evidence of acute blood loss. He is on DAPT. B12 normal. Follow for now. Continue iron (5) Urinary retention: Code(s): R33.9 - Retention of urine, unspecified Status: Acute Assessment and Plan: Patient complaining of urine retention with straight cath 08/07 showing residual urine more than 400 cc. Continue flomax 0.4 mg daily started 08/07. No recurrence. (6) STEMI (ST elevation myocardial infarction): Onset Date: ~07/2021 Code(s): I21.3 - ST elevation (STEMI) myocardial infarction of unspecified site Status: Acute Assessment and Plan: Patient developed chest pain on 07/23 with EKG showing acute STEMI. He was taken to the photofinishing laboratory worker and he is now status post PCI, aspiration thrombectomy and stenting of RCA. Patient was treated with Integrilin infusion. He was given conservative amounts of IV fluids for renal protection in light of COVID pneumonia after contrast. Echo showing EF 65-70% and mild-mod without wall motion abnormalities. Limited Echo performed showing EF 55-60%, mild concentric LVH, RV enlargement with decrease RV systolic funct
[2021-08-13] MEDS: FLUTICASONE PROPIONATE 0.05% NA SPR 16 GM BTL (*BKC) 2 SPRAY NASAL (09:43)
[2021-08-13] MEDS: BENZONATATE 100 MG CAPSULE PO (09:43)
[2021-08-13] MEDS: ENOXAPARIN 40 MG/0.4 ML SYRINGE SUB-Q (09:43)
[2021-08-13] MEDS: guaiFENesin 600 MG/DEXTROMETHORPHAN 30 MG SR TAB 12 HR 1 TAB PO ×2 (09:43→20:32)
[2021-08-13] MEDS: predniSONE 20 MG TABLET 40 MG PO (09:44)
[2021-08-13] MEDS: ATORVASTATIN 40 MG TABLET 80 MG PO (09:44)
[2021-08-13] MEDS: FAMOTIDINE 20 MG TABLET PO ×2 (09:44→20:32)
[2021-08-13] MEDS: FERROUS SULFATE 324 MG TABLET PO ×2 (09:44→16:20)
[2021-08-13] MEDS: TAMSULOSIN HCL 0.4 MG CAPSULE PO (09:44)
[2021-08-13] MEDS: TICAGRELOR 90 MG TABLET PO ×2 (09:44→20:39)
[2021-08-13] MEDS: METOPROLOL TARTRATE 12.5 MG TABLET PO ×2 (09:44→20:39)
[2021-08-13] MEDS: ASPIRIN 81 MG ENTERIC TABLET PO (09:44)
[2021-08-13] MEDS: guaiFENesin/CODEINE (*CRX) 200/20 MG 10 ML SYRUP PO ×2 (09:45→20:23)
--- NOTE | 2021-08-13 11:10 | PM.PNPUL ---
Progress Note: A&P Assessment and Plan (1) Acute hypoxemic respiratory failure: Code(s): J96.01 - Acute respiratory failure with hypoxia Status: Acute Assessment and Plan: Respiratory status unchanged over last 24 hours Oxygen flow down to 8 liters/minute today. On auscultation, basilar crackles persist with otherwise no new findings. CRP trending down.In view of elevated BNP, I would consider 20 mg of Lasix IV once. Continue with current prednisone regimen, DVT prophylaxis, out of bed to chair, ambulate in room. (2) Pneumonia due to COVID-19 virus: Code(s): U07.1 - COVID-19; J12.82 - Pneumonia due to coronavirus disease 2019 Status: Acute (3) Abnormal chest CT: Code(s): R93.89 - Abnormal findings on diagnostic imaging of other specified body structures Status: Acute Subjective Date/time seen: 08/13/21 11:10 patient without any new respiratory symptoms. Remaining on high-flow nasal cannula at 8-10 liters/minute. O2 saturation 94%. Review of Systems Review of Systems: All systems reviewed & are unremarkable except as noted in HPI and below (H & P) Exam Narrative: GENERAL APPEARANCE: Well developed, well nourished, alert and cooperative, and appears to be in mild respiratory distress while on supplemental oxygen at 12 liters/minute. SKIN: Inspection of the skin reveals no rashes, ulcerations or petechiae. HEENT: Sclerae anicteric and conjunctivae pink and moist. Extraocular movements were intact and pupils were equal, round, and reactive to light. NECK: Supple. There was no thyroid enlargement, and no tenderness, or masses were felt. CHEST: Normal AP diameter and normal contour without any kyphoscoliosis. LUNGS: Auscultation of the lungs revealed crackles at bases posteriorly and also lateral chest, no wheezing CARDIAC: There was a regular rate and rhythm without any murmurs, gallops, rubs. ABDOMEN: Soft and nontender with normal bowel sounds. There was no organomegaly. LYMPH NODES: No lymphadenopathy was appreciated in the neck. EXTREMITIES: No cyanosis, clubbing or edema. NEUROLOGIC: Alert and oriented x 3. Normal affect. Objective Data Vital Signs Vital Signs: Vital Signs - 24 hr 08/12/21 12:00 08/12/21 14:00 08/12/21 14:32 Temperature 36.7 C Pulse Rate 96 92 Respiratory Rate 20 Blood Pressure 110/68 Pulse Oximetry 98 99 99 08/12/21 16:00 08/12/21 18:00 08/12/21 19:58 Temperature 36.6 C 37.2 C Pulse Rate 91 95 97 Respiratory Rate 18 20 Blood Pressure 121/72 116/63 Pulse Oximetry 100 93 08/12/21 20:00 08/12/21 20:31 08/12/21 21:01 Temperature Pulse Rate 85 90 87 Respiratory Rate 24 H Blood Pressure Pulse Oximetry 100 98 08/12/21 21:59 08/12/21 23:58 08/13/21 00:00 Temperature 36.6 C Pulse Rate 81 89 80 Respiratory Rate 20 Blood Pressure 127/77 Pulse Oximetry 96 99 08/13/21 02:00 08/13/21 04:00 08/13/21 06:00 Temperature 37.1 C Pulse Rate 75 73 59 L Respiratory Rate 20 Blood Pressure 139/80 Pulse Oximetry 100 08/13/21 08:00 08/13/21 08:26 08/13/21 09:13 Temperature 36.6 C Pulse Rate 78 96 Respiratory Rate 20 Blood Pressure 119/76 Pulse Oximetry 91 93 92 08/13/21 09:44 08/13/21 10:00 Temperature Pulse Rate 98 94 Respiratory Rate Blood Pressure Pulse Oximetry Intake/Output Intake/Output: Intake & Output 08/10/21 08/11/21 08/12/21 08/13/21 23:59 23:59 23:59 23:59 Intake Total 770 3250 3220 600 Output Total 2300 4270 1830 1600 Balance -1530 -1020 1390 -1000 Meds/Results Medications: Active Medications Generic Name Dose Route Start Last Admin Trade Name Freq PRN Reason Stop Dose Admin Acetaminophen 650 mg 08/08/21 05:18 08/12/21 20:54 Acetaminophen 325 Mg Tablet PO 650 mg Q4H PRN Administration Mild Pain (1-5) Or Fever Al Hydrox/Mg Hydrox/Simethicone 30 ml 07/23/21 14:19 Mag Hydrox/Al Hydrox/Simeth 30 Ml Udc PO Q4H PRN I
--- NOTE | 2021-08-13 11:19 | PM.PNCARD ---
Progress Note: A&P Assessment and Plan (1) STEMI (ST elevation myocardial infarction): Code(s): I21.3 - ST elevation (STEMI) myocardial infarction of unspecified site Status: Acute Assessment and Plan: Status post Inferior ST-elevation IA likely complication of COVID-19 infection with acute plaque rupture and large thrombus burden status post aspiration thrombectomy and successful [id number] Victor Manuel GABRIEL implantation proximal RCA. Continue dual antiplatelet therapy without interruption with aspirin and Brilinta, high-dose statin. Low-dose beta-jamarcus initiated, tolerating reasonably well at this time. EF 65-70% [id number] aortic stenosis on echocardiogram. Patient reasonably stable from cardiac perspective, the may be mildly volume overloaded as per below. (2) Pneumonia due to COVID-19 virus: Code(s): U07.1 - COVID-19; J12.82 - Pneumonia due to coronavirus disease 2018 Status: Acute Assessment and Plan: Per hospitalist. Continue supportive care for COVID-19 infection. s/p Dexamethasone, Remdesivir, Baricitinib, Enoxaparin 40mg SQ q12hr. Isolatoin precautions. (3) Acute hypoxemic respiratory failure: Code(s): J96.01 - Acute respiratory failure with hypoxia Status: Acute Assessment and Plan: Now requiring high flow oxygen once again. 08/12/2021 was on 45L, now down to 10 L high-flow. Patient's pleural effusions are small but new compared to the prior CT scan. He notes some pedal edema. ProBNP is somewhat elevated at 2600. He may have some volume overload. I will try Lasix 20 mg IV push x1 to see if we can get any further improvement of oxygenation. Subjective Date/time seen: 08/13/21 11:19 Interval history: Acute thrombotic inferior wall myocardial infarction in the setting of COVID pneumonia. Patient underwent emergency revascularization involving extraction thrombectomy and stenting of the large dominant RCA. Patient remains in the hospital since then because of his COVID pneumonia. Oxygen requirements are declining. Slightly higher today. Patient remains totally asymptomatic and in very good spirits. He is highly motivated. Date of service 08/05/2021: Patient asymptomatic somewhat frustrated that his oxygen requirements have somewhat plateaued in the last 2-3 days. No ischemic symptomatology or cardiac complications following the infarction from several weeks ago. Date of service 08/06/2021: No chest pain. He has been up a little bit today and is tired but again feels like he is making slow but progressive improvement. He does have some shortness of breath. No swelling Date of service 08/07/2021: Mildly hypotensive today. High-flow oxygen still in place. Date of service 08/09/2021: Doing okay. No chest pain or shortness of breath at rest Date of service 08/10/2021: No cardiovascular complaints or concerns. The patient's oxygenation seems to have plateaued he is requiring about 15 L of nasal cannula oxygen and does desaturate with modest activity. Date of service 08/11/2021: Continues to make slow progress. Feeling okay today. Happy to be out of the ICU and have the ability to get out of bed. Complaining of nasal congestion. Date of service 08/12/2021: Increasing oxygen requirements this morning - now on 45L high flow at 93%. Some insignificant pauses and mild bradycardia noted on telemetry overnight - apparently his oxygen saturation at the time was in the 80's. He feels o.k. but is discouraged that he is requiring more oxygen once again. Date of service 08/13/2021: Oxygen requirements have come down some, now on high-flow nasal cannula at 10 L. was discouraged but feels a bit better today. Telemetry shows sinus tachycardia rate 100/110 this morning. No significant bradycardia. Thinks his feet are little swollen. Review of Systems Constitutional: Constitutional: Denies weakness Eyes: Eyes: Reports no additional eye complaints ENT: Denies epistaxis
[2021-08-13] MEDS: FUROSEMIDE INJ 40 MG/4 ML VIAL 20 MG IV PUSH (11:51)
[2021-08-13] MEDS: SALINE 0.65% NAS SOLN 44 ML BTL 1 SPRAY NASAL (18:53)
[2021-08-13] MEDS: DOCUSATE SODIUM 100 MG CAPSULE PO (20:32)
[2021-08-13] MEDS: ACETAMINOPHEN 325 MG TABLET 650 MG PO (20:40)
[2021-08-13] MEDS: MELATONIN 5 MG TABLET PO (20:40)
[2021-08-14] VITALS (17 sets, daily range): BP systolic 110–134; BP diastolic 65–82; PULSE 62–98; RESP 16–22; TEMP 36–36.7; O2SAT 89–100
[2021-08-14] MEDS: CENTRAL LINE FLUSH 10 ML IV PUSH ×3 (04:59→22:26)
[2021-08-14] MEDS: SALINE 0.65% NAS SOLN 44 ML BTL 1 SPRAY NASAL (09:19)
[2021-08-14] MEDS: METOPROLOL TARTRATE 12.5 MG TABLET PO ×2 (09:20→21:14)
[2021-08-14] MEDS: TICAGRELOR 90 MG TABLET PO ×2 (09:20→21:13)
[2021-08-14] MEDS: ASPIRIN 81 MG ENTERIC TABLET PO (09:20)
[2021-08-14] MEDS: predniSONE 20 MG TABLET 40 MG PO (09:20)
[2021-08-14] MEDS: FERROUS SULFATE 324 MG TABLET PO ×2 (09:20→17:09)
[2021-08-14] MEDS: BENZONATATE 100 MG CAPSULE PO ×4 (09:20→21:13)
[2021-08-14] MEDS: ATORVASTATIN 40 MG TABLET 80 MG PO (09:20)
[2021-08-14] MEDS: guaiFENesin 600 MG/DEXTROMETHORPHAN 30 MG SR TAB 12 HR 1 TAB PO ×2 (09:20→21:13)
[2021-08-14] MEDS: FAMOTIDINE 20 MG TABLET PO ×2 (09:20→21:13)
[2021-08-14] MEDS: FLUTICASONE PROPIONATE 0.05% NA SPR 16 GM BTL (*BKC) 2 SPRAY NASAL (09:21)
[2021-08-14] MEDS: TAMSULOSIN HCL 0.4 MG CAPSULE PO (09:21)
[2021-08-14] MEDS: ENOXAPARIN 40 MG/0.4 ML SYRINGE SUB-Q (09:21)
[2021-08-14] MEDS: guaiFENesin/CODEINE (*CRX) 200/20 MG 10 ML SYRUP PO (09:22)
--- NOTE | 2021-08-14 10:58 | PM.PNPUL ---
Progress Note: A&P Assessment and Plan (1) Acute hypoxemic respiratory failure: Code(s): J96.01 - Acute respiratory failure with hypoxia Status: Acute Assessment and Plan: Respiratory status slowly improving over the last 4 5 days, with FiO2 also decreasing to about 6.5 liters/minute. Has diuresed following IV Lasix yesterday. On lung auscultation evidence of fewer crackles at bases compared to couple days ago. CRP trending down. No definite clearing of infiltrates on recent chest x-ray. Continue with current prednisone regimen, DVT prophylaxis, out of bed to chair, ambulate in room. (2) Pneumonia due to COVID-19 virus: Code(s): U07.1 - COVID-19; J12.82 - Pneumonia due to coronavirus disease 2019 Status: Acute (3) Abnormal chest CT: Code(s): R93.89 - Abnormal findings on diagnostic imaging of other specified body structures Status: Acute Subjective Date/time seen: 08/14/21 10:58 Patient without any new respiratory symptoms. Spent more than 8 hours out of bed yesterday also ambulating in room oxygen down to 6.5 liters/minute today. Was given IV Lasix yesterday with a good urinary output. Review of Systems Review of Systems: All systems reviewed & are unremarkable except as noted in HPI and below (H & P) Exam Narrative: GENERAL APPEARANCE: Well developed, well nourished, alert and cooperative, and appears to be in mild respiratory distress while on supplemental oxygen at 6.5 liters/minute. SKIN: Inspection of the skin reveals no rashes, ulcerations or petechiae. HEENT: Sclerae anicteric and conjunctivae pink and moist. Extraocular movements were intact and pupils were equal, round, and reactive to light. NECK: Supple. There was no thyroid enlargement, and no tenderness, or masses were felt. CHEST: Normal AP diameter and normal contour without any kyphoscoliosis. LUNGS: Auscultation of the lungs revealed fewer crackles at bases posteriorly, no wheezing CARDIAC: There was a regular rate and rhythm without any murmurs, gallops, rubs. ABDOMEN: Soft and nontender with normal bowel sounds. There was no organomegaly. LYMPH NODES: No lymphadenopathy was appreciated in the neck. EXTREMITIES: No cyanosis, clubbing or edema. NEUROLOGIC: Alert and oriented x 3. Normal affect. Objective Data Vital Signs Vital Signs: Vital Signs - 24 hr 08/13/21 12:00 08/13/21 12:24 08/13/21 14:00 Temperature 36.2 C L Pulse Rate 94 93 91 Respiratory Rate 22 H Blood Pressure 103/63 Pulse Oximetry 91 95 08/13/21 15:16 08/13/21 16:00 08/13/21 17:29 Temperature 36.6 C Pulse Rate 98 85 Respiratory Rate 24 H Blood Pressure 101/64 Pulse Oximetry 92 92 08/13/21 20:00 08/13/21 20:39 08/13/21 21:30 Temperature 36.2 C L Pulse Rate 86 93 103 H Respiratory Rate 20 Blood Pressure 118/77 Pulse Oximetry 94 95 08/13/21 22:00 08/13/21 23:45 08/14/21 00:00 Temperature 36.1 C L Pulse Rate 68 72 Respiratory Rate 20 Blood Pressure 118/72 Pulse Oximetry 99 100 08/14/21 02:00 08/14/21 04:00 08/14/21 06:00 Temperature 36.1 C L Pulse Rate 83 62 65 Respiratory Rate 16 Blood Pressure 134/82 Pulse Oximetry 96 08/14/21 08:00 08/14/21 09:20 08/14/21 10:00 Temperature 36.0 C L Pulse Rate 85 88 98 Respiratory Rate 16 Blood Pressure 122/72 Pulse Oximetry 94 Intake/Output Intake/Output: Intake & Output 08/11/21 08/12/21 08/13/21 08/14/21 23:59 23:59 23:59 23:59 Intake Total 3250 3220 2090 1320 Output Total 4270 1830 2950 1550 Balance -1020 1390 -860 -230 Meds/Results Medications: Active Medications Generic Name Dose Route Start Last Admin Trade Name Freq PRN Reason Stop Dose Admin Acetaminophen 650 mg 08/08/21 05:18 08/13/21 20:40 Acetaminophen 325 Mg Tablet PO 650 mg Q4H PRN Administration Mild Pain (1-5) Or Fever Al Hydrox/Mg Hydrox/Simethicone 30 ml 07/23/21 14:19 Mag Hydrox/Al Hydrox/Simeth 30 Ml Udc PO
--- NOTE | 2021-08-14 11:03 | PM.IMPN ---
Progress Note: A&P Assessment and Plan (1) Acute hypoxemic respiratory failure: Code(s): J96.01 - Acute respiratory failure with hypoxia Status: Acute Assessment and Plan: Previously healthy 66-year old patient who developed symptoms of COVID around 07/09 and tested positive on 07/12. He is unvaccinated. Chest x-ray on admission showing patchy bilateral PNA. He has been placed in isolation per protocol. He was started on dexamethasone and remdesivir both of which completed on 07/26 after 10 days. Baricitinib added 07/19 due to the worsening hypoxia and completed 08/01. Procalcitonin 0.1. He is tolerating being up to the side of the bed. Changed from Airvo to nasal cannula on 08/09 and tolerated this change. NRB mask available as needed. HRCT chest 08/10 showing diffuse bilateral peripheral nearly confluent airspace disease consistent with subacute COVID pneumonia (ILD not able to be definitively evaluated). Prednisone started 08/11. He has clinically worsened on 08/12, requiring Airvo. Etiology of his worsening respiratory failure is unclear. Consider PE/mucous plugging/CHF/aspiration/PTX/PNA/anemia but no symptoms to suggest one over the other. He remains on lovenox for VTE prophylaxis. Will check labs and CXR; consider ST eval; ABG. Continue supportive care and wean O2 as tolerated. Add Nebs. Encouraged IS use and to lay prone as he tolerates. Continue PT/OT for now. Encouraged him to be OOB to the chair. On yesterday's exam mild rales could be heard. Per respiratory we will give a single dose of 20 mg IV lasix. CTA chest showing no PE and stable diffuse lung disease. Procalcitonin normal. CRP better at 2.2. WBC plateaued at 12K related to the steroids. Hgb is fluctuating : 8.7->9.1->8.6.. ABG showing pO2 at 119 on 08/12. Repeat ABG in AM. Wean O2 as tolerated. (2) UTI (urinary tract infection): Code(s): N39.0 - Urinary tract infection, site not specified Status: Acute Assessment and Plan: Patient developed fever to 103.5 on 08/08. UA was concerning for UTI. UCx collected later and Rocephin started. UCx growing Klebsiella oxytoca sensitive to Rocephin. Fevers spiked utility forester hours of 08/08 and BCx obtained and are NGTD. Chest CT 08/10 showing subacute COVID but no evidence of PNA. Day 7 of antibiotics. Currently patient hemodynamically stable and afebrile. Continue Rocephin. (3) Pneumonia due to COVID-19 virus: Code(s): U07.1 - COVID-19; J12.82 - Pneumonia due to coronavirus disease 2019 Status: Acute Assessment and Plan: Please see above (4) Anemia: Code(s): D64.9 - Anemia, unspecified Status: Acute Assessment and Plan: Hgb has been drifting down since admission to the 8-9 range. Could be iatrogenic, due to daily blood draws. Iron studies showing elevated Ferritin (related to COVID), low TIBC but normal iron and sat. Albumin remains low. He remains on dietary supplements. No evidence of acute blood loss. He is on DAPT. B12 normal. Follow for now. Continue oral iron supplementation. (5) Urinary retention: Code(s): R33.9 - Retention of urine, unspecified Status: Acute Assessment and Plan: Patient complaining of urine retention with straight cath 08/07 showing residual urine more than 400 cc. Continue flomax 0.4 mg daily started 08/07. No recurrence. (6) STEMI (ST elevation myocardial infarction): Onset Date: ~07/2021 Code(s): I21.3 - ST elevation (STEMI) myocardial infarction of unspecified site Status: Acute Assessment and Plan: Patient developed chest pain on 07/23 with EKG showing acute STEMI. He was taken to the manager cath lab and he is now status post PCI, aspiration thrombectomy and stenting of RCA. Patient was treated with Integrilin infusion. He was given conservative amounts of IV fluids for renal protection in light of COVID pneumonia after contrast. Echo showing EF 65-70% and mild-mod without wall motio
[2021-08-14 12:13] LABS: Basophils Absolute Auto 0.1 K/mm3 (0.0-0.1); Basophils Percent Auto 0.3 % (0.2-1.2); Eosinophils Absolute Auto 0.1 K/mm3 (0-0.3); Eosinophils Percent Auto 0.6 % (0-4.4); Hematocrit 30.6 % (42.0-52.0); Hemoglobin 9.7 g/dL (14.0-18.0); Immature Granulocyte Absolute 0.26 K/mm3 (0.00-0.031); Immature Granulocyte Percent A 1.6 % (0-0.5); Lymphocytes Absolute Auto 3.53 K/mm3 (0.9-3.2); Lymphocytes Percent Auto 22.2 % (18.3-44.2); Mean Corpuscular HGB Conc 31.7 g/dl (32-36); Mean Corpuscular Volume 69.4 fl (80-100); Monocytes Absolute Auto 0.8 K/mm3 (0.1-0.6); Monocytes Percent Auto 5.2 % (2.6-8.5); Neutrophils Absolute Auto 11.1 K/mm3 (1.3-6.7); Neutrophils Percent Auto 70.1 % (45.5-73.1); Platelet Count Result 338 k/mm3 (150-375); Red Blood Count 4.41 M/mm3 (4.6-6.20); Red Cell Distribution Width 15.3 % (11.5-14.5); White Blood Count 15.9 K/mm3 (4.5-10.0)
[2021-08-14 12:24] LABS: Anion Gap 6 mmol/L (8-16); Blood Urea Nitrogen 20 mg/dL (9-20); Calcium 8.7 mg/dL (8.4-10.2); Carbon Dioxide 30 mmol/L (22-30); Chloride 98 mmol/L (98-107); Estimated CRCL calculation 109 ml/min; Estimated Glomerular Filt Rate > 60; Glucose 189 mg/dL (65-110); Potassium 4.4 mmol/L (3.4-5.0); Sodium 134 mmol/L (137-145)
--- NOTE | 2021-08-14 13:17 | PM.PNCARD ---
Progress Note: A&P Assessment and Plan (1) STEMI (ST elevation myocardial infarction): Onset Date: ~07/2021 Code(s): I21.3 - ST elevation (STEMI) myocardial infarction of unspecified site Status: Acute Assessment and Plan: Status post Inferior ST-elevation [place] likely complication of COVID-19 infection with acute plaque rupture and large thrombus burden status post aspiration thrombectomy and successful 5.0x22mm Victor Manuel GABRIEL implantation proximal RCA. Continue dual antiplatelet therapy without interruption with aspirin and Brilinta, high-dose statin. Low-dose beta-jamarcus initiated, tolerating reasonably well at this time. EF 65-70% [id number] aortic stenosis on echocardiogram. Patient reasonably stable from cardiac perspective, the may be mildly volume overloaded as per below. (2) Pneumonia due to COVID-19 virus: Code(s): U07.1 - COVID-19; J12.82 - Pneumonia due to coronavirus disease 2018 Status: Acute Assessment and Plan: Per hospitalist. Continue supportive care for COVID-19 infection. s/p Dexamethasone, Remdesivir, Baricitinib, Enoxaparin 40mg SQ q12hr. Isolatoin precautions. (3) Acute hypoxemic respiratory failure: Code(s): J96.01 - Acute respiratory failure with hypoxia Status: Acute Assessment and Plan: Oxygen requirements increased a few days ago. Patient's pleural effusions are small but new compared to the prior CT scan. He notes some pedal edema. ProBNP is somewhat elevated at 2600. He may have some volume overload. Given furosemide 20 mg IV push yesterday with improvement of oxygenation, now down to 6 L Will give 1 more dose of furosemide today Check BNP tomorrow Subjective Date/time seen: 08/14/21 13:17 Interval history: Acute thrombotic inferior wall myocardial infarction in the setting of COVID pneumonia. Patient underwent emergency revascularization involving extraction thrombectomy and stenting of the large dominant RCA. Patient remains in the hospital since then because of his COVID pneumonia. Oxygen requirements are declining. Slightly higher today. Patient remains totally asymptomatic and in very good spirits. He is highly motivated. Date of service 08/05/2021: Patient asymptomatic somewhat frustrated that his oxygen requirements have somewhat plateaued in the last 2-3 days. No ischemic symptomatology or cardiac complications following the infarction from several weeks ago. Date of service 08/06/2021: No chest pain. He has been up a little bit today and is tired but again feels like he is making slow but progressive improvement. He does have some shortness of breath. No swelling Date of service 08/07/2021: Mildly hypotensive today. High-flow oxygen still in place. Date of service 08/09/2021: Doing okay. No chest pain or shortness of breath at rest Date of service 08/10/2021: No cardiovascular complaints or concerns. The patient's oxygenation seems to have plateaued he is requiring about 15 L of nasal cannula oxygen and does desaturate with modest activity. Date of service 08/11/2021: Continues to make slow progress. Feeling okay today. Happy to be out of the ICU and have the ability to get out of bed. Complaining of nasal congestion. Date of service 08/12/2021: Increasing oxygen requirements this morning - now on 45L high flow at 93%. Some insignificant pauses and mild bradycardia noted on telemetry overnight - apparently his oxygen saturation at the time was in the 80's. He feels o.k. but is discouraged that he is requiring more oxygen once again. Date of service 08/13/2021: Oxygen requirements have come down some, now on high-flow nasal cannula at 10 L. was discouraged but feels a bit better today. Telemetry shows sinus tachycardia rate 100/110 this morning. No significant bradycardia. Thinks his feet are little swollen. Given Lasix 20 mg IV push x1. Date of service 08/14/2021: Patient is feeling better, oxygen requirements pk
[2021-08-14] MEDS: FUROSEMIDE INJ 40 MG/4 ML VIAL 20 MG IV PUSH (14:06)
[2021-08-14] MEDS: ACETAMINOPHEN 325 MG TABLET 650 MG PO (21:13)
[2021-08-14] MEDS: MELATONIN 5 MG TABLET PO (21:13)
[2021-08-15] VITALS (24 sets, daily range): BP systolic 100–129; BP diastolic 59–78; PULSE 65–100; RESP 18–26; TEMP 35.5–36.5; O2SAT 91–100
[2021-08-15] MEDS: CENTRAL LINE FLUSH 10 ML IV PUSH ×3 (06:25→20:55)
[2021-08-15 06:28] LABS: Basophils Absolute Auto 0.1 K/mm3 (0.0-0.1); Basophils Percent Auto 0.3 % (0.2-1.2); Eosinophils Absolute Auto 0.1 K/mm3 (0-0.3); Eosinophils Percent Auto 0.6 % (0-4.4); Hematocrit 29.1 % (42.0-52.0); Hemoglobin 9.2 g/dL (14.0-18.0); Immature Granulocyte Absolute 0.32 K/mm3 (0.00-0.031); Immature Granulocyte Percent A 2.1 % (0-0.5); Lymphocytes Absolute Auto 5.47 K/mm3 (0.9-3.2); Lymphocytes Percent Auto 35.5 % (18.3-44.2); Mean Corpuscular HGB Conc 31.6 g/dl (32-36); Mean Corpuscular Hemoglobin 21.9 pg (26-34); Mean Corpuscular Volume 69.3 fl (80-100); Mean Platelet Volume 9.4 fl (7.4-10.4); Monocytes Absolute Auto 0.8 K/mm3 (0.1-0.6); Monocytes Percent Auto 5.3 % (2.6-8.5); Neutrophils Absolute Auto 8.7 K/mm3 (1.3-6.7); Neutrophils Percent Auto 56.2 % (45.5-73.1); Platelet Count Result 320 k/mm3 (150-375); Red Cell Distribution Width 15.7 % (11.5-14.5); White Blood Count 15.4 K/mm3 (4.5-10.0)
[2021-08-15 07:27] LABS: Alveolar/Arterial O2 Gradient 158.1 mmHg; Base Excess ABG 7.8 mEq/l (+/-2.0); Device NASAL CANNULA; Fractional Inspired Oxygen 40 %; HCO3 ABG 32.1 mEq/l (22.0-26.0); Modified Allen's Test Pass; Oxygen Content ABG 13.9 %vol (16.0-22.0); Oxygen Saturation ABG 96.1 % (95.0-100.0); Oxyhemoglobin 93.7 % THb (90.0-100.0); PCO2 ABG 43.8 mmHg (35.0-45.0); PO2 ABG 76.7 mmHg (80.0-100.0); PO2 FiO2 Ratio Arterial Blood 1.92 %; Site Drawn LEFT RADIAL; Total Hemoglobin 10.5 g/dL (12.0-18.0); pH ABG 7.483 (7.350-7.450)
[2021-08-15] MEDS: ENOXAPARIN 40 MG/0.4 ML SYRINGE SUB-Q (08:03)
[2021-08-15] MEDS: ATORVASTATIN 40 MG TABLET 80 MG PO (08:04)
[2021-08-15] MEDS: FAMOTIDINE 20 MG TABLET PO ×2 (08:04→20:48)
[2021-08-15] MEDS: METOPROLOL TARTRATE 12.5 MG TABLET PO ×2 (08:04→20:48)
[2021-08-15] MEDS: guaiFENesin 600 MG/DEXTROMETHORPHAN 30 MG SR TAB 12 HR 1 TAB PO ×2 (08:05→20:54)
[2021-08-15] MEDS: predniSONE 20 MG TABLET 40 MG PO (08:05)
[2021-08-15] MEDS: TICAGRELOR 90 MG TABLET PO ×2 (08:05→20:48)
[2021-08-15] MEDS: ASPIRIN 81 MG ENTERIC TABLET PO (08:05)
[2021-08-15] MEDS: FERROUS SULFATE 324 MG TABLET PO ×2 (08:05→17:36)
[2021-08-15] MEDS: TAMSULOSIN HCL 0.4 MG CAPSULE PO (08:05)
[2021-08-15] MEDS: FLUTICASONE PROPIONATE 0.05% NA SPR 16 GM BTL (*BKC) 2 SPRAY NASAL (08:06)
[2021-08-15 08:54] LABS: Anion Gap 4 mmol/L (8-16); Blood Urea Nitrogen 19 mg/dL (9-20); Calcium 8.8 mg/dL (8.4-10.2); Carbon Dioxide 33 mmol/L (22-30); Chloride 98 mmol/L (98-107); Estimated CRCL calculation 95 ml/min; Estimated Glomerular Filt Rate > 60; Glucose 80 mg/dL (65-110); Potassium 4.1 mmol/L (3.4-5.0); Sodium 135 mmol/L (137-145)
[2021-08-15 09:00] LABS: NT Pro B Type Natriuretic Pept 2440 pg/mL (5-100)
--- NOTE | 2021-08-15 09:22 | PM.PNCARD ---
Progress Note: A&P Assessment and Plan (1) STEMI (ST elevation myocardial infarction): Onset Date: ~07/2021 Code(s): I21.3 - ST elevation (STEMI) myocardial infarction of unspecified site Status: Acute Assessment and Plan: Status post Inferior ST-elevation [place] likely complication of COVID-19 infection with acute plaque rupture and large thrombus burden status post aspiration thrombectomy and successful 5.0x22mm Victor Manuel GABRIEL implantation proximal RCA. Continue dual antiplatelet therapy without interruption with aspirin and Brilinta, high-dose statin. Low-dose beta-jamarcus initiated, tolerating reasonably well at this time. EF 65-70% [id number] aortic stenosis on echocardiogram. (2) Diastolic heart failure: Code(s): I50.30 - Unspecified diastolic (congestive) heart failure Status: Acute Assessment and Plan: Patient reasonably stable from cardiac perspective, mildly volume overloaded resolved with IV Lasix 20 mg x 2 currently euvolemic. Continue monitor volume status. ProBNP was somewhat elevated at 2600 and was clinically mildly volume overloaded. He was given furosemide 20 mg IV x2 total with improvement in oxygenation, now down to <6 L Cautious diuresis in general, will hold off today. Monitor volume status. PRN Lasix. EF preserved. RV dysfunction in addition to hypoxic respiratory failure may be contributing but he is hemodynamically stable at this time. (3) SVT (supraventricular tachycardia): Code(s): I47.1 - Supraventricular tachycardia Status: Acute Assessment and Plan: Stable, self-limited, asymptomatic. Increase Metoprolol to 25 mg b.i.d.. Continue supportive care and clinical observation for now. Discussed at length with the patient. Electrolytes stable as is renal function. (4) Pneumonia due to COVID-19 virus: Code(s): U07.1 - COVID-19; J12.82 - Pneumonia due to coronavirus disease 2018 Status: Acute Assessment and Plan: Per hospitalist. Continue supportive care for COVID-19 infection. s/p Dexamethasone, Remdesivir, Baricitinib, Enoxaparin 40mg SQ q12hr. He remains on Isolation precautions. (5) Acute hypoxemic respiratory failure: Code(s): J96.01 - Acute respiratory failure with hypoxia Status: Acute Assessment and Plan: Oxygen requirements increased a few days ago. Patient's pleural effusions are small but new compared to the prior CT scan. He notes some pedal edema. Subjective Date/time seen: Date of service: 08/15/21 09:22 Interval history: Acute thrombotic inferior wall myocardial infarction in the setting of COVID pneumonia. Patient underwent emergency revascularization involving extraction thrombectomy and stenting of the large dominant RCA. Patient remains in the hospital since then because of his COVID pneumonia and severe hypoxic respiratory failure. Today, he states he is feeling quite well. Denies chest pain. States he slept very well last night. He feels that he is definitely improving and moving the right direction. He has no pains, dizziness or complaints of shortness of breath at this time. He had brief SVT asymptomatic overnight heart rate 150-170 beats per minute lasting 4-6 seconds. Very appreciative of his care. Review of Systems Review of Systems: All systems reviewed & are unremarkable except as noted in HPI and below Constitutional: Constitutional: Reports as per HPI and Reports no additional constitutional complaints Eyes: Eyes: Reports as per HPI and Reports no additional eye complaints ENT: Reports system reviewed and no additional complaints, except as documented and Reports as per HPI Cardiovascular: Cardiovascular: Reports as per HPI and Reports no additional cardiovascular complaints Respiratory: Respiratory: Reports as per HPI and Reports no additional respiratory complaints Gastrointestinal: Gastrointestinal: Reports as per HPI and Reports no additional gastrointestinal compla
--- NOTE | 2021-08-15 11:27 | PCDIET ---
Nutrition Follow-Up Complete: Nutrition Diagnosis: Predicted suboptimal oral intake related to COVID pneumonia as evidenced by patient on bipap. Nutrition Goal: Patient to meet estimated nutritional needs. Goal met. Patient continues to consume 100% of most meals on low potassium diet. Recommend continuing Suplena TID with meals to promote weight stability. Would encourage patient to limit fluids to around 2L per day. Noted plan for Lasix prn. Last recorded weight is 90.8 kg which is down from last review. Bowel Motility: Last documented BM on 08/14/21 x 1. Labs Reviewed: WBC (15.4), RBC (4.20), Hgb (9.2), Hct (29.1), Na (135), BNP (2440) Meds Noted: Lipitor, Rocephin, Pepcid, Ferrous Sulfate, Lopressor, Prednisone Additional Notes: No documented skin breakdown. Will continue to monitor with same goal. Nutrition Monitoring and Evaluation: Follow up every 7 days.
--- NOTE | 2021-08-15 11:33 | PM.PNPUL ---
Progress Note: A&P Assessment and Plan (1) Acute hypoxemic respiratory failure: Code(s): J96.01 - Acute respiratory failure with hypoxia Status: Acute Assessment and Plan: Respiratory status slowly improving over the last 4-5 days, with FiO2 also decreasing to about 5 liters/minute. Has been off Lasix, with negative I/Os today. On lung auscultation, no evidence of crackles at bases compared to couple days ago. CRP trending down. No definite clearing of infiltrates on recent chest x-ray. Continue with current prednisone regimen, DVT prophylaxis, out of bed to chair, ambulate in room. Repeat CRP and ESR in am. (2) Pneumonia due to COVID-19 virus: Code(s): U07.1 - COVID-19; J12.82 - Pneumonia due to coronavirus disease 2019 Status: Acute (3) Abnormal chest CT: Code(s): R93.89 - Abnormal findings on diagnostic imaging of other specified body structures Status: Acute Subjective Date/time seen: 08/15/21 11:33 Patient without any new respiratory symptoms. Oxygen flow decreased down to 5 liters/minute. No oxyhemoglobin desaturation a moving from bed to chair or using BR. Droplet isolation was discontinued earlier today Review of Systems Review of Systems: All systems reviewed & are unremarkable except as noted in HPI and below (H & P) Exam Narrative: GENERAL APPEARANCE: Well developed, well nourished, alert and cooperative, and appears to be in mild respiratory distress while on supplemental oxygen at 5 liters/minute. SKIN: Inspection of the skin reveals no rashes, ulcerations or petechiae. HEENT: Sclerae anicteric and conjunctivae pink and moist. Extraocular movements were intact and pupils were equal, round, and reactive to light. NECK: Supple. There was no thyroid enlargement, and no tenderness, or masses were felt. CHEST: Normal AP diameter and normal contour without any kyphoscoliosis. LUNGS: Auscultation of the lungs revealed no crackles and no wheezing CARDIAC: There was a regular rate and rhythm without any murmurs, gallops, rubs. ABDOMEN: Soft and nontender with normal bowel sounds. There was no organomegaly. LYMPH NODES: No lymphadenopathy was appreciated in the neck. EXTREMITIES: No cyanosis, clubbing or edema. NEUROLOGIC: Alert and oriented x 3. Normal affect. Objective Data Vital Signs Vital Signs: Vital Signs - 24 hr 08/14/21 12:00 08/14/21 14:00 08/14/21 15:06 Temperature 36.6 C Pulse Rate 87 94 Respiratory Rate 22 H Blood Pressure 110/65 Pulse Oximetry 94 96 08/14/21 16:00 08/14/21 18:00 08/14/21 20:00 Temperature 36.6 C 36.7 C Pulse Rate 88 98 75 Respiratory Rate 20 19 Blood Pressure 112/69 113/66 Pulse Oximetry 96 97 08/14/21 20:43 08/14/21 21:14 08/14/21 22:00 Temperature Pulse Rate 77 75 68 Respiratory Rate Blood Pressure Pulse Oximetry 97 08/14/21 23:10 08/15/21 00:00 08/15/21 02:00 Temperature 36.6 C Pulse Rate 68 71 70 Respiratory Rate 20 20 Blood Pressure 120/69 Pulse Oximetry 100 100 08/15/21 03:27 08/15/21 04:00 08/15/21 06:00 Temperature 36.5 C Pulse Rate 70 65 100 Respiratory Rate 20 20 Blood Pressure 118/65 Pulse Oximetry 99 99 08/15/21 07:20 08/15/21 08:04 08/15/21 08:26 Temperature 36.1 C L Pulse Rate 78 87 Respiratory Rate 20 Blood Pressure 129/78 Pulse Oximetry 95 91 Intake/Output Intake/Output: Intake & Output 08/12/21 08/13/21 08/14/21 08/15/21 23:59 23:59 23:59 23:59 Intake Total 3220 2090 2340 980 Output Total 1830 2950 2950 1850 Balance 1390 -860 -610 -870 Meds/Results Medications: Active Medications Generic Name Dose Route Start Last Admin Trade Name Freq PRN Reason Stop Dose Admin Acetaminophen 650 mg 08/08/21 05:18 08/14/21 21:13 Acetaminophen 325 Mg Tablet PO 650 mg Q4H PRN Administration Mild Pain (1-5) Or Fever Al Hydrox/Mg Hydrox/Simethicone 30 ml 07/23/21 14:19 Mag Hydrox/Al Hydrox/Simeth 30 Ml Udc PO
--- NOTE | 2021-08-15 12:36 | PM.IMPN ---
Progress Note: A&P Assessment and Plan (1) Acute hypoxemic respiratory failure: Code(s): J96.01 - Acute respiratory failure with hypoxia Status: Acute Assessment and Plan: The patient developed symptoms of COVID around 07/09 and tested positive on 07/12. He is unvaccinated. Chest x-ray on admission showing patchy bilateral PNA. He has been placed in isolation per protocol. He was started on dexamethasone and remdesivir both of which completed on 07/26 after 10 days. Baricitinib added 07/19 due to the worsening hypoxia and completed 08/01. Procalcitonin 0.1. HRCT chest 08/10 showing diffuse bilateral peripheral nearly confluent airspace disease consistent with subacute COVID pneumonia (ILD not able to be definitively evaluated). Prednisone started 08/11. Changed from Airvo to nasal cannula on 08/09 and tolerated this change with episode of being back on Airvo 08/12. CTA chest 08/12 showing no PE and stable diffuse lung disease. Procalcitonin was normal. CRP was better at 4.4. ABG showing pO2 at 119. NRB mask is available as needed. BNP elevated and he was given Lasix 20mg IV daily x 2 days with good diuresis. he overall has negative fluid balance since admission. Able to wean O2 but CXR 08/14 unfortunately showing no change. Continue supportive care and wean O2 as tolerated. Encouraged him to be OOB to the chair. Appreciate pulmonary input. (2) SVT (supraventricular tachycardia): Code(s): I47.1 - Supraventricular tachycardia Status: Acute Assessment and Plan: Tele showing episode of SVT. He remains on metoprolol. Cardiology aware. Follow. Contienu tele (3) Diastolic heart failure: Code(s): I50.30 - Unspecified diastolic (congestive) heart failure Status: Acute Assessment and Plan: [place] to have diastolic heart failure. Echo showing LV diastolic grade II dysfunction. Lasix held for today. Follow. (4) UTI (urinary tract infection): Code(s): N39.0 - Urinary tract infection, site not specified Status: Acute Assessment and Plan: Patient developed fever to 103.5 on 08/08. UA was concerning for UTI. UCx collected later and Rocephin started. UCx growing Klebsiella sensitive to Rocephin. Fevers spiked daytime caregiver hours of 08/08 and BCx obtained and are NGTD. Chest CT 08/10 showing subacute COVID but no evidence of PNA. Day 9 of antibiotics. Resolving. (5) Pneumonia due to COVID-19 virus: Code(s): U07.1 - COVID-19; J12.82 - Pneumonia due to coronavirus disease 2019 Status: Acute Assessment and Plan: Please see above (6) Anemia: Code(s): D64.9 - Anemia, unspecified Status: Acute Assessment and Plan: Hgb has been drifting down since admission to the 8-9 range. Could be iatrogenic. Iron studies showing elevated Ferritin (related to COVID), low TIBC but normal iron and sat. Albumin remains low. He remains on dietary supplements. No evidence of acute blood loss. He is on DAPT. B12 normal. Continue iron. (7) Urinary retention: Code(s): R33.9 - Retention of urine, unspecified Status: Acute Assessment and Plan: Patient complaining of urine retention with straight cath 08/07 showing residual urine more than 400 cc. Flomax 0.4 mg daily started 08/07. No recurrence. (8) STEMI (ST elevation myocardial infarction): Onset Date: ~07/2021 Code(s): I21.3 - ST elevation (STEMI) myocardial infarction of unspecified site Status: Acute Assessment and Plan: Patient developed chest pain on 07/23 with EKG showing acute STEMI. 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 Patient was treated with Integrilin infusion. He was given conservative amounts of IV fluids for renal protection in light of COVID pneumonia after contrast. Echo showing EF 65-70% and mild-mod without wall motion abnormalities. Limited Echo performed showing EF 55-60%, mil
--- NOTE | 2021-08-15 14:18 | PCOTNOTE ---
Patient demonstrated increased ability to participate with Occupational therapy and will increase patient at this time from 2-3x/week frequency to 5-7x/week frequency in order to continue endurance building activities, UE strength, education of energy conservation techniques in order to increase independence with functional ADLs and activities.
[2021-08-15] MEDS: BENZONATATE 100 MG CAPSULE PO (17:36)
[2021-08-15] MEDS: guaiFENesin/CODEINE (*CRX) 200/20 MG 10 ML SYRUP PO ×2 (17:36→20:55)
[2021-08-15] MEDS: MELATONIN 5 MG TABLET PO (20:53)
[2021-08-15] MEDS: ACETAMINOPHEN 325 MG TABLET 650 MG PO (20:54)
[2021-08-16] VITALS (22 sets, daily range): BP systolic 106–126; BP diastolic 57–72; PULSE 61–94; RESP 20–22; TEMP 36–36.4; O2SAT 92–100
[2021-08-16 06:29] LABS: Anion Gap 4 mmol/L (8-16); Blood Urea Nitrogen 21 mg/dL (9-20); CRP 0.7 mg/dL (<1.0); Calcium 8.7 mg/dL (8.4-10.2); Carbon Dioxide 33 mmol/L (22-30); Chloride 99 mmol/L (98-107); Estimated CRCL calculation 109 ml/min; Estimated Glomerular Filt Rate > 60; Glucose 85 mg/dL (65-110); Potassium 4.5 mmol/L (3.4-5.0); Sodium 136 mmol/L (137-145)
[2021-08-16] MEDS: CENTRAL LINE FLUSH 10 ML IV PUSH ×3 (06:51→23:19)
[2021-08-16 07:48] LABS: Erythrocyte Sedimentation Rate 30 mm/hr (0-20)
[2021-08-16] MEDS: guaiFENesin/CODEINE (*CRX) 200/20 MG 10 ML SYRUP PO ×3 (09:01→20:31)
[2021-08-16] MEDS: METOPROLOL TARTRATE 12.5 MG TABLET PO ×2 (09:02→20:27)
[2021-08-16] MEDS: TAMSULOSIN HCL 0.4 MG CAPSULE PO (09:02)
[2021-08-16] MEDS: ENOXAPARIN 40 MG/0.4 ML SYRINGE SUB-Q (09:02)
[2021-08-16] MEDS: ATORVASTATIN 40 MG TABLET 80 MG PO (09:03)
[2021-08-16] MEDS: FERROUS SULFATE 324 MG TABLET PO ×2 (09:04→16:34)
[2021-08-16] MEDS: ASPIRIN 81 MG ENTERIC TABLET PO (09:04)
[2021-08-16] MEDS: TICAGRELOR 90 MG TABLET PO ×2 (09:04→20:28)
[2021-08-16] MEDS: FAMOTIDINE 20 MG TABLET PO ×2 (09:04→20:27)
[2021-08-16] MEDS: guaiFENesin 600 MG/DEXTROMETHORPHAN 30 MG SR TAB 12 HR 1 TAB PO ×2 (09:05→20:26)
[2021-08-16] MEDS: BENZONATATE 100 MG CAPSULE PO (09:05)
[2021-08-16] MEDS: FLUTICASONE PROPIONATE 0.05% NA SPR 16 GM BTL (*BKC) 2 SPRAY NASAL (09:05)
[2021-08-16] MEDS: predniSONE 20 MG TABLET 40 MG PO (09:05)
--- NOTE | 2021-08-16 09:45 | PM.PNPUL ---
Progress Note: A&P Assessment and Plan (1) Acute hypoxemic respiratory failure: Code(s): J96.01 - Acute respiratory failure with hypoxia Status: Acute Assessment and Plan: respiratory status stable over the last 24 hours. Patient seems to be increasing his activity by ambulating in his room with no significant drop in his oxyhemoglobin saturation. CRP back into the normal range today, ESR also trending down. plan: Continue with same prednisone dose, DVT prophylaxis, encourage ambulation. Will get a good PA and lateral chest x-ray in a.m. (2) Pneumonia due to COVID-19 virus: Code(s): U07.1 - COVID-19; J12.82 - Pneumonia due to coronavirus disease 2019 Status: Acute (3) Abnormal chest CT: Code(s): R93.89 - Abnormal findings on diagnostic imaging of other specified body structures Status: Acute Subjective Date/time seen: 08/16/21 09:45 Patient slept well last night. Has no new respiratory symptoms. he spent a lot of hours out of bed yesterday or ambulating in room, with no significant oxyhemoglobin desaturation. Oxygen flow down to 4 liters/minute this a.m. Review of Systems Review of Systems: All systems reviewed & are unremarkable except as noted in HPI and below (H & P) Exam Narrative: GENERAL APPEARANCE: Well developed, well nourished, alert and cooperative, and appears to be in mild respiratory distress while on supplemental oxygen at 4 liters/minute. SKIN: Inspection of the skin reveals no rashes, ulcerations or petechiae. HEENT: Sclerae anicteric and conjunctivae pink and moist. Extraocular movements were intact and pupils were equal, round, and reactive to light. NECK: Supple. There was no thyroid enlargement, and no tenderness, or masses were felt. CHEST: Normal AP diameter and normal contour without any kyphoscoliosis. LUNGS: Auscultation of the lungs revealed no crackles and no wheezing CARDIAC: There was a regular rate and rhythm without any murmurs, gallops, rubs. ABDOMEN: Soft and nontender with normal bowel sounds. There was no organomegaly. LYMPH NODES: No lymphadenopathy was appreciated in the neck. EXTREMITIES: No cyanosis, clubbing or edema. NEUROLOGIC: Alert and oriented x 3. Normal affect. Objective Data Vital Signs Vital Signs: Vital Signs - 24 hr 08/15/21 10:00 08/15/21 12:00 08/15/21 12:16 Temperature 35.5 C L Pulse Rate 86 82 86 Respiratory Rate 22 H Blood Pressure 107/68 Pulse Oximetry 98 98 08/15/21 14:00 08/15/21 14:49 08/15/21 16:00 Temperature 36.4 C Pulse Rate 91 78 Respiratory Rate 18 Blood Pressure 100/70 Pulse Oximetry 99 98 08/15/21 17:05 08/15/21 18:00 08/15/21 19:12 Temperature 36.3 C L Pulse Rate 86 87 Respiratory Rate 26 H Blood Pressure 101/62 Pulse Oximetry 98 93 08/15/21 20:00 08/15/21 20:48 08/15/21 21:28 Temperature Pulse Rate 79 74 87 Respiratory Rate 22 H Blood Pressure Pulse Oximetry 96 96 08/15/21 22:00 08/15/21 23:22 08/15/21 23:41 Temperature 36.2 C L Pulse Rate 74 79 Respiratory Rate 20 Blood Pressure 110/59 L Pulse Oximetry 98 100 08/16/21 00:00 08/16/21 02:00 08/16/21 03:09 Temperature Pulse Rate 61 69 Respiratory Rate Blood Pressure Pulse Oximetry 100 08/16/21 04:00 08/16/21 06:00 08/16/21 07:40 Temperature 36.1 C L Pulse Rate 87 74 Respiratory Rate 22 H Blood Pressure 115/57 L Pulse Oximetry 97 93 08/16/21 08:14 08/16/21 09:02 Temperature 36.4 C Pulse Rate 79 90 Respiratory Rate 22 H Blood Pressure 109/72 Pulse Oximetry 92 Intake/Output Intake/Output: Intake & Output 08/13/21 08/14/21 08/15/21 08/16/21 23:59 23:59 23:59 23:59 Intake Total 2090 2390 1340 200 Output Total 2950 2950 5606 2501 [facility] [phone] Meds/Results Medications: Active Medications Generic Name Dose Route Start Last Admin Trade Name Freq PRN Reason Stop Dose Admin Acetaminophen 650 mg 1
--- NOTE | 2021-08-16 11:52 | PM.IMPN ---
Progress Note: A&P Assessment and Plan (1) Acute hypoxemic respiratory failure: Code(s): J96.01 - Acute respiratory failure with hypoxia Status: Acute Assessment and Plan: The patient developed symptoms of COVID around 07/09 and tested positive on 07/12. He is unvaccinated. Chest x-ray on admission showing patchy bilateral PNA. He has been placed in isolation per protocol. He was started on dexamethasone and remdesivir both of which completed on 07/26 after 10 days. Baricitinib added 07/19 due to the worsening hypoxia and completed 08/01. Procalcitonin 0.1. HRCT chest 08/10 showing diffuse bilateral peripheral nearly confluent airspace disease consistent with subacute COVID pneumonia (ILD not able to be definitively evaluated). Prednisone started 08/11. Changed from Airvo to nasal cannula on 08/09 and tolerated this change but with episode of being back on Airvo 08/12. CTA chest 08/12 showing no PE and stable diffuse lung disease. Procalcitonin was normal. CRP was better at 4.4. ABG showing pO2 at 119. NRB mask is available as needed. BNP elevated and he was given Lasix 20mg IV daily x 2 days with good diuresis. He overall has negative fluid balance since admission. Able to wean O2 but CXR 08/14 unfortunately showing no change so improved oxygenation maybe related to the steroids. ESR 30 and CRPP 0.7 now. Discussed with budget controller and appreciate their input. Continue supportive care and wean O2 as tolerated. Encouraged him to be OOB to the chair and walk as he toelrates. CXR tomorrow. Home O2 tommorrow to see if he can be discharged. (2) SVT (supraventricular tachycardia): Code(s): I47.1 - Supraventricular tachycardia Status: Acute Assessment and Plan: Tele showed episode of SVT on 08/14. He remains on metoprolol. Cardiology aware. Follow. Continue tele. (3) Diastolic heart failure: Code(s): I50.30 - Unspecified diastolic (congestive) heart failure Status: Acute Assessment and Plan: [place] to have diastolic heart failure. Echo showing LV diastolic grade II dysfunction. Lasix held again. Follow. (4) UTI (urinary tract infection): Code(s): N39.0 - Urinary tract infection, site not specified Status: Acute Assessment and Plan: Patient developed fever to 103.5 on 08/08. UA was concerning for UTI. UCx collected later and Rocephin started. UCx growing Klebsiella sensitive to Rocephin. Fevers spiked early childhood education worker hours of 08/08 and BCx obtained and are negative. Chest CT 08/10 showing subacute COVID but no evidence of PNA. Day 10 of antibiotics. WBC elevated related to steroids. Resolved - stop abx after today. (5) Pneumonia due to COVID-19 virus: Code(s): U07.1 - COVID-19; J12.82 - Pneumonia due to coronavirus disease 2019 Status: Acute Assessment and Plan: Please see above (6) Anemia: Code(s): D64.9 - Anemia, unspecified Status: Acute Assessment and Plan: Hgb has been drifting down since admission to the 8-9 range. Could be iatrogenic. Iron studies showing elevated Ferritin (related to COVID), low TIBC but normal iron and sat. Albumin remains low. He remains on dietary supplements. No evidence of acute blood loss. He is on DAPT. B12 normal. Continue iron. (7) Urinary retention: Code(s): R33.9 - Retention of urine, unspecified Status: Acute Assessment and Plan: Patient complaining of urine retention with straight cath 08/07 showing residual urine more than 400 cc. Flomax 0.4 mg daily started 08/07. Ward out and no recurrence of symptoms. (8) STEMI (ST elevation myocardial infarction): Onset Date: ~07/2021 Code(s): I21.3 - ST elevation (STEMI) myocardial infarction of unspecified site Status: Acute Assessment and Plan: Patient developed chest pain on 07/23 with EKG showing acute STEMI. He was taken to the laborer fry[facility] and he is now status post PCI, aspiration thrombectomy and
--- NOTE | 2021-08-16 13:32 | PM.PNCARD ---
Progress Note: A&P Assessment and Plan (1) STEMI (ST elevation myocardial infarction): Onset Date: ~07/2021 Code(s): I21.3 - ST elevation (STEMI) myocardial infarction of unspecified site Status: Acute Assessment and Plan: Status post Inferior ST-elevation [place] likely complication of COVID-19 infection with acute plaque rupture and large thrombus burden status post aspiration thrombectomy and successful 5.0x22mm Victor Manuel GABRIEL implantation proximal RCA. Continue dual antiplatelet therapy without interruption with aspirin and Brilinta, high-dose statin. Low-dose beta-jamarcus initiated, tolerating reasonably well at this time. EF 65-70% [id number] aortic stenosis on echocardiogram. Counseled at length although we feels COVID definitely contributed to the development of acute inferior [place] this event must not be dismissed as the only reason this occurred. In other words, he will require aggressive risk modification and reduction moving forward indefinitely. Patient and his verbalized understanding appreciate the can discussion and reassured me that they Are eager to do what is asked and remain as healthy as possible. Counseled once again on the importance of compliance with all medications including dual antiplatelet therapy without interruption. He will follow-up with me as an outpatient in the next 2-4 weeks. Strongly encouraged and discussed at length timing of COVID vaccination within the next 1-2 months, flu vaccination prior to discharge, and referral to cardiac rehabilitation in combination with physical therapy as determined necessary at discharge. (2) Diastolic heart failure: Code(s): I50.30 - Unspecified diastolic (congestive) heart failure Status: Acute Assessment and Plan: Resolved, patient compensated and euvolemic previously resolved with IV Lasix 20 mg x 2 currently euvolemic. Continue monitor volume status. I do not feel Lasix will be required at discharge. Will monitor while in-house. (3) SVT (supraventricular tachycardia): Code(s): I47.1 - Supraventricular tachycardia Status: Acute Assessment and Plan: Stable, self-limited, asymptomatic. No recurrence. Continue Metoprolol to 25 mg b.i.d.. Continue supportive care and clinical observation for now. (4) Pneumonia due to COVID-19 virus: Code(s): U07.1 - COVID-19; J12.82 - Pneumonia due to coronavirus disease 2018 Status: Acute Assessment and Plan: Per hospitalist. Continue supportive care for COVID-19 infection. s/p Dexamethasone, Remdesivir, Baricitinib, Enoxaparin 40mg SQ q12hr. He remains on Isolation precautions. (5) Acute hypoxemic respiratory failure: Code(s): J96.01 - Acute respiratory failure with hypoxia Status: Acute Assessment and Plan: Off isolation. Oxygen requirements persist yet are improving. He will require home O2. Patient's pleural effusions are small but new compared to the prior CT scan. He notes some pedal edema. Subjective Date/time seen: Date of service:08/16/21 13:32 Interval history: Follow-up for: Acute thrombotic inferior wall myocardial infarction in the setting of COVID pneumonia. Patient underwent emergency revascularization involving extraction thrombectomy and stenting of the large dominant RCA. Patient remains in the hospital since then because of his COVID pneumonia and severe hypoxic respiratory failure. he is feeling very well. O2 down to 3-4 L. Still some shortness of breath with ambulation but feeling stronger and stronger over the past several days. A dizziness, chest pain lightheadedness. No palpitations. Telemetry unremarkable without recurrent SVT overnight. Patient was taken off isolation. Very happy to reunite with his . at bedside who arrived later during our interview. Discussed patient's care and plans at length with both of them. Spent 28 minutes at bedside with examination, counselin
[2021-08-16] MEDS: MELATONIN 5 MG TABLET PO (20:29)
[2021-08-16] MEDS: ACETAMINOPHEN 325 MG TABLET 650 MG PO (20:30)
[2021-08-17] VITALS (26 sets, daily range): BP systolic 104–134; BP diastolic 59–80; PULSE 61–108; RESP 20–22; TEMP 36.1–37.1; O2SAT 84–99
[2021-08-17] MEDS: CENTRAL LINE FLUSH 10 ML IV PUSH ×2 (07:16→13:16)
[2021-08-17] MEDS: FAMOTIDINE 20 MG TABLET PO ×2 (08:50→22:00)
[2021-08-17] MEDS: ATORVASTATIN 40 MG TABLET 80 MG PO (08:50)
[2021-08-17] MEDS: predniSONE 20 MG TABLET 40 MG PO (08:50)
[2021-08-17] MEDS: TICAGRELOR 90 MG TABLET PO ×2 (08:50→22:00)
[2021-08-17] MEDS: FERROUS SULFATE 324 MG TABLET PO ×2 (08:50→18:59)
[2021-08-17] MEDS: guaiFENesin 600 MG/DEXTROMETHORPHAN 30 MG SR TAB 12 HR 1 TAB PO ×2 (08:50→22:00)
[2021-08-17] MEDS: METOPROLOL TARTRATE 12.5 MG TABLET PO ×2 (08:51→22:00)
[2021-08-17] MEDS: BENZONATATE 100 MG CAPSULE PO (08:51)
[2021-08-17] MEDS: ENOXAPARIN 40 MG/0.4 ML SYRINGE SUB-Q (08:51)
[2021-08-17] MEDS: ASPIRIN 81 MG ENTERIC TABLET PO (08:52)
[2021-08-17] MEDS: FLUTICASONE PROPIONATE 0.05% NA SPR 16 GM BTL (*BKC) 2 SPRAY NASAL (08:52)
[2021-08-17] MEDS: TAMSULOSIN HCL 0.4 MG CAPSULE PO (08:52)
[2021-08-17] MEDS: guaiFENesin/CODEINE (*CRX) 200/20 MG 10 ML SYRUP PO (08:56)
[2021-08-17] MEDS: polyethylene glycoL 3350 17 GM POWD.PACK PO (08:57)
--- NOTE | 2021-08-17 12:34 | PM.PNPUL ---
Progress Note: A&P Assessment and Plan (1) Acute hypoxemic respiratory failure: Code(s): J96.01 - Acute respiratory failure with hypoxia Status: Acute Assessment and Plan: respiratory status stable over the last 48 hours. Patient seems to be increasing his activity by ambulating in his room with no significant drop in his oxyhemoglobin saturation. CXR showed slight infiltrate clearing primarily at the apices and less in the bases plan: DC home in a.m., should be on home oxygen 4 liters/minute, continue with same dose of prednisone 40 mg per p.o. daily, return to pulmonary clinic in approximately 7-10 days with a new chest CT without contrast. (2) Pneumonia due to COVID-19 virus: Code(s): U07.1 - COVID-19; J12.82 - Pneumonia due to coronavirus disease 2019 Status: Acute (3) Abnormal chest CT: Code(s): R93.89 - Abnormal findings on diagnostic imaging of other specified body structures Status: Acute Subjective Date/time seen: 08/17/21 12:34 Patient without any new respiratory symptoms. Currently oxygen at 4 liters/minute. Underwent a chest x-ray, two view earlier today. Eager to go home. Review of Systems Review of Systems: All systems reviewed & are unremarkable except as noted in HPI and below (H & P) Objective Data Vital Signs Vital Signs: Vital Signs - 24 hr 08/16/21 14:00 08/16/21 15:14 08/16/21 16:00 Temperature 36.0 C L Pulse Rate 84 82 89 Respiratory Rate 20 Blood Pressure 113/66 Pulse Oximetry 97 94 08/16/21 18:00 08/16/21 20:00 08/16/21 20:27 Temperature 36.4 C Pulse Rate 87 84 86 Respiratory Rate 20 Blood Pressure 126/62 Pulse Oximetry 100 08/16/21 20:40 08/16/21 21:08 08/16/21 22:00 Temperature Pulse Rate 84 78 74 Respiratory Rate Blood Pressure Pulse Oximetry 98 97 08/16/21 23:56 08/17/21 00:00 08/17/21 02:00 Temperature 36.3 C L Pulse Rate 69 71 72 Respiratory Rate 22 H Blood Pressure 114/66 Pulse Oximetry 100 99 08/17/21 04:00 08/17/21 06:00 08/17/21 08:00 Temperature 37.1 C Pulse Rate 65 70 Respiratory Rate 20 Blood Pressure 134/80 Pulse Oximetry 98 88 L 08/17/21 08:07 08/17/21 08:51 08/17/21 11:06 Temperature 36.1 C L Pulse Rate 81 95 Respiratory Rate 22 H Blood Pressure 121/79 Pulse Oximetry 94 96 08/17/21 12:21 Temperature 36.5 C Pulse Rate 79 Respiratory Rate 20 Blood Pressure 107/60 Pulse Oximetry 98 Intake/Output Intake/Output: Intake & Output 08/14/21 08/15/21 08/16/21 08/17/21 23:59 23:59 23:59 23:59 Intake Total 2390 1390 2410 360 Output Total 2950 2229 1900 2050 Balance -560 -835 510 -6369 Meds/Results Medications: Active Medications Generic Name Dose Route Start Last Admin Trade Name Freq PRN Reason Stop Dose Admin Acetaminophen 650 mg 08/08/21 05:18 08/16/21 20:30 Acetaminophen 325 Mg Tablet PO 650 mg Q4H PRN Administration Mild Pain (1-5) Or Fever Al Hydrox/Mg Hydrox/Simethicone 30 ml 07/23/21 14:19 Mag Hydrox/Al Hydrox/Simeth 30 Ml Udc PO Q4H PRN Indigestion Albuterol 2.5 mg 08/12/21 15:00 Albuterol Sulfate Neb 2.5 Mg/0.5 Ml Inh INHALATION TID PRN Shortness Of Breath Albuterol 2 puff 07/25/21 08:52 Albuterol Sulfate (*Sp) Aerosol 1 Puff INHALATION QIDRT PRN Wheezing Aspirin 81 mg 07/24/21 09:00 08/17/21 08:52 Aspirin 81 Mg Enteric Tablet PO 81 mg QAM APOORVA Administration Atorvastatin Calcium 80 mg 07/24/21 09:00 08/17/21 08:50 Atorvastatin 40 Mg Tablet PO 80 mg DAILY APOORVA Administration Benzonatate 100 mg 07/24/21 08:46 08/17/21 08:51 Benzonatate 100 Mg Capsule PO 100 mg TID PRN Administration Cough Dextrose 12.5 gm 07/19/21 17:36 Dextrose 50% 25 Gm/50 Ml Syringe IV PUSH PRN PRN Hypoglycemia Protocol Enoxaparin Sodium 40 mg 08/03/21 09:00 08/17/21 08:51 Enoxaparin 40 Mg/0.4 Ml Syringe SUB-Q
--- NOTE | 2021-08-17 13:31 | HOMEO2EVAL ---
Evaluation was performed at [facility] Home Oxygen Evaluation RC: Home Oxygen (O2) Evaluation Start: 08/17/21 11:16 Freq: ONCE Status: Active Protocol: RPE Activity Type Activity Date Activity User E-Sign Co-Sign Detail Recorded Client Recorded Date Recorded By Document 08/17/21 12:45 [email or web address] [email or web address] 08/17/21 13:31 DJO Document 08/17/21 12:50 [email or web address] [email or web address] 08/17/21 13:31 DJO Document 08/17/21 12:55 [email or web address] [email or web address] 08/17/21 13:31 DJO Document 08/17/21 13:00 [email or web address] [email or web address] 08/17/21 13:31 DJO Document 08/17/21 13:05 [email or web address] [email or web address] 08/17/21 13:31 DJO Document 08/17/21 13:10 [email or web address] [email or web address] 08/17/21 13:31 DJO Document 08/17/21 13:20 [email or web address] [email or web address] 08/17/21 13:31 DJO 08/17/21 08/17/21 08/17/21 12:45 12:50 12:55 Home O2 Evaluation Test Phase Resting Resting Resting Oxygen Delivery Room Air Nasal Cannula Nasal Cannula Oxygen Flow Rate (L/min) 1 2 Pulse Oximetry (90-100 %) 84 L 85 L 86 L Pulse Rate (60-100 beats/min) 89 90 91 Activity Tolerance Treatment Charges O2 Evaluation - Inpatient 08/17/21 08/17/21 08/17/21 13:00 13:05 13:10 Home O2 Evaluation Test Phase Resting Resting Exercise Oxygen Delivery Nasal Cannula Nasal Cannula Nasal Cannula Oxygen Flow Rate (L/min) 3 4 4 Pulse Oximetry (90-100 %) 88 L 91 91 Pulse Rate (60-100 beats/min) 87 86 96 Activity Tolerance Good Treatment Charges 08/17/21 13:20 Home O2 Evaluation Test Phase Resting Oxygen Delivery Nasal Cannula Oxygen Flow Rate (L/min) 4 Pulse Oximetry (90-100 %) 90 Pulse Rate (60-100 beats/min) 88 Activity Tolerance Treatment Charges
--- NOTE | 2021-08-17 14:55 | PM.DS ---
DS: Admitting Diagnosis Discharge Date 08/17/21 Admitting Diagnosis Shortness of breath DS: Discharge Diagnosis Discharge Diagnosis (1) Acute hypoxemic respiratory failure: Code(s): J96.01 - Acute respiratory failure with hypoxia Status: Acute Assessment and Plan: The patient developed symptoms of COVID around 07/09 and tested positive on 07/12. He is unvaccinated. Chest x-ray on admission showing patchy bilateral PNA. He has been placed in isolation per protocol. He was started on dexamethasone and remdesivir both of which completed on 07/26 after 10 days. Baricitinib added 07/19 due to the worsening hypoxia and completed 08/01. HRCT chest 08/10 showing diffuse bilateral peripheral nearly confluent airspace disease consistent with subacute COVID pneumonia (ILD not able to be definitively evaluated). Prednisone started 08/11. Changed from Airvo to nasal cannula on 08/09 and tolerated this change but with episode of being back on Airvo 08/12. CTA chest 08/12 showing no PE and stable diffuse lung disease. Procalcitonin was normal. ESR 120 and CRP was 4.4. BNP elevated and he was given Lasix 20mg IV daily x 2 days with good diuresis. He overall has negative fluid balance since admission. Able to wean O2 but CXR 08/14 unfortunately showing no change so improved oxygenation maybe related to the steroids. With the steroids, inflammatory markers improved to ESR 30 and CRP 0.7. Metal Solderer ws consulted and following along. Weaned O2 to 4L/min. CXR today showing diffuse subacute COVID pneumonia stable or with slight improvement. Home O2 showing O2 at 4L/min at rest and with exertion. Plan to continue Prednisone at discharge. (2) SVT (supraventricular tachycardia): Code(s): I47.1 - Supraventricular tachycardia Status: Acute Assessment and Plan: Tele showed episode of SVT on 08/14. He remained on metoprolol. Cardiology was aware. (3) Diastolic heart failure: Code(s): I50.30 - Unspecified diastolic (congestive) heart failure Status: Acute Assessment and Plan: [place] to have diastolic heart failure. Echo showing LV diastolic grade II dysfunction. Treated with Lasix x 2 doses but not continued. Stable now. (4) UTI (urinary tract infection): Code(s): N39.0 - Urinary tract infection, site not specified Status: Acute Assessment and Plan: Patient developed fever to 103.5 on 08/08. UA was concerning for UTI. UCx collected later and Rocephin started. UCx growing Klebsiella sensitive to Rocephin. Fevers spiked napper tender hours of 08/08 and BCx obtained and are negative. Chest CT 08/10 showing subacute COVID but no evidence of PNA. Completed a course of antibiotics. (5) Pneumonia due to COVID-19 virus: Code(s): U07.1 - COVID-19; J12.82 - Pneumonia due to coronavirus disease 2019 Status: Acute Assessment and Plan: Please see above (6) Anemia: Code(s): D64.9 - Anemia, unspecified Status: Acute Assessment and Plan: Hgb drifted down since admission to the 8-9 range felt to be iatrogenic. Iron studies showing elevated Ferritin (related to COVID), low TIBC but normal iron and sat. Albumin remained low. He remained on dietary supplements. No evidence of acute blood loss. He is on DAPT. B12 normal. Treated with iron. (7) Urinary retention: Code(s): R33.9 - Retention of urine, unspecified Status: Acute Assessment and Plan: Patient complaining of urine retention with straight cath 08/07 showing residual urine more than 400 cc. Flomax 0.4 mg daily started 08/07. Ward out and no recurrence of symptoms. (8) STEMI (ST elevation myocardial infarction): Onset Date: ~07/2021 Code(s): I21.3 - ST elevation (STEMI) myocardial infarction of unspecified site Status: Acute Assessment and Plan: Patient developed chest pain on 07/23 with EKG showing acute STEMI. He was taken to the lift slab operator and
--- NOTE | 2021-08-17 15:00 | PCRCNOTE ---
HOME O2 EVAL COMPLETE, 4 LITERS AT REST AND WITH ACTIVITY. SET UP WITH [employer] PHONE NUMBER [phone]
--- NOTE | 2021-08-17 15:14 | PCOTNOTE ---
Attempted to see patient, patient and present and declined OT. Patient observed to be independent in room with mobility, walking laps in room. Patient to d/c today or tomorrow per patient report.
--- NOTE | 2021-08-17 20:45 | PC.NURSE ---
Patient discharge paper work gone over with patient. Issue with [employer] on oxygen delivery. Called [employer] at 1800 to get status update on oxygen delivery, was told there was no patient account. RN obtained oxygen orders and refaxed to after hour number ([phone]). Called [employer] at 2030 patient did have an account but no ETA of oxygen delivery.[employer] after hours number is [phone] or [phone].
[2021-08-18] VITALS (20 sets, daily range): BP systolic 129–132; BP diastolic 68–82; PULSE 60–106; RESP 18–20; TEMP 36.1–36.4; O2SAT 87–99
[2021-08-18] MEDS: TICAGRELOR 90 MG TABLET PO (08:38)
[2021-08-18] MEDS: FERROUS SULFATE 324 MG TABLET PO (08:38)
[2021-08-18] MEDS: METOPROLOL TARTRATE 12.5 MG TABLET PO ×2 (08:38→11:56)
[2021-08-18] MEDS: TAMSULOSIN HCL 0.4 MG CAPSULE PO (08:38)
[2021-08-18] MEDS: ASPIRIN 81 MG ENTERIC TABLET PO (08:38)
[2021-08-18] MEDS: guaiFENesin 600 MG/DEXTROMETHORPHAN 30 MG SR TAB 12 HR 1 TAB PO (08:38)
[2021-08-18] MEDS: predniSONE 20 MG TABLET 40 MG PO (08:38)
[2021-08-18] MEDS: FAMOTIDINE 20 MG TABLET PO (08:38)
[2021-08-18] MEDS: ATORVASTATIN 40 MG TABLET 80 MG PO (08:38)
[2021-08-18] MEDS: FLUTICASONE PROPIONATE 0.05% NA SPR 16 GM BTL (*BKC) 2 SPRAY NASAL (08:39)
[2021-08-18] MEDS: ENOXAPARIN 40 MG/0.4 ML SYRINGE SUB-Q (08:39)
--- NOTE | 2021-08-18 09:26 | HOMEO2EVAL ---
Evaluation was performed at [facility] Home Oxygen Evaluation RC: Home Oxygen (O2) Evaluation Start: 08/17/21 11:16 Freq: ONCE Status: Active Protocol: RPE Activity Type Activity Date Activity User E-Sign Co-Sign Detail Recorded Client Recorded Date Recorded By Document 08/18/21 08:45 [email or web address] [email or web address] 08/18/21 09:26 YRIS Document 08/18/21 08:46 YRIS [email or web address] 08/18/21 09:26 YRIS Document 08/18/21 08:47 YRIS [email or web address] 08/18/21 09:26 YRIS Document 08/18/21 08:48 YRIS [email or web address] 08/18/21 09:26 YRIS Document 08/18/21 08:50 YRIS [email or web address] 08/18/21 09:26 RYIS Document 08/18/21 08:51 YRIS [email or web address] 08/18/21 09:26 YRIS Document 08/18/21 08:53 YRIS [email or web address] 08/18/21 09:26 YRIS Document 08/18/21 09:00 YRIS [email or web address] 08/18/21 09:26 YRIS 08/18/21 08/18/21 08/18/21 08:45 08:46 08:47 Home O2 Evaluation Test Phase Resting Resting Resting Oxygen Delivery Room Air Nasal Cannula Nasal Cannula Oxygen Flow Rate (L/min) 2 3 Pulse Oximetry (90-100 %) 87 L 87 L 87 L Pulse Rate (60-100 beats/min) 87 Ambulation Distance (feet) Home Oxygen Evaluation Comments Treatment Charges O2 Evaluation - Inpatient 08/18/21 08/18/21 08/18/21 08:48 08:50 08:51 Home O2 Evaluation Test Phase Resting Exercise Exercise Oxygen Delivery Nasal Cannula Nasal Cannula Nasal Cannula Oxygen Flow Rate (L/min) 4 4 5 Pulse Oximetry (90-100 %) 93 87 L 87 L Pulse Rate (60-100 beats/min) 103 H 106 H Ambulation Distance (feet) 300 Home Oxygen Evaluation Comments PT REQUIRES 4L AT REST AND 6L WITH ACTIVITY/ EXERTION Treatment Charges 08/18/21 08/18/21 08:53 09:00 Home O2 Evaluation Test Phase Exercise Resting Oxygen Delivery Nasal Cannula Nasal Cannula Oxygen Flow Rate (L/min) 6 4 Pulse Oximetry (90-100 %) 93 95 Pulse Rate (60-100 beats/min) 82 Ambulation Distance (feet) Home Oxygen Evaluation Comments Treatment Charges
--- NOTE | 2021-08-18 09:28 | PCRCNOTE ---
HOME O2 EVAL REPEATED, PT HAD DESATS INTO MID 70S WITH BATHROOM EXERTION THIS AM. REEVALUATION: 6 LITERS WITH MODERATE EXERTION AND 4 L RESTING. NEW ORDER WRITTEN AND FAXED, NO OTHER CHANGES TO DME/O2 EQUIPMENT REQUIRED. [facility] TO BRING IN [facility] FOR TRANSPORT HOME.
--- NOTE | 2021-08-18 10:21 | PM.DS ---
DS: Admitting Diagnosis Discharge Date 08/18/21 Admitting Diagnosis Shortness of breath DS: Discharge Diagnosis Discharge Diagnosis (1) NSVT (nonsustained ventricular tachycardia): Code(s): I47.2 - Ventricular tachycardia Status: Acute Assessment and Plan: Patient was discharged home on 08/17/21 but had trouble getting the home O2. His discharge was cnacelled and he was held overnight. Overnight, he had a brief 8 beat run of NSVT. Plan to increase metoprolol to 25mg BID and also have a 7-day monitor at discharge. (2) Acute hypoxemic respiratory failure: Code(s): J96.01 - Acute respiratory failure with hypoxia Status: Acute Assessment and Plan: The patient developed symptoms of COVID around 07/09 and tested positive on 07/12. He is unvaccinated. Chest x-ray on admission showing patchy bilateral PNA. He has been placed in isolation per protocol. He was started on dexamethasone and remdesivir both of which completed on 07/26 after 10 days. Baricitinib added 07/19 due to the worsening hypoxia and completed 08/01. HRCT chest 08/10 showing diffuse bilateral peripheral nearly confluent airspace disease consistent with subacute COVID pneumonia (ILD not able to be definitively evaluated). Prednisone started 08/11. Changed from Airvo to nasal cannula on 08/09 and tolerated this change but with episode of being back on Airvo 08/12. CTA chest 08/12 showing no PE and stable diffuse lung disease. Procalcitonin was normal. ESR 120 and CRP was 4.4. BNP elevated and he was given Lasix 20mg IV daily x 2 days with good diuresis. He overall has negative fluid balance since admission. Able to wean O2 but CXR 08/14 unfortunately showing no change so improved oxygenation maybe related to the steroids. With the steroids, inflammatory markers improved to ESR 30 and CRP 0.7. Box Car Loader ws consulted and following along. Weaned O2 to 4L/min. CXR showing diffuse subacute COVID pneumonia stable or with slight improvement. Initial home O2 showing O2 at 4L/min at rest and with exertion. But he had an episode on the morning of admission with hypoxia after walking to the bathroom. Repet home O2 evaluation showed 4L at rest and 6L with exertion. Plan to continue Prednisone at discharge. (3) SVT (supraventricular tachycardia): Code(s): I47.1 - Supraventricular tachycardia Status: Acute Assessment and Plan: Tele showed episode of SVT on 08/14. He remained on metoprolol and dose increased at discharged. Cardiology was aware. (4) Diastolic heart failure: Code(s): I50.30 - Unspecified diastolic (congestive) heart failure Status: Acute Assessment and Plan: [place] to have diastolic heart failure. Echo showing LV diastolic grade II dysfunction. Treated with Lasix x 2 doses but not continued. Stable now. (5) UTI (urinary tract infection): Code(s): N39.0 - Urinary tract infection, site not specified Status: Acute Assessment and Plan: Patient developed fever to 103.5 on 08/08. UA was concerning for UTI. UCx collected later and Rocephin started. UCx growing Klebsiella sensitive to Rocephin. Fevers spiked customer sales consultant hours of 08/08 and BCx obtained and are negative. Chest CT 08/10 showing subacute COVID but no evidence of PNA. Completed a course of antibiotics. (6) Pneumonia due to COVID-19 virus: Code(s): U07.1 - COVID-19; J12.82 - Pneumonia due to coronavirus disease 2019 Status: Acute Assessment and Plan: Please see above (7) Anemia: Code(s): D64.9 - Anemia, unspecified Status: Acute Assessment and Plan: Hgb drifted down since admission to the 8-9 range felt to be iatrogenic. Iron studies showing elevated Ferritin (related to COVID), low TIBC but normal iron and sat. Albumin remained low. He remained on dietary supplements. No evidence of acute blood loss. He is on DAPT. B12 normal. Treated with iron. (8) Urinary retention:
[2021-08-18 11:43] LABS: Anion Gap 7 mmol/L (8-16); Blood Urea Nitrogen 19 mg/dL (9-20); Calcium 8.7 mg/dL (8.4-10.2); Carbon Dioxide 32 mmol/L (22-30); Chloride 97 mmol/L (98-107); Estimated CRCL calculation 95 ml/min; Estimated Glomerular Filt Rate > 60; Glucose 194 mg/dL (65-110); Magnesium 1.9 mg/dL (1.6-2.3); Potassium 3.9 mmol/L (3.4-5.0); Sodium 136 mmol/L (137-145)
[2021-08-18] MEDS: MAGNESIUM OXIDE 400 MG TABLET PO (13:19)
[2021-08-18] MEDS: POTASSIUM CHLORIDE 20 MEQ TABLET PO (13:19)
--- NOTE | 2021-08-18 13:19 | PM.PNCARD ---
Progress Note: A&P Assessment and Plan (1) STEMI (ST elevation myocardial infarction): Onset Date: ~07/2021 Code(s): I21.3 - ST elevation (STEMI) myocardial infarction of unspecified site Status: Acute Assessment and Plan: Status post Inferior ST-elevation [facility] likely complication of COVID-19 infection with acute plaque rupture and large thrombus burden status post aspiration thrombectomy and successful 5.0x22mm Victor Manuel GABRIEL implantation proximal RCA. Continue dual antiplatelet therapy without interruption with aspirin and Brilinta (for 12 months at present dose without interruption), high-dose statin. Low-dose beta-jamarcus initiated, tolerating reasonably well at this time. EF 65-70% [id number] aortic stenosis on echocardiogram. RV dysfunction noted sequelae of STEMI most likely. Counseled once again on the importance of compliance with all medications including dual antiplatelet therapy without interruption. He will follow-up with me as an outpatient in the next 2-4 weeks. Stable for discharge home today from cardiovascular perspective. Discussed with primary service. (2) NSVT (nonsustained ventricular tachycardia): Code(s): I47.2 - Ventricular tachycardia Status: Acute Assessment and Plan: Brief 8 beat run without recurrence asymptomatic, preserved LV systolic function. Increase metoprolol tartrate to 25 mg b.i.d.. Outpatient 7 day electrical instrumentation technician upon discharge. Explained the nature of nonsustained VT to patient and his . All questions answered to their satisfaction. Will continue to monitor with before. Notify the office with near-syncope, syncope or sustained palpitations. (3) SVT (supraventricular tachycardia): Code(s): I47.1 - Supraventricular tachycardia Status: Acute Assessment and Plan: Stable, self-limited, asymptomatic. No recurrence. Increase Metoprolol to 25 mg b.i.d.. Continue supportive care and clinical observation for now. (4) Pneumonia due to COVID-19 virus: Code(s): U07.1 - COVID-19; J12.82 - Pneumonia due to coronavirus disease 2018 Status: Acute Assessment and Plan: Per hospitalist. Continue supportive care for COVID-19 infection. s/p Dexamethasone, Remdesivir, Baricitinib (5) Acute hypoxemic respiratory failure: Code(s): J96.01 - Acute respiratory failure with hypoxia Status: Acute Assessment and Plan: Off isolation. Oxygen requirements persist yet are improving. He will require home O2. (6) Diastolic heart failure: Code(s): I50.30 - Unspecified diastolic (congestive) heart failure Status: Acute Assessment and Plan: Resolved, no indication for diuretic at this time upon discharge. Subjective Date/time seen: 08/18/21 13:19 Interval history: Follow-up for: Acute thrombotic inferior wall myocardial infarction in the setting of COVID pneumonia. Patient underwent emergency revascularization involving extraction thrombectomy and stenting of the large dominant RCA. Patient remains in the hospital since then because of his COVID pneumonia and severe hypoxic respiratory failure. Patient states he is feeling quite well. Had an episode hypoxia with O2 sats briefly down to the 70s after ambulation and bowel movement promptly improved with rest. He has been compliant with his oxygen. Denies chest pain, dizziness, palpitations, edema, orthopnea or PND. Last night 8 beat run of wide complex tachycardia suggestive of nonsustained VT, asymptomatic. No recurrent SVT. Review of Systems Review of Systems: All systems reviewed & are unremarkable except as noted in HPI and below Constitutional: Constitutional: Reports as per HPI, Reports no additional constitutional complaints, Denies body ache(s), Reports fatigue, Denies fever(s), Denies poor appetite and Denies weakness Eyes: Eyes: Reports as per HPI, Reports no additional eye complaints, Denies eye discharge, Denies loss of vis
== END 2021-08-18 13:50 | disposition home or self-care (01) | DRG 981 ==
LOC: ANHED 13:04 → ANH3MEDSUR 16:19 → ANHICU 07-27 13:06 → ANHIMU 08-13 09:09 → ANH3MEDSUR 08-19 10:41 → ANHICU 08-19 10:41 → ANHIMU 08-19 10:41
PROVIDERS: Internal Medicine; Internal Medicine Cardiovascular Disease; Internal Medicine Pulmonary Disease; Physician Assistant; Admitting Provider Family Medicine; Emergency Provider Emergency Medicine; Visit Provider Internal Medicine
PROC: 4A023N7 Measurement of Cardiac Sampling and Pressure, Left Heart, Percutaneous Approach (ICD-10-PCS; CPT 93452; principal; 2021-07-23 10:40)
PROC: 027034Z Dilation of Coronary Artery, One Artery with Drug-eluting Intraluminal Device, Percutaneous Approach (ICD-10-PCS; 2021-07-23 10:40)
PROC: 027034Z Dilation of Coronary Artery, One Artery with Drug-eluting Intraluminal Device, Percutaneous Approach (ICD-10-PCS; 2021-07-23 10:40)
PROC: 027034Z Dilation of Coronary Artery, One Artery with Drug-eluting Intraluminal Device, Percutaneous Approach (ICD-10-PCS; 2021-07-23 10:40)
DX: U07.1 COVID-19 (principal); J12.82 Pneumonia due to coronavirus disease 2019; J80 Acute respiratory distress syndrome; I21.3 ST elevation (STEMI) myocardial infarction of unspecified site; I21.19 ST elevation (STEMI) myocardial infarction involving other coronary artery of inferior wall; I50.31 Acute diastolic (congestive) heart failure; I47.1 Supraventricular tachycardia; N39.0 Urinary tract infection, site not specified; R43.9 Unspecified disturbances of smell and taste; H66.90 Otitis media, unspecified, unspecified ear; E87.5 Hyperkalemia; D63.8 Anemia in other chronic diseases classified elsewhere; D75.839 Thrombocytosis, unspecified; I25.10 Atherosclerotic heart disease of native coronary artery without angina pectoris; K59.00 Constipation, unspecified; R33.9 Retention of urine, unspecified; B96.1 Klebsiella pneumoniae [K. pneumoniae] as the cause of diseases classified elsewhere; D50.0 Iron deficiency anemia secondary to blood loss (chronic)
CPT/HCPCS: 36415; 36569; 36600; 71045; 71046; 71250; 71275; 80048; 80053; 80069; 80076; 81001; 82024; 82533; 82550; 82565; 82607; 82728; 82746; 82805; 82948; 83036; 83540; 83550; 83605; 83615; 83735; 83880; 84100; 84132; 84145; 84443; 84484; 85025; 85027; 85055; 85380; 85610; 85652; 86140; 87040; 87070; 87077; 87086; 87088; 87186; 87205; 92610; 92978; 93005; 93306; 93308; 93458; 94002; 94003; 94618; 94640; 96374; 97110; 97162; 97165; 97530; 97535; 99232; 99285; A9270; C1725; C1751; C1753; C1757; C1760; C1769; C1874; C1887; C1894; C9606; G0269; J0583; J0696; J1100; J1327; J1335; J1644; J1650; J1940; J2060; J7030; J7040; J7512; J8540; Q9967

== ENCOUNTER 2021-08-30 08:06 | Outpatient (CLI) | payer OTHER, SELFPAY ==
--- NOTE | ~2021-08-30 | CT_ITS ---
EXAMINATION: CT diagnostic chest wo con EXAM DATE: 08/30/2021 08:28 INDICATION: U07.1 - COVID-19 TECHNIQUE: Spiral CT of the chest without contrast. HRCT. Axial, coronal and sagittal images of the chest were reviewed. Coronal maximum intensity pixel images of chest reviewed. The dose-length prod uct (DLP) for this examination was 305.95 mGy-cm. The exposure was tailored according to patient siz e (auto mA exposure control), and iterative reconstruction (ASIR) was used as additional dose reducti on technique. Comparison is made to prior examination from 08/12/2021. FINDINGS: There is improvement in previously seen peripheral predominant airspace disease, now mostl y manifesting as interlobular septal thickening and subpleural banding and groundglass interspersed o pacities. There is still a moderate amount of involvement present. Probably subacute to chronic COVID pneumonia. Other possible considerations for this Nonspecific Interstitial Pneumonitis (NSIP) patter n interstitial lung disease includes collagen vascular disease, medications/drugs, hypersensitivity p neumonitis, idiopathic etiologies. There are no pleural or pericardial effusions. Tracheobronchial tree is patent. There is no media stinal, hilar or axillary lymphadenopathy. There is no pneumothorax. There is cardiomegaly. Ther e is likely RCA stent or stents. Correlate with prior cardiac history. Upper abdomen is unremarkable . There is thoracic spondylosis without osteoblastic or osteolytic lesions identified. IMPRESSION: Improving airspace disease, appearance consistent with subacute to chronic COVID pneumoni a. Reviewed, dictated and finalized at location B. CTURAL RIGGER IMPRESSION: Improving airspace disease, appearance consistent with subacute to chronic COVID pneumonia.
== END 2021-08-30 08:07 | disposition home or self-care (01) ==
LOC: ANHIMG 08:14
PROVIDERS: Visit Provider Internal Medicine Critical Care Medicine
DX: U07.1 COVID-19 (principal); J12.82 Pneumonia due to coronavirus disease 2019; R91.8 Other nonspecific abnormal finding of lung field
CPT/HCPCS: 71250

== ENCOUNTER 2021-09-14 12:58 | Outpatient (CLI) | payer OTHER, SELFPAY ==
[2021-09-14 15:10] LABS: Anion Gap 6 mmol/L (8-16); Blood Urea Nitrogen 26 mg/dL (9-20); Calcium 9.4 mg/dL (8.4-10.2); Carbon Dioxide 28 mmol/L (22-30); Chloride 100 mmol/L (98-107); Estimated Glomerular Filt Rate > 60; Glucose 102 mg/dL (65-110); Magnesium 1.9 mg/dL (1.6-2.3); Sodium 134 mmol/L (137-145)
== END 2021-09-14 12:59 | disposition home or self-care (01) ==
LOC: ANHLAB 13:01
PROVIDERS: PCP Family Medicine; Visit Provider Nurse Practitioner
DX: I47.2 Ventricular tachycardia (principal)
CPT/HCPCS: 36415; 80048; 83735

== ENCOUNTER 2021-09-22 13:40 | Outpatient (CLI) | payer OTHER, SELFPAY ==
--- NOTE | ~2021-09-22 | XR_ITS ---
EXAMINATION: XR chest 2V DATE: 09/22/2021 14:59 INDICATION: COVID-19 pneumonia. TECHNIQUE: Frontal and lateral views of the chest were obtained. COMPARISON: Chest 2 views 08/17/2021 FINDINGS: There are airspace opacities in right mid and lower lung zones and left lower lung zones wi th a peripheral predominance with architectural distortion. No pleural effusion or pneumothorax. The heart size is normal. There are old healed right rib fractures. IMPRESSION: 1. 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 Reviewed, dictated and finalized at location A. F NURSING OFFICER IMPRESSION: 1. Diffuse lung disease similar to the prior exam, consistent with post COVID-1 9 lung disease.
[2021-09-22 14:02] VITALS: PULSE 74; O2SAT 96
[2021-09-22 14:03] VITALS: PULSE 104; O2SAT 94
[2021-09-22 14:06] VITALS: PULSE 109; O2SAT 93
--- NOTE | 2021-09-23 17:01 | P.PCNPFT_ITS ---
PFT Procedure Performed PFT Procedure Performed Spirometry with Pre/Post Bronchodilator Plethysmography (Lung Vol) Diffusing Cap (DLCO) Flow Vol Loop PFT Interpretation Lung volumes were measured with the body plethysmography method. The mildly diminished lung volumes are indicative of restrictive respiratory disease. Sp irometry showed normal expiratory flow rates and a normal FEV1 to FVC ratio of 83%. Following administration of a bronchodilator, there was no significant increase in expiratory flow rates. Lung diffusion capacity is moderately reduced at 52% predicted. Flow volume loop is consistent with restrictive respiratory disease. Impression: Mild restrictive respiratory disease. Moderately reduced lung diffusion capacity.
== END 2021-09-22 13:41 | disposition home or self-care (01) ==
LOC: ANHPFT 13:43
PROVIDERS: PCP Family Medicine; Visit Provider Internal Medicine Pulmonary Disease
DX: J12.82 Pneumonia due to coronavirus disease 2019 (principal); U07.1 COVID-19; J96.01 Acute respiratory failure with hypoxia; R94.2 Abnormal results of pulmonary function studies
CPT/HCPCS: 71046; 94060; 94618; 94726; 94729

== ENCOUNTER 2021-10-03 09:45 | Outpatient (RCR) | payer OTHER, SELFPAY ==
--- NOTE | 2021-09-19 10:38 | PCCPR ---
Absent due to illness Khang's called states he is not feeling well and on antibiotics. He has a sore throat and cold symptoms.
== END 2021-10-03 19:11 | disposition home or self-care (01) ==
LOC: ANHCPREHAB 09:45
PROVIDERS: Visit Provider Nurse Practitioner
DX: I25.2 Old myocardial infarction (principal)
CPT/HCPCS: 93798

== ENCOUNTER 2021-11-29 11:10 | Outpatient (CLI) | payer OTHER, SELFPAY ==
--- NOTE | ~2021-11-29 | XR_ITS ---
XR chest 2V DATE: 11/29/2021 11:29 INDICATION: Long Covid. Cough for 33 days. Os stabilization in 2020. TECHNIQUE: PA and lateral views COMPARISON: 09/22/2021 2 view chest FINDINGS: Bilateral interstitial infiltrates are noted primarily in the mid and lower lung zones, wit h mild interval improvement since 09/22/2021. Borderline heart size. No pleural effusion or pulmonary vascular congestion or pneumothorax. Diffuse osteopenia. IMPRESSION: Mild improvement of diffuse bilateral pulmonary interstitial infiltrates since 09/22/2021 Reviewed, dictated and finalized at location B. RVISOR ANODIZING IMPRESSION: Mild improvement of diffuse bilateral pulmonary interstitial infilt rates since 09/22/2021
== END 2021-11-29 11:11 | disposition home or self-care (01) ==
PROVIDERS: PCP Family Medicine; Visit Provider Internal Medicine Pulmonary Disease
DX: U07.1 COVID-19 (principal); J12.82 Pneumonia due to coronavirus disease 2019
CPT/HCPCS: 71046

== ENCOUNTER 2022-08-12 14:40 | Emergency (ER) | payer OTHER, SELFPAY ==
[2022-08-12 14:51] VITALS: BP 153/95; PULSE 77; RESP 16; TEMP 36.8; O2SAT 99
--- NOTE | 2022-08-12 14:54 | ED.URI ---
HPI - URI/Sore Throat General Chief Complaint: Upper Respiratory Infection Stated Complaint: congestion, cough Time Seen by Provider: 08/12/22 14:54 Source: patient and RN notes reviewed Mode of arrival: ambulatory Limitations: no limitations History of Present Illness HPI Narrative: 67 y/o male presented for c/o cough and sinus congestion for at least 5 days. Endorses cough is productive of green sputum. States he has a chronic cough 2/2 long covid, but it is has been nonproductive until lately. Pt was hospitalized 07/2021 for 30+ days due to covid, bilateral pneumonia and STEMI. No longer following with medical professionals. Denies any other symptoms at this time. Endorses had recent similar symptoms. MD elicited complaint: cough Related Data Home Medications Medication Instructions Recorded Confirmed metoprolol tartrate 25 mg tablet 25 mg PO BID 11/29/21 11/29/21 Allergies Allergy/AdvReac Type Severity Reaction Status Date / Time No Known Allergies Allergy Verified 11/29/21 10:39 Review of Systems Review of Systems: CONSTITUTIONAL: Denies malaise, chills, sweats, fever EYES: Denies visual changes, redness, or discharge ENT: per HPI CARDIOVASCULAR: Denies chest pain, palpitations, edema RESPIRATORY: Denies dyspnea, wheezing GASTROINTESTINAL: Denies abdominal pain, nausea, vomiting, diarrhea SKIN: Denies rash or itching MUSCULOSKELETAL: denies myalgia PMFSH Past Medical History Medical History No significant past medical history STEMI (ST elevation myocardial infarction) (~07/2021) Surgical History Surgical History No significant past surgical history Family History Family History Father Diabetes mellitus Social History Social History Social History: Surrogate decision maker: Rae Vicente, spouse. Code status: Full code. 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 TMs pearly carpio with dull light reflex bilaterally; no tragal tenderness. Oropharynx erythematous without lesions or exudate, no drooling, no hoarseness, no trismus, uvula midline. CHEST: Clear to auscultation, breath sounds equal. No wheezing, rhonchi, rales, or stridor. No respiratory distress, speaks in full sentences. HEART: Regular rate and rhythm. No murmur heard. SKIN: Warm, dry, no rash. NEURO: Alert and oriented x3. PSYCH: Normal mood and affect Course Course Emergency Course: Patient is aware of diagnosis, understands and agrees to treatment plan. Anticipatory guidance given. Patient agrees to follow-up as directed and is aware of reasons to seek care at the emergency department. Portions of this record may have been created with voice recognition software Level of Care: Express Care Visit Vital Signs Vital signs: Vital Signs Temperature 98.2 F 08/12/22 14:51 Pulse Rate 77 08/12/22 14:51 Respiratory Rate 16 08/12/22 14:51 Blood Pressure 153/95 H 08/12/22 14:51 Pulse Oximetry 99 08/12/22 14:51 Temperature 98.2 F 08/12/22 14:51 Pulse Rate 77 08/12/22 14:51 Respiratory Rate 16 08/12/22 14:51 Blood Pressure 153/95 H 08/12/22 14:51 Pulse Oximetry 99 08/12/22 14:51 reviewed MDM - URI/Sore Throat MDM Narrative Medical decision making narrative: Advised supportive measures and signs/symptoms to go to the ER. Given his significant pulmonary history r/t covid infection, will send rx abx and steroid. Pt is appropriate for ou
== END 2022-08-12 15:21 | disposition home or self-care (01) ==
PROVIDERS: Emergency Provider Nurse Practitioner Family
DX: J06.9 Acute upper respiratory infection, unspecified (principal)
CPT/HCPCS: 99213; G0463